=== PATIENT | male | born 1945 | race Caucasian/White ===

== ENCOUNTER 2024-03-22 16:15 | Outpatient (RCR) | payer MEDICARE, OTHER, SELFPAY | END 2024-03-22 23:59 | disposition home or self-care (01) | LOC: PURB 16:15 | PROVIDERS: ATTENDING PHYSICIAN Internal Medicine Pulmonary Disease; FAMILY PHYSICIAN Family Medicine | DX: I27.20 Pulmonary hypertension, unspecified (principal) | CPT/HCPCS: G0237 ==

== ENCOUNTER 2024-05-15 12:14 | Emergency (ER) | payer MEDICARE, OTHER, SELFPAY ==
[2024-05-15 12:19] VITALS: BP 115/77
--- NOTE | 2024-05-15 15:21 | ED.GENMED ---
History of Present Illness
<Julianna Franks COMMERCIAL RELATIONSHIP MANAGER - Last Filed: 05/15/24 17:59>
General
Chief Complaint: Male Genito-Urinary Symptoms
Source: patient and spouse
Exam Limitations: none
Time Seen by Provider: 05/15/24 14:11
Nursing documentation reviewed up to this point in time: agreed with
History of Present Illness
History of Present Illness:
79 yo male w h/o Lupus, pulmonary fibrosis w CPAP, HTN, presents with left groin pain. States he developed shingles in the groin, buttock thigh areas 10 weeks ago and has had pain and numbness in these areas since. states groin pain seems a
little worse past 2 weeks and they note swelling of the left leg. Denies any new SOB, denies CP.
Past History
<Julianna Franks, COMMERCIAL RELATIONSHIP MANAGER - Last Filed: 05/15/24 17:59>
Past History
ED Past Medical History: Other (Pulmonary fibrosis anemia, Lupus, Home O2, )
ED Past Surgical History: Orthopedic and Urological (Prostatectomy)
Social History
Tobacco: Non-smoker
Alcohol: None
Drug: None
Personal:
Living: with family
Employment: Retired
Family History
Family History: Other (Noncontributory)
Phy Exam
<Julianna Franks, COMMERCIAL RELATIONSHIP MANAGER - Last Filed: 05/15/24 17:59>
Physical Exam
Physical Exam:
GENERAL: No acute distress. A&Ox3.
CONSTITUTIONAL: Afebrile.
EYES: clear, conjunctivae normal
ENMT: moist mucus membranes, Pharynx nl
RESPIRATORY: Regular respirations, nonlabored, lungs clear.
CARDIOVASCULAR: Regular rate and rhythm, no murmurs, no rubs.
GI: Soft, nontender, normal BS
: condom catheter with clear yellow urine in bag
MUSCULOSKELETAL: No palpable masses, no tenderness to palpation entire groin area, hip, pelvis. Full ROM of LLE without pain. Left leg appears a bit more swollen in thigh and knee areas than right leg. Pedal pulses 2/4. Feet warm. Well perfused.
SKIN: Warm, dry, pink
PSYCH: Normal mood and affect. Well kept, interactive and appropriate
NEUROLOGIC: Awake, alert and oriented. No focal neurological deficits
Course
<Julianna Franks COMMERCIAL RELATIONSHIP MANAGER - Last Filed: 05/15/24 17:59>
Orders/Labs/Results
Orders:
Orders
05/15/24 15:25
US Periph Venous LOWER Ext LT Urgent
Comment:
Reason For Exam: swelling leg, groin pain
05/15/24 16:11
Acetaminophen [Tylenol] 1,000 mg PO NOW STA
Vital Signs
Initial and Last Documented VS:
Initial Vital Signs
Temp Pulse Resp BP Pulse Ox
98.3 F 88 20 115/77 97
05/15/24 12:19 05/15/24 12:19 05/15/24 12:19 05/15/24 12:19 05/15/24 12:19
Last Documented Vital Signs
Temp Pulse Resp BP Pulse Ox
98.3 F 88 20 115/77 97
05/15/24 12:19 05/15/24 12:19 05/15/24 12:19 05/15/24 12:19 05/15/24 12:19
<Paul Ruiz DO - Last Filed: 05/15/24 15:39>
Orders/Labs/Results
Orders:
Orders
05/15/24 15:25
US Periph Venous LOWER Ext LT Urgent
Comment:
Reason For Exam: swelling leg, groin pain
05/15/24 16:11
Acetaminophen [Tylenol] 1,000 mg PO NOW STA
Vital Signs
Initial and Last Documented VS:
Initial Vital Signs
Temp Pulse Resp BP Pulse Ox
98.3 F 88 20 115/77 97
05/15/24 12:19 05/15/24 12:19 05/15/24 12:19 05/15/24 12:19 05/15/24 12:19
Last Documented Vital Signs
Temp Pulse Resp BP Pulse Ox
98.3 F 88 20 115/77 97
05/15/24 12:19 05/15/24 12:19 05/15/24 12:19 05/15/24 12:19 05/15/24 12:19
<Julianna Franks COMMERCIAL RELATIONSHIP MANAGER - Last Filed: 05/15/24 17:59>
MDM/Problems Addressed
Differential Diagnosis Includes:
post herpetic neuralgia, inguinal hernia, DVT
MDM/Problems Addressed:
79 yo male w h/o Lupus, pulmonary fibrosis w CPAP, HTN, presents with left groin pain. States he developed shingles in the groin, buttock thigh areas 10 weeks ago and has had pain and numbness in these areas since. states groin pain seems a
little worse past 2 weeks and they note swelling of the left leg. Denies any new SOB, denies CP.
Case discussed with Dr. Ruiz who examined patient and agrees with ultrasound
5:40 p.m.
US neg for DVT
May be post herpetic neuralgia as I cannot elicit pain with ROM or palpitation, musculoskeletal exam is normal.
Pt OOB and dressed, ambulates as usual.
Chronic conditions affecting care: Other (Lupus, chronic pain, recent shingles)
<Julianna Franks COMMERCIAL RELATIONSHIP MANAGER - Last Filed: 05/15/24 17:59>
*Critical Care Note
Total Time (30-74mins, 75-104mins- exclusive of procedures): Not Applicable
ED Attending Note
<Julianna Franks COMMERCIAL RELATIONSHIP MANAGER - Last Filed: 05/15/24 17:59>
-
Portions of this chart may have been created with voice recognition software.� Occasional wrong word or��sound alike� substitutions may have occurred due to the inherent limitations of voice recognition software.
<Paul Beaver Sara, DO - Last Filed: 05/15/24 15:39>
ED Attending Note
Patient seen and examined by attending physician: Yes
I performed the substantive portion of visit, reviewed & personally made and approve the management plan that is documented in note by myself or SYLWIA.: Yes
I performed a history and physical exam of patient and discussed management with resident, I reviewed resident's note and agree with documented findings and plan of care.: Yes
ED Attending Note:
I evaluated the patient at bedside. The patient is chronically ill in appearance. The patient reports decree sensation however he clearly can feel pain on my examination to pinching the lateral aspect of the left thigh. He has no motor
dysfunction. Given the reported left lower extremity swelling will obtain ultrasound imaging.
Discharge Plan
Departure
Patient Disposition: Home (Routine Discharge)
Date of Disposition: 05/15/24
Time of Disposition: 17:45
Patient with high blood pressure during this ER visit?: No
Condition: Good
Discharge Problem:
Left inguinal pain
Prescriptions:
No Action
allopurinol 300 MG tablet
300 mg PO DAILY
doxazosin 2 MG tablet
2 mg PO DAILY
calcium citrate-vitamin D3 [Citracal + D Maximum] 1 EACH tablet
1 tab PO BID
levothyroxine 125 MCG tablet
125 mcg PO DAILY
hydroxychloroquine 200 MG tablet
200 mg PO BID
alendronate 70 MG tablet
70 mg PO GONZALES
amlodipine 10 MG tablet
10 mg PO DAILY
multivitamin with folic acid [Tab-A-Attila] 1 TABLET tablet
1 tab PO DAILY
Benlysta:
1 dose IV MONTHLY
prednisone 10 mg Tablet
10 mg PO Q48H
Rx Instructions:
alternated with 5 mg
bumetanide [Bumex] 2 mg Tablet
2 mg PO Q48H
Rx Instructions:
alternates with 1 mg
Vitamin C 1,000 mg Tablet Extended Release
1,000 mg PO Q12H
prednisone 5 mg Tablet
5 mg PO Q48H
Rx Instructions:
alternates with 10mg
mycophenolate mofetil 500 mg Tablet
1,000 mg PO Q12H
losartan 25 mg Tablet
25 mg PO DAILY
bumetanide [Bumex] 1 mg Tablet
1 mg PO Q48H
Rx Instructions:
alternateds with 2 mg
magnesium 200 mg Tablet
400 mg PO DAILY
cholecalciferol (vitamin D3) [Vitamin D3] 50 mcg (2,000 unit) Tablet
50 mcg PO DAILY
fluticasone furoate-vilanterol [Breo Ellipta] 100-25 mcg/dose Blister With Device
1 inh INHALATION NOON
Ofev 150 mg Capsule
150 mg PO Q12H
Xhance 93 mcg/actuation Aerosol Breath Activated
2 spray INTRANASAL DAILY
Dupixent Pen
1 sc IM Q2W
Referrals:
Rosalba Alcantara MD [Family Provider] - Call in 1-3 days for appt
Activity Restrictions/Additional Instructions:
As we discussed, your Ultrasound shows no clot.
The pain you are having may be due to 'post herpetic neuralgia,' please discuss with your doctor.
Your musculo-skeletal exam is normal and I see no indication of inguinal hernia, groin strain or broken bone.
Interventions
Interventions:
*Risk Screen - Suicide Last Done: 05/15/24 12:19
*General Assessment Last Done: 05/15/24 12:19
*Neglect/Abuse Screening Last Done: 05/15/24 12:19
ED- Fall Risk Assessment Last Done: 05/15/24 14:32
*ED COVID-19 Vaccine History Last Done: 05/15/24 14:32
ED-Male Genitourinary Assessment Last Done: 05/15/24 14:34
Discharge Date and Time
Print Language: MOROCCAN
[2024-05-15] MEDS: TYLENOL 1000 MG PO (16:14)
== END 2024-05-15 18:14 | disposition home or self-care (01) ==
LOC: EMR 12:14
PROVIDERS: EMERGENCY PHYSICIAN Emergency Medicine; FAMILY PHYSICIAN Family Medicine
DX: R10.32 Left lower quadrant pain (principal); M79.652 Pain in left thigh; R20.0 Anesthesia of skin; M79.89 Other specified soft tissue disorders; M32.9 Systemic lupus erythematosus, unspecified; J84.10 Pulmonary fibrosis, unspecified; I10 Essential (primary) hypertension; B02.9 Zoster without complications; D64.9 Anemia, unspecified; G47.30 Sleep apnea, unspecified; M06.9 Rheumatoid arthritis, unspecified; E03.9 Hypothyroidism, unspecified; G89.29 Other chronic pain; Z85.46 Personal history of malignant neoplasm of prostate; Z99.81 Dependence on supplemental oxygen; Z90.79 Acquired absence of other genital organ(s); Z88.1 Allergy status to other antibiotic agents; Z91.018 Allergy to other foods; Z91.048 Other nonmedicinal substance allergy status
CPT/HCPCS: 99284; 93971

== ENCOUNTER 2024-06-23 16:15 | Outpatient (RCR) | payer MEDICARE, OTHER, SELFPAY | END 2024-06-27 10:07 | disposition home or self-care (01) | LOC: PURB 16:15 | PROVIDERS: ATTENDING PHYSICIAN Internal Medicine Pulmonary Disease; FAMILY PHYSICIAN Family Medicine | DX: J84.9 Interstitial pulmonary disease, unspecified (principal); I27.20 Pulmonary hypertension, unspecified | CPT/HCPCS: G0239 ==

== ENCOUNTER 2024-07-28 16:15 | Outpatient (RCR) | payer MEDICARE, OTHER, SELFPAY | END 2024-07-28 17:00 | disposition home or self-care (01) | LOC: PURB 16:15 | PROVIDERS: ATTENDING PHYSICIAN Internal Medicine Pulmonary Disease; FAMILY PHYSICIAN Family Medicine | DX: J84.10 Pulmonary fibrosis, unspecified (principal) | CPT/HCPCS: G0239 ==

== ENCOUNTER 2024-08-16 16:15 | Outpatient (RCR) | payer MEDICARE, OTHER, SELFPAY | END 2024-08-16 23:59 | disposition home or self-care (01) | LOC: PURB 16:15 | PROVIDERS: ATTENDING PHYSICIAN Internal Medicine Pulmonary Disease; FAMILY PHYSICIAN Family Medicine | DX: I27.20 Pulmonary hypertension, unspecified (principal) | CPT/HCPCS: G0239 ==

== ENCOUNTER 2024-09-08 16:15 | Outpatient (RCR) | payer MEDICARE, OTHER, SELFPAY | END 2024-09-08 23:59 | disposition home or self-care (01) | LOC: PURB 16:15 | PROVIDERS: ATTENDING PHYSICIAN Internal Medicine Pulmonary Disease; FAMILY PHYSICIAN Family Medicine | DX: J84.10 Pulmonary fibrosis, unspecified (principal) | CPT/HCPCS: G0239 ==

== ENCOUNTER 2024-09-29 16:15 | Outpatient (RCR) | payer MEDICARE, OTHER, SELFPAY | END 2024-10-19 13:51 | disposition home or self-care (01) | LOC: PURB 16:15 | PROVIDERS: ATTENDING PHYSICIAN Internal Medicine Pulmonary Disease; FAMILY PHYSICIAN Family Medicine | DX: J84.10 Pulmonary fibrosis, unspecified (principal); I27.20 Pulmonary hypertension, unspecified | CPT/HCPCS: G0239 ==

== ENCOUNTER 2024-10-04 23:40 | Inpatient (IN) | payer MEDICARE, OTHER, SELFPAY ==
[2024-10-04 17:49] VITALS: BP 90/53
--- NOTE | 2024-10-04 17:56 | ED.GENMED ---
ED Provider Triage
<Pam Regalado PA-C - Last Filed: 10/04/24 17:58>
-
Patient seen by provider in Triage?: Seen in Triage
Attestation: A medical screening examination has been initiated by a qualified medical provider. Based on the assessment performed at this time, it has been determined that an emergent medical condition may exist and the patient has been informed
that further medical evaluation and possible additional diagnostic testing may be needed.
HPI: 79yoM here with decreased urination. Only urinated once today. Also c/o abd distention x several weeks and a weight gain of 15 pounds. C/o SOB. Typically on 3L NC at home which he increased to 5L NC. Follows with nephrology at [facility].
GENERAL: Alert , in no apparent distress
EYE: No visual abnormalities.
NECK: Trachea midline
ENT: No visible abnormalities.
LUNGS: No acute respiratory distress
NEUROLOGICAL: Alert and oriented
SKIN: Skin intact. No visible changes.
MUSCULOSKELETAL: Moving extremities normally
PSYCH: Normal and appropriate interaction.
This is a medical evaluation conducted in person to initiate diagnostic evaluation and provide initial therapeutics. Please see further documentation by the treating clinician.
Cardiac labs, bladder scan, EKG, UA, and CXR ordered.
History of Present Illness
<Pam Regalado PA-C - Last Filed: 10/04/24 17:58>
General
Chief Complaint: Male Genito-Urinary Symptoms
Time Seen by Provider: 10/04/24 18:55
<Raul Caal MD - Last Filed: 10/04/24 22:47>
General
Source: patient and spouse
Exam Limitations: none
History of Present Illness
History of Present Illness:
Patient with 2 weeks of weight gain, 15 pounds, abdominal distention which is causing secondary increase shortness of breath especially when lying flat. Decreased urination. Has not had hardly any urine output in the last 48 hours. No true
abdominal pain no fever. Symptoms are moderate in nature
Past History
<Pam Regalado PA-C - Last Filed: 10/04/24 17:58>
Past History
ED Past Medical History: Other (Pulmonary fibrosis anemia, Lupus, Home O2, )
ED Past Surgical History: Orthopedic and Urological (Prostatectomy)
Social History
Tobacco: Non-smoker
Alcohol: None
Drug: None
Personal:
Living: with family
Employment: Retired
Family History
Family History: Other (Noncontributory)
Review of Systems
<Raul Caal MD - Last Filed: 10/04/24 22:47>
Review of Systems
All Other Systems: Not applicable
Constitutional: Denies fever
Respiratory: Reports trouble breathing
Cardiac: Denies chest pain or syncope
ABD/GI: Reports other (Distention)
Phy Exam
<Raul Caal MD - Last Filed: 10/04/24 22:47>
Physical Exam
Physical Exam:
GENERAL: Alert and oriented. Chronically ill-appearing. Chronic oxygen therapy. However no severe respiratory distress at rest. Able to speak well
EYE: Orbits normal.
NECK: Supple, no significant adenopathy.
ENT: Pharynx without erythema
CARDIAC: Regular rate and rhythm without any obvious murmurs.
LUNGS: No distress. Crackles and rales both bases. Slightly distant breath sounds.
ABDOMEN: Soft, without focal tenderness or distention. Mildly distended but nonlocalizing. No rebound or guarding no mass or hernia
NEUROLOGICAL: Alert and oriented , grossly non-focal
SKIN: Warm and dry, no rash or lesion, no discoloration, skin intact.
MUSCULOSKELETAL: Moderate bilateral lower extremity pitting edema
PSYCH: Normal and appropriate interaction.
Course
<Pam Regalado PA-C - Last Filed: 10/04/24 17:58>
Orders/Labs/Results
Orders:
Orders
10/04/24 17:54
Electrocardiogram (*1) Urgent
Reason for Study: Shortness of Breath
EKG- Treatment ONCE
10/04/24 17:55
Urinalysis Reflex To Culture Urgent
CR Chest - 2 Views Urgent
Comment:
Reason For Exam: SOB
10/04/24 17:56
Bladder Scan- Treatment ONCE
10/04/24 18:11
Complete Blood Count/With Diff Urgent
Comprehensive Metabolic Panel Urgent
NT-proBNP Urgent
Troponin I Urgent
10/04/24 19:11
IV Insert/Care/Rem.- Treatment PRN
10/04/24 19:23
US Renal With Bladder Urgent
Reason For Exam: Eval forurinary retention/distended bladder/ascitES
10/04/24 20:40
Bumetanide [Bumex] 2 mg IV NOW STA
10/04/24 20:44
Bumetanide [Bumex] 1 mg IV NOW STA
10/04/24 22:00
Flush (0.9% Sodium Chloride) [Flush (Nss)] See Dose Instructions IV PER PROTOCOL
10/04/24 22:38
Hydrocortisone Sod Succinate [Solu-Cortef] 200 mg IV NOW STA
10/04/24 22:45
Bumetanide [Bumex] 1 mg IV NOW STA
Abnormal Lab Results
10/04/24
18:11
RBC 3.11 L 10^6/uL
(4.70-6.10)
Hgb 8.7 L g/dL
(13.0-18.0)
Hct 29.6 L %
(39.0-52.0)
MCV 95.2 H fL
(80.0-94.0)
MCHC 29.4 L g/dL
(33.0-37.0)
RDW 18.5 H %
(11.5-14.5)
Plt Count 123 L 10^3/uL
(130-400)
MPV 11.6 H fL
(7.4-10.4)
Abs Immat Gran (auto) 0.1 H 10^3/uL
(0-0.05)
Absolute Lymphs (auto) 0.3 L 10^3/uL
(1.2-3.4)
Immature Gran % 0.8 H %
(0-0.5)
Neutrophils % 87.2 H %
(42.2-75.2)
Lymphocytes % 4.8 L %
(20.5-51.1)
Sodium 132 L mmol/L
(135-145)
Potassium 5.5 H mmol/L
(3.5-5.1)
Carbon Dioxide 20 L mmol/L
(22-30)
BUN 96 H mg/dl
(9-20)
Creatinine 4.7 H* mg/dL
(0.7-1.3)
Glucose 181 H mg/dl
(70-99)
Calcium 7.9 L mg/dl
(8.4-10.2)
AST 16 L U/L
(17-59)
Troponin I 0.070 H* ng/ml
Total Protein 5.0 L g/dl
(6.3-8.2)
Albumin 3.2 L g/dl
(3.5-5.0)
10/04/24 18:11
10/04/24 18:11
Vital Signs
Initial and Last Documented VS:
Initial Vital Signs
Temp Pulse Resp BP Pulse Ox
98.2 F 126 18 90/53 97
10/04/24 17:49 10/04/24 17:49 10/04/24 17:49 10/04/24 17:49 10/04/24 17:49
Last Documented Vital Signs
Temp Pulse Resp BP Pulse Ox
98.4 F 128 21 97/74 94
10/04/24 22:25 10/04/24 22:15 10/04/24 22:15 10/04/24 22:00 10/04/24 22:15
<Raul Caal MD - Last Filed: 10/04/24 22:47>
Orders/Labs/Results
Orders:
Orders
10/04/24 17:54
Electrocardiogram (*1) Urgent
Reason for Study: Shortness of Breath
EKG- Treatment ONCE
10/04/24 17:55
Urinalysis Reflex To Culture Urgent
CR Chest - 2 Views Urgent
Comment:
Reason For Exam: SOB
10/04/24 17:56
Bladder Scan- Treatment ONCE
10/04/24 18:11
Complete Blood Count/With Diff Urgent
Comprehensive Metabolic Panel Urgent
NT-proBNP Urgent
Troponin I Urgent
10/04/24 19:11
IV Insert/Care/Rem.- Treatment PRN
10/04/24 19:23
US Renal With Bladder Urgent
Reason For Exam: Eval forurinary retention/distended bladder/ascitES
10/04/24 20:40
Bumetanide [Bumex] 2 mg IV NOW STA
10/04/24 20:44
Bumetanide [Bumex] 1 mg IV NOW STA
10/04/24 22:00
Flush (0.9% Sodium Chloride) [Flush (Nss)] See Dose Instructions IV PER PROTOCOL
10/04/24 22:38
Hydrocortisone Sod Succinate [Solu-Cortef] 200 mg IV NOW STA
10/04/24 22:45
Bumetanide [Bumex] 1 mg IV NOW STA
Abnormal Lab Results
10/04/24
18:11
RBC 3.11 L 10^6/uL
(4.70-6.10)
Hgb 8.7 L g/dL
(13.0-18.0)
Hct 29.6 L %
(39.0-52.0)
MCV 95.2 H fL
(80.0-94.0)
MCHC 29.4 L g/dL
(33.0-37.0)
RDW 18.5 H %
(11.5-14.5)
Plt Count 123 L 10^3/uL
(130-400)
MPV 11.6 H fL
(7.4-10.4)
Abs Immat Gran (auto) 0.1 H 10^3/uL
(0-0.05)
Absolute Lymphs (auto) 0.3 L 10^3/uL
(1.2-3.4)
Immature Gran % 0.8 H %
(0-0.5)
Neutrophils % 87.2 H %
(42.2-75.2)
Lymphocytes % 4.8 L %
(20.5-51.1)
Sodium 132 L mmol/L
(135-145)
Potassium 5.5 H mmol/L
(3.5-5.1)
Carbon Dioxide 20 L mmol/L
(22-30)
BUN 96 H mg/dl
(9-20)
Creatinine 4.7 H* mg/dL
(0.7-1.3)
Glucose 181 H mg/dl
(70-99)
Calcium 7.9 L mg/dl
(8.4-10.2)
AST 16 L U/L
(17-59)
Troponin I 0.070 H* ng/ml
Total Protein 5.0 L g/dl
(6.3-8.2)
Albumin 3.2 L g/dl
(3.5-5.0)
10/04/24 18:11
10/04/24 18:11
Vital Signs
Initial and Last Documented VS:
Initial Vital Signs
Temp Pulse Resp BP Pulse Ox
98.2 F 126 18 90/53 97
10/04/24 17:49 10/04/24 17:49 10/04/24 17:49 10/04/24 17:49 10/04/24 17:49
Last Documented Vital Signs
Temp Pulse Resp BP Pulse Ox
98.4 F 128 21 97/74 94
10/04/24 22:25 10/04/24 22:15 10/04/24 22:15 10/04/24 22:00 10/04/24 22:15
<Raul Caal MD - Last Filed: 10/04/24 22:47>
MDM/Problems Addressed
Differential Diagnosis Includes:
Progressive renal failure. Will check bladder scan. If postrenal will need a Martinez. Likely also in a component of heart failure. Chest x-ray pending. Will need medical admission. Anemia is likely dilutional
<Raul Caal MD - Last Filed: 10/04/24 22:47>
*Radiology
Radiology exam reviewed: radiology read reviewed (Pulmonary edema. Small volume ascites. No urinary retention. Mass in the right kidneys medical renal disease.)
*Pulse Oximetry
Patient hypoxic: yes
*EKG
Interpreted by ED Provider?: Yes
Interpretation: abnormal
Comparison EKG: changes noted
Heart Rate: 128
Rate: tachycardiac
Rhythm: sinus
Mcgrath: left axis deviation
QRS Pattern: right bundle branch block
Ischemia: non-specific ST changes
*Critical Care Note
Total Time (30-74mins, 75-104mins- exclusive of procedures): 45
Data Reviewed
Review of Other/Old Records Reveals: Labs, Records, Radiology Studies and Testing
<Raul Caal MD - Last Filed: 10/04/24 22:47>
Update Note
Update Note:
2039... Patient with very little urine output today. His Bumex had gone to 2 mg and 1 last week. Contacted nephrology awaiting callback. Will give him 2 mg of Bumex now. It makes more sense to have this patient at [facility] where all his physicians
are. Patient and are comfortable with this approach.
[facility] did not accept the patient. They have no beds felt he could be medically managed here. Lengthy discussion with nephrology and with cardiology and hospitalist. I do suspect he is in atrial flutter. However we cannot rate control him now.
Because of blood pressure. No pressors at this time. Push Bumex further.
ED Attending Note
<Pam Regalado PA-C - Last Filed: 10/04/24 17:58>
-
Portions of this chart may have been created with voice recognition software.� Occasional wrong word or��sound alike� substitutions may have occurred due to the inherent limitations of voice recognition software.
Discharge Plan
Departure
Patient Disposition: Admit
Date of Disposition: 10/04/24
Time of Disposition: 20:33
Presentation/result/management discussed w/ accepting MD/DO: Hospitalist
Discharge Problem:
Acute renal failure, CHF, Chronic lung disease, Chronic renal insufficiency
Prescriptions:
No Action
allopurinol 300 MG tablet
300 mg PO DAILY
doxazosin 2 MG tablet
2 mg PO DAILY
calcium citrate-vitamin D3 [Citracal + D Maximum] 1 EACH tablet
2 tab PO BID
levothyroxine 125 MCG tablet
125 mcg PO DAILY
hydroxychloroquine 200 MG tablet
200 mg PO BID
Benlysta:
1 dose IV MONTHLY
prednisone 10 mg Tablet
5 mg PO DAILY
Vitamin C 1,000 mg Tablet Extended Release
1,000 mg PO DAILY
bumetanide [Bumex] 1 mg Tablet
1 mg PO DAILY
cholecalciferol (vitamin D3) [Vitamin D3] 50 mcg (2,000 unit) Tablet
50 mcg PO DAILY
fluticasone furoate-vilanterol [Breo Ellipta] 100-25 mcg/dose Blister With Device
1 inh INHALATION R DAILY@1200
Ofev 150 mg Capsule
150 mg PO DAILY
Dupixent Pen
1 sc IM QMONTH
Aranesp
1 dose Q2W
losartan 50 mg Tablet
50 mg PO BID
amlodipine 5 mg Tablet
5 mg PO DAILY
omeprazole 40 mg Capsule,Delayed Release(Dr/Ec)
40 mg PO DAILY
aspirin 81 mg Tablet,Chewable
81 mg PO HS
azelastine 137 mcg (0.1 %) [place],Non-Aerosol
1 spray INTRANASAL BID
calcitriol 0.25 mcg Capsule
0.25 mcg PO MOWEFR
PreserVision AREDS 4,296 mcg-226 mg-90 mg Capsule
1 cap PO DAILY
Tyvaso 1.74 mg/2.9 mL (0.6 mg/mL) Solution For Nebulization
20 inh INHALATION R QID
Prolia 60 mg/mL Syringe
60 mg SC [id number]
Referrals:
Rosalba Alcantara MD [Family Provider] -
Interventions
Interventions:
*Risk Screen - Suicide Last Done: 10/04/24 17:49
*General Assessment Last Done: 10/04/24 17:49
*Neglect/Abuse Screening Last Done: 10/04/24 17:49
*ED COVID-19 Vaccine History Last Done: 10/04/24 17:49
ED-Male Genitourinary Assessment Last Done: 10/04/24 19:54
Discharge Date and Time
Print Language: TURKISH
[2024-10-04 18:22] LABS: % Basophils 0.2 % (0-2); % Eosinophils 0.5 % (0-6); % Immature Granulocytes 0.8 % (0-0.5); % Lymphocytes 4.8 % (20.5-51.1); % Monocytes 6.5 % (1.7-9.3); % Neutrophils 87.2 % (42.2-75.2); Absolute Immature Granulocytes 0.1 10^3/uL (0-0.05); Absolute Lymphocytes 0.3 10^3/uL (1.2-3.4); Absolute Monocytes 0.4 10^3/uL (0.1-0.6); Absolute Neutrophils 5.5 10^3/uL (1.4-6.5); Hematocrit 29.6 % (39.0-52.0); Hemoglobin 8.7 g/dL (13.0-18.0); Mean Corp Hgb Conc. 29.4 g/dL (33.0-37.0); Mean Corpuscular Volume 95.2 fL (80.0-94.0); Mean Platelet Volume 11.6 fL (7.4-10.4); Nucleated Red Blood Cells % 0 % (-); Platelet Count 123 10^3/uL (130-400); Red Blood Cell Count 3.11 10^6/uL (4.70-6.10); Red Cell Dist. Width 18.5 % (11.5-14.5); White Blood Cell Count 6.3 10^3/uL (4.8-10.8)
[2024-10-04 18:37] LABS: ALT (SGPT) 19 U/L (0-50); AST (SGOT) 16 U/L (17-59); Albumin 3.2 g/dl (3.5-5.0); Alkaline Phosphatase 51 U/L (38-126); Blood Urea Nitrogen 96 mg/dl (9-20); Calcium 7.9 mg/dl (8.4-10.2); Carbon Dioxide 20 mmol/L (22-30); Chloride 101 mmol/L (98-107); Glucose 181 mg/dl (70-99); Potassium 5.5 mmol/L (3.5-5.1); Sodium 132 mmol/L (135-145); Total Bilirubin 0.4 mg/dl (0.2-1.3); eGFR 12.03
[2024-10-04 18:45] LABS: NT-proBNP 15600 pg/ml
[2024-10-04 19:20] VITALS: BMI 31.7
[2024-10-04 20:22] VITALS: BP 103/76
[2024-10-04 20:42] VITALS: BP 106/79
[2024-10-04] MEDS: BUMEX 1 MG IV ×2 (20:54→23:21)
[2024-10-04 21:00] VITALS: BP 106/80
[2024-10-04 22:00] VITALS: BP 97/74
--- NOTE | 2024-10-04 22:19 | HPS.HSE ---
Family Physician
-
Family Physician: Rosalba Alcantara
Chief Complaint
-
no urine output and abdominal distension
History of Present Illness
Patient is a 79-year-old male with past medical history significant for hypertension, CKD III, pulmonary fibrosis, lupus, rheumatoid arthritis, prostate cancer and gout who presented to [facility] ED for evaluation of abdominal distension and no
urine production. Patient states that in past 3 weeks he has gain approximately 30 pounds. He has noted increased SOB with increased abdominal distension. Patient denies any fever, chills, cough, chest pain, nausea, vomiting, constipation, diarrhea
or urinary symptoms.
Medical History
Past Medical History
Past Medical History: Reports Other
Additional Past Medical History:
hypertension
CKD III
pulmonary fibrosis
lupus
rheumatoid arthritis
prostate cancer
gout
Past Surgical History: Reports Other
Additional Past Surgical History:
prostatectomy (2005)
umbilical hernia repair (2019)
left inguinal hernia repair (2021)
Social History
Tobacco: Non-smoker
Alcohol: None
Drug: None
Personal:
Living: With Family
Employment: Retired
Family History
Family History: Other (Mother: at 51 cerebral hemorrhage; Father: at 68 colon cancer; Brother: at 54 from HF)
Allergies / Home Medications
Allergies reflects when Allergies were last updated in [facility].
Home Medications with original date entered in [facility]
Allergy/Medication List:
Allergies
Allergy/AdvReac Type Severity Reaction Status Date / Time
amoxicillin Allergy upset Verified 10/04/24 17:55
stomach
house dust Allergy Sneezing, Verified 10/04/24 17:55
Nasal
Congestion
pollen extracts Allergy Sneezing, Verified 10/04/24 17:55
Runny Nose
Food Allergy Allergy GI Distress Uncoded 10/04/24 17:55
Home Medications
allopurinol 300 mg tablet 300 mg PO DAILY Gout 05/17/19
calcium 315 mg (as citrate)-vitamin D3 6.25 mcg (250 unit) tablet (Citracal + Vitamin D Maximum) 2 tab PO BID Supplement 05/17/19
doxazosin 2 mg tablet 2 mg PO DAILY Blood pressure 05/17/19
levothyroxine 125 mcg tablet 125 mcg PO DAILY Thyroid 05/17/19
hydroxychloroquine 200 mg tablet 200 mg PO BID Antirheumatic, Disease Modifying 08/15/20
Benlysta: 1 dose IV MONTHLY LUPUS 06/19/21
Dupixent Pen 1 sc IM QMONTH 06/17/22
ascorbic acid (vitamin C) 1,000 mg tablet,extended release (Vitamin C ER) 1,000 mg PO DAILY 06/17/22
bumetanide 1 mg tablet 1 mg PO DAILY 06/17/22
cholecalciferol (vitamin D3) 50 mcg (2,000 unit) tablet (Vitamin D3) 50 mcg PO DAILY 06/17/22
fluticasone furoate 100 mcg-vilanterol 25 mcg/dose inhalation powder (Breo Ellipta) 1 inh inhalation R DAILY@1200 06/17/22
nintedanib 150 mg capsule (Ofev) 150 mg PO DAILY 06/17/22
prednisone 10 mg tablet 5 mg PO DAILY 06/17/22
Aranesp 1 dose Q2W 10/04/24
amlodipine 5 mg tablet 5 mg PO DAILY 10/04/24
aspirin 81 mg chewable tablet 81 mg PO HS 10/04/24
azelastine 137 mcg (0.1 %) nasal spray 1 spray intranasal BID 10/04/24
calcitriol 0.25 mcg capsule 0.25 mcg PO MOWEFR 10/04/24
denosumab 60 mg/mL subcutaneous syringe (Prolia) 60 mg SC [id number] 10/04/24
losartan 50 mg tablet 50 mg PO BID 10/04/24
omeprazole 40 mg capsule,delayed release 40 mg PO DAILY 10/04/24
treprostinil 1.74 mg/2.9 mL (0.6 mg/mL) solution for nebulization (Tyvaso) 20 inh inhalation R QID 10/04/24
vitamins A,C,T-jkzl-yxyndd 4,296 mcg-226 mg-90 mg capsule (PreserVision AREDS) 1 cap PO DAILY 10/04/24
Review of Systems
-
History Source: Patient
Constitutional: Reports Weight Gain (30 pounds in 3 weeks)
EENT: Reports No Symptoms
Respiratory: Reports Other (shortness of breath)
Cardiac: Reports No Symptoms
Abdomen/GI: Reports Other (abdominal distension)
: Reports Other (anuria )
Musculoskeletal: Reports Edema (bilateral lower extremities )
Skin: Reports No Symptoms
Neurological: Reports No Symptoms
Endocrine: Reports No Symptoms
Hematologic/Lymphatic: Reports No Symptoms
Psych: Reports No Symptoms
Physical Exam
Vital Signs
Vital Signs
Temp Pulse Resp BP Pulse Ox
98.3 F 128 20 106/80 96
10/04/24 19:29 10/04/24 21:45 10/04/24 21:45 10/04/24 21:00 10/04/24 21:45
Physical Exam
General: Well Developed, Well Nourished, No Apparent Distress, Comfortable and Conversant
HEENT: NormoCephalic, Moist mucous membranes, Atraumatic, Cornlea Conjunctivae, Nose Appears Normal and Ears Appear Normal
Respiratory: Clear
Cardiac: S1/S2 and Regular Rhythm; No Murmur, Rub or Gallop
Breast: Deferred by me
GI: Soft, Non Tender, Non Distended and Normal Bowel Sounds; No Organomegaly
Rectal: Deferred by Provider
Genito-urinary: Deferred by me
Musculoskeletal: No Clubbing, No Cyanosis and No Edema
Skin: Warm and IV/Catheter Site; No Rash
Neuro: Awake, Alert, AO x 3 and Nonfocal/grossly intact
Psych: Calm and Intact Judgment/Insight
Laboratory Results
-
10/04/24 18:11
10/04/24 18:11
Laboratory Results
Total Bilirubin 0.4 mg/dl (0.2-1.3) 10/04/24 18:11
AST 16 U/L (17-59) L 10/04/24 18:11
ALT 19 U/L (0-50) 10/04/24 18:11
Alkaline Phosphatase 51 U/L (38-126) 10/04/24 18:11
Troponin I 0.070 ng/ml H* 10/04/24 18:11
Data Reviewed
-
Diagnostic Radiology: Report Reviewed by me (CXR: Mild pulmonary edema with small bilateral pleural effusions)
Ultrasound: Report Reviewed by me (Renal US)
Medical Tests (Nuc Med, Echo, EKG etc): Report Reviewed by me (EKG: SINUS TACHYCARDIA RIGHT BUNDLE BRANCH BLOCK LEFT ANTERIOR FASCICULAR BLOCK BIFASCICULAR BLOCK )
Lab Data: Labs Reviewed by me
Impression/Plan
-
IMPRESSION/PLAN:
#Cardiorenal syndrome
anuric, no urinary retention
hyperkalemia
suspect new onset rigth HF vs diastolic vs. BIV CHF
volume overloaded
- admit to ICU
- Consult Pulmonary
- Consult cardiology
- Consult nephrology
- daily weights
- daily BMP
- IV hydrocortisone 100mg q8
#CKD III
BUN 96, Creat 4.7
- continue aranesp
#hypertension
- hold amlodipine, doxazosin, and losartan
#pulmonary fibrosis
- continue treprostinil
#lupus
#rheumatoid arthritis
- hold benlysta
- hold prednisone
#hypothyroidism
- continue levothyroxine
#GERD
- continue omeprazole
#prostate cancer
prostatectomy 2005
#gout
- hold allopurinol
Code Status: DNR
DVT Prophylaxis: Heparin Sq
[2024-10-04 23:00] VITALS: BP 102/76
--- NOTE | 2024-10-04 23:06 | W.PN.UPDATE ---
Update Note
Progress Note Update
This note serves as an addendum to the H&P by wire cutter SYLWIA Netta Leiva
HPI
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
- Progresive SoB with minimal cough for last 2 weeks
- Orthopnea
- mild chest pressure with exertion
- decreased urination; hardly had any urine output in the last 48 hours.
- 2 weeks of weight gain, 15 pounds, abdominal distention
- No true abdominal pain no fever.
ROS: He denies any fevers or chills.
PHX: as above
Vital Signs
Temp Pulse Resp BP Pulse Ox
98.4 F 128 21 97/74 94
10/04/24 22:25 10/04/24 22:15 10/04/24 22:15 10/04/24 22:00 10/04/24 22:15
PE
Gen: Not toxic loking
HEENT: anicteric
Neck: supple
Lungs: symmetric AE
Cor: RRR S1 s2
Abdomen: distended abdomen
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
MS: b/l Hyun 3 plus pitting edema
Psych: normal mood and affect
Laboratory Tests
06/09/22 10/04/24
09:00 18:11
WBC 7.7 6.3
Hgb 10.5 L 8.7 L
Sodium 140
Potassium 3.8 5.5 H
Chloride 105 101
BUN 40 H 96 H
Creatinine 2.2 H 4.7 H*
eGFR 12.03
Troponin I 0.070 H*
ProBNP 48572
US Renal with Bladder
1). There is no urinary retention
2). There is small volume ascites
3).There is a subcentimeter rim calcified hypoechoic mass in the upper pole the right kidney. This mass is probably benign and most likely is a complex cyst as there are multiple additional cysts throughout both kidneys measuring up to 4.4 cm. If
clinically indicated, this rim calcified mass could be further evaluated with MRI
4).The kidneys are normal in size but diffusely coarse in echotexture consistent with medical renal disease
5). There is cholelithiasis with thickening of the gallbladder wall suggesting possible cholecystitis
EKG
SINUS TACHYCARDIA
RIGHT BUNDLE BRANCH BLOCK
LEFT ANTERIOR FASCICULAR BLOCK
BIFASCICULAR BLOCK
T WAVE ABNORMALITY, CONSIDER LATERAL ISCHEMIA
ABNORMAL ECG
WHEN COMPARED WITH ECG OF 19-JUN-2021 12:00,
QRS DURATION HAS INCREASED
T WAVE INVERSION NO LONGER EVIDENT IN INFERIOR LEADS
T WAVE INVERSION LESS EVIDENT IN ANTERIOR LEADS
T WAVE INVERSION NOW EVIDENT IN LATERAL LEADS
06/20/21 TTE
LVEF 60-65
Nl diastolic function
Mild TR
Last hospitalist admission: DATE OF ADMISSION: 06/21/2021 - DATE OF DISCHARGE: 06/21/2021
PRIMARY DIAGNOSIS: Shortness of breath due to progression of pulmonary fibrosis
SECONDARY DIAGNOSES:
1. Sleep apnea.
2. Hypothyroidism. Continue Synthroid.
3. History of rheumatoid arthritis. Continue leflunomide.
4. SLE, continue Plaquenil and Neulasta monthly.
5. History of prostate cancer. Continue doxazosin.
6. Essential hypertension. Continue with Norvasc.
7. History of gout. Continue allopurinol.
8. Chronic kidney disease stage 3. Creatinine stable at 1.6.
ASSESSMENT & PLAN
Progressive Garcia and orthopnea
Anuric ROBIN due to Cardiorenal syndrome, Rt HF , new onset atrial arrhythmias : No urinary retention; Not obstructed, Unli
Hyperkalemia due to to ROBIN , HX CKD3b/4 HX
suspect RHF due to advance or end stage severe PHT ( PASP 60 in 2020)
Suspect new onset acute HF likely Rt Hear failure vs Diastolic vs BiV CHF in setting of new atrial arrthmias
Elevated TPNI : NSTEMI vs NIMI
Clinically volume overload ( Wt gain and Leg edenma)
Acute on chr hypotension
Rim calcified hypoechoic mass in the upper pole the right kidney suspect complex cyst
- Hold Losartan
- ECHO in AM
- Renal consulted and suggest s/p Bumex 1 mg plus 1 mg
- CBC Cardiology consult - ER d/w Card - avoid Pressor due to PHT and risk of tachycardia and drop in firther cardiac outout
- daily Wt, daily BMP
Hypotension concern with adrenal insufficiency due to stress
HX steroid dependent rheumatoid arthritis
- IV Hydrocortisone 200 mg now then 100mg q8h then wean off to base lien PO prednisone dose
Sleep Apnea
-continue home CPAP HS
Hypothyroidism
-Continue levothyroxine
Rheumatoid arthritis
Lupus
- hold Plaquenil
HX prostate cancer
Gout
- hold allopurinol
Anemia
-Stable
Poor prognosis
DVT Px: SQH
DNR per patient in th presence of
ICU
Total Critical Care Time___75 __ minutes.
I was immediately available to the patient and staff. I personally examined, reviewed labs, diagnostic images/reports, interpretations, treatment plans, discussed patient care with other providers and family or caregivers (if patient is unable to
make decisions), entered orders as appropriate and documented the medical record.
[2024-10-04] MEDS: SOLU-CORTEF 200 MG IV (23:21)
[2024-10-04] MEDS: FLUSH (NSS) 1 FLUSH IV (23:22)
[2024-10-05] VITALS (41 sets, daily range): BP systolic 87–134; BP diastolic 66–90; BMI 30.2
[2024-10-05] MEDS: HEPARIN 5000 UNITS SC ×2 (02:10→08:49)
--- NOTE | 2024-10-05 02:15 | PTCARENOTE ---
Pt arrived from ED via stretcher. aaox3, cooperative, at the bedside. ST on monitor, HR:120s. pox 95% on 5L NC. Pt denies cp or dizziness. Denies urge to urinate at this time, Bladder scanned for 300ml. Pt repositioned in bed and wiped with CHG
wipes. oriented to room. Pt's own cpap applied. call hayes within reach.
[2024-10-05] MEDS: SYNTHROID 125 MCG PO (05:06)
[2024-10-05 05:18] LABS: % Basophils 0.2 % (0-2); % Lymphocytes 3.9 % (20.5-51.1); % Monocytes 1.4 % (1.7-9.3); % Neutrophils 93.5 % (42.2-75.2); Absolute Immature Granulocytes 0.1 10^3/uL (0-0.05); Absolute Lymphocytes 0.2 10^3/uL (1.2-3.4); Absolute Monocytes 0.1 10^3/uL (0.1-0.6); Absolute Neutrophils 4.8 10^3/uL (1.4-6.5); Hematocrit 29.1 % (39.0-52.0); Hemoglobin 8.6 g/dL (13.0-18.0); Mean Corp Hgb Conc. 29.6 g/dL (33.0-37.0); Mean Corpuscular Hgb 27.7 pg (27.0-31.0); Mean Corpuscular Volume 93.9 fL (80.0-94.0); Mean Platelet Volume 11.1 fL (7.4-10.4); Nucleated Red Blood Cells % 0.4 % (-); Platelet Count 115 10^3/uL (130-400); Red Cell Dist. Width 18.5 % (11.5-14.5); White Blood Cell Count 5.1 10^3/uL (4.8-10.8)
[2024-10-05 05:32] LABS: INR 1.33; PT 16.8 Sec (11.4-14.6)
[2024-10-05 05:58] LABS: Blood Urea Nitrogen 101 mg/dl (9-20); Calcium 7.7 mg/dl (8.4-10.2); Carbon Dioxide 21 mmol/L (22-30); Chloride 102 mmol/L (98-107); Estimated Creatinine Clearance 14 ml/min; Glucose 144 mg/dl (70-99); Potassium 6.2 mmol/L (3.5-5.1); Sodium 134 mmol/L (135-145); eGFR 11.17
[2024-10-05] MEDS: NOVOLIN R 9 UNITS IV (06:22)
[2024-10-05] MEDS: DEXTROSE 50% SYRINGE 25 GRAMS IV (06:26)
[2024-10-05] MEDS: CALCIUM GLUCONATE 130 MG IV (06:26)
--- NOTE | 2024-10-05 07:16 | CON.INTV ---
Consultation
Consultation Request
Date/Time Consultation Requested: 10/05/24
Date/Time Consultation Performed: 10/05/24
Performing Provider: Shoaib
Reason for Consultation: ICU
Medical History
-
History of Present Illness:
Patient is a 79-year-old male with previous history of hypertension, chronic kidney disease, pulmonary fibrosis, lupus/rheumatoid arthritis, prostate cancer presenting to ER for abdominal distention, oliguria, weight gain for the past 3 weeks.
There is also development of increased shortness of breath. Initial chest imaging demonstrating pulmonary edema with small bilateral pleural effusions, was admitted for potential cardiorenal syndrome related to heart failure. He was noted to be
hypotensive as well with systolic in the 90s (lowest 87/74), admitted to ICU for potential pressor use.
Past Medical History
Past Medical History: Other (see list below)
Social History
Tobacco: Non-smoker
Alcohol: None
Drug: None
Family History
Family History: Reviewed & Not Pertinent
Allergies / Home Medications
Allergies
Allergy/AdvReac Type Severity Reaction Status Date / Time
amoxicillin Allergy upset Verified 10/04/24 17:55
stomach
house dust Allergy Sneezing, Verified 10/04/24 17:55
Nasal
Congestion
pollen extracts Allergy Sneezing, Verified 10/04/24 17:55
Runny Nose
Food Allergy Allergy GI Distress Uncoded 10/04/24 17:55
Home Medications
�Medication �Instructions �Recorded �Confirmed �Last Taken �Type
allopurinol 300 mg tablet 300 mg PO DAILY Gout 05/17/19 10/04/24 06/19/22 04:15 History
calcium 315 mg (as 2 tab PO BID Supplement 05/17/19 10/04/24 06/18/22 09:00 History
citrate)-vitamin D3 6.25 mcg (250
unit) tablet (Citracal + Vitamin D
Maximum)
doxazosin 2 mg tablet 2 mg PO DAILY Blood pressure 0810/04/24 06/19/22 04:15 History
levothyroxine 125 mcg tablet 125 mcg PO DAILY Thyroid 05/17/19 10/04/24 06/19/22 04:15 History
hydroxychloroquine 200 mg tablet 200 mg PO BID Antirheumatic, 08/15/20 10/04/24 06/19/22 04:15 History
Disease Modifying
Benlysta: 1 dose IV MONTHLY LUPUS 06/19/21 10/04/24 05/22/22 History
Dupixent Pen 1 sc IM QMONTH 06/17/22 10/04/24 06/11/22 History
ascorbic acid (vitamin C) 1,000 mg 1,000 mg PO DAILY 06/17/22 10/04/24 06/18/22 09:00 History
tablet,extended release (Vitamin C
ER)
bumetanide 1 mg tablet 1 mg PO DAILY 06/17/22 10/04/24 06/18/22 09:00 History
cholecalciferol (vitamin D3) 50 50 mcg PO DAILY 06/17/22 10/04/24 06/18/22 09:00 History
mcg (2,000 unit) tablet (Vitamin
D3)
fluticasone furoate 100 1 inh inhalation R DAILY@1200 06/17/22 10/04/24 06/18/22 09:00 History
mcg-vilanterol 25 mcg/dose
inhalation powder (Breo Ellipta)
nintedanib 150 mg capsule (Ofev) 150 mg PO DAILY 06/17/22 10/04/24 06/19/22 04:15 History
prednisone 10 mg tablet 5 mg PO DAILY 06/17/22 10/04/24 06/19/22 04:15 History
Aranesp 1 dose Q2W 10/04/24 10/04/24 Unknown History
amlodipine 5 mg tablet 5 mg PO DAILY 10/04/24 10/04/24 Unknown History
aspirin 81 mg chewable tablet 81 mg PO HS 10/04/24 10/04/24 Unknown History
azelastine 137 mcg (0.1 %) nasal 1 spray intranasal BID 10/04/24 10/04/24 Unknown History
spray
calcitriol 0.25 mcg capsule 0.25 mcg PO MOWEFR 10/04/24 10/04/24 Unknown History
denosumab 60 mg/mL subcutaneous 60 mg SC [id number] 10/04/24 10/04/24 Unknown History
syringe (Prolia)
losartan 50 mg tablet 50 mg PO BID 10/04/24 10/04/24 Unknown History
omeprazole 40 mg capsule,delayed 40 mg PO DAILY 10/04/24 10/04/24 Unknown History
release
treprostinil 1.74 mg/2.9 mL (0.6 20 inh inhalation R QID 10/04/24 10/04/24 Unknown History
mg/mL) solution for nebulization
(Tyvaso)
vitamins A,C,V-wfqd-fqfbsw 4,296 1 cap PO DAILY 10/04/24 10/04/24 Unknown History
mcg-226 mg-90 mg capsule
(PreserVision AREDS)
Review of Systems
-
History Source: Patient
All other systems: Negative unless noted
Vitals / Labs / Diagnostic Testing
Vital Signs
Temp Pulse Resp BP Pulse Ox
98.5 F 122 20 106/84 97
10/05/24 02:40 10/05/24 03:00 10/05/24 03:00 10/05/24 03:00 10/05/24 03:00
Lab Data
10/05/24 04:59
10/05/24 04:59
Laboratory Results
10/05/24
04:59
PT 16.8 H
INR 1.33
Diagnostic Testing:
Physical Exam
-
HEENT: Normocephalic, Anicteric and Moist Mucous Membranes
Cardiovascular: S1/S2 and Regular Rhythm
Respiratory: Rales and Non-Labored Respirations
GI: Soft, Non Distended and Non Tender
Neurology: Awake, Alert, Oriented and No Motor Deficits
Skin: Warm, Dry and Good Color
General: Comfortable and Other (NAD)
Assessment
-
Patient is a 79-year-old male with previous history of hypertension, chronic kidney disease, pulmonary fibrosis, lupus/rheumatoid arthritis, prostate cancer presenting to ER for abdominal distention, oliguria, weight gain for the past 3 weeks.
There is also development of increased shortness of breath. Initial chest imaging demonstrating pulmonary edema with small bilateral pleural effusions, was admitted for potential cardiorenal syndrome related to heart failure. He was noted to be
hypotensive as well with systolic in the 90s (lowest 87/74), admitted to ICU for potential pressor use.
Acute decompensated heart failure exacerbation with pulmonary edema; proBNP 15,600
Hypotension, not on pressors
ROBIN on CKD
Hyperkalemia
Hyponatremia
Metabolic acidosis
Hyperglycemia
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
KAI on CPAP
HTN
CKD stage 3
Hypothyroidism
Gout
Prostate ca, s/p prostatectomy 2005
R inguinal and umbilical hernia repair Jul 2020, no pulmonary complications
Bilateral knee endoscopic surgery
Lifelong nonsmoker
lupus
rheumatoid arthritis
PLAN:
No current signs of metabolic encephalopathy or MS changes/following commands
Denies pain at this time.
Pain/sedation: PRN
RASS goals: 0
Hemodynamically stable, not requiring pressors.
Did not require pressors since admission, stable BP currently
Cardiac history reviewed--HTN
Currently appears in HF, cards eval obtained
Prior ECHO reviewed indicating preserved EF
Diuresis per team
Resume home meds when BP stable, tolerates
Monitor on telemetry
Oxygen needs: currently on low supplemental O2 needs
Prior history of lung disease: PF related to RA/SLE, follows at [facility]
Resume PF meds, transition to home prednisone dose
I do not think this is the driving issue for symptoms
Feels at baseline SOB
Supplemental O2 as indicated to maintain sats > 89%
CXR/CT reviewed indicating edema, volume overload
Diet advancement per team
Aspiration precautions, HOB > 30 degrees
Speech therapy eval can be considered if at elevated risk
GI prophylaxis if indicated for mechanical ventilation >48 hours, prior history of GERD, stress ulcer formation in the critically ill
ROBIN present--renal eval noted
+history of renal disease likely stage 3-4, lupus nephritis
May require HD on this admission
Void trials
Follow urine output, critical I/Os
Replete electrolytes as needed
No signs/symptoms suspicious for infectious etiology at this time
Observe off antibiotics for now
Follow fever trend, WBC count
CBC stable, no signs of bleeding or coagulopathy.
DVT prophylaxis as assessed based on risk, including mechanical SCDs
Can transfuse if indicated for Hb <7, plt < 10
No prior h/o diabetes or thyroid disease
Monitor accuchecks PRN/SS coverage if needed
Can transfer to floors today, reviewed with care team. We will sign off upon transfer.
Diagnostic Data
CXR 10/04/24- Mild pulmonary edema with small bilateral pleural effusions
Chest X-Ray: 05-18-19: increased interstitial markings at bases
CTA chest 06-19-21, c/w CT s/c 11-29-20 and 06-01-19. No PE. pulmonary fibrotic changes bilaterally including basilar honeycombing which remained unchanged. No mediastinal LAD. New onset small bilateral dependent pleural effusion.
Echo: 06/20/21- Left ventricle is mildly dilated. Normal left ventricular systolic function. Left ventricular ejection fraction is 60-65% by Singh's method. Mild concentric left ventricular hypertrophy. Diastolic function normal. Trileaflet aortic
valve. Aortic valve opens normally. Moderate aortic regurgitation. Structurally normal tricuspid valve. Tricuspid valve opens normally. Mild tricuspid regurgitation. Estimated pulmonary artery pressure of 60 mmHg, assuming a right atrial pressure of
8 mmHg. Mild ascending aorta dilatation (3.9cm). The aortic arch is normal in caliber. Since echocardiogram February 2020, there is no significant change.
03-06-20. normal biventricular size/fx, stage I DD, mild to mod eccentric MR, mod AR, estimated PAP 45, mild TR
PFT's: 11-27-20, mild restriction on spirometry, no significant FV1 response with BD, moderate restriction on LVS, severely reduced diffusing capacity
Reports and relevant images were personally reviewed.
-----
Critical Care time 61 mins -- The patient is admitted for acute critical illness for the treatment of vital organ failure and/or prevention of further life-threatening conditions. Total care includes time spent in review of history, physical exam,
medications, hemodynamic/ventilator parameters, laboratory data, imaging and discussion with house staff, pharmacy, respiratory therapy, information and data architect analyst, and nursing.
--- NOTE | 2024-10-05 07:45 | PTCARENOTE ---
Assumed care of patient. Pt rec'd sleeping...easily arousable. A&Ox3. BURR's. Able to take po meds whole and feed self. Ordered for cholesterol lowering diet. S1 S2 reg and distant...ST/1st degree AVB/BBC on monitor. Weak PP. +2 pitting LLE.
Rec'd on 5L N/C...sats 96%. Lungs diminished w/ coarse rhonchi bibasilarly. Harsh moist NPC. Abdomen obese...+BS. No void this am...will monitor. Skin pale w/ bilateral forearm brown colored skin. 20P RAC capped. VSS. Call hayes within reach.
Will continue to monitor.
[2024-10-05] MEDS: VITAMIN C 1000 MG PO (08:41)
[2024-10-05] MEDS: PROTONIX 40 MG PO (08:41)
[2024-10-05] MEDS: OCUVITE SOFTGEL 1 CAP PO (08:41)
[2024-10-05] MEDS: OSCAL 500 + D 500 MG PO ×2 (08:42→20:17)
[2024-10-05] MEDS: PLAQUENIL 200 MG PO ×2 (08:42→20:17)
[2024-10-05] MEDS: VITAMIN D3 (cholecalciferol) 50 MCG PO (08:42)
[2024-10-05] MEDS: ROCALTROL 0.25 MCG PO (08:44)
[2024-10-05] MEDS: BUMEX 2 MG IV ×2 (08:44→14:07)
[2024-10-05] MEDS: SOLU-CORTEF 100 MG IV (08:44)
--- NOTE | 2024-10-05 09:11 | CHAP ---
Msgr. Daniel Garcia of [facility] in [place] gave the Sacrament of the Sick, Holy Communion, and an Apostolic Pardon to Mason. Time uncertain.
[2024-10-05] MEDS: NON-FORMULARY ITEM 1 PUFF INH (10:39)
--- NOTE | 2024-10-05 10:50 | PTCARENOTE ---
Echo done at bedside.
--- NOTE | 2024-10-05 10:52 | W.CON.NEPH ---
Consultation
-
Date/Time Consultation Requested: 10/05/24 0143
Date/Time Consultation Performed: 10/05/24 1045
Requesting Provider: Dr Fredis Meneses
Performing Provider: Kaylie Segovia
Reason for Consultation: ROBIN with CKD
Medical History
-
Chief Complaint: no UOP and abd distension
History of Present Illness:
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
pulmonary fibrosis chronic prednisone therapy, Ofev and inhalers, lupus, rheumatoid arthritis, prostate cancer status post prostatectomy on doxazosin mainly for the blood pressure, osteoporosis on Priolia and gout who presented to [place] ED for
evaluation of abdominal distension and no urine production on 10/04. Patient states that in past 3 weeks he has gain approximately 30 pounds despite on Bumex. He has noted increased SOB with increased abdominal distension. For last 2 days he hasn't
had urine output. Only urinated 200 cc early this morning. Creatinine Noted at 4.7, this morning at 5, BUN of 101, potassium 6.2, bicarbonate of 21, sodium 134. His last creatinine was 2.2 in 2021, no other labs are available to review. Patient
denies any fever, chills, cough, chest pain, nausea, vomiting, constipation, diarrhea. chest x-ray noted with a mild pulmonary edema, noted tachycardic sinus in 120Soft systolic blood pressures.
Past Medical History
hypertension
CKD III or 4, lupus nephritis with a prior biopsy
pulmonary fibrosis chronic respiratory failure on home oxygen
lupus
rheumatoid arthritis
prostate cancer status post prostate surgery
gout
GERD
Secondary hyperparathyroidism
Hypothyroidism
Past Surgical History: Other (prostatectomy (2005) umbilical hernia repair (2019) left inguinal hernia repair (2021))
Social History
Tobacco: Non-Smoker
Alcohol: None
Drug: None
Personal:
Employment: Retired
Family History
Mother: at 51 cerebral hemorrhage; Father: at 68 colon cancer; Brother: at 54 from HF
Family History: Not Pertinent
Allergies / Home Medications
Allergy/AdvReac Type Severity Reaction Status Date / Time
amoxicillin Allergy upset Verified 10/04/24 17:55
stomach
house dust Allergy Sneezing, Verified 10/04/24 17:55
Nasal
Congestion
pollen extracts Allergy Sneezing, Verified 10/04/24 17:55
Runny Nose
Food Allergy Allergy GI Distress Uncoded 10/04/24 17:55
�Medication �Instructions �Recorded �Confirmed �Type
allopurinol 300 mg tablet 300 mg PO DAILY Gout 05/17/19 10/04/24 History
calcium 315 mg (as 2 tab PO BID Supplement 05/17/19 10/04/24 History
citrate)-vitamin D3 6.25 mcg (250
unit) tablet (Citracal + Vitamin D
Maximum)
doxazosin 2 mg tablet 2 mg PO DAILY Blood pressure 05/17/19 10/04/24 History
levothyroxine 125 mcg tablet 125 mcg PO DAILY Thyroid 05/17/19 10/04/24 History
hydroxychloroquine 200 mg tablet 200 mg PO BID Antirheumatic, 08/15/20 10/04/24 History
Disease Modifying
Benlysta: 1 dose IV MONTHLY LUPUS 06/19/21 10/04/24 History
Dupixent Pen 1 sc IM QMONTH 06/17/22 10/04/24 History
ascorbic acid (vitamin C) 1,000 mg 1,000 mg PO DAILY 06/17/22 10/04/24 History
tablet,extended release (Vitamin C
ER)
bumetanide 1 mg tablet 1 mg PO DAILY 06/17/22 10/04/24 History
cholecalciferol (vitamin D3) 50 50 mcg PO DAILY 06/17/22 10/04/24 History
mcg (2,000 unit) tablet (Vitamin
D3)
fluticasone furoate 100 1 inh inhalation R DAILY@1200 06/17/22 10/04/24 History
mcg-vilanterol 25 mcg/dose
inhalation powder (Breo Ellipta)
nintedanib 150 mg capsule (Ofev) 150 mg PO DAILY 06/17/22 10/04/24 History
prednisone 10 mg tablet 5 mg PO DAILY 06/17/22 10/04/24 History
Aranesp 1 dose Q2W 10/04/24 10/04/24 History
amlodipine 5 mg tablet 5 mg PO DAILY 10/04/24 10/04/24 History
aspirin 81 mg chewable tablet 81 mg PO HS 10/04/24 10/04/24 History
azelastine 137 mcg (0.1 %) nasal 1 spray intranasal BID 10/04/24 10/04/24 History
spray
calcitriol 0.25 mcg capsule 0.25 mcg PO MOWEFR 10/04/24 10/04/24 History
denosumab 60 mg/mL subcutaneous 60 mg SC [id number] 10/04/24 10/04/24 History
syringe (Prolia)
losartan 50 mg tablet 50 mg PO BID 10/04/24 10/04/24 History
omeprazole 40 mg capsule,delayed 40 mg PO DAILY 10/04/24 10/04/24 History
release
treprostinil 1.74 mg/2.9 mL (0.6 20 inh inhalation R QID 10/04/24 10/04/24 History
mg/mL) solution for nebulization
(Tyvaso)
vitamins A,C,X-hvpg-ygcyeo 4,296 1 cap PO DAILY 10/04/24 10/04/24 History
mcg-226 mg-90 mg capsule
(PreserVision AREDS)
Review of Systems
-
All complete 12 point review of system have been inquired and found negative other than stated in HPI
Physical Exam
Vital Signs
Vital Signs
Temp Pulse Resp BP Pulse Ox
97.6 F 122 16 107/80 97
10/05/24 07:53 10/05/24 10:39 10/05/24 10:39 10/05/24 09:00 10/05/24 10:39
Lab Results
WBC 5.1 10^3/uL (4.8-10.8) 10/05/24 04:59
RBC 3.10 10^6/uL (4.70-6.10) L 10/05/24 04:59
Hgb 8.6 g/dL (13.0-18.0) L 10/05/24 04:59
Hct 29.1 % (39.0-52.0) L 10/05/24 04:59
Plt Count 115 10^3/uL (130-400) L 10/05/24 04:59
eGFR 11.17 10/05/24 04:59
Njf-L-Lantoxzbquv Pept 09810 pg/ml 10/04/24 18:11
Albumin 3.2 g/dl (3.5-5.0) L 10/04/24 18:11
Laboratory Results - last 24 hr
10/04/24 10/05/24 10/05/24
18:11 04:59 11:38
WBC 6.3 5.1
RBC 3.11 L 3.10 L
Hgb 8.7 L 8.6 L
Hct 29.6 L 29.1 L
MCV 95.2 H 93.9
MCH 28.0 27.7
MCHC 29.4 L 29.6 L
RDW 18.5 H 18.5 H
Plt Count 123 L 115 L
MPV 11.6 H 11.1 H
Abs Immat Gran (auto) 0.1 H 0.1 H
Absolute Neuts (auto) 5.5 4.8
Absolute Lymphs (auto) 0.3 L 0.2 L
Absolute Monos (auto) 0.4 0.1
Absolute Eos (auto) 0.0 0.0
Absolute Basos (auto) 0.0 0.0
Immature Gran % 0.8 H 1.0 H
Neutrophils % 87.2 H 93.5 H
Lymphocytes % 4.8 L 3.9 L
Monocytes % 6.5 1.4 L
Eosinophils % 0.5 0.0
Basophils % 0.2 0.2
Nucleated RBC % 0 0.4
PT 16.8 H
INR 1.33
Sodium 132 L 134 L 133 L
Potassium 5.5 H 6.2 H* 5.8 H
Chloride 101 102 100
Carbon Dioxide 20 L 21 L 20 L
BUN 96 H 101 H* 96 H
Creatinine 4.7 H* 5.0 H* 4.9 H*
Estimated Creat Clear 14 14
eGFR 12.03 11.17 11.44
Glucose 181 H 144 H 213 H
Calcium 7.9 L 7.7 L 8.5
Phosphorus 5.1 H
Magnesium 2.0
Total Bilirubin 0.4
AST 16 L
ALT 19
Alkaline Phosphatase 51
Troponin I 0.070 H*
Wsu-A-Ghrmixjnbfy Pept [id number]
Total Protein 5.0 L
Albumin 3.2 L
Urine Color
Urine Clarity
Urine pH
Ur Specific Annabella
Urine Ketones
Ur Occult Blood Reflex
Urine Nitrite (Reflex)
Urine Bilirubin
Urine Urobilinogen
Leukocyte Esterase Rfl
Urine Glucose
Urine Albumin (Reflex)
10/05/24
12:10
WBC
RBC
Hgb
Hct
MCV
MCH
MCHC
RDW
Plt Count
MPV
Abs Immat Gran (auto)
Absolute Neuts (auto)
Absolute Lymphs (auto)
Absolute Monos (auto)
Absolute Eos (auto)
Absolute Basos (auto)
Immature Gran %
Neutrophils %
Lymphocytes %
Monocytes %
Eosinophils %
Basophils %
Nucleated RBC %
PT
INR
Sodium
Potassium
Chloride
Carbon Dioxide
BUN
Creatinine
Estimated Creat Clear
eGFR
Glucose
Calcium
Phosphorus
Magnesium
Total Bilirubin
AST
ALT
Alkaline Phosphatase
Troponin I
Hlc-M-Auiqvapbtug Pept
Total Protein
Albumin
Urine Color Yellow
Urine Clarity Clear
Urine pH 5.0
Ur Specific Annabella 1.015
Urine Ketones Negative
Ur Occult Blood Reflex Trace A
Urine Nitrite (Reflex) Negative
Urine Bilirubin Negative
Urine Urobilinogen Negative
Leukocyte Esterase Rfl 2+ A
Urine Glucose Negative
Urine Albumin (Reflex) 1+ A
CXR;
IMPRESSION:
Mild pulmonary edema with small bilateral pleural effusions
renal GONZALES:
IMPRESSION:
1). There is no urinary retention
2). There is small volume ascites
3).There is a subcentimeter rim calcified hypoechoic mass in the upper pole the right kidney. This mass is probably benign and most likely is a complex cyst as there are multiple additional cysts throughout both kidneys measuring up to 4.4 cm. If
clinically indicated, this rim calcified mass could be further evaluated with MRI
4).The kidneys are normal in size but diffusely coarse in echotexture consistent with medical renal disease
5). There is cholelithiasis with thickening of the gallbladder wall suggesting possible cholecystitis
Physical Exam
General: Awake, Alert, Oriented, AOx3 and No Distress
HEENT: EOMI, Anicteric, Facial Symmetry and Neck Supple
Respiratory: Crackels, Normal Excursion and Nonlabored Respirations
Cardiac: S1/S2 and Other (Tachycardic in 120)
Breast: Deferred by me
Abdomen: Nontender and Other ( distended)
Musculoskeletal: No Cyanosis and Edema (2+)
Neuro: Nonfocal/Grossly Intact
Psych: Mood/afflect pleasant, Insight/judgement good and Appropriate
Data Reviewed
-
Radiology: Report Reviewed by me and Discussed with Patient
Labs: Labs Reviewed by me, Discussed with Nurse and Discussed with Patient
Assessment/Plan
-
IMP;
Acute on chronic respiratory failure
decompensated heart failure exacerbation with pulmonary edema
ROBIN on CKD 3 vs 4?- lupus nephritis cr 2.2 in 2021-nephrology at [facility]
Hyperkalemia
Hyponatremia
Metabolic acidosis
Hyperphosphatemia
SHPTH
Anemia
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
KAI on CPAP
HTN
Hypothyroidism
Gout
Prostate ca, s/p prostatectomy 2005
lupus
rheumatoid arthritis
Plan:
A/w Anuria with severe AK I with known lupus nephritis
With the decompensated CHF
Urine analysis. Report is pending, check Fena and urine PCR
follow bladder scan, Renal ultrasound no hydronephrosis however has subcentimeter calcified hypoechoic mass in the right kidney probably felt to be benign
Request sent to get records from his sanitation director
Given his severe ROBIN and oliguria may need dialysis 24-48 hours
Continue supportive care including the diuretics
Hyperkalemia continue Lokelma
Metabolic acidosis stable
his blood pressures are soft with the tachycardia-check echo, TSH
Follow hemoglobin, check fe panel
Discussed with the patient in detail
Discussed with the nursing in ICU
--- NOTE | 2024-10-05 11:42 | CM ---
CM following re: discharge planning.
Discussed in Rounds, reviewed pt's chart, met with pt.
Pt is a 79 year old male, admitted with primary dx of Cardiorenal syndrome.
Pt reports he lives with spouse 2SH, 2 steps to enter, stair glide to the second floor. Pt reports he has 4 supportive children. Pt reports he ambulates with a walker, has home O2 - 3-5 L NC at baseline, has nebulizer machine. No VN or SNF history.
PCP: Rosalba Alcantara
Pharmacy: [facility].
D/C plan: uncertain at this time and will depend on pt's progress.
CM will follow with discharge plan updates as hospitalization progresses
[2024-10-05] MEDS: NON-FORMULARY ITEM 1 INH INH ×2 (12:04→15:45)
--- NOTE | 2024-10-05 12:19 | CON.CAR ---
Addendum entered and electronically signed by Alonzo Ramirez MD 10/05/24 14:56:
I saw and examined the patient.
The Club Lounge Attendant's note was reviewed and I agree with the note.
Comment: GEN: No distress, awake, Ox3
HEENT: supple, anicteric, mmm
LUNGS: bilat rhonchi
CV: Reg, tachy, S1/S2, 1/6 syst LSB, S4+
ABD: soft, BS+, NT/ND
EXT: No edema
NEURO: Gross non-focal
SKIN: No rash
Plan:
79-year-old male with past medical history of chronic kidney disease stage III-IV, pulmonary hypertension, interstitial lung disease with pulmonary fibrosis on home oxygen, moderate aortic regurgitation who presents to [facility] with acute
on chronic renal failure and acute congestive heart failure with preserved ejection fraction. He is followed at [facility] by nephrology and cardiology and pulmonary. He takes Ofev and Tyvaso as an outpatient. He has noticed for
the past 10 days or so and elevation his heart rate in the 120s. He felt no palpitations or chest pains but then started noticing fatigue, shortness of breath and an inability to urinate. He was found to be in acute renal failure with a creatinine
of 5. His baseline creatinine is in the 2-2.5 range.
EKG reveals tachycardia, likely atrial tachycardia versus atrial flutter at 128 bpm.
I do lengthy discussion with the patient and his family. We will check a repeat echocardiogram. He likely will need dialysis with hyperkalemia and acute heart failure.
I wonder whether his atrial tachycardia is contributing to his congestive heart failure or whether this is compensatory with his acute renal failure.
Unfortunately with his advanced lung disease on home oxygen he is not an ideal candidate for MANUEL cardioversion.
Will start with a rate control strategy and initiate Lopressor 5 mg IV every 6hrs. we will also initiate IV heparin.
With his pulmonary fibrosis is not an ideal candidate for amiodarone therapy. Another option would be to add oral diltiazem.
Hold losartan. Continue IV Bumex and follow potassium. His creatinine is slightly improved and down to 4.7.
We will follow him closely on telemetry. We will review all of his records from [facility].
Original Note:
Consultation
Consultation Request
Date/Time Consultation Performed: 10/05/24
Requesting Provider: Dr. Orellana
Performing Provider: Sheridan Almanza PA-C for Dr. Ramirez
Reason for Consultation: cardiorenal syndrome
Medical History
-
Chief Complaint: decreased urination, weight gain
History of Present Illness:
Patient is a 79 yo M with PMH of CKD, bifascicular block, pulm HTN, ILD/pulm fibrosis on chronic home O2 and prednisone, mod aortic regurgitation by echo 2020 who presented to with weight gain and poor urinary output. He is followed by
nephrology, pulmonary, and cardiology at [place] (Dr. Dedra Crandall). He reports he was seen by his physician assistant psychiatry on September 26 and was ordered a 14-day monitor for 'maintenance'. He is presently wearing it. Reports essentially since it has been
on his HR has been elevated in 120s. He is not chronically on diuretic therapy as an outpatient, however is listed as being on losartan 50 mg twice daily. Baseline creatinine unclear, however on presentation was elevated at 4.7. proBNP elevated at
15,600 and chest x-ray with mild pulmonary edema and small bilateral pleural effusions. Blood pressures overall are marginal.
PMH:
Chronic HF, unknown type
CKD
bifascicular block
pulm HTN
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
RA
mod AR by echo 2020
HTN
Hypothyroidism
GERD
Gout
History of prostate cancer s/p prostatectomy 2005
Past Medical History
Past Medical History: Other (in HPI)
Social History
Tobacco: Non-Smoker
Alcohol: None
Personal:
Living: With Family
Employment: Retired
Allergies / Home Medications
Allergy/AdvReac Type Severity Reaction Status Date / Time
amoxicillin Allergy upset Verified 10/04/24 17:55
stomach
house dust Allergy Sneezing, Verified 10/04/24 17:55
Nasal
Congestion
pollen extracts Allergy Sneezing, Verified 10/04/24 17:55
Runny Nose
Food Allergy Allergy GI Distress Uncoded 10/04/24 17:55
�Medication �Instructions �Recorded �Confirmed �Type
allopurinol 300 mg tablet 300 mg PO DAILY Gout 05/17/19 10/04/24 History
calcium 315 mg (as 2 tab PO BID Supplement 05/17/19 10/04/24 History
citrate)-vitamin D3 6.25 mcg (250
unit) tablet (Citracal + Vitamin D
Maximum)
doxazosin 2 mg tablet 2 mg PO DAILY Blood pressure 05/17/19 10/04/24 History
levothyroxine 125 mcg tablet 125 mcg PO DAILY Thyroid 05/17/19 10/04/24 History
hydroxychloroquine 200 mg tablet 200 mg PO BID Antirheumatic, 08/15/20 10/04/24 History
Disease Modifying
Benlysta: 1 dose IV MONTHLY LUPUS 06/19/21 10/04/24 History
Dupixent Pen 1 sc IM QMONTH 06/17/22 10/04/24 History
ascorbic acid (vitamin C) 1,000 mg 1,000 mg PO DAILY 06/17/22 10/04/24 History
tablet,extended release (Vitamin C
ER)
bumetanide 1 mg tablet 1 mg PO DAILY 06/17/22 10/04/24 History
cholecalciferol (vitamin D3) 50 50 mcg PO DAILY 06/17/22 10/04/24 History
mcg (2,000 unit) tablet (Vitamin
D3)
fluticasone furoate 100 1 inh inhalation R DAILY@1200 06/17/22 10/04/24 History
mcg-vilanterol 25 mcg/dose
inhalation powder (Breo Ellipta)
nintedanib 150 mg capsule (Ofev) 150 mg PO DAILY 06/17/22 10/04/24 History
prednisone 10 mg tablet 5 mg PO DAILY 06/17/22 10/04/24 History
Aranesp 1 dose Q2W 10/04/24 10/04/24 History
amlodipine 5 mg tablet 5 mg PO DAILY 10/04/24 10/04/24 History
aspirin 81 mg chewable tablet 81 mg PO HS 10/04/24 10/04/24 History
azelastine 137 mcg (0.1 %) nasal 1 spray intranasal BID 10/04/24 10/04/24 History
spray
calcitriol 0.25 mcg capsule 0.25 mcg PO MOWEFR 10/04/24 10/04/24 History
denosumab 60 mg/mL subcutaneous 60 mg SC [id number] 10/04/24 10/04/24 History
syringe (Prolia)
losartan 50 mg tablet 50 mg PO BID 10/04/24 10/04/24 History
omeprazole 40 mg capsule,delayed 40 mg PO DAILY 10/04/24 10/04/24 History
release
treprostinil 1.74 mg/2.9 mL (0.6 20 inh inhalation R QID 10/04/24 10/04/24 History
mg/mL) solution for nebulization
(Tyvaso)
vitamins A,C,Q-wgjc-hrrteb 4,296 1 cap PO DAILY 10/04/24 10/04/24 History
mcg-226 mg-90 mg capsule
(PreserVision AREDS)
Review of Systems
-
History Source: Patient and Family
All other systems: Negative unless noted
Physical Exam
Vital Signs
Temp Pulse Resp BP Pulse Ox
97.4 F 124 17 107/80 96
10/05/24 11:30 10/05/24 12:07 10/05/24 12:07 10/05/24 09:00 10/05/24 12:07
Lab Results
10/05/24 04:59
Troponin I 0.070 ng/ml H* 10/04/24 18:11
Wob-T-Xlwmovtngts Pept 13761 pg/ml 10/04/24 18:11
Physical Exam
General: No Apparent Distress, Comfortable and Other (on supp O2)
HEENT: Normocephalic, Anicteric and Moist Mucous Membranes
Respiratory: Crackles and Rhonchi
Cardiac: S1/S2 and Regular Rhythm (and tachy)
GI: Soft, Non Tender, Non Distended and Normal Bowel Sounds
Musculoskeletal: No Clubbing, No Cyanosis and Edema (2+ of B/L LE)
Skin: Warm, Dry and Other (chronic discoloration of B/L hands from chronic steroids)
Neuro: AO x 3
Impression / Plan
-
Primary Financial Recruiter: Dr. Dedra Crandall of [place]
Assessment:
Presentation with weight gain, decreased urine output
ROBIN on CKD, lupus nephritis
Hyperkalemia
Hyponatremia
Acute HF, type unknown
Tachycardia - ST vs atypical flutter/tach
Anemia
bifascicular block
pulm HTN
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
RA
mod AR by echo 2020
HTN
Hypothyroidism
GERD
Gout
History of prostate cancer s/p prostatectomy 2005
DNR code status
ECHO 2020: EF 60 to 65%, mild concentric LVH, moderate AR, mild TR, PAP 60 mmHg, mild ascending aorta dilation
Plan:
-Patient presented with weight gain and decreased urine output. He has known CKD and creatinine on arrival was 4.7 with proBNP 22644, concern for cardiorenal syndrome
-high risk situation
-continue diuresis per nephrology, on IV bumex 2mg daily. Cr 4.9 on 10/05. may require initiation of HD. did have urine output today with diuretics per nursing
-HRs consistently 120s and BPs marginal at times. will review EKG with EP - ST vs atypical aflutter/atach. will give IV lopressor 2.5mg now and repeat EKG. follow on tele. he is not on OAC as OP, denies history of known arrhythmia
-check echo, last from 2020 as above
-check TSH
-correction of hyperkalemia ongoing
-requested records from primary physician assistant psychiatry at [place] for review
-follow hgb. check iron studies with CHF/CKD
-d/w nursing. d/w patient and family at bedside
Data Reviewed
-
EKG: Tracing Personally Visualized and interpreted
Radiology: Report Reviewed by me
Medical Tests (Nuc Med, Echo etc): Report Reviewed by me
Labs: Labs Reviewed by me
Old Records: Reviewed
[2024-10-05 12:31] LABS: Urine Albumin 1+ (Neg - Trace); Urine Bilirubin Negative (Negative); Urine Character Clear (Clear); Urine Color Yellow; Urine Glucose Negative (Negative); Urine Ketone Negative (Negative); Urine Leukocyte 2+ (Negative); Urine Nitrite Negative (Negative); Urine Occult Blood Trace (Negative); Urine Specific Gravity 1.015 (<1.030); Urine Urobilinogen Negative (Neg - 1+)
[2024-10-05 12:52] LABS: Blood Urea Nitrogen 96 mg/dl (9-20); Calcium 8.5 mg/dl (8.4-10.2); Carbon Dioxide 20 mmol/L (22-30); Chloride 100 mmol/L (98-107); Estimated Creatinine Clearance 14 ml/min; Glucose 213 mg/dl (70-99); Phosphorus 5.1 mg/dl (2.5-4.5); Potassium 5.8 mmol/L (3.5-5.1); Sodium 133 mmol/L (135-145); eGFR 11.44
[2024-10-05 13:40] LABS: Urine Bacteria Many (Negative); Urine White Cell 80-90 /HPF (0-5)
[2024-10-05 13:41] LABS: Urine Hyaline Cast 0-2 /LPF (0-2); Urine Red Blood Cell 0-2 /HPF (0-2); Urine Squamous Cell 0-2 /LPF (Few)
[2024-10-05] MEDS: LOKELMA 10 GRAM PO ×2 (14:05→17:53)
--- NOTE | 2024-10-05 14:32 | W.PN.HOSP.TC ---
Today's Communication/Plan
-
see note
Assessment / Plan
Assessment / Plan
1. Acute on chronic systolic congestive heart failure
Acute hypoxic respiratory insufficiency
-Chest x-ray showing signs of cardiogenic pulmonary edema
-Echocardiogram in 21 showing EF 60 to 65%, normal diastolic function. Pulmonary artery pressure of 60 mmHg
-Patient has been started on IV Bumex, follow weight and creatinine
-Repeat echocardiogram report is pending
2. ROBIN on CKDIIIB/IV
-Last known creatinine of 2.2 with GFR 29
-Patient came in with creatinine ~ 5
-Relatively bland urine, no significant proteinuria
-Renal and bladder ultrasound showing a likely benign right renal mass with some calcification. No hydronephrosis
-Concern of potential cardiorenal syndrome, nephrology evaluating and help appreciated
3. Hyperkalemia
Metabolic acidosis
Euvolemic hyponatremia
-Patient K 5.8, low K diet.
-On Bumex and should drift down with diuresis. Lokelma dosing if not improved
-Acidosis/hyperkalemia driven by ROBIN
4. Essential hypertension
- hold amlodipine, doxazosin, and losartan
5. pulmonary fibrosis
- continue ofev if patient able to bring in supply
5. History of lupus nephritis
Rheumatoid arthritis
-maintain on oral prednisone, dose increased to 10mg/d. got solucortef injection
-continue plaquenil
hypothyroidism
GERD
prostate cancer
prostatectomy 2005
gout
Code Status: DNR
DVT Prophylaxis: Heparin Sq
Total critical care time 39 mins . Total critical care time documented does not include time spent on separately billed procedures or the services of residents, students, nurses or physician assistants. I personally saw and examined the patient. I
have reviewed all diagnostic interpretations and treatment plans as written. I was present for the stubbs portions of any procedures performed and the inclusive time noted in any critical care statement. Critical care time includes patient management
by me, time spent at the patients bedside, time to review lab and imaging results, discussing patient care, documentation in the medical record, and time spent with the family or caregiver.
Anticipated Discharge: > 48 hours
Subjective/Interval History
-
Date of Service: October 05, 2024
Resting comfortably in bed
Reporting abdominal distention, some discomfort no nausea vomiting
Afebrile
Patient in sinus tachycardia
Objective Data
-
Labs:
Laboratory Results
10/05/24 10/05/24 10/05/24
04:59 11:38 18:00
WBC 5.1
Hgb 8.6 L
Hct 29.1 L
Plt Count 115 L
PT 16.8 H
INR 1.33
Sodium 134 L 133 L Pending
Potassium 6.2 H* 5.8 H Pending
Chloride 102 100 Pending
Carbon Dioxide 21 L 20 L Pending
BUN 101 H* 96 H Pending
Creatinine 5.0 H* 4.9 H* Pending
Glucose 144 H 213 H Pending
Calcium 7.7 L 8.5 Pending
Vital Signs:
Vital Signs
Temp Pulse Resp BP Pulse Ox
97.4 F 126 17 133/81 96
10/05/24 11:30 10/05/24 14:07 10/05/24 12:07 10/05/24 14:07 10/05/24 12:07
I&O
10/04/24 10/05/24 10/06/24
06:59 06:59 06:59
Output Total 200 / 200
Balance -200 / -200
Review of Systems
-
Respiratory: Reports No Symptoms
Cardiac: Reports No Symptoms
Abdomen/GI: Reports Abdominal Pain; Denies Nausea or Vomiting
Physical Exam
-
General: No Apparent Distress and Comfortable
HEENT: Negative Oxygen
Respiratory: Clear to Auscultation
Cardiac: Regular Rhythm and S1/S2; Negative Murmur or Rub
GI: Soft, Nontender, Nondistended and Normal Bowel Sounds
Musculoskeletal: No Edema
Neuro: Awake, Alert, Oriented, No Motor Deficits and Nonfocal/Grossly Intact
Psych: Calm
[2024-10-05] MEDS: LOPRESSOR 2.5 MG IV (14:39)
[2024-10-05] MEDS: ROBITUSSIN DM 10 ML PO ×2 (14:45→20:17)
[2024-10-05 15:26] LABS: Urine Protein 44 mg/dl (0-12); Urine Sodium 37 mmol/L (30-90)
[2024-10-05 15:39] LABS: Free T4 1.12 ng/dl (0.78-2.19)
[2024-10-05 15:53] LABS: TSH 1.16 uIU/ml (0.47-4.68)
[2024-10-05] MEDS: HEPARIN 25000 UNITS/250 ML IV (16:04)
[2024-10-05 16:31] LABS: APTT 38.3 Sec (23.4-35.0)
[2024-10-05] MEDS: LOPRESSOR 5 MG IV ×2 (17:54→23:15)
--- NOTE | 2024-10-05 18:21 | W.PN.UPDATE ---
Update Note
Progress Note Update
spoke to pt Bed Setter at [place] on phone in detail
has advanced CKD and now oliguric with no sig response to diuretics
will start HD tomorrow, IR consulted to place HD catheter
PD not option now
--- NOTE | 2024-10-05 19:00 | PTCARENOTE ---
prev shift vitals captured- can verify accuracy of vital signs starting at 1900 for shift.
[2024-10-05] MEDS: NON-FORMULARY ITEM 12 INH INH (20:06)
--- NOTE | 2024-10-05 20:15 | PTCARENOTE ---
director of community services, pt aaox3, denies pain, OOB sitting in chair. ST HR 120s. RA IV WNL- heparin gtt infusing per work list. POC discussed. call hayes with pt. family at bedside.
[2024-10-05] MEDS: LOW STRENGTH ASPIRIN 81 MG PO (20:17)
[2024-10-05 23:00] LABS: APTT 41.5 Sec (23.4-35.0)
[2024-10-05 23:26] LABS: Blood Urea Nitrogen 103 mg/dl (9-20); Calcium 8.3 mg/dl (8.4-10.2); Carbon Dioxide 21 mmol/L (22-30); Chloride 98 mmol/L (98-107); Estimated Creatinine Clearance 15 ml/min; Glucose 149 mg/dl (70-99); Potassium 5.6 mmol/L (3.5-5.1); Sodium 131 mmol/L (135-145); eGFR 12.03
[2024-10-06] VITALS (39 sets, daily range): BP systolic 88–127; BP diastolic 68–88; BMI 29.8
[2024-10-06] MEDS: LOKELMA 10 GRAM PO (05:25)
[2024-10-06] MEDS: SYNTHROID 125 MCG PO (05:26)
[2024-10-06] MEDS: LOPRESSOR 5 MG IV ×3 (05:27→23:28)
[2024-10-06 06:00] LABS: % Basophils 0.2 % (0-2); % Eosinophils 0.6 % (0-6); % Immature Granulocytes 0.8 % (0-0.5); % Lymphocytes 9.2 % (20.5-51.1); % Monocytes 9.7 % (1.7-9.3); % Neutrophils 79.5 % (42.2-75.2); Absolute Immature Granulocytes 0.1 10^3/uL (0-0.05); Absolute Lymphocytes 0.6 10^3/uL (1.2-3.4); Absolute Monocytes 0.6 10^3/uL (0.1-0.6); Hematocrit 30.4 % (39.0-52.0); Mean Corp Hgb Conc. 29.6 g/dL (33.0-37.0); Mean Corpuscular Hgb 27.9 pg (27.0-31.0); Mean Corpuscular Volume 94.1 fL (80.0-94.0); Mean Platelet Volume 11.2 fL (7.4-10.4); Nucleated Red Blood Cells % 0.5 % (-); Platelet Count 134 10^3/uL (130-400); Red Blood Cell Count 3.23 10^6/uL (4.70-6.10); Red Cell Dist. Width 18.4 % (11.5-14.5); White Blood Cell Count 6.3 10^3/uL (4.8-10.8)
[2024-10-06 06:11] LABS: APTT 71.5 Sec (23.4-35.0)
[2024-10-06 06:12] LABS: Blood Urea Nitrogen 106 mg/dl (9-20); Calcium 8.5 mg/dl (8.4-10.2); Carbon Dioxide 22 mmol/L (22-30); Chloride 99 mmol/L (98-107); Estimated Creatinine Clearance 13 ml/min; Glucose 118 mg/dl (70-99); Iron < 20 ug/dl (49-181); Potassium 5.3 mmol/L (3.5-5.1); Sodium 132 mmol/L (135-145); eGFR 12.03
[2024-10-06 06:25] LABS: Percent Saturation 7.22021 % (20-50); Total Iron Binding Capacity 277 ug/dl (261-462)
[2024-10-06 06:46] LABS: Ferritin 16.1 ng/ml (17.9-464.0)
[2024-10-06] MEDS: NON-FORMULARY ITEM 1 PUFF INH (07:52)
[2024-10-06] MEDS: NON-FORMULARY ITEM 12 INH INH ×3 (07:53→20:01)
--- NOTE | 2024-10-06 08:29 | W.PN.CARDCBS ---
Today's Communication / Plan
-
Continue IV heparin
Amiodarone if okay with pulmonary at [facility], await their call back, at least for short-term
Volume status/hemodialysis etc. per nephrology
If clinically stable ultimately would be best served with transesophageal echo and cardioversion
Total time 55 minutes
Impression / Plan
-
Primary Procurement Forester: Dr. Dedra Crandall of [facility]
Assessment:
79-year-old complex man with ROBIN on CKD and history of lupus nephritis, now admitted with
Presentation with weight gain, decreased urine output
ROBIN on CKD, lupus nephritis
Hyperkalemia
Hyponatremia
Acute HF, type unknown
Tachycardia - ST vs atypical flutter/tach
Anemia
bifascicular block
pulm HTN
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
RA
mod AR by echo 2020
HTN
Hypothyroidism
GERD
Gout
History of prostate cancer s/p prostatectomy 2005
DNR code status
ECHO 2020: EF 60 to 65%, mild concentric LVH, moderate AR, mild TR, PAP 60 mmHg, mild ascending aorta dilation
Plan:
From cardiac standpoint he remains in what is probably atrial flutter with 2 1 AV conduction.
An echo from 2023 showed an EF of 50 to 55%. Echo at present is pending.
Patient to receive hemodialysis catheter and start hemodialysis today. This will likely improve his hemodynamics significantly. Blood pressure remains marginal.
Best option would probably be to start amiodarone short term if okay with pulmonary at [facility]. I have left a message with Dr. Baca [phone] and await his return call. Thereafter, would favor transesophageal echo and cardioversion if
hemodialysis improves respiratory status and anesthesia feels that risk is acceptable. Given blood pressure, further increases in beta-crisatl, addition of diltiazem likely contraindicated.
Continue heparin for now. He will need a DOAC, likely Eliquis which technically would still be 5 mg twice daily, though he is only about a year away from being 81.
Hyperkalemia is improved and will improve further with hemodialysis.
Progress Note - Procurement Forester
Subjective
Date of Service: October 06, 2024:
Complex 79-year-old man with ROBIN on CKD in setting of lupus nephritis, with acute heart failure, type unknown, presumed atrial flutter, pulmonary hypertension and interstitial lung disease with pulmonary fibrosis on 3 L nasal cannula. Also with
rheumatoid arthritis, history of aortic regurgitation. Followed at [facility]. Creatinine 5.0 on presentation, was 2.2 in 2021, proBNP 15,600
PMH: Largely as above, see assessments
Allergies: Penicillin
Outpatient meds: Allopurinol, amlodipine, Aranesp, aspirin, biologic for lupus, Bumex 1 mg daily, Prolia, doxazosin, Dupixent, Breo, hydroxychloroquine, thyroid, losartan 50 twice daily, Ofev, prednisone 5 mg a day, Tyvaso
Current meds: Aspirin 81 mg a day, hydroxychloroquine 200 twice daily, Synthroid, Ofev, pantoprazole, Tyvaso, Bumex 2 mg IV daily, Breo, prednisone 10 mg a day, metoprolol 5 IV every 6, IV heparin
All else per note below
91/73, pulse 124, resp rate 18, afebrile, sats 99%, intake and output -0.6 L, weight is 91.6 kg, down 1.1 kg,, some tachypnea but not in extreme distress, sats 84% with oxygen, head neck exam unremarkable, some crackles in lungs, tachycardic no
obvious murmurs abdomen distended, extremities with 2+ edema neck veins difficult to assess
Hemoglobin 9, BUN and creatinine 106 and 4.7, potassium 5.3, sodium 132, proBNP 15,600, troponin 0.07 echo still pending
EKG: Probable atrial flutter, heart rate 122
Objective
Labs:
10/06/24 05:28
10/06/24 05:28
Labs
Hgb 9.0 g/dL (13.0-18.0) L 10/06/24 05:28
Hct 30.4 % (39.0-52.0) L 10/06/24 05:28
Plt Count 134 10^3/uL (130-400) 10/06/24 05:28
PT 16.8 Sec (11.4-14.6) H 10/05/24 04:59
INR 1.33 10/05/24 04:59
APTT 71.5 Sec (23.4-35.0) H 10/06/24 05:28
Sodium 132 mmol/L (135-145) L 10/06/24 05:28
Potassium 5.3 mmol/L (3.5-5.1) H 10/06/24 05:28
BUN 106 mg/dl (9-20) H* 10/06/24 05:28
Creatinine 4.7 mg/dL (0.7-1.3) H* 10/06/24 05:28
Glucose 118 mg/dl (70-99) H 10/06/24 05:28
Troponins
10/04/24
18:11
Troponin I 0.070 H*
Vital Signs and I&O:
Vital Signs
Temp Pulse Resp BP Pulse Ox
36.4 C 124 18 91/73 99
10/06/24 07:46 10/06/24 07:59 10/06/24 07:59 10/06/24 04:00 10/06/24 07:59
Vital Signs
Temp Pulse Resp BP Pulse Ox
36.4 C 124 18 91/73 99
10/06/24 07:46 10/06/24 07:59 10/06/24 07:59 10/06/24 04:00 10/06/24 07:59
Intake & Output
10/04/24 10/05/24 10/06/24 10/07/24
07:59 07:59 07:59 07:59
Intake Total 147 / 147
Output Total 200 / 200 775 / 775
Balance -200 / -200 -628 / -628
Physical Exam
Physical Exam
See above
--- NOTE | 2024-10-06 08:29 | W.PN.UPDATE ---
Update Note
Progress Note Update
records obtained and reviewed from patient's primary casting sorter, Dr. Crandall at [facility] including last office visit and EKG 08/23/24, last echo 01/13/24, milking worker 02/2023.
Echo with EF 50 to 55%, grade 1 diastolic dysfunction, RVSP 41 mmHg, mild AR, mild , mild MR, mild TR
ZIO monitor 02/2023: 12 episodes of SVT with longest lasting 8.6 seconds and max heart rate of 176 bpm
Lab work from 08/16/2024 with creatinine of 2.08
[2024-10-06] MEDS: ROBITUSSIN DM 10 ML PO ×3 (08:51→22:22)
[2024-10-06] MEDS: BUMEX 2 MG IV (08:52)
[2024-10-06] MEDS: DELTASONE 10 MG PO (08:53)
[2024-10-06] MEDS: OSCAL 500 + D 500 MG PO ×2 (08:53→20:17)
[2024-10-06] MEDS: OCUVITE SOFTGEL 1 CAP PO (08:53)
[2024-10-06] MEDS: VITAMIN C 1000 MG PO (08:53)
[2024-10-06] MEDS: PROTONIX 40 MG PO (08:53)
[2024-10-06] MEDS: VITAMIN D3 (cholecalciferol) 50 MCG PO (08:53)
[2024-10-06] MEDS: PLAQUENIL 200 MG PO ×2 (08:53→20:17)
--- NOTE | 2024-10-06 09:15 | PTCARENOTE ---
recd pt handoff bedside, heparin gtt infusing. bedside, updated. awaiting call to IR, eating breakfast then requested to take meds after as is his routine at home, accommodated. seen by Dr. Hoff and Leandro. no distress.
--- NOTE | 2024-10-06 09:52 | W.PN.HOSP.TC ---
Today's Communication/Plan
-
see note
Assessment / Plan
Assessment / Plan
1. Acute on chronic systolic congestive heart failure
Acute hypoxic respiratory insufficiency
-Chest x-ray showing signs of cardiogenic pulmonary edema
-Echocardiogram in 21 showing EF 60 to 65%, normal diastolic function. Pulmonary artery pressure of 60 mmHg
-suboptimal response to IV Bumex, urine output of 700 mL over last 24 hours only.
-Repeat echocardiogram report is pending
2. ROBIN on CKDIIIB/IV
-Last known creatinine of 2.2 with GFR 29
-Patient came in with creatinine ~ 5
-Relatively bland urine, no significant proteinuria
-Renal and bladder ultrasound showing a likely benign right renal mass with some calcification. No hydronephrosis
-Concern of potential cardiorenal syndrome, on top of underlying lupus nephritis
-Due to suboptimal response to IV diuretics patient is planned to be initiated on hemodialysis, patient to get dialysis catheter today.
3. Hyperkalemia
Metabolic acidosis
Euvolemic hyponatremia
-Potassium improved and remains at upper normal.
-On Bumex although not having significant urine output. Got few doses of Lokelma
-Acidosis/hyperkalemia driven by ROBIN, patient being put on dialysis likely today will help with metabolic derangements
4. Essential hypertension
- hold amlodipine, doxazosin, and losartan
5. pulmonary fibrosis
- continue ofev if patient able to bring in supply
5. History of lupus nephritis
Rheumatoid arthritis
-maintain on oral prednisone, dose increased to 10mg/d. got solucortef injection
-continue plaquenil
6. Iron def anemia
-Ferritin of 16, saturation 7%
-IV ferlicit ordered
7. Atrial flutter with 2-1 conduction
-Cardiology following and patient currently on heparin drip
-Cardiology considering patient to be started on amiodarone if cleared by patient [place] back end developer due to history of pulmonary fibrosis
-Patient will be considered to undergo cardioversion as well
-Eventually patient will require to be on DOAC.
-Repeat echocardiogram from yesterday is pending
hypothyroidism
GERD
prostate cancer
prostatectomy 2005
gout
Code Status: DNR
DVT Prophylaxis: Heparin drip
Total time spent : 53 mins
Anticipated Discharge: > 48 hours
Subjective/Interval History
-
Date of Service: October 06, 2024
Patient remains in A-fib/flutter with 2-1 block
Denies of any palpitation/dizziness
Feels abdominal distention although no nausea or vomiting
No other reported problems
Objective Data
-
Labs:
Laboratory Results
10/05/24 10/06/24 10/06/24
22:36 05:28 12:45
WBC 6.3
Hgb 9.0 L
Hct 30.4 L
Plt Count 134
APTT 41.5 H 71.5 H Pending
Sodium 131 L 132 L
Potassium 5.6 H 5.3 H
Chloride 98 99
Carbon Dioxide 21 L 22
BUN 103 H* 106 H*
Creatinine 4.7 H* 4.7 H*
Glucose 149 H 118 H
Calcium 8.3 L 8.5
Vital Signs:
Vital Signs
Temp Pulse Resp BP Pulse Ox
97.6 F 124 18 98/78 99
10/06/24 07:46 10/06/24 07:59 10/06/24 07:59 10/06/24 08:52 10/06/24 07:59
I&O
10/05/24 10/06/24 10/07/24
06:59 06:59 06:59
Intake Total 134 / 147
Output Total 200 / 200 775 / 775
Balance -200 / -200 -641 / -628
Review of Systems
-
Respiratory: Reports No Symptoms
Cardiac: Reports No Symptoms
Abdomen/GI: Reports No Symptoms
Physical Exam
-
General: No Apparent Distress and Comfortable
HEENT: Negative Oxygen
Respiratory: Clear to Auscultation
Cardiac: S1/S2, Irregular Rhythm and Tachycardic; Negative Murmur or Rub
GI: Soft, Normal Bowel Sounds and Distended
Musculoskeletal: No Edema
Neuro: Awake, Alert, Oriented, No Motor Deficits and Nonfocal/Grossly Intact
Psych: Calm
--- NOTE | 2024-10-06 10:56 | W.PN.UPDATE ---
Update Note
Progress Note Update
Spoke with Dr. Akhtar who would prefer to avoid the use of amiodarone -could be used as a measure of last resort. He felt patient would be a suitable candidate for MANUEL cardioversion. If patient seems relatively stable after hemodialysis this may be
the best strategy. Will reassess later today.
--- NOTE | 2024-10-06 11:31 | W.PN.NEPH.PH ---
Addendum entered and electronically signed by Kaylie Hoff MD 10/06/24 11:46:
d/w cards ok for midodrine if needed during HD
Original Note:
Today's Communication / Plan
-
HD today after line placed
Assessment/Plan
-
IMP;
Acute on chronic respiratory failure
decompensated heart failure exacerbation with pulmonary edema
ROBIN on CKD 3 vs 4?- lupus nephritis cr 2.2 in 2021-nephrology at [facility] Dr Davis
Hyperkalemia
Hyponatremia
Metabolic acidosis
Hyperphosphatemia
SHPTH
Anemia
ILD/PF in setting of RA/SLE--follows at [facility]
KAI on CPAP
HTN
Hypothyroidism
Gout
Prostate ca, s/p prostatectomy 2005
lupus
rheumatoid arthritis
Plan:
A/w Anuria with severe AK I with known lupus nephritis and decompensated CHF
UTI sample, . Report is pending,Fena high and urine PCR 1.1gm/gm of cr -chronic
UOP improved slightly but only 775cc, Renal ultrasound no hydronephrosis however has subcentimeter calcified hypoechoic mass in the right kidney probably felt to be benign
spoke with Npe[facility]rology at [facility]-states he has advanced CKD, already plans were making for PD in out pt
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
Given his severe ROBIN and oliguria will start dialysis today, no PD in urgent setting-can be reviewed in out pt
Continue supportive care including the diuretics
Hyperkalemia -low k diet
Metabolic acidosis stable
his blood pressures are soft with the tachycardia-echo noted EF 30-35%, stage 2DD, severe LVH, IVC dilated, mod pulm HTN
monitor hemoglobin, fe def noted, will give iV fe with HD
Discussed with the patient and in detail
Discussed with nursing
-
-
Date of Service: October 06, 2024
CC / HPI / ROS
-
Chief Complaint:
ROBIN, CKD
History of Present Illness:
cr up at 4.7, UOP <1lit with diuretics
tachycardic still, SBP in 90s
no fever, wt down
Review of Systems:
no cp
sob no chjange
no n/v
Labs
-
Labs:
WBC 6.3 10^3/uL (4.8-10.8) 10/06/24 05:28
RBC 3.23 10^6/uL (4.70-6.10) L 10/06/24 05:28
Hgb 9.0 g/dL (13.0-18.0) L 10/06/24 05:28
Hct 30.4 % (39.0-52.0) L 10/06/24 05:28
Plt Count 134 10^3/uL (130-400) 10/06/24 05:28
Sodium 132 mmol/L (135-145) L 10/06/24 05:28
Potassium 5.3 mmol/L (3.5-5.1) H 10/06/24 05:28
Chloride 99 mmol/L (98-107) 10/06/24 05:28
Carbon Dioxide 22 mmol/L (22-30) 10/06/24 05:28
BUN 106 mg/dl (9-20) H* 10/06/24 05:28
Creatinine 4.7 mg/dL (0.7-1.3) H* 10/06/24 05:28
eGFR 12.03 10/06/24 05:28
Glucose 118 mg/dl (70-99) H 10/06/24 05:28
Calcium 8.5 mg/dl (8.4-10.2) 10/06/24 05:28
Phosphorus 5.1 mg/dl (2.5-4.5) H 10/05/24 11:38
Szz-Z-Crxauoxbuxr Pept 22254 pg/ml 10/04/24 18:11
Albumin 3.2 g/dl (3.5-5.0) L 10/04/24 18:11
Physical Exam
-
Vital Signs:
Vital Signs
Temp Pulse Resp BP Pulse Ox
97.6 F 124 18 98/78 95
10/06/24 11:31 10/06/24 07:59 10/06/24 07:59 10/06/24 08:52 10/06/24 08:00
Cardiovascular:: Regular rate and rhythm (tachy)
Respiratory:: Bilateral: Coarse
Lung Excursion:: Normal
Abdomen:: Distended, Nontender and Soft
Extremity Edema:: +2: Bilateral:
Martinez Catheter: No
--- NOTE | 2024-10-06 12:36 | PN.CDI ---
CDI
- -
CDI:
Physician Documentation Request
Admit Date: 10/04/24 23:40
Dear Doctor,
Please review the following and provide your response in the progress notes.
Clinical Indicators:
Pt admitted with CHF. Patient has hx pulmonary fibrosis on home o2.
RR in 20's
Pox in 90's
+orthopnea and progressive SOB
+Crackles and Rales, No respiratory distress
Patient requiring 5l O2 NC, at home requires 3lO2
Progress Notes indicate Acute hypoxic Respiratory Insufficiency
Nephrology notes state Acute on chronic respiratory failure
Clarify which of the following accurately represents the patient's respiratory status:
Acute on chronic respiratory failure (specify if hypoxic, hypercapnic)
Chronic respiratory failure only
Other
Unable to determine
Additional information for Respiratory Failure:
Recognized criteria for Respiratory Failure (Source: [facility] Hospitalist Jul 2013)
ABGs: (1 or more) Symptoms Please indicate type if known
1. p)2 <60 or RA SPO2 <91% on RA 1. Tachypnea, SOB, dyspnea Hypoxic
2. pCO2 50 and pH <7.35 2. Use of accessory muscles Hypercapnic
3. pO2 decrease of pCO2 increase by 3. Pallor or cyanosis Hypoxic and Hypercapnic
10 mmHg from baseline if known 4. Anxiety or restlessness Unable to determine
5. Unable to speak in full sentences
Supplemental O2 of > 40% (5LPM) Intubation is not required
Use of terms such as suspected, likely, concern for, or probable (associated with a specific diagnosis that is being evaluated, monitored, or treated as if it exists) are acceptable and can be coded in the inpatient setting, when documented at the
time of discharge.
Thank you,
Irish CASTANO, RN, CCDS
CDI Specialist
[phone]
Please use your independent medical judgment in providing your response.
--- NOTE | 2024-10-06 13:00 | PTCARENOTE ---
ambulated in hallway then to chair. awaiting IR procedure. heparin continues, PTT pending. clear liquid diet
[2024-10-06 13:31] LABS: APTT 89.9 Sec (23.4-35.0)
[2024-10-06] MEDS: NON-FORMULARY ITEM 150 MG PO (13:48)
[2024-10-06] MEDS: HEPARIN 25000 UNITS/250 ML IV (13:53)
[2024-10-06] MEDS: NON-FORMULARY ITEM 1 INH INH (15:34)
[2024-10-06] MEDS: LOKELMA PO ×2 (16:31→17:50)
--- NOTE | 2024-10-06 16:31 | PTCARENOTE ---
1545 transport here, taken to IR via bed on oxygen and tele monitor. Heparin paused per IR pre-procedure. in good spirits.
[2024-10-06] MEDS: VANCOCIN 530 MG IV (16:32)
[2024-10-06] MEDS: ProAmatine 5 MG PO (17:36)
[2024-10-06] MEDS: FLEXBUMIN 25% FOR HEMODIALYSIS 12.5 GRAMS IV ×2 (17:43→18:53)
[2024-10-06] MEDS: MANNITOL 25% 12.5 GRAMS IV ×2 (17:44→18:53)
[2024-10-06] MEDS: LOPRESSOR IV (17:50)
--- NOTE | 2024-10-06 17:59 | W.PN.NEPH.HD ---
Assessment
-
pt seen during HD
SBP in 90s, HR still 120s
s/p midodrine
limited UF
HD again tomorrow
tunneled catheter functions fine
Progress Note - Hemodialysis
-
Date of Service: October 06, 2024
Duration: 2 hours
Potassium Bath: 2
Calcium Bath: 2.5
Opti-Dialyzer: 160
Ultrafiltration: Other (.5-1kg)
Blood Flow: 200
Dialysate Flow: Other (500)
Heparin: no
EPO: 4000
[2024-10-06] MEDS: RETACRIT 4000 UNITS IV (18:16)
[2024-10-06] MEDS: FERRLECIT 110 MG IV (18:26)
--- NOTE | 2024-10-06 18:32 | PTCARENOTE ---
Back from IR approx 1735 settled in bed. HD orders in record. groggy. vanco infusion continuing. Heparin gtt restarted per order and clarification wtih Dr. Santos. Family bedside initially. Pt without c/o. Dr. Hoff visited. Aware and
approving to hold Lokelma and 1800 metoprolol.
--- NOTE | 2024-10-06 19:06 | W.PN.UPDATE ---
Update Note
Progress Note Update
I spoke with patient's [place] web graphic designer Dr. Akhtar. For now we will try to hold off on amiodarone. He is on hydroxychloroquine so QT effects might come into play. Currently he is on hemodialysis with a heart rate that is still greater than 120.
Underlying rhythm is most likely flutter. After discussion with Dr. Baca, I think the best strategy would be religious of sinus rhythm, so we we will reassess in the a.m. and if hemodynamically relatively stable and if pulmonary status also
acceptable, would recommend transesophageal echo and cardioversion with subsequent anticoagulation. is in agreement. Patient currently sedated.
[2024-10-06 19:56] LABS: Hepatitis B Surface Antigen Negative (Negative)
[2024-10-06 20:13] LABS: Hepatitis B Surface Antibody Negative
--- NOTE | 2024-10-06 20:15 | PTCARENOTE ---
agriculture research director, aaox3, 1st HD tx complete. RIJ HD cath WNL. ST HR 120-130s. RA IV x 2 WNL- heparin gtt infusing per work list. Sat 94% on 4LNC. pt set up to eat dinner. POC discussed, call hayes with pt.
[2024-10-06] MEDS: LOW STRENGTH ASPIRIN 81 MG PO (20:17)
[2024-10-06] MEDS: TYLENOL 650 MG PO (22:22)
[2024-10-07] VITALS (47 sets, daily range): BP systolic 80–118; BP diastolic 65–81; BMI 30.5
[2024-10-07 00:03] LABS: APTT > 200 Sec (23.4-35.0)
[2024-10-07] MEDS: LOKELMA PO (05:24)
[2024-10-07] MEDS: LOPRESSOR 5 MG IV (05:24)
[2024-10-07] MEDS: SYNTHROID 125 MCG PO (05:24)
[2024-10-07] MEDS: TYLENOL 650 MG PO ×2 (05:29→17:43)
[2024-10-07 06:23] LABS: Hematocrit 30.8 % (39.0-52.0); Hemoglobin 9.2 g/dL (13.0-18.0); Mean Corp Hgb Conc. 29.9 g/dL (33.0-37.0); Mean Corpuscular Hgb 27.8 pg (27.0-31.0); Mean Corpuscular Volume 93.1 fL (80.0-94.0); Mean Platelet Volume 11.7 fL (7.4-10.4); Platelet Count 142 10^3/uL (130-400); Red Blood Cell Count 3.31 10^6/uL (4.70-6.10); Red Cell Dist. Width 18.6 % (11.5-14.5); White Blood Cell Count 6.6 10^3/uL (4.8-10.8)
--- NOTE | 2024-10-07 06:30 | PTCARENOTE ---
pt c/o nausea and chest tightness, PWoodNP aware, EKG obtained, BEHAVIORAL HEALTH ASSOCIATE to order zofran.
[2024-10-07] MEDS: ZOFRAN 4 MG IV (06:37)
[2024-10-07 06:46] LABS: Blood Urea Nitrogen 87 mg/dl (9-20); Calcium 8.2 mg/dl (8.4-10.2); Carbon Dioxide 21 mmol/L (22-30); Chloride 98 mmol/L (98-107); Estimated Creatinine Clearance 17 ml/min; Glucose 99 mg/dl (70-99); Potassium 5.6 mmol/L (3.5-5.1); Sodium 131 mmol/L (135-145); eGFR 14.17
[2024-10-07] MEDS: ROCALTROL PO (07:17)
[2024-10-07] MEDS: NON-FORMULARY ITEM 12 INH INH ×3 (07:47→15:14)
[2024-10-07] MEDS: NON-FORMULARY ITEM 1 PUFF INH (07:47)
[2024-10-07] MEDS: ROBITUSSIN DM 10 ML PO ×2 (08:15→18:47)
[2024-10-07] MEDS: NON-FORMULARY ITEM 150 MG PO (08:16)
[2024-10-07] MEDS: PLAQUENIL 200 MG PO ×2 (08:16→20:05)
[2024-10-07] MEDS: PROTONIX 40 MG PO (08:16)
[2024-10-07] MEDS: DELTASONE 10 MG PO (08:16)
[2024-10-07] MEDS: BUMEX 2 MG IV (08:16)
[2024-10-07] MEDS: OSCAL 500 + D PO (08:17)
[2024-10-07] MEDS: VITAMIN D3 (cholecalciferol) PO (08:18)
--- NOTE | 2024-10-07 08:40 | PTCARENOTE ---
recd 0715 earlier c/o chest pressure, still mildly present, repositioned, pads changed, mattress made firmer, some relief. otherwise 'just don't feel good'. rest of assessment as noted. holding vitamins per patient for now, NPO pending plan for
today. heparin infuses, PTT drawn and sent. eyes closed. earlier less oxygen, presently 5l nc. see rest of documentation. bedside, updated. expecting HD later today.
[2024-10-07 09:21] LABS: APTT > 200 Sec (23.4-35.0)
--- NOTE | 2024-10-07 09:35 | PTCARENOTE ---
PTT >200, heparin on hold. anesthesia and cardiology in room to speak with pt and re: plan.
--- NOTE | 2024-10-07 10:59 | ITS.CL.CARDI ---
Medical Clerical Assistant - Cardioversion
Cardioversion
Procedure Report:
Procedure: MANUEL-guided electrical cardioversion
Pre-operative diagnosis: Persistent atrial flutter
Post-operative diagnosis: Persistent atrial flutter status post DC cardioversion to sinus rhythm
Anesthesia: MAC
Attending Physician: Kaushik Day MD
Procedure Description: The patient was brought to the electrophysiology laboratory in the fasting state. Informed consent was obtained from the patient prior to the start of the procedure. Adherence to anticoagulation was confirmed. Electrodes were
placed on the patient and connected to an external defibrillator. Monitoring of blood pressure, ECG tracings, and pulse oximetry was initiated. The pads were applied to the patient in the anterior and posterior positions. The patient was sedated by
the anesthesiologist. A MANUEL (reported separately) was performed prior to the cardioversion. No left atrial or left atrial appendage thrombus was seen. After the MANUEL probe was removed, a 200 joule biphasic synchronized shock was delivered to the
patient under MAC anesthesia. Sinus rhythm was successfully restored. The patient recovered uneventfully from MAC anesthesia. There were no immediate post-procedure complications. The patient left the lab in good condition. The attending physician
was present throughout the entire procedure.
Impression: Successful MANUEL-guided direct current cardioversion with jew of sinus rhythm after one 200 joule biphasic synchronized shock.
--- NOTE | 2024-10-07 11:00 | PTCARENOTE ---
Performed bedside MANUEL/CV-Pt ID, name & birthday confirmed. Consent obtained by Dr Toro at bedside, pt's present. Pt seen by anesthesia, Dr Garcia. AGGIE Moe at bedside, Metal Forger'S Assistant Dang Wong at bedside, Time out preformed with
all team members @ 1040, MANUEL probe advanced @ 1046- probe removed @ 1049, Time out preformed prior to CV with all team members, 1050 Sync CV preformed 200 J x 1, pt sinus rhythm. VSS stable as documented. Pt sedate at this time, VS q 5 mins.
--- NOTE | 2024-10-07 11:07 | PTCARENOTE ---
Pt tolerating ice chips, following simple commands and answers questions approp.
--- NOTE | 2024-10-07 11:19 | PTCARENOTE ---
Pt's VSS, pt tolerating ice chips, post MANUEL/CV recovery phase completed. Report handed off to FREDY Riley.
[2024-10-07] MEDS: VITAMIN C PO (11:30)
[2024-10-07] MEDS: OCUVITE SOFTGEL PO (11:30)
--- NOTE | 2024-10-07 11:35 | PTCARENOTE ---
recd from MANUEL/CV procedure NSR mid 80s, IVCD. no distress. resting. oxygen 5l nc. comfortable.
--- NOTE | 2024-10-07 12:30 | W.PN.CARDCBS ---
Today's Communication / Plan
-
MANEUL/DCCV earlier today to restore sinus rhythm
Transition from heparin to Eliquis tonight
Transition IV metoprolol to PO, would continue due to cardiomyopathy
Impression / Plan
-
Primary Ethylene Compressor Operator: Dr. Dedra Crandall of [place]
Assessment:
79-year-old complex man with ROBIN on CKD and history of lupus nephritis, now admitted with
Presentation with weight gain, decreased urine output
ROBIN on CKD, lupus nephritis
Hyperkalemia
Hyponatremia
Acute HF, type unknown
Tachycardia - ST vs atypical flutter/tach
Anemia
bifascicular block
pulm HTN
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
RA
mod AR by echo 2020
HTN
Hypothyroidism
GERD
Gout
History of prostate cancer s/p prostatectomy 2005
DNR code status
ECHO 2020: EF 60 to 65%, mild concentric LVH, moderate AR, mild TR, PAP 60 mmHg, mild ascending aorta dilation
Plan:
Remained in rapid atrial flutter with 2 1 AV conduction with HR ~125 bpm overnight
MANUEL/DCCV was performed in ICU this AM 10/07/24
Currently maintaining NSR
Ok to stop IV metoprolol given marginal BP
Will transition to PO metoprolol given cardiomyopathy
Transition from IV heparin to Eliquis tonight
Volume removal via HD per nephrology
Discussed with anesthesia, nephrology, nursing, at bedside
CC time: 47 minutes
Progress Note - Ethylene Compressor Operator
Subjective
Date of Service: October 07, 2024
Remained in rapid AFlutter overnight. No cardiac complaints. Reporting back discomfort today.
Objective
Labs:
10/07/24 05:32
10/07/24 05:32
Labs
Hgb 9.2 g/dL (13.0-18.0) L 01/10/25 05:32
Hct 30.8 % (39.0-52.0) L 10/07/24 05:32
Plt Count 142 10^3/uL (130-400) 10/07/24 05:32
PT 16.8 Sec (11.4-14.6) H 10/05/24 04:59
INR 1.33 10/05/24 04:59
APTT > 200 Sec (23.4-35.0) H* 10/07/24 08:34
Sodium 131 mmol/L (135-145) L 10/07/24 05:32
Potassium 5.6 mmol/L (3.5-5.1) H 10/07/24 05:32
BUN 87 mg/dl (9-20) H 10/07/24 05:32
Creatinine 4.1 mg/dL (0.7-1.3) H* 10/07/24 05:32
Glucose 99 mg/dl (70-99) 10/07/24 05:32
Troponins
10/04/24
18:11
Troponin I 0.070 H*
Vital Signs and I&O:
Vital Signs
Temp Pulse Resp BP Pulse Ox
97.5 F 87 19 102/71 94
10/07/24 11:47 10/07/24 11:35 10/07/24 11:35 10/07/24 11:35 10/07/24 11:30
Vital Signs
Temp Pulse Resp BP Pulse Ox
97.5 F 87 19 102/71 94
10/07/24 11:47 10/07/24 11:35 10/07/24 11:35 10/07/24 11:35 10/07/24 11:30
Intake & Output
10/05/24 10/06/24 10/07/24 10/08/24
06:59 06:59 06:59 06:59
Intake Total 134 / 147 1051 / 1062 192 / 192
Output Total 200 / 200 775 / 775 475 / 475
Balance -200 / -200 -641 / -628 576 / 587 / 192
Physical Exam
Physical Exam
Gen: NAD, AA
HEENT: NC/AT, sclera anicteric
Neck: No JVD
CV: tachy, regular
Lungs: No increased WOB on 4L NC
Abd: S/ND
Ext: Trace LE edema
Skin: Warm, dry, R chest HD catheter CDI
Neuro: Non-focal
[2024-10-07] MEDS: ProAmatine 5 MG PO (12:41)
[2024-10-07] MEDS: LOPRESSOR IV (12:49)
[2024-10-07] MEDS: MANNITOL 25% 12.5 GRAMS IV ×2 (13:30→14:37)
--- NOTE | 2024-10-07 13:31 | W.PN.NEPH.HD ---
Assessment
-
Status post cardioversion earlier this morning
Remains tachycardic, sbp currently stable
HD again tomorrow
Progress Note - Hemodialysis
-
Date of Service: October 07, 2024
Duration: 30 minutes and 2 hours
Potassium Bath: 2
Calcium Bath: 2.5
Opti-Dialyzer: 160
Ultrafiltration: Other (2 kg as tolerated hemodynamic)
Blood Flow: 300
Dialysate Flow: 600
Heparin: None
EPO: 4000
[2024-10-07] MEDS: FERRLECIT 110 MG IV (13:50)
[2024-10-07] MEDS: RETACRIT 4000 UNITS IV (13:51)
--- NOTE | 2024-10-07 14:57 | CM ---
CM following re: discharge planning.
Reviewed pt;s chart, met with pt. Pt's spouse and daughter at bedside.
Per field service manager pt will need outpatient HD treatment set up.
CM discussed it with the pt and his family, pt's spouse stated they live 5 minutes away from [facility] on [address] and they requested [facility]. Preferred days: MWF, chair time morning.
CM faxed a referral to [facility] corporate with a request for outpatient HD treatment at [facility] on [address].
PT and OT did not evaluate the pt yet. Pt's spouse stated if pt needs SNF level of care she requested [facility] with HD treatment onsite.
CM will fax a referral to [facility] after PT/OT evaluations and recommendations.
D/C plan: [facility] with HD treatment onsite if recommended by PT/OT with further outpatient HD treatment [facility].
CM will follow with discharge plan updates as hospitalization progresses
--- NOTE | 2024-10-07 15:04 | W.PN.HOSP.TC ---
Addendum entered and electronically signed by Fredis Meneses MD 10/07/24 15:51:
add on to diagnosis list
Acute on chronic hypoxic respiratory failure
Original Note:
Today's Communication/Plan
-
for cardioversion today
HD per nephro
Assessment / Plan
Assessment / Plan
1. Acute on chronic systolic congestive heart failure
Acute hypoxic respiratory insufficiency
-Chest x-ray showing signs of cardiogenic pulmonary edema
-Echocardiogram in 21 showing EF 60 to 65%, normal diastolic function. Pulmonary artery pressure of 60 mmHg
-Repeat echocardiogram showing EF of 30 to 35%, stage II diastolic dysfunction. Moderate MRSylvia Amaro puldaisha HTN.
2. 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
-Last known creatinine of 2.2 with GFR 29
-Patient came in with creatinine ~ 5
-Relatively bland urine, no significant proteinuria
-Renal and bladder ultrasound showing a likely benign right renal mass with some calcification. No hydronephrosis
-Concern of potential cardiorenal syndrome, on top of underlying lupus nephritis
-Patient has been started on hemodialysis due to suboptimal response to diuretic therapy
3. Hyperkalemia
Metabolic acidosis
Euvolemic hyponatremia
-Potassium improved and remains at upper normal.
-On Bumex although not having significant urine output. Got few doses of Lokelma
-Acidosis/hyperkalemia driven by ROBIN, patient being put on dialysis likely today will help with metabolic derangements
4. Essential hypertension
- hold amlodipine, doxazosin, and losartan
5. pulmonary fibrosis
- continue ofev if patient able to bring in supply
5. History of lupus nephritis
Rheumatoid arthritis
-maintain on oral prednisone, dose increased to 10mg/d. got solucortef injection
-continue plaquenil
6. Iron def anemia
-Ferritin of 16, saturation 7%
-IV ferlicit ordered
7. Atrial flutter with 2-1 conduction
-Cardiology following and patient currently on heparin drip
-Cardiology discussed with primary house cleaner and not an appropriate candidate for amiodarone initiation. Patient is getting MANUEL and cardioversion today.
-Eventually patient will require to be on DOAC.
hypothyroidism
GERD
prostate cancer
prostatectomy 2005
gout
Code Status: DNR
DVT Prophylaxis: Heparin drip
Total time spent : 54 mins
Patient remains critically ill and have risk of further deterioration this admission. Medically complex care.
Anticipated Discharge: > 48 hours
Subjective/Interval History
-
Date of Service: October 07, 2024
Resting comfortably in bed
remains in afib
Blood pressure is soft
Complaining of some back pain
Objective Data
-
Labs:
Laboratory Results
10/07/24 10/07/24 10/07/24
05:32 08:34 17:30
WBC 6.6
Hgb 9.2 L
Hct 30.8 L
Plt Count 142
APTT > 200 H* Pending
Sodium 131 L
Potassium 5.6 H
Chloride 98
Carbon Dioxide 21 L
BUN 87 H
Creatinine 4.1 H*
Glucose 99
Calcium 8.2 L
Vital Signs:
Vital Signs
Temp Pulse Resp BP Pulse Ox
97.5 F 88 19 97/66 94
10/07/24 11:47 10/07/24 12:41 10/07/24 11:35 10/07/24 12:41 10/07/24 11:30
I&O
10/06/24 10/07/24 10/08/24
06:59 06:59 06:59
Intake Total 134 / 147 1051 / 1062 260 / 260
Output Total 775 / 775 475 / 475
Balance -641 / -628 576 / 587 260 / 260
Review of Systems
-
Respiratory: Reports No Symptoms
Cardiac: Denies Chest Pain
Abdomen/GI: Reports No Symptoms
Physical Exam
-
General: No Apparent Distress and Comfortable
HEENT: Negative Oxygen
Respiratory: Clear to Auscultation
Cardiac: S1/S2, Irregular Rhythm and Tachycardic; Negative Murmur or Rub
GI: Soft, Normal Bowel Sounds and Distended
Musculoskeletal: No Edema
Neuro: Awake, Alert, Oriented, No Motor Deficits and Nonfocal/Grossly Intact
Psych: Calm
[2024-10-07] MEDS: HEPARIN INTRACATH (15:30)
--- NOTE | 2024-10-07 16:14 | PTCARENOTE ---
finished HD, rests unless disturbed. doesn't want anything to eat, took small amount water, turned, skin care. back pain continues, pt is able to sleep, K pad in place, repositioned.
[2024-10-07] MEDS: DILAUDID 0.25 MG IV (17:43)
--- NOTE | 2024-10-07 18:06 | PTCARENOTE ---
not interested in dinner, notes ongoing back pain, k pad repositioned, med as noted in MAR. Family present, updated. positioned for comfort. Remains in NSR with stable VS.
--- NOTE | 2024-10-07 19:18 | PTCARENOTE ---
On assessment opt AAOx3, denies pain and SOB at this time, pt repositioned in bed, at bedside, starting Eliquis HS, 5L NC, R chest HD line oozing, reinforced, call hayes in reach.
[2024-10-07] MEDS: ELIQUIS 5 MG PO (20:05)
[2024-10-07] MEDS: OSCAL 500 + D 500 MG PO (20:05)
[2024-10-07] MEDS: TOPROL XL 12.5 MG PO (20:05)
[2024-10-07] MEDS: NON-FORMULARY ITEM INH (21:26)
[2024-10-07] MEDS: LOW STRENGTH ASPIRIN 81 MG PO (21:33)
[2024-10-08] VITALS (36 sets, daily range): BP systolic 86–139; BP diastolic 59–111; BMI 29.6
[2024-10-08] MEDS: SYNTHROID 125 MCG PO (05:13)
[2024-10-08 05:56] LABS: % Basophils 0.1 % (0-2); % Eosinophils 0.1 % (0-6); % Immature Granulocytes 0.5 % (0-0.5); % Lymphocytes 3.8 % (20.5-51.1); % Neutrophils 83.5 % (42.2-75.2); Absolute Immature Granulocytes 0.1 10^3/uL (0-0.05); Absolute Lymphocytes 0.4 10^3/uL (1.2-3.4); Absolute Monocytes 1.2 10^3/uL (0.1-0.6); Absolute Neutrophils 8.2 10^3/uL (1.4-6.5); Hematocrit 30.9 % (39.0-52.0); Hemoglobin 9.1 g/dL (13.0-18.0); Mean Corp Hgb Conc. 29.4 g/dL (33.0-37.0); Mean Corpuscular Hgb 27.7 pg (27.0-31.0); Mean Corpuscular Volume 93.9 fL (80.0-94.0); Nucleated Red Blood Cells % 0.7 % (-); Red Blood Cell Count 3.29 10^6/uL (4.70-6.10); White Blood Cell Count 9.8 10^3/uL (4.8-10.8)
[2024-10-08 06:10] LABS: Blood Urea Nitrogen 72 mg/dl (9-20); Calcium 7.5 mg/dl (8.4-10.2); Carbon Dioxide 22 mmol/L (22-30); Chloride 99 mmol/L (98-107); Estimated Creatinine Clearance 17 ml/min; Glucose 89 mg/dl (70-99); Potassium 5.2 mmol/L (3.5-5.1); Sodium 133 mmol/L (135-145)
--- NOTE | 2024-10-08 06:51 | PTCARENOTE ---
Calcium 7.5 with morning labs, IMU AND [employer] paged and made aware, no new orders at this time.
[2024-10-08 07:35] LABS: Mean Platelet Volume 12.2 fL (7.4-10.4); Platelet Count 76 10^3/uL (130-400)
--- NOTE | 2024-10-08 08:14 | W.PN.CARDCBS ---
Today's Communication / Plan
-
Stop aspirin
Continue Eliquis/metoprolol
Impression / Plan
-
Primary Water Resources Technical Officer: Dr. Dedra Crandall of [place]
Assessment:
79-year-old complex man with ROBIN on CKD and history of lupus nephritis, now admitted with
Presentation with weight gain, decreased urine output
ROBIN on CKD, lupus nephritis
Hyperkalemia
Hyponatremia
Acute HF, type unknown
Tachycardia - ST vs atypical flutter/tach
Anemia
bifascicular block
pulm HTN
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
RA
mod AR by echo 2020
HTN
Hypothyroidism
GERD
Gout
History of prostate cancer s/p prostatectomy 2005
DNR code status
ECHO 2020: EF 60 to 65%, mild concentric LVH, moderate AR, mild TR, PAP 60 mmHg, mild ascending aorta dilation
Echo 10/05/2024: EF 30-35%, stage II diastolic dysfunction, dilated atria, normal RV, mild to moderate MR, mild AI, pulmonary artery pressure 51 mmHg
Plan:
He is still volume overloaded but looks much improved. Scheduled for dialysis later today. Still on Bumex 2 mg IV daily, defer to nephrology
He remains in sinus rhythm following transesophageal echo and cardioversion yesterday. Continue metoprolol ER 12.5 twice daily and apixaban
He is thrombocytopenic, with an abrupt change. He had been on heparin. Heparin has been discontinued. Defer to primary service as to HIT panel etc. Given that he is on apixaban, stop aspirin.
At present, continue to hold amiodarone. May need to reconsider if atrial flutter recurs.
Hopefully EF will improve now that sinus rhythm has been reestablished
79-year-old male with past medical history of chronic kidney disease stage III-IV, pulmonary hypertension, interstitial lung disease with pulmonary fibrosis on home oxygen, moderate aortic regurgitation who presents to [facility] with acute
on chronic renal failure and acute congestive heart failure with preserved ejection fraction. He is followed at [facility] by nephrology and cardiology and pulmonary. He takes Ofev and Tyvaso as an outpatient. He has noticed for
the past 10 days or so and elevation his heart rate in the 120s. He felt no palpitations or chest pains but then started noticing fatigue, shortness of breath and an inability to urinate. He was found to be in acute renal failure with a creatinine
of 5. His baseline creatinine is in the 2-2.5 range. On presentation found to have atrial flutter with 2-1 conduction
CC time: 47 minutes
Progress Note - Water Resources Technical Officer
Subjective
Date of Service: October 08, 2024:
PMH: CKD, lupus nephritis, acute HFpEF, pulmonary fibrosis/interstitial lung disease, pulmonary hypertension, rheumatoid arthritis, moderate aortic regurgitation, hypertension, gout, GERD, prostatectomy 2005
Current medications: Aspirin 81 mg a day, calcitriol, hydroxychloroquine 200 twice daily, levothyroxine 125 mcg daily, Ofev, pantoprazole, Tyvaso, Bumex 2 mg IV daily, prednisone 10 mg a day, Breo elliptica, apixaban 5 twice daily, metoprolol ER
12.5 mg daily
94/61, pulse 81, respirate 17, afebrile, sats 98%, weight is 90.8 kg, down 2.9 kg, head neck exam unremarkable, diminished breath sounds in bases, regular rate and rhythm, abdomen benign, 2+ to 3+ edema, neck veins still elevated, hemodialysis
catheter in place
Hemoglobin 9.1, platelets are 76, had been 142, potassium 5.2, sodium 133, BUN and creatinine are 72 and 4.0
ECG on October 07 sinus rhythm, right bundle branch block, left anterior fascicular block
Transesophageal echo EF 35%, normal RV, dilated left atrium, no thrombus seen,
Objective
Labs:
10/08/24 05:15
10/08/24 05:15
Labs
Hgb 9.1 g/dL (13.0-18.0) L 10/08/24 05:15
Hct 30.9 % (39.0-52.0) L 10/08/24 05:15
Plt Count 76 10^3/uL (130-400) L D 10/08/24 05:15
PT 16.8 Sec (11.4-14.6) H 10/05/24 04:59
INR 1.33 10/05/24 04:59
APTT Cancelled 10/07/24 17:30
Sodium 133 mmol/L (135-145) L 10/08/24 05:15
Potassium 5.2 mmol/L (3.5-5.1) H 10/08/24 05:15
BUN 72 mg/dl (9-20) H 10/08/24 05:15
Creatinine 4.0 mg/dL (0.7-1.3) H 10/08/24 05:15
Glucose 89 mg/dl (70-99) 10/08/24 05:15
Vital Signs and I&O:
Vital Signs
Temp Pulse Resp BP Pulse Ox
36.4 C 81 17 94/61 98
10/08/24 07:00 10/08/24 06:00 10/08/24 06:00 10/08/24 06:00 10/08/24 06:00
Vital Signs
Temp Pulse Resp BP Pulse Ox
36.4 C 81 17 94/61 98
10/08/24 07:00 10/08/24 06:00 10/08/24 06:00 10/08/24 06:00 10/08/24 06:00
Intake & Output
10/06/24 10/07/24 10/08/24 10/09/24
07:59 07:59 07:59 07:59
Intake Total 147 / 520 1049 / 1060 403 / 403
Output Total 775 / 975 475 / 475
Balance -628 / -455 574 / 585 403 / 403
Physical Exam
Physical Exam
See above
[2024-10-08] MEDS: NON-FORMULARY ITEM 1 PUFF INH (08:54)
[2024-10-08] MEDS: NON-FORMULARY ITEM 1 INH INH ×2 (08:55→12:11)
[2024-10-08] MEDS: BUMEX 2 MG IV (08:56)
[2024-10-08] MEDS: DELTASONE 10 MG PO (08:58)
[2024-10-08] MEDS: ELIQUIS 5 MG PO ×2 (08:58→20:04)
[2024-10-08] MEDS: VITAMIN D3 (cholecalciferol) 50 MCG PO (08:58)
[2024-10-08] MEDS: PROTONIX 40 MG PO (08:58)
[2024-10-08] MEDS: PLAQUENIL 200 MG PO ×2 (08:58→20:04)
[2024-10-08] MEDS: OSCAL 500 + D 500 MG PO ×2 (08:58→20:04)
[2024-10-08] MEDS: VITAMIN C 1000 MG PO (08:58)
[2024-10-08] MEDS: NON-FORMULARY ITEM 150 MG PO (08:59)
[2024-10-08] MEDS: OCUVITE SOFTGEL 1 CAP PO (08:59)
[2024-10-08] MEDS: TOPROL XL PO (08:59)
[2024-10-08] MEDS: ROBITUSSIN DM 10 ML PO ×2 (10:46→21:54)
[2024-10-08] MEDS: ProAmatine 10 MG PO (12:15)
--- NOTE | 2024-10-08 12:48 | W.PN.NEPH.HD ---
Assessment
-
Patient seen on HD
sbp 104 at current u/f
Attempting to push UF while inpatient to assess hemodynamic response from cardiomyopathy
Was given 10 mg of midodrine pre-HD
Next dialysis will be on Thursday
Progress Note - Hemodialysis
-
Date of Service: October 08, 2024
Duration: 45 minutes and 2 hours
Potassium Bath: 2
Calcium Bath: 2.5
Opti-Dialyzer: 160
Ultrafiltration: Other (2kg)
Blood Flow: 350
Dialysate Flow: 600
Heparin: no
EPO: none
[2024-10-08] MEDS: FERRLECIT 110 MG IV (14:26)
--- NOTE | 2024-10-08 14:46 | W.PN.HOSP.TC ---
Today's Communication/Plan
-
Hemodialysis per nephrology
Monitor platelet count
On heparin drip, continue
Monitor for bleeding diathesis
Assessment / Plan
Assessment / Plan
1. Acute on chronic systolic congestive heart failure
Acute hypoxic respiratory insufficiency
-Chest x-ray showing signs of cardiogenic pulmonary edema
-Echocardiogram in 21 showing EF 60 to 65%, normal diastolic function. Pulmonary artery pressure of 60 mmHg
-Repeat echocardiogram showing EF of 30 to 35%, stage II diastolic dysfunction. Moderate MR. Prem pulm HTN.
-Continue wean off oxygen as possible
2. 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
-Last known creatinine of 2.2 with GFR 29
-Patient came in with creatinine ~ 5
-Relatively bland urine, no significant proteinuria
-Renal and bladder ultrasound showing a likely benign right renal mass with some calcification. No hydronephrosis
-Concern of potential cardiorenal syndrome, on top of underlying lupus nephritis
-Patient has been started on hemodialysis due to suboptimal response to diuretic therapy
3. Hyperkalemia
Metabolic acidosis
Euvolemic hyponatremia
-Acidosis/hyperkalemia driven by ROBIN, patient being put on dialysis likely today will help with metabolic derangements
-Diuretic therapy fail to improve metabolic derangements, on HD at this point.
4. Essential hypertension
- hold amlodipine, doxazosin, and losartan
5. pulmonary fibrosis
- continue ofev if patient able to bring in supply
6. History of lupus nephritis
Rheumatoid arthritis
-maintain on oral prednisone, dose increased to 10mg/d. got solucortef injection
-continue plaquenil
7. Iron def anemia
-Ferritin of 16, saturation 7%
-IV ferlicit ordered
8. Atrial flutter with 2-1 conduction
-Cardiology following and patient currently on heparin drip
-Cardiology discussed with primary specimen preparation assistant and not an appropriate candidate for amiodarone initiation. Patient is getting MANUEL and cardioversion today.
-Eventually patient will require to be on DOAC.
9. Thrombocytopenia
-Patient thrombocytopenic, monitor trend
-If further decline may require check for HIT
hypothyroidism
GERD
prostate cancer
prostatectomy 2005
gout
Code Status: DNR
DVT Prophylaxis: Heparin drip
Total time spent : 52 mins
Anticipated Discharge: > 48 hours
Subjective/Interval History
-
Date of Service: October 08, 2024
no issues overnight
HR remains in sinus
remains on o2 through NC
Objective Data
-
Labs:
Laboratory Results
10/08/24
05:15
WBC 9.8
Hgb 9.1 L
Hct 30.9 L
Plt Count 76 L D
Sodium 133 L
Potassium 5.2 H
Chloride 99
Carbon Dioxide 22
BUN 72 H
Creatinine 4.0 H
Glucose 89
Calcium 7.5 L
Vital Signs:
Vital Signs
Temp Pulse Resp BP Pulse Ox
98.4 F 100 17 125/84 97
10/08/24 11:18 10/08/24 14:15 10/08/24 14:15 10/08/24 14:15 10/08/24 13:15
I&O
10/07/24 10/08/24 10/09/24
06:59 06:59 06:59
Intake Total 1051 / 1062 414 / 414 240 / 240
Output Total 475 / 475
Balance 576 / 587 414 / 414 240 / 240
Review of Systems
-
Respiratory: Reports No Symptoms
Cardiac: Reports No Symptoms
Abdomen/GI: Reports No Symptoms
Physical Exam
-
General: No Apparent Distress and Comfortable
HEENT: Oxygen
Respiratory: Clear to Auscultation
Cardiac: Regular Rhythm and S1/S2; Negative Murmur or Rub
GI: Soft, Nontender and Nondistended
Musculoskeletal: No Edema
Neuro: Awake, Alert, Oriented, No Motor Deficits and Nonfocal/Grossly Intact
Psych: Calm
[2024-10-08] MEDS: HEPARIN 4300 UNITS INTRACATH (15:12)
[2024-10-08] MEDS: CORDARONE 103 MG IV (15:21)
--- NOTE | 2024-10-08 15:32 | PTCARENOTE ---
Approx 1445 pt went into MAULIK 150-170's. SBP dropped from 120's to 100's, pox dropping into 80's. Dr. Moore on floor and aware. EKG performed and Dr. Reeves notified. Orders rec'd for Amio gtts, bolus infusing at this time. Pt placed on 10L midflow,
pox up to 97% at this time. HD being completed at bedside. remains at bedside.
[2024-10-08] MEDS: CORDARONE 518 MG IV (15:37)
[2024-10-08] MEDS: NON-FORMULARY ITEM INH (16:12)
[2024-10-08] MEDS: TOPROL XL 12.5 MG PO (20:04)
[2024-10-08] MEDS: NON-FORMULARY ITEM 1.74 INH INH (20:04)
--- NOTE | 2024-10-08 20:15 | PTCARENOTE ---
On assessment pt AAOx3, denies pain and SOB at this time, pt repositioned in bed, at bedside, started Amiodarone gtt today due to AFIB, 10L midflow, R chest HD C/D/I, call hayes in reach.
[2024-10-09] VITALS (27 sets, daily range): BP systolic 77–127; BP diastolic 55–102; BMI 29.5
[2024-10-09] MEDS: STERILE WATER FOR INJECTION 10 ML IV (02:22)
[2024-10-09] MEDS: ROCEPHIN 1000 MG IV (02:23)
[2024-10-09] MEDS: LOPRESSOR 2.5 MG IV (04:29)
[2024-10-09] MEDS: SYNTHROID 125 MCG PO (05:05)
[2024-10-09] MEDS: MAALOX 30 ML PO (05:05)
[2024-10-09 05:09] LABS: % Basophils 0.2 % (0-2); % Eosinophils 0.2 % (0-6); % Immature Granulocytes 0.7 % (0-0.5); % Lymphocytes 5.7 % (20.5-51.1); % Monocytes 11.3 % (1.7-9.3); % Neutrophils 81.9 % (42.2-75.2); Absolute Immature Granulocytes 0.1 10^3/uL (0-0.05); Absolute Lymphocytes 0.7 10^3/uL (1.2-3.4); Absolute Monocytes 1.4 10^3/uL (0.1-0.6); Absolute Neutrophils 10.2 10^3/uL (1.4-6.5); Blood Urea Nitrogen 52 mg/dl (9-20); Calcium 7.6 mg/dl (8.4-10.2); Carbon Dioxide 24 mmol/L (22-30); Chloride 96 mmol/L (98-107); Estimated Creatinine Clearance 18 ml/min; Glucose 180 mg/dl (70-99); Hematocrit 32.6 % (39.0-52.0); Hemoglobin 9.8 g/dL (13.0-18.0); Mean Corp Hgb Conc. 30.1 g/dL (33.0-37.0); Mean Corpuscular Hgb 27.8 pg (27.0-31.0); Mean Corpuscular Volume 92.4 fL (80.0-94.0); Mean Platelet Volume 11.8 fL (7.4-10.4); Nucleated Red Blood Cells % 0.6 % (-); Platelet Count 97 10^3/uL (130-400); Red Blood Cell Count 3.53 10^6/uL (4.70-6.10); Red Cell Dist. Width 19.2 % (11.5-14.5); Sodium 132 mmol/L (135-145); White Blood Cell Count 12.4 10^3/uL (4.8-10.8); eGFR 17.74
--- NOTE | 2024-10-09 05:41 | PTCARENOTE ---
Last night around 2300 pt converted to NSR, pt was on BIPAP and resting comfortably. Around 0400 pt went back into AFIB and c/o heartburn, Saturation was 88% on 5L NC, Midflow reapplied at 10L, ARGON TESTER paged and made aware, ARGON TESTER at bedside, Lopressor was
ordered and given, pt continues to c/o upset stomach, Maalox ordered and given, pt states feeling better at this time, at bedside and call hayes in reach.
--- NOTE | 2024-10-09 06:14 | W.PN.UPDATE ---
Update Note
Progress Note Update
Urine cx positive for Klebsiella pneumoniae, ordered Rocephin 1 g x 1.
--- NOTE | 2024-10-09 08:17 | W.PN.CARDCBS ---
Today's Communication / Plan
-
Continue IV amiodarone
Keep n.p.o. in the event that we decide to repeat cardioversion in a.m., though would like to avoid
Impression / Plan
-
Primary Systems Operator: Dr. Dedra Crandall of [place]
Assessment:
79-year-old complex man with ROBIN on CKD and history of lupus nephritis, now admitted with
Presentation with weight gain, decreased urine output
ROBIN on CKD, lupus nephritis
Hyperkalemia
Hyponatremia
Acute HF, type unknown
Tachycardia - ST vs atypical flutter/tach
Anemia
bifascicular block
pulm HTN
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
RA
mod AR by echo 2020
HTN
Hypothyroidism
GERD
Gout
History of prostate cancer s/p prostatectomy 2005
DNR code status
ECHO 2020: EF 60 to 65%, mild concentric LVH, moderate AR, mild TR, PAP 60 mmHg, mild ascending aorta dilation
Echo 10/05/2024: EF 30-35%, stage II diastolic dysfunction, dilated atria, normal RV, mild to moderate MR, mild AI, pulmonary artery pressure 51 mmHg
Plan:
Unfortunately A-fib recurred yesterday necessitating initiation of amiodarone therapy. He was in sinus rhythm for hours but unfortunately A-fib recurred early this morning.
Despite recurrence of A-fib, he seems relatively comfortable at present, and is not in overt heart failure despite tachycardia and the fact that his ejection fraction has dropped presumably related to tachycardia mediated cardiomyopathy.
Continue IV amiodarone at this time. He reverted to sinus rhythm once and hopefully will do so again.
Will make him n.p.o. in the event that we decide to repeat cardioversion tomorrow. However, would like to avoid cardioversion since A-fib may be paroxysmal and improve over time on amiodarone.
His thrombocytopenia is improved. He is on apixaban.
We will reassess in a.m., hopefully convert to oral amiodarone. Given his lung disease, once he is stabilized we will need to decide whether he is a candidate for long-term amnio.
79-year-old male with past medical history of chronic kidney disease stage III-IV, pulmonary hypertension, interstitial lung disease with pulmonary fibrosis on home oxygen, moderate aortic regurgitation who presents to [facility] with acute
on chronic renal failure and acute congestive heart failure with preserved ejection fraction. He is followed at [facility] by nephrology and cardiology and pulmonary. He takes Ofev and Tyvaso as an outpatient. He has noticed for
the past 10 days or so and elevation his heart rate in the 120s. He felt no palpitations or chest pains but then started noticing fatigue, shortness of breath and an inability to urinate. He was found to be in acute renal failure with a creatinine
of 5. His baseline creatinine is in the 2-2.5 range. On presentation found to have atrial flutter with 2-1 conduction
CC time: 45
Progress Note - Systems Operator
Subjective
Date of Service: October 09, 2024:
Yesterday, patient went into atrial fibrillation with rapid ventricular response at the conclusion of hemodialysis. He was started on IV amiodarone, converted to sinus rhythm, but as of 4 AM is back in A-fib now with rapid rates. Not in acute
distress at the present time. at bedside
Current medications: IV amiodarone, hydroxychloroquine, levothyroxine, Ofev, pantoprazole, Tyvaso, Bumex 2 mg IV daily, Breo elliptica, prednisone 10 mg a day, iron, apixaban 5 mg twice daily, metoprolol ER 12.5 twice daily, ceftriaxone
127/102, pulse 133, respiratory 20, afebrile, sats 94%, weight is 90.7 kg, similar to yesterday, weight at admission was 97.2 kg, no acute distress, head neck exam is unremarkable, lungs are relatively clear, JVD okay, irregular rate and rhythm,
tachycardic, soft systolic murmur
White count 12.4, hemoglobin 9.8, platelets 97, had been in the 70s, BUN and creatinine 52 and 3.4, sodium 132, potassium 5.0
Objective
Labs:
10/09/24 04:26
10/09/24 04:26
Labs
Hgb 9.8 g/dL (13.0-18.0) L 10/09/24 04:26
Hct 32.6 % (39.0-52.0) L 10/09/24 04:26
Plt Count 97 10^3/uL (130-400) L D 10/09/24 04:26
PT 16.8 Sec (11.4-14.6) H 10/05/24 04:59
INR 1.33 10/05/24 04:59
APTT Cancelled 10/07/24 17:30
Sodium 132 mmol/L (135-145) L 10/09/24 04:26
Potassium 5.0 mmol/L (3.5-5.1) 10/09/24 04:26
BUN 52 mg/dl (9-20) H 10/09/24 04:26
Creatinine 3.4 mg/dL (0.7-1.3) H 10/09/24 04:26
Glucose 180 mg/dl (70-99) H 10/09/24 04:26
Vital Signs and I&O:
Vital Signs
Temp Pulse Resp BP Pulse Ox
36.3 C 133 20 127/102 94
10/09/24 07:35 10/09/24 05:30 10/09/24 05:30 10/09/24 05:00 10/09/24 05:30
Vital Signs
Temp Pulse Resp BP Pulse Ox
36.3 C 133 20 127/102 94
10/09/24 07:35 10/09/24 05:30 10/09/24 05:30 10/09/24 05:00 10/09/24 05:30
Intake & Output
01/1010/08/24 10/09/24 10/10/24
07:59 07:59 07:59 07:59
Intake Total 1049 / 1060 403 / 643 270 / 270
Output Total 475 / 475 275 / 275
Balance 574 / 585 403 / 643 -5 / -5
Physical Exam
Physical Exam
See above
--- NOTE | 2024-10-09 08:38 | W.PN.NEPH.PH ---
Today's Communication / Plan
-
Dialysis tomorrow
Metoprolol to be given pre-HD
Recheck chest x-ray in a.m. to assess for volume status
Now on Rocephin for Klebsiella pneumonia UTI
Assessment/Plan
-
IMP;
Acute on chronic respiratory failure
decompensated heart failure exacerbation with pulmonary edema
ROBIN on CKD 3 vs 4?- lupus nephritis cr 2.2 in 2021-nephrology at [facility] Dr Davis
Hyperkalemia
Hyponatremia
Metabolic acidosis
Hyperphosphatemia
SHPTH
Anemia
ILD/PF in setting of RA/SLE--follows at [place]
KAI on CPAP
HTN
Hypothyroidism
Gout
Prostate ca, s/p prostatectomy 2005
lupus
rheumatoid arthritis
Klebsiella UTI 10/09/24
Plan:
A/w Anuria with severe ROBIN with known lupus nephritis and decompensated CHF
Patient now dialysis dependent
Repeat dialysis will be done tomorrow, midodrine provided pretreatment to support blood pressure on HD
Make sure to give a.m. metoprolol before dialysis as treatment yesterday was complicated by atrial fibrillation
Patient now on amiodarone IV
Previously spoke with Nephrology at [place]-stated he has advanced CKD, already plans were making for PD in out pt
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
his blood pressures have been intermittently soft with the tachycardia-echo noted EF 30-35%, stage 2DD, severe LVH, IVC dilated, mod pulm HTN
Discussed with the patient and in detail
Discussed with nursing
-
-
Date of Service: October 09, 2024
CC / HPI / ROS
-
Chief Complaint:
ROBIN, CKD
History of Present Illness:
Patient now on dialysis Thursday schedule
tachycardic still, SBP in 90s with
Review of Systems:
no cp
sob no change
no n/v
Weights down
Labs
-
Labs:
WBC 12.4 10^3/uL (4.8-10.8) H 10/09/24 04:26
RBC 3.53 10^6/uL (4.70-6.10) L 10/09/24 04:26
Hgb 9.8 g/dL (13.0-18.0) L 10/09/24 04:26
Hct 32.6 % (39.0-52.0) L 10/09/24 04:26
Plt Count 97 10^3/uL (130-400) L D 10/09/24 04:26
Sodium 132 mmol/L (135-145) L 10/09/24 04:26
Potassium 5.0 mmol/L (3.5-5.1) 10/09/24 04:26
Chloride 96 mmol/L (98-107) L 10/09/24 04:26
Carbon Dioxide 24 mmol/L (22-30) 10/09/24 04:26
BUN 52 mg/dl (9-20) H 10/09/24 04:26
Creatinine 3.4 mg/dL (0.7-1.3) H 10/09/24 04:26
eGFR 17.74 10/09/24 04:26
Glucose 180 mg/dl (70-99) H 10/09/24 04:26
Calcium 7.6 mg/dl (8.4-10.2) L 10/09/24 04:26
Phosphorus 5.1 mg/dl (2.5-4.5) H 10/05/24 11:38
[id number] Pept [id number] pg/ml 10/04/24 18:11
Albumin 3.2 g/dl (3.5-5.0) L 10/04/24 18:11
Physical Exam
-
Vital Signs:
Vital Signs
Temp Pulse Resp BP Pulse Ox
97.4 F 133 20 127/102 94
10/09/24 07:35 10/09/24 05:30 10/09/24 05:30 10/09/24 05:00 10/09/24 05:30
Cardiovascular:: Irregular rate and rhythm (tachy)
Respiratory:: Bilateral: Coarse
Lung Excursion:: Normal
Abdomen:: Nontender and Soft
Bowel Sounds:: Normal
Extremity Edema:: None: Bilateral:
Martinez Catheter: No
[2024-10-09] MEDS: NON-FORMULARY ITEM 1 PUFF INH (08:42)
[2024-10-09] MEDS: NON-FORMULARY ITEM 1 INH INH ×4 (08:43→20:28)
[2024-10-09] MEDS: OSCAL 500 + D 500 MG PO ×2 (08:58→10:50)
[2024-10-09] MEDS: BUMEX 2 MG IV (09:05)
[2024-10-09] MEDS: ZOFRAN 4 MG IV (09:05)
--- NOTE | 2024-10-09 09:14 | PTCARENOTE ---
Rec'd pt at 0700. Pt AAOx3, at bedside. Monitor Afib 120-130's on Amio gtts. Lungs dim, sct coarse/rales on left. Pox 97% on 10L Midflow. Pt c/o nausea, PRN Zofran given, holding off on taking am meds until stomach is settled. Pt repositioned,
linens changed.
[2024-10-09] MEDS: VITAMIN C 1000 MG PO (10:50)
[2024-10-09] MEDS: TOPROL XL 12.5 MG PO ×2 (10:51→21:01)
[2024-10-09] MEDS: ELIQUIS 5 MG PO ×2 (10:51→21:01)
[2024-10-09] MEDS: PLAQUENIL 200 MG PO ×2 (10:51→21:01)
[2024-10-09] MEDS: PROTONIX 40 MG PO (10:51)
[2024-10-09] MEDS: VITAMIN D3 (cholecalciferol) 50 MCG PO (10:51)
[2024-10-09] MEDS: OCUVITE SOFTGEL 1 CAP PO (10:51)
[2024-10-09] MEDS: NON-FORMULARY ITEM 150 MG PO (10:51)
[2024-10-09] MEDS: DELTASONE 10 MG PO (10:51)
--- NOTE | 2024-10-09 13:26 | W.PN.HOSP.TC ---
Today's Communication/Plan
-
Maintained on hemodialysis per nephrology
maintain on rocephin
f/u plt count
Assessment / Plan
Assessment / Plan
1. Acute on chronic systolic congestive heart failure
Acute hypoxic respiratory insufficiency
-Chest x-ray showing signs of cardiogenic pulmonary edema
-Echocardiogram in 21 showing EF 60 to 65%, normal diastolic function. Pulmonary artery pressure of 60 mmHg
-Repeat echocardiogram showing EF of 30 to 35%, stage II diastolic dysfunction. Moderate MRSylvia Amaro puldaisha HTN.
-Continue wean off oxygen as possible
2. 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
-Last known creatinine of 2.2 with GFR 29
-Patient came in with creatinine ~ 5
-Relatively bland urine, no significant proteinuria
-Renal and bladder ultrasound showing a likely benign right renal mass with some calcification. No hydronephrosis
-Concern of potential cardiorenal syndrome, on top of underlying lupus nephritis
-Patient has been started on hemodialysis due to suboptimal response to diuretic therapy
3. Hyperkalemia
Metabolic acidosis
Euvolemic hyponatremia
-Acidosis/hyperkalemia driven by RBOIN, patient being put on dialysis likely today will help with metabolic derangements
-Diuretic therapy fail to improve metabolic derangements, on HD at this point.
4. Essential hypertension
- hold amlodipine, doxazosin, and losartan
5. pulmonary fibrosis
- continue ofev if patient able to bring in supply
6. History of lupus nephritis
Rheumatoid arthritis
-maintain on oral prednisone, dose increased to 10mg/d. got solucortef injection
-continue plaquenil
7. Iron def anemia
-Ferritin of 16, saturation 7%
-IV ferlicit ordered
8. Atrial flutter with 2-1 conduction
-Cardiology following and patient currently on heparin drip
-Cardiology discussed with primary green ware caster and not an appropriate candidate for amiodarone initiation. Patient is getting MANUEL and cardioversion today.
-Eventually patient will require to be on DOAC.
9. Thrombocytopenia
-Patient thrombocytopenic, monitor trend
-If further decline may require check for HIT
10. Klebsiella UTI
-Maintain on Rocephin day 2 today
hypothyroidism
GERD
prostate cancer
prostatectomy 2005
gout
Code Status: DNR
DVT Prophylaxis: Heparin drip
Care plan discussed with nephrology
Remains sick and potentially can deteriorate clinically
Total time spent 54-minute
Anticipated Discharge: > 48 hours
Subjective/Interval History
-
Date of Service: October 09, 2024
Patient oxygen requirement increased to 10 L through mid flow
Remains tachycardic with heart rate in 120s
Denies any significant dyspnea
no other acute issues reported
Objective Data
-
Labs:
Laboratory Results
10/09/24
04:26
WBC 12.4 H
Hgb 9.8 L
Hct 32.6 L
Plt Count 97 L D
Sodium 132 L
Potassium 5.0
Chloride 96 L
Carbon Dioxide 24
BUN 52 H
Creatinine 3.4 H
Glucose 180 H
Calcium 7.6 L
Vital Signs:
Vital Signs
Temp Pulse Resp BP Pulse Ox
97.8 F 119 22 127/102 94
10/09/24 11:12 10/09/24 12:07 10/09/24 12:07 10/09/24 05:00 10/09/24 08:45
I&O
10/08/24 10/09/24 10/10/24
06:59 06:59 06:59
Intake Total 414 / 414 270 / 270
Output Total 275 / 275
Balance 414 / 414 -5 / -5
Review of Systems
-
Respiratory: Reports No Symptoms
Cardiac: Reports No Symptoms
Abdomen/GI: Reports No Symptoms
Physical Exam
-
General: No Apparent Distress and Comfortable
HEENT: Negative Oxygen
Respiratory: Clear to Auscultation
Cardiac: S1/S2, Irregular Rhythm and Tachycardic; Negative Murmur or Rub
GI: Soft, Nontender and Nondistended
Musculoskeletal: No Edema
Neuro: Awake, Alert, Oriented, No Motor Deficits and Nonfocal/Grossly Intact
Psych: Calm
[2024-10-09] MEDS: FERRLECIT 110 MG IV (13:56)
[2024-10-09] MEDS: CORDARONE 518 MG IV (14:17)
--- NOTE | 2024-10-09 16:33 | PTCARENOTE ---
PICC placed at bedside by IV team, PCXR done with +placement. Tubing changed with new Amio gtts bag, now infusing via TOM PICC. Pt coughing up thick mucous, having difficulty bringing up and gagging. Fidel given to pt for ease of expectorating,
demonstrated use to pt and .
[2024-10-09] MEDS: NEO-SYNEPHRINE 250 IV (17:21)
--- NOTE | 2024-10-09 17:34 | PTCARENOTE ---
SBP 70-80's, Dr. Moore and Dr. Reeves aware. 1721- Chao gtts ordered and started at 20mcg/min. 1725-pt converted into NSR 70's, SBP 90's.
--- NOTE | 2024-10-09 20:00 | PTCARENOTE ---
rec`d pt at 1900, pt AAOx3, at bedside. upon walking in the room, the pt asked to go on bedpan. Pt was on 10L midflow...with exertion POX in the low 80s, needed to be bumped to 15L midflow. POX now mid 90s and pt comfortable. SR on monitor. damian
and amio gtt continued through left upper arm PICC. diminished lung sounds. sheets changed and barrier cream applied to pts sacrum. air pillow also placed under left side for comfort. call hayes in reach, safe environment maintained. still at
bedside.
[2024-10-10] VITALS (58 sets, daily range): BP systolic 83–124; BP diastolic 59–82; BMI 29.3
--- NOTE | 2024-10-10 00:42 | PTCARENOTE ---
pt reassessed. no changed in pt assessment, call hayes in reach.
[2024-10-10] MEDS: STERILE WATER FOR INJECTION 10 ML IV (03:20)
[2024-10-10] MEDS: ROCEPHIN 1000 MG IV (03:20)
[2024-10-10 03:40] LABS: Hematocrit 31.1 % (39.0-52.0); Hemoglobin 9.3 g/dL (13.0-18.0)
[2024-10-10 03:59] LABS: Blood Urea Nitrogen 68 mg/dl (9-20); Calcium 7.2 mg/dl (8.4-10.2); Carbon Dioxide 23 mmol/L (22-30); Chloride 95 mmol/L (98-107); Glucose 98 mg/dl (70-99); Potassium 5.5 mmol/L (3.5-5.1); Sodium 131 mmol/L (135-145)
[2024-10-10 04:48] LABS: Estimated Creatinine Clearance 15 ml/min; eGFR 14.17
[2024-10-10] MEDS: NON-FORMULARY ITEM 1 PUFF INH (07:48)
[2024-10-10] MEDS: NON-FORMULARY ITEM 1 INH INH ×3 (07:49→15:17)
[2024-10-10] MEDS: SYNTHROID 125 MCG PO (08:23)
[2024-10-10] MEDS: BUMEX 2 MG IV (08:25)
--- NOTE | 2024-10-10 08:37 | W.PN.INTV ---
Today's Communication / Plan
Recommendations
Wean oxygen
Wean phenylephrine
Monitor for recurrent rapid atrial flutter
Amiodarone load
Hemodialysis
If able to be weaned off phenylephrine and could be transferred out of ICU-call pulmonary if respiratory issues arise
Assessment
-
79-year-old male with previous history of hypertension, chronic kidney disease, pulmonary fibrosis, lupus/rheumatoid arthritis, prostate cancer presenting to ER for abdominal distention, oliguria, weight gain for the past 3 weeks. There is also
development of increased shortness of breath. Initial chest imaging demonstrating pulmonary edema with small bilateral pleural effusions, was admitted for potential cardiorenal syndrome related to heart failure. He was noted to be hypotensive as
well with systolic in the 90s (lowest 87/74), admitted to ICU for potential pressor use 10/04/2024-stabilized and then readmitted to ICU after rapid atrial flutter requiring amiodarone, cardioversion and pressors-warehouse attendant reconsulted for
shock/pressor management/critical care management 10/10/2024.
Hypotension requiring pressors
Rapid supraventricular tachycardia-now on amiodarone and phenylephrine
Status post decompensated heart failure exacerbation with pulmonary edema; proBNP 15,600
Hypotension-requiring pressors
Status post ROBIN on CKD-now requiring hemodialysis
Hyperkalemia
Hyponatremia
Metabolic acidosis
Hyperglycemia
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 Akhtar-on Ofev and Tyvaso-chronically on 2 to 5 L oxygen
KAI on CPAP
HTN
CKD stage 3
Hypothyroidism
Gout
Prostate ca, s/p prostatectomy 2005
R inguinal and umbilical hernia repair Jul 2020, no pulmonary complications
Bilateral knee endoscopic surgery
Lifelong nonsmoker
lupus
rheumatoid arthritis
PLAN:
Critically ill on pressors
Supplemental oxygen as needed-chronically on 2 to 5 L of oxygen for his pulmonary fibrosis
Nebulizers if needed-currently not bronchospastic
Prednisone 10 mg daily
Aspiration precautions
Chronically on Ofev and Tyvaso
Follow radiographically
Wean phenylephrine
Cardiology following
Intravenous amiodarone will be converted to amiodarone 400 mg 3 times daily for overload and eventually amiodarone 200 mg daily
Cardiology-Dr. Reeves reviewed with pulmonary at [place]-okay to start-I am in agreement
Dr. Mg reviewed potential for amiodarone pulmonary toxicity with and patient at length-low risk with amiodarone 200 mg daily-will need to be monitored closely in the outpatient setting
Diuresis as tolerated
Monitor renal function, electrolytes, intake/output, lower extremity edema and weight
Replace electrolytes as needed
Hemodialysis per nephrology
Nephrology following-correspondence reviewed
Aricept or equivalent per nephrology
Phenylephrine-attempt to wean off
Check cultures
Empiric antibiotics-ceftriaxone initiated
Monitor blood sugar
Insulin supplementation as needed
Monitor hemoglobin and platelet count
Transfuse if needed
DVT prophylaxis-on Eliquis
GI prophylaxis-on pantoprazole
If able to be weaned off pressors after hemodialysis then could be transferred out of ICU-call pulmonary if respiratory issues arise
Outpatient pulmonary follow-up with Dr. Akhtar at [place]
Outpatient rheumatologic [id number] started back on Benlysta
Outpatient cardiology follow-up
Critical care statement: A total of 50 minutes of critical care time was provided for this patient today. This includes management of unstable vital signs, evaluation of the patient at bedside, reviewing the patient's pertinent medical records
including radiographs, pressor management, microbiology, laboratory evaluations, and discussion with primary team, consultants, pharmacy, nutrition, physical therapy, case management, charge nurse, critical care nursing, and respiratory therapy.
Diagnostic Data
CXR 10/04/24- Mild pulmonary edema with small bilateral pleural effusions
Chest X-Ray: 05-18-19: increased interstitial markings at bases
CTA chest 06-19-21, c/w CT s/c 11-29-20 and 06-01-19. No PE. pulmonary fibrotic changes bilaterally including basilar honeycombing which remained unchanged. No mediastinal LAD. New onset small bilateral dependent pleural effusion.
Echo: 06/20/21- Left ventricle is mildly dilated. Normal left ventricular systolic function. Left ventricular ejection fraction is 60-65% by Singh's method. Mild concentric left ventricular hypertrophy. Diastolic function normal. Trileaflet aortic
valve. Aortic valve opens normally. Moderate aortic regurgitation. Structurally normal tricuspid valve. Tricuspid valve opens normally. Mild tricuspid regurgitation. Estimated pulmonary artery pressure of 60 mmHg, assuming a right atrial pressure of
8 mmHg. Mild ascending aorta dilatation (3.9cm). The aortic arch is normal in caliber. Since echocardiogram February 2020, there is no significant change.
03-06-20. normal biventricular size/fx, stage I DD, mild to mod eccentric MR, mod AR, estimated PAP 45, mild TR
PFT's: 11-27-20, mild restriction on spirometry, no significant FV1 response with BD, moderate restriction on LVS, severely reduced diffusing capacity
Reports and relevant images were personally reviewed.
Subjective Dataa
Subjective Data
Date of Service:
Date of Service: October 10, 2024
Chief Complaint: Pop Singer Follow Up and Pulmonary Follow Up
Subjective:
Events noted, hypotension requiring pressors, cardioversion required, transfer back to ICU, currently out of bed, on pressors, awaiting hemodialysis, no complaints of shortness of breath at rest and offers no complaints of chest pain, pleurisy has
mild chest congestion, nonproductive cough, no abdominal pain or increased leg swelling.
Review of Systems
General: Other (Per HPI)
Objective Data
Data Reviewed
Vital Signs / I&O / Oxygen:
Vital Signs
Temp Pulse Resp BP Pulse Ox
98.0 F 65 19 95/66 9
10/10/24 07:40 10/10/24 08:25 10/10/24 07:52 10/10/24 08:25 10/10/24 07:52
Intake and Output
10/09/24 10/10/24 10/11/24
06:59 06:59 06:59
Intake Total 369.9 / 369.9 462.1 / 484.8 22.7 / 22.7
Output Total 275 / 275
Balance 94.9 / 94.9 462.1 / 484.8 22.7 / 22.7
SaO2 9
Nasal Cannula flow liters per 15
minute
Physical Exam
General: Respiratory Distress (n) and Comfortable
HEENT: Normocephalic, Anicteric and Moist Mucous Membranes
Cardiovascular: Regular Rhythm and Murmur
Respiratory: Wheeze (n), Crackles (Basilar bilateral longterm up), Rhonchi (n), Non-Labored Respirations, Accessory Resp Muscle Use (n) and Stridor (n)
GI: Soft, Non Distended and Non Tender
Neurology: Awake, Alert and No Motor Deficits
Skin: Warm, Good Color, Cyanosis (n), Jaundice (n) and Rash (n)
Labs/Micro/Reports
Lab Data
10/10/24 03:19
10/10/24 03:19
Microbiology
10/05/24 12:10 Urine Urine Culture - Final
Klebsiella pneumoniae
--- NOTE | 2024-10-10 09:00 | W.PN.CARDCBS ---
Today's Communication / Plan
-
Stop IV amiodarone, start amiodarone 400 mg 3 times daily
Wean phenylephrine
Continue Eliquis
Volume management per hemodialysis
Impression / Plan
-
Primary Product Development Engineer: Dr. Dedra Crandall of [place]
Assessment:
79-year-old complex man with ROBIN on CKD and history of lupus nephritis, now admitted with
Presentation with weight gain, decreased urine output
ROBIN on CKD, lupus nephritis
Hyperkalemia
Hyponatremia
Acute HF, type unknown
Tachycardia - ST vs atypical flutter/tach
Anemia
bifascicular block
pulm HTN
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
RA
mod AR by echo 2020
HTN
Hypothyroidism
GERD
Gout
History of prostate cancer s/p prostatectomy 2005
DNR code status
ECHO 2020: EF 60 to 65%, mild concentric LVH, moderate AR, mild TR, PAP 60 mmHg, mild ascending aorta dilation
Echo 10/05/2024: EF 30-35%, stage II diastolic dysfunction, dilated atria, normal RV, mild to moderate MR, mild AI, pulmonary artery pressure 51 mmHg
Plan:
Fortunately, he has again converted to sinus rhythm, and hemodynamically looks much improved. Not with overt evidence of heart failure at present. Still somewhat volume overloaded, to be addressed by nephrology at hemodialysis.
Cardioversion has been canceled and diet has been resumed.
Continue anticoagulation with apixaban.
Will transition amiodarone to 400 mg by mouth 3 times daily. Stop IV amiodarone.
Wean phenylephrine.
Will have to determine if amiodarone is appropriate long-term or if alternative strategies are warranted given his lung disease.
79-year-old male with past medical history of chronic kidney disease stage III-IV, pulmonary hypertension, interstitial lung disease with pulmonary fibrosis on home oxygen, moderate aortic regurgitation who presents to [facility] with acute
on chronic renal failure and acute congestive heart failure with preserved ejection fraction. He is followed at [facility] by nephrology and cardiology and pulmonary. He takes Ofev and Tyvaso as an outpatient. He has noticed for
the past 10 days or so and elevation his heart rate in the 120s. He felt no palpitations or chest pains but then started noticing fatigue, shortness of breath and an inability to urinate. He was found to be in acute renal failure with a creatinine
of 5. His baseline creatinine is in the 2-2.5 range. On presentation found to have atrial flutter with 2-1 conduction
CC time: 45
Progress Note - Product Development Engineer
Subjective
Date of Service: October 10, 2024:
Medications: Plaquenil, Synthroid, Ofev, pantoprazole, Tyvaso, Bumex 2 mg IV daily, Breo elliptica, prednisone 10 mg a day, iron, apixaban 5 twice daily, metoprolol ER 12.5, IV amiodarone, IV phenylephrine, ceftriaxone
Patient went back into sinus rhythm about 6 PM. 95/66, pulse 65, some diminished breath sounds in bases, regular rate and rhythm, no obvious murmurs, abdomen benign extremities with some edema
Potassium 5.5, hemoglobin 9.3, creatinine 4.1, respiratory 19, weight is 90 kg,
Objective
Labs:
10/10/24 03:19
10/10/24 03:19
Labs
Hgb 9.3 g/dL (13.0-18.0) L 10/10/24 03:19
Hct 31.1 % (39.0-52.0) L 10/10/24 03:19
Plt Count 97 10^3/uL (130-400) L D 10/09/24 04:26
PT 16.8 Sec (11.4-14.6) H 10/05/24 04:59
INR 1.33 10/05/24 04:59
APTT Cancelled 10/07/24 17:30
Sodium 131 mmol/L (135-145) L 10/10/24 03:19
Potassium 5.5 mmol/L (3.5-5.1) H 10/10/24 03:19
BUN 68 mg/dl (9-20) H 10/10/24 03:19
Creatinine 4.1 mg/dL (0.7-1.3) H* 10/10/24 03:19
Glucose 98 mg/dl (70-99) 10/10/24 03:19
Vital Signs and I&O:
Vital Signs
Temp Pulse Resp BP Pulse Ox
36.7 C 65 19 95/66 9
10/10/24 07:40 10/10/24 08:25 10/10/24 07:52 10/10/24 08:25 10/10/24 07:52
Vital Signs
Temp Pulse Resp BP Pulse Ox
36.7 C 65 19 95/66 9
10/10/24 07:40 10/10/24 08:25 10/10/24 07:52 10/10/24 08:25 10/10/24 07:52
Intake & Output
10/08/24 10/09/24 10/10/24 10/11/24
07:59 07:59 07:59 07:59
Intake Total 403 / 643 369.9 / 386.6 484.8 / 484.8
Output Total 275 / 275
Balance 403 / 643 94.9 / 111.6 484.8 / 484.8
Physical Exam
Physical Exam
See above
[2024-10-10] MEDS: VITAMIN D3 (cholecalciferol) 50 MCG PO (09:03)
[2024-10-10] MEDS: VITAMIN C 1000 MG PO (09:03)
[2024-10-10] MEDS: ELIQUIS 5 MG PO ×2 (09:03→20:42)
[2024-10-10] MEDS: PROTONIX 40 MG PO (09:03)
[2024-10-10] MEDS: OCUVITE SOFTGEL 1 CAP PO (09:03)
[2024-10-10] MEDS: PLAQUENIL 200 MG PO ×2 (09:03→20:41)
[2024-10-10] MEDS: OSCAL 500 + D 500 MG PO ×2 (09:03→20:41)
[2024-10-10] MEDS: TOPROL XL 12.5 MG PO ×2 (09:03→20:41)
[2024-10-10] MEDS: NON-FORMULARY ITEM 150 MG PO (09:04)
[2024-10-10] MEDS: DELTASONE 10 MG PO (09:04)
[2024-10-10] MEDS: ROCALTROL 0.25 MCG PO (09:09)
--- NOTE | 2024-10-10 09:29 | W.PN.HOSP.TC ---
Today's Communication/Plan
-
Amiodarone. Hemodialysis today.
Assessment / Plan
Assessment / Plan
Physical exam:
General: Well Developed, Well Nourished and No Apparent Distress
HEENT: Normocephalic, Atraumatic and Moist Mucous Membranes
Respiratory: Clear to Auscultation; Negative Wheezes, Rales or Rhonchi
Cardiac: Regular Rhythm and S1/S2
GI: Soft, Nontender and Nondistended
Musculoskeletal: No Clubbing, No Cyanosis and No Edema
Neuro: Awake, Alert and Oriented
Psych: Calm
A/P:
1. Acute on chronic systolic congestive heart failure
Acute hypoxic respiratory insufficiency
-Chest x-ray showing signs of cardiogenic pulmonary edema
-Echocardiogram in 21 showing EF 60 to 65%, normal diastolic function. Pulmonary artery pressure of 60 mmHg
-Repeat echocardiogram showing EF of 30 to 35%, stage II diastolic dysfunction. Moderate MR. Mod pulm HTN.
-Continue wean off oxygen as possible
-On IV Bumex 2 mg daily
2. 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
-Last known creatinine of 2.2 with GFR 29
-Patient came in with creatinine ~ 5
-Relatively bland urine, no significant proteinuria
-Renal and bladder ultrasound showing a likely benign right renal mass with some calcification. No hydronephrosis
-Concern of potential cardiorenal syndrome, on top of underlying lupus nephritis
-Patient has been started on hemodialysis due to suboptimal response to diuretic therapy
3. Hyperkalemia
Metabolic acidosis
Euvolemic hyponatremia
-Acidosis/hyperkalemia driven by ROBIN, patient being put on dialysis likely today will help with metabolic derangements
-Diuretic therapy fail to improve metabolic derangements, on HD at this point.
4. Essential hypertension/ Hypotension
- hold amlodipine, doxazosin, and losartan
-Currently on Chao-Synephrine drip
5. pulmonary fibrosis
- continue ofev if patient able to bring in supply
-Continue oral prednisone 10 mg p.o. daily
6. History of lupus nephritis
Rheumatoid arthritis
-maintain on oral prednisone, dose increased to 10mg/d. got solucortef injection
-continue plaquenil
7. Iron def anemia
-Ferritin of 16, saturation 7%
-IV ferlicit ordered
8. Atrial flutter with 2-1 conduction
-Cardiology following and patient currently on Eliquis 5 mg p.o. twice a day
-Patient is s/p MANUEL and cardioversion. He is in normal sinus rhythm after amiodarone initiation. On metoprolol succinate 12.5 mg p.o. twice a day. Changing amiodarone to 400 mg p.o. 3 times daily today
9. Thrombocytopenia
-Patient thrombocytopenic, monitor trend
-Checked with and last platelet count back in early August as outpatient was previous to same as now in the 90,000 range
10. Klebsiella UTI
-Maintain on Rocephin
hypothyroidism
GERD
prostate cancer
prostatectomy 2005
gout
Code Status: DNR
DVT Prophylaxis: Eliquis
Remains sick and potentially can deteriorate clinically
Total time spent 54-minute
Anticipated Discharge: > 48 hours
Subjective/Interval History
-
Date of Service: October 10, 2024
Patient feels better overall. Less shortness of breath. No chest pain. Converted to normal sinus rhythm today.
Objective Data
-
Labs:
Laboratory Results
10/10/24
03:19
Hgb 9.3 L
Hct 31.1 L
Sodium 131 L
Potassium 5.5 H
Chloride 95 L
Carbon Dioxide 23
BUN 68 H
Creatinine 4.1 H*
Glucose 98
Calcium 7.2 L
Vital Signs:
Vital Signs
Temp Pulse Resp BP Pulse Ox
98.0 F 65 19 110/71 9
10/10/24 07:40 10/10/24 09:03 10/10/24 07:52 10/10/24 09:03 10/10/24 07:52
I&O
10/09/24 10/10/24 10/11/24
06:59 06:59 06:59
Intake Total 369.9 / 369.9 462.1 / 484.8 22.7 / 22.7
Output Total 275 / 275
Balance 94.9 / 94.9 462.1 / 484.8 22.7 / 22.7
[2024-10-10] MEDS: PACERONE 400 MG PO ×3 (11:08→20:41)
--- NOTE | 2024-10-10 11:13 | W.PN.NEPH.PH ---
Today's Communication / Plan
-
Dialysis today
Assessment/Plan
-
IMP;
Acute on chronic respiratory failure
decompensated heart failure exacerbation with pulmonary edema
ROBIN on CKD 3 vs 4?- lupus nephritis cr 2.2 in 2021-nephrology at [facility] Dr [facility]
Hyperkalemia
Hyponatremia
Metabolic acidosis
Hyperphosphatemia
SHPTH
Anemia
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
KAI on CPAP
HTN
Hypothyroidism
Gout
Prostate ca, s/p prostatectomy 2005
lupus
rheumatoid arthritis
Klebsiella UTI 10/09/24
Plan:
A/w Anuria with severe ROBIN with known lupus nephritis and decompensated CHF
Patient now dialysis dependent
Previously spoke with Nephrology at [place]-stated he has advanced CKD, already plans were making for PD in out pt
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
his blood pressures have been intermittently soft with the tachycardia-echo noted EF 30-35%, stage 2DD, severe LVH, IVC dilated, mod pulm HTN
Discussed with the patient and in detail
Pending dialysis today
A-fib while on HD previously to give beta-cristal prior to dialysis and is now on p.o. amiodarone
Total Time Spent with Patient (in minutes): 32
-
-
Date of Service: October 10, 2024
CC / HPI / ROS
-
Chief Complaint:
ROBIN, CKD
History of Present Illness:
Patient now on dialysis Thursday schedule
Review of Systems:
no cp
sob no change
no n/v
Weights down
Labs
-
Labs:
WBC 12.4 10^3/uL (4.8-10.8) H 10/09/24 04:26
RBC 3.53 10^6/uL (4.70-6.10) L 10/09/24 04:26
Hgb 9.3 g/dL (13.0-18.0) L 10/10/24 03:19
Hct 31.1 % (39.0-52.0) L 10/10/24 03:19
Plt Count 97 10^3/uL (130-400) L D 10/09/24 04:26
Sodium 131 mmol/L (135-145) L 10/10/24 03:19
Potassium 5.5 mmol/L (3.5-5.1) H 10/10/24 03:19
Chloride 95 mmol/L (98-107) L 10/10/24 03:19
Carbon Dioxide 23 mmol/L (22-30) 10/10/24 03:19
BUN 68 mg/dl (9-20) H 10/10/24 03:19
Creatinine 4.1 mg/dL (0.7-1.3) H* 10/10/24 03:19
eGFR 14.17 10/10/24 03:19
Glucose 98 mg/dl (70-99) 10/10/24 03:19
Calcium 7.2 mg/dl (8.4-10.2) L 10/10/24 03:19
Phosphorus 5.1 mg/dl (2.5-4.5) H 10/05/24 11:38
Spy-W-[id number] Pept 90032 pg/ml 10/04/24 18:11
Albumin 3.2 g/dl (3.5-5.0) L 10/04/24 18:11
Physical Exam
-
Vital Signs:
Vital Signs
Temp Pulse Resp BP Pulse Ox
98.0 F 68 19 113/78 9
10/10/24 07:40 10/10/24 11:08 10/10/24 07:52 10/10/24 11:08 10/10/24 07:52
Cardiovascular:: Irregular rate and rhythm (tachy)
Respiratory:: Bilateral: Coarse
Lung Excursion:: Normal
Abdomen:: Nontender and Soft
Bowel Sounds:: Normal
Extremity Edema:: None: Bilateral:
Martinez Catheter: No
--- NOTE | 2024-10-10 11:41 | PTCARENOTE ---
back to bed, tolerated. family bedside. eating breakfast. amio infusion off per order, took PO dose.
[2024-10-10] MEDS: MANNITOL 25% 12.5 GRAMS IV (12:50)
[2024-10-10] MEDS: RETACRIT 6000 UNITS IV (12:53)
[2024-10-10] MEDS: FERRLECIT 110 MG IV (12:54)
--- NOTE | 2024-10-10 15:08 | CM ---
CM following re: discharge planning.
Discussed in rounds, reviewed pt's chart, met with pt. Pt's spouse and daughter at bedside.
CM spoke to [facility] liaison Ori and he confirmed that pt will be accepted for outpatient HD treatment at [facility].
Both pt and his spouse continue expressing their desire to go to [facility] for a short term rehab. PT and OT evaluations pending.
A referral to [facility] made.
D/C plan: [facility] SNF if recommended by PT/OT. [facility] SNF liaison following for SNF and HD onsite treatment.
CM will follow with discharge plan updates as hospitalization progresses
[2024-10-10] MEDS: HEPARIN 4300 UNITS INTRACATH (16:03)
[2024-10-10] MEDS: ANESTHETIC LOZENGE 1 LOZENGE PO (17:16)
--- NOTE | 2024-10-10 18:04 | PTCARENOTE ---
damian off, ambulated to bathroom for BM.
[2024-10-10] MEDS: NON-FORMULARY ITEM 1.74 INH INH (19:49)
[2024-10-10] MEDS: ROBITUSSIN DM 10 ML PO (21:39)
[2024-10-10] MEDS: MELATONIN 10 MG PO (22:49)
[2024-10-11] VITALS (27 sets, daily range): BP systolic 90–115; BP diastolic 60–81; PULSE 70–74; O2SAT 97; BMI 29.7
--- NOTE | 2024-10-11 00:30 | PTCARENOTE ---
assessment unchanged. melatonin given to aid sleep, see NOV. damian gtt currently off. at bedside overnight. call hayes within reach.
[2024-10-11] MEDS: ROCEPHIN 1000 MG IV (03:03)
[2024-10-11] MEDS: STERILE WATER FOR INJECTION 10 ML IV (03:03)
--- NOTE | 2024-10-11 03:21 | PTCARENOTE ---
AM labs sent. assessment unchanged. pt repositioned to provide comfort, lotion applied to back. call hayes within reach.
[2024-10-11 03:48] LABS: % Basophils 0.1 % (0-2); % Eosinophils 0.1 % (0-6); % Immature Granulocytes 0.9 % (0-0.5); % Lymphocytes 2.6 % (20.5-51.1); % Monocytes 8.6 % (1.7-9.3); % Neutrophils 87.7 % (42.2-75.2); Absolute Immature Granulocytes 0.1 10^3/uL (0-0.05); Absolute Lymphocytes 0.3 10^3/uL (1.2-3.4); Absolute Neutrophils 10.4 10^3/uL (1.4-6.5); Hematocrit 30.7 % (39.0-52.0); Hemoglobin 9.4 g/dL (13.0-18.0); Mean Corp Hgb Conc. 30.6 g/dL (33.0-37.0); Mean Corpuscular Hgb 28.3 pg (27.0-31.0); Mean Corpuscular Volume 92.5 fL (80.0-94.0); Nucleated Red Blood Cells % 1.1 % (-); Platelet Count 56 10^3/uL (130-400); Red Blood Cell Count 3.32 10^6/uL (4.70-6.10); Red Cell Dist. Width 19.5 % (11.5-14.5); White Blood Cell Count 11.8 10^3/uL (4.8-10.8)
[2024-10-11 03:52] LABS: Blood Urea Nitrogen 60 mg/dl (9-20); Calcium 7.3 mg/dl (8.4-10.2); Carbon Dioxide 24 mmol/L (22-30); Chloride 96 mmol/L (98-107); Glucose 103 mg/dl (70-99); Magnesium 2.2 mg/dl (1.6-2.3); Potassium 4.7 mmol/L (3.5-5.1); Sodium 132 mmol/L (135-145)
[2024-10-11 04:10] LABS: Estimated Creatinine Clearance 14 ml/min; eGFR 13.77
[2024-10-11] MEDS: SYNTHROID 125 MCG PO (05:05)
[2024-10-11] MEDS: CALCIUM GLUCONATE 100 IV (05:05)
[2024-10-11] MEDS: ROBITUSSIN DM 10 ML PO ×2 (05:14→15:34)
[2024-10-11] MEDS: NON-FORMULARY ITEM 1 INH INH ×4 (07:21→19:18)
[2024-10-11] MEDS: NON-FORMULARY ITEM 1 PUFF INH (07:22)
[2024-10-11] MEDS: BUMEX 2 MG IV (07:36)
[2024-10-11] MEDS: DELTASONE 10 MG PO (07:37)
[2024-10-11] MEDS: ELIQUIS 5 MG PO ×2 (07:37→20:31)
[2024-10-11] MEDS: PACERONE 400 MG PO ×3 (07:38→20:32)
[2024-10-11] MEDS: OCUVITE SOFTGEL 1 CAP PO (07:38)
[2024-10-11] MEDS: OSCAL 500 + D 500 MG PO ×2 (07:38→20:31)
[2024-10-11] MEDS: NON-FORMULARY ITEM 150 MG PO (07:38)
[2024-10-11] MEDS: VITAMIN C 1000 MG PO (07:39)
[2024-10-11] MEDS: PLAQUENIL 200 MG PO ×2 (07:39→20:30)
[2024-10-11] MEDS: VITAMIN D3 (cholecalciferol) 50 MCG PO (07:39)
[2024-10-11] MEDS: PROTONIX 40 MG PO (07:39)
[2024-10-11] MEDS: FLUSH (NSS) 3 FLUSH IV (07:40)
--- NOTE | 2024-10-11 07:43 | W.PN.INTV ---
Today's Communication / Plan
Recommendations
Wean pressors
Diuresis
Supplemental oxygen
Antibiotics
Monitor for atrial fibrillation recurrence
If weaned off pressors then transfer to telemetry-pulmonary will sign off-please call with questions
Assessment
-
79-year-old male with previous history of hypertension, chronic kidney disease, pulmonary fibrosis, lupus/rheumatoid arthritis, prostate cancer presenting to ER for abdominal distention, oliguria, weight gain for the past 3 weeks. There is also
development of increased shortness of breath. Initial chest imaging demonstrating pulmonary edema with small bilateral pleural effusions, was admitted for potential cardiorenal syndrome related to heart failure. He was noted to be hypotensive as
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
shock/pressor management/critical care management 10/10/2024.
Hypotension requiring pressors
Rapid supraventricular tachycardia-now on amiodarone and phenylephrine
Status post decompensated heart failure exacerbation with pulmonary edema; proBNP 15,600
Hypotension-requiring pressors
Status post ROBIN on CKD-now requiring hemodialysis
Hyperkalemia
Hyponatremia
Metabolic acidosis
Hyperglycemia
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 Akhtar-on Ofev and Tyvaso-chronically on 2 to 5 L oxygen
KAI on CPAP
HTN
CKD stage 3
Hypothyroidism
Gout
Prostate ca, s/p prostatectomy 2005
R inguinal and umbilical hernia repair Jul 2020, no pulmonary complications
Bilateral knee endoscopic surgery
Lifelong nonsmoker
lupus
rheumatoid arthritis
PLAN:
Hemodynamics have improved
Supplemental oxygen as needed-chronically on 2 to 5 L of oxygen for his pulmonary fibrosis
Nebulizers if needed-currently not bronchospastic
Prednisone 10 mg daily-chronic
Aspiration precautions
Chronically on Ofev and Tyvaso
Follow radiographically
Wean phenylephrine to off if possible
Midodrine added
Cardiology following-correspondence reviewed
Intravenous amiodarone will be converted to amiodarone 400 mg 3 times daily for overload and eventually amiodarone 200 mg daily
Cardiology-Dr. Reeves reviewed with pulmonary at [facility]-okay to start-I am in agreement
Dr. Mg reviewed potential for amiodarone pulmonary toxicity with and patient at length-low risk with amiodarone 200 mg daily-will need to be monitored closely in the outpatient setting
Diuresis continues as tolerated
Monitor renal function, electrolytes, intake/output, lower extremity edema and weight
Replace electrolytes as needed
Hemodialysis per nephrology
Nephrology following-correspondence reviewed
Aricept or equivalent per nephrology
Phenylephrine-attempt to wean off
Cultures reviewed
Urine culture with Klebsiella
Unable to produce sputum
Empiric antibiotics-ceftriaxone
Monitor blood sugar
Insulin supplementation as needed
Monitor hemoglobin and platelet count
Transfuse if needed
DVT prophylaxis-on Eliquis
GI prophylaxis-on pantoprazole
Reviewed with during multidisciplinary rounds 10/10/2024 and 10/11/2024
If able to be weaned off pressors after hemodialysis then could be transferred out of ICU-call pulmonary if respiratory issues arise
Outpatient pulmonary follow-up with Dr. Akhtar at [facility]
Outpatient rheumatologic [id number] started back on Benlysta
Outpatient cardiology follow-up
Critical care statement: A total of 40 minutes of critical care time was provided for this patient today. This includes management of unstable vital signs, evaluation of the patient at bedside, reviewing the patient's pertinent medical records
including radiographs, pressor management, microbiology, laboratory evaluations, and discussion with primary team, consultants, pharmacy, nutrition, physical therapy, case management, charge nurse, critical care nursing, and respiratory therapy.
Diagnostic Data
CXR 10/04/24- Mild pulmonary edema with small bilateral pleural effusions
Chest X-Ray: 05-18-19: increased interstitial markings at bases
CTA chest 06-19-21, c/w CT s/c 11-29-20 and 06-01-19. No PE. pulmonary fibrotic changes bilaterally including basilar honeycombing which remained unchanged. No mediastinal LAD. New onset small bilateral dependent pleural effusion.
Echo: 06/20/21- Left ventricle is mildly dilated. Normal left ventricular systolic function. Left ventricular ejection fraction is 60-65% by Singh's method. Mild concentric left ventricular hypertrophy. Diastolic function normal. Trileaflet aortic
valve. Aortic valve opens normally. Moderate aortic regurgitation. Structurally normal tricuspid valve. Tricuspid valve opens normally. Mild tricuspid regurgitation. Estimated pulmonary artery pressure of 60 mmHg, assuming a right atrial pressure of
8 mmHg. Mild ascending aorta dilatation (3.9cm). The aortic arch is normal in caliber. Since echocardiogram February 2020, there is no significant change.
03-06-20. normal biventricular size/fx, stage I DD, mild to mod eccentric MR, mod AR, estimated PAP 45, mild TR
PFT's: 11-27-20, mild restriction on spirometry, no significant FV1 response with BD, moderate restriction on LVS, severely reduced diffusing capacity
Reports and relevant images were personally reviewed.
Subjective Dataa
Subjective Data
Date of Service:
Date of Service: October 11, 2024
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
Subjective:
Denies any shortness of breath at rest, no chest pain, productive cough, chest congestion or abdominal pain
Review of Systems
General: Other (Per HPI)
Objective Data
Data Reviewed
Vital Signs / I&O / Oxygen:
Vital Signs
Temp Pulse Resp BP Pulse Ox
98.8 F 70 25 92/69 94
10/11/24 05:26 10/11/24 07:23 10/11/24 07:23 10/11/24 07:00 10/11/24 07:23
Intake and Output
10/10/24 10/11/2425
06:59 06:59 06:59
Intake Total 462.1 / 484.8 1426.8 / 1426.8
Balance 462.1 / 484.8 1426.8 / 1426.8
SaO2 94
Nasal Cannula flow liters per 5
minute
Physical Exam
General: Respiratory Distress (n) and Comfortable
HEENT: Normocephalic, Anicteric and Moist Mucous Membranes
Cardiovascular: Regular Rhythm and Murmur
Respiratory: Wheeze (n), Crackles (Basilar bilateral mcfp up), Rhonchi (n), Non-Labored Respirations, Accessory Resp Muscle Use (n) and Stridor (n)
GI: Soft, Non Distended and Non Tender
Neurology: Awake, Alert and No Motor Deficits
Skin: Warm, Good Color, Cyanosis (n), Jaundice (n) and Rash (n)
Labs/Micro/Reports
Lab Data
10/11/24 03:04
10/11/24 03:04
--- NOTE | 2024-10-11 08:28 | W.PN.HOSP.TC ---
Today's Communication/Plan
-
Hemodialysis per renal. Beta-blockers, amiodarone, Eliquis.
Assessment / Plan
Assessment / Plan
Physical exam:
General: Well Developed, Well Nourished and No Apparent Distress
HEENT: Normocephalic, Atraumatic and Moist Mucous Membranes
Respiratory: Clear to Auscultation; Negative Wheezes, Rales or Rhonchi
Cardiac: Regular Rhythm and S1/S2
GI: Soft, Nontender and Nondistended
Musculoskeletal: No Clubbing, No Cyanosis and No Edema
Neuro: Awake, Alert and Oriented
Psych: Calm
A/P:
1. Acute on chronic systolic congestive heart failure
Acute hypoxic respiratory insufficiency
-Chest x-ray showing signs of cardiogenic pulmonary edema
-Echocardiogram in 21 showing EF 60 to 65%, normal diastolic function. Pulmonary artery pressure of 60 mmHg
-Repeat echocardiogram showing EF of 30 to 35%, stage II diastolic dysfunction. Moderate MR. Prem pulm HTN.
-Continue wean off oxygen as possible
-On IV Bumex 2 mg daily-Still on diuretics but not sure if benefiting from it.
-Off pressors today
2. 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
-Last known creatinine of 2.2 with GFR 29
-Patient came in with creatinine ~ 5
-Relatively bland urine, no significant proteinuria
-Renal and bladder ultrasound showing a likely benign right renal mass with some calcification. No hydronephrosis
-Concern of potential cardiorenal syndrome, on top of underlying lupus nephritis
-Patient has been started on hemodialysis due to suboptimal response to diuretic therapy. Still on diuretics but not sure if benefiting from it.
-Off pressors today
-Patient has some questions about restarting Lyrica but not ideal with end-stage renal disease
3. Hyperkalemia
Metabolic acidosis
Euvolemic hyponatremia
-Acidosis/hyperkalemia driven by ROBIN, patient being put on dialysis likely today will help with metabolic derangements
-Diuretic therapy fail to improve metabolic derangements, on HD at this point.
4. Essential hypertension/ Hypotension
- hold amlodipine, doxazosin, and losartan
-He was on on Chao-Synephrine drip-Off pressors today
5. pulmonary fibrosis
- continue ofev if patient able to bring in supply
-Continue oral prednisone 10 mg p.o. daily
6. History of lupus nephritis
Rheumatoid arthritis
-maintain on oral prednisone, dose increased to 10mg/d. got solucortef injection
-continue plaquenil
7. Iron def anemia
-Ferritin of 16, saturation 7%
-IV ferlicit ordered
8. Atrial flutter with 2-1 conduction
-Cardiology following and patient currently on Eliquis 5 mg p.o. twice a day
-Patient is s/p MANUEL and cardioversion. He is in normal sinus rhythm after amiodarone initiation. On metoprolol succinate 12.5 mg p.o. twice a day. Changing amiodarone to 400 mg p.o. 3 times daily today
9. Thrombocytopenia
-Patient thrombocytopenic, monitor trend
-Checked with and last platelet count back in early August as outpatient was previous to same as now in the 90,000 range
10. Klebsiella UTI
-Maintain on Rocephin
hypothyroidism
GERD
prostate cancer
prostatectomy 2005
gout
Code Status: DNR
DVT Prophylaxis: Eliquis
Total time spent 54-minute
Anticipated Discharge: > 48 hours
Subjective/Interval History
-
Date of Service: October 11, 2024
Patient is feeling well. A-fib on and off.
Objective Data
-
Labs:
Laboratory Results
10/11/24
03:04
WBC 11.8 H
Hgb 9.4 L
Hct 30.7 L
Plt Count 56 L D
Sodium 132 L
Potassium 4.7
Chloride 96 L
Carbon Dioxide 24
BUN 60 H
Creatinine 4.2 H*
Glucose 103 H
Calcium 7.3 L
Vital Signs:
Vital Signs
Temp Pulse Resp BP Pulse Ox
97.9 F 70 25 92/69 94
10/11/24 07:59 10/11/24 07:23 10/11/24 07:23 10/11/24 07:00 10/11/24 07:23
I&O
10/10/24 10/11/24 10/12/24
06:59 06:59 06:59
Intake Total 462.1 / 484.8 1426.8 / 1426.8
Balance 462.1 / 484.8 1426.8 / 1426.8
[2024-10-11] MEDS: TOPROL XL PO ×2 (09:08→20:31)
--- NOTE | 2024-10-11 09:10 | W.PN.CARDCBS ---
Today's Communication / Plan
-
Continue oral amiodarone 400 mg p.o. 3 times daily.
Watch platelet count on Eliquis. Current platelets 56,000. Hemoglobin stable at 9.4.
Add midodrine low-dose for blood pressure support
Continue dialysis.
Cont Abx
Impression / Plan
-
Primary Ice Skater: Dr. Dedra Crandall of [facility]
Assessment:
79-year-old complex man with ROBIN on CKD and history of lupus nephritis, now admitted with
Presentation with weight gain, decreased urine output
ROBIN on CKD, lupus nephritis
Hyperkalemia
Hyponatremia
Acute HF, type unknown
Tachycardia - ST vs atypical flutter/tach
Anemia
bifascicular block
pulm HTN
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
RA
mod AR by echo 2020
HTN
Hypothyroidism
GERD
Gout
History of prostate cancer s/p prostatectomy 2005
DNR code status
ECHO 2020: EF 60 to 65%, mild concentric LVH, moderate AR, mild TR, PAP 60 mmHg, mild ascending aorta dilation
Echo 10/05/2024: EF 30-35%, stage II diastolic dysfunction, dilated atria, normal RV, mild to moderate MR, mild AI, pulmonary artery pressure 51 mmHg
Plan:
He continues to go in and out of A-fib. He currently is in sinus rhythm on oral amiodarone. Will continue for 100 mg p.o. 3 times daily for now. I suspect he will continue to have paroxysms of atrial arrhythmias.
His platelet count is down to 56,000. Will continue Eliquis for now but may need to hold if platelet count falls further. Repeat platelet count today. Hemoglobin stable at 9.4
He is now off phenylephrine. Okay to add midodrine to support blood pressure.
Will have to determine if amiodarone is appropriate long-term or if alternative strategies are warranted given his lung disease.
He is making minimal urine and likely will be on long-term dialysis.
Cont Tyvaso/Ofev
79-year-old male with past medical history of chronic kidney disease stage III-IV, pulmonary hypertension, interstitial lung disease with pulmonary fibrosis on home oxygen, moderate aortic regurgitation who presents to [facility] with acute
on chronic renal failure and acute congestive heart failure with preserved ejection fraction. He is followed at [facility] by nephrology and cardiology and pulmonary. He takes Ofev and Tyvaso as an outpatient. He has noticed for
the past 10 days or so and elevation his heart rate in the 120s. He felt no palpitations or chest pains but then started noticing fatigue, shortness of breath and an inability to urinate. He was found to be in acute renal failure with a creatinine
of 5. His baseline creatinine is in the 2-2.5 range. On presentation found to have atrial flutter with 2-1 conduction
CC time: 33min
Progress Note - Ice Skater
Subjective
Date of Service: October 11, 2024
Back in sinus rhythm. making minimal urine. Breathing stable
Objective
Labs:
10/11/24 03:04
10/11/24 03:04
Labs
Hgb 9.4 g/dL (13.0-18.0) L 10/11/24 03:04
Hct 30.7 % (39.0-52.0) L 10/11/24 03:04
Plt Count 56 10^3/uL (130-400) L D 10/11/24 03:04
PT 16.8 Sec (11.4-14.6) H 10/05/24 04:59
INR 1.33 10/05/24 04:59
APTT Cancelled 10/07/24 17:30
Sodium 132 mmol/L (135-145) L 10/11/24 03:04
Potassium 4.7 mmol/L (3.5-5.1) 10/11/24 03:04
BUN 60 mg/dl (9-20) H 10/11/24 03:04
Creatinine 4.2 mg/dL (0.7-1.3) H* 10/11/24 03:04
Glucose 103 mg/dl (70-99) H 10/11/24 03:04
Vital Signs and I&O:
Vital Signs
Temp Pulse Resp BP Pulse Ox
97.9 F 70 25 100/63 94
10/11/24 07:59 10/11/24 07:23 10/11/24 07:23 10/11/24 09:08 10/11/24 07:23
Vital Signs
Temp Pulse Resp BP Pulse Ox
97.9 F 70 25 100/63 94
10/11/24 07:59 10/11/24 07:23 10/11/24 07:23 10/11/24 09:08 10/11/24 07:23
Intake & Output
10/09/24 10/10/24 10/11/24 10/12/24
06:59 06:59 06:59 06:59
Intake Total 369.9 / 369.9 462.1 / 484.8 1426.8 / 1426.8
Output Total 275 / 275
Balance 94.9 / 94.9 462.1 / 484.8 1426.8 / 1426.8
Physical Exam
Physical Exam
GEN: No distress, awake, Ox3
HEENT: supple, anicteric, mmm
LUNGS: scatt rhonchi
CV: Reg, S1/S2, 1/6 syst LSB, no gallop
ABD: soft, BS+, NT/mild distended
EXT: No edema
NEURO: Gross non-focal
SKIN: No rash
[2024-10-11] MEDS: LYRICA 75 MG PO (10:42)
--- NOTE | 2024-10-11 10:54 | W.PN.NEPH.PH ---
Today's Communication / Plan
-
Dialysis tomorrow
Assessment/Plan
-
IMP;
Acute on chronic respiratory failure
decompensated heart failure exacerbation with pulmonary edema
ROBIN on CKD 3 vs 4?- lupus nephritis cr 2.2 in 2021-nephrology at [facility] Dr Davis
Hyperkalemia
Hyponatremia
Metabolic acidosis
Hyperphosphatemia
SHPTH
Anemia
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
KAI on CPAP
HTN
Hypothyroidism
Gout
Prostate ca, s/p prostatectomy 2005
lupus
rheumatoid arthritis
Klebsiella UTI 10/09/24
Plan:
A/w Anuria with severe ROBIN with known lupus nephritis and decompensated CHF
Patient now dialysis dependent
Previously spoke with Nephrology at [place]-stated he has advanced CKD, already plans were making for PD in out pt
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
his blood pressures have been intermittently soft with the tachycardia-echo noted EF 30-35%, stage 2DD, severe LVH, IVC dilated, mod pulm HTN
Discussed with the patient and in detail
A-fib while on HD previously to give beta-cristal prior to dialysis and is now on p.o. amiodarone
No acute dialysis today from a volume or electrolyte standpoint.
Dialysis ordered for tomorrow
Total Time Spent with Patient (in minutes): 31
-
-
Date of Service: October 11, 2024
CC / HPI / ROS
-
Chief Complaint:
ROBIN, CKD
History of Present Illness:
Patient now on dialysis Thursday schedule
Review of Systems:
no cp
sob no change
no n/v
Weights down
Labs
-
Labs:
WBC 11.8 10^3/uL (4.8-10.8) H 10/11/24 03:04
RBC 3.32 10^6/uL (4.70-6.10) L 10/11/24 03:04
Hgb 9.4 g/dL (13.0-18.0) L 10/11/24 03:04
Hct 30.7 % (39.0-52.0) L 10/11/24 03:04
Plt Count 56 10^3/uL (130-400) L D 10/11/24 03:04
Sodium 132 mmol/L (135-145) L 10/11/24 03:04
Potassium 4.7 mmol/L (3.5-5.1) 10/11/24 03:04
Chloride 96 mmol/L (98-107) L 10/11/24 03:04
Carbon Dioxide 24 mmol/L (22-30) 10/11/24 03:04
BUN 60 mg/dl (9-20) H 10/11/24 03:04
Creatinine 4.2 mg/dL (0.7-1.3) H* 10/11/24 03:04
eGFR 13.77 10/11/24 03:04
Glucose 103 mg/dl (70-99) H 10/11/24 03:04
Calcium 7.3 mg/dl (8.4-10.2) L 10/11/24 03:04
Phosphorus 5.1 mg/dl (2.5-4.5) H 10/05/24 11:38
Iod-X-Pdpdcbdnaot Pept 74135 pg/ml 10/04/24 18:11
Albumin 3.2 g/dl (3.5-5.0) L 10/04/24 18:11
Physical Exam
-
Vital Signs:
Vital Signs
Temp Pulse Resp BP Pulse Ox
97.9 F 70 25 100/63 94
10/11/24 07:59 10/11/24 07:23 10/11/24 07:23 10/11/24 09:08 10/11/24 07:23
Cardiovascular:: Irregular rate and rhythm (tachy)
Respiratory:: Bilateral: Coarse
Lung Excursion:: Normal
Abdomen:: Nontender and Soft
Bowel Sounds:: Normal
Extremity Edema:: None: Bilateral:
Martinez Catheter: No
[2024-10-11] MEDS: ProAmatine 2.5 MG PO ×2 (12:25→17:08)
[2024-10-11] MEDS: TYLENOL 650 MG PO (13:35)
--- NOTE | 2024-10-11 14:08 | PTCARENOTE ---
pt increased to 6lmidflow and repositioned for pulse ox 89-91% on 5l
--- NOTE | 2024-10-11 17:20 | PTCARENOTE ---
Report called to Michael who will assume care of pt upon transfer. is at bedside and aware of transfer.
--- NOTE | 2024-10-11 18:14 | TRANSFER ---
Received report from ICU and pt transferred about 1730 hours. Oriented to unit and placed on 5L O2. Pt, alert, oriented, conversant, denies pain, SOB, or other distress. VS obtained. BP 90/60's in range noted by ICU staff. Sat mid 90's 5L and RR
within limits. Placed on telemetry SR 70's
[2024-10-12] VITALS (8 sets, daily range): BP systolic 95–113; BP diastolic 51–69; BMI 29.7
[2024-10-12] MEDS: STERILE WATER FOR INJECTION 10 ML IV (01:53)
[2024-10-12] MEDS: ROCEPHIN 1000 MG IV (01:53)
[2024-10-12] MEDS: SYNTHROID 125 MCG PO (05:16)
[2024-10-12] MEDS: TYLENOL 650 MG PO (05:18)
[2024-10-12 06:54] LABS: Blood Urea Nitrogen 73 mg/dl (9-20); Calcium 7.3 mg/dl (8.4-10.2); Carbon Dioxide 22 mmol/L (22-30); Chloride 95 mmol/L (98-107); Glucose 110 mg/dl (70-99); Potassium 4.8 mmol/L (3.5-5.1); Sodium 131 mmol/L (135-145)
[2024-10-12 07:19] LABS: % Basophils 0.1 % (0-2); % Eosinophils 0.3 % (0-6); % Monocytes 9.9 % (1.7-9.3); % Neutrophils 85.7 % (42.2-75.2); Absolute Immature Granulocytes 0.1 10^3/uL (0-0.05); Absolute Lymphocytes 0.4 10^3/uL (1.2-3.4); Absolute Monocytes 1.2 10^3/uL (0.1-0.6); Hematocrit 30.8 % (39.0-52.0); Hemoglobin 9.1 g/dL (13.0-18.0); Mean Corp Hgb Conc. 29.5 g/dL (33.0-37.0); Mean Corpuscular Hgb 27.8 pg (27.0-31.0); Mean Corpuscular Volume 94.2 fL (80.0-94.0); Nucleated Red Blood Cells % 0.8 % (-); Platelet Count 43 10^3/uL (130-400); Red Blood Cell Count 3.27 10^6/uL (4.70-6.10); Red Cell Dist. Width 19.9 % (11.5-14.5); White Blood Cell Count 11.6 10^3/uL (4.8-10.8)
[2024-10-12 07:20] LABS: Estimated Creatinine Clearance 12 ml/min; eGFR 10.65
[2024-10-12] MEDS: DELTASONE 10 MG PO (08:14)
[2024-10-12] MEDS: ProAmatine 2.5 MG PO ×2 (08:14→12:57)
[2024-10-12] MEDS: PROTONIX 40 MG PO (08:14)
[2024-10-12] MEDS: ELIQUIS 5 MG PO ×2 (08:15→20:09)
[2024-10-12] MEDS: VITAMIN D3 (cholecalciferol) 50 MCG PO (08:15)
[2024-10-12] MEDS: VITAMIN C 1000 MG PO (08:15)
[2024-10-12] MEDS: PLAQUENIL 200 MG PO ×2 (08:15→20:10)
[2024-10-12] MEDS: PACERONE 400 MG PO ×3 (08:15→23:24)
[2024-10-12] MEDS: OSCAL 500 + D 500 MG PO ×2 (08:15→20:11)
[2024-10-12] MEDS: LYRICA 75 MG PO (08:15)
[2024-10-12] MEDS: OCUVITE SOFTGEL 1 CAP PO (08:16)
[2024-10-12] MEDS: TOPROL XL PO (08:16)
[2024-10-12] MEDS: NON-FORMULARY ITEM 1 MG PO (08:27)
[2024-10-12] MEDS: NON-FORMULARY ITEM 1 INH INH ×4 (08:27→19:42)
[2024-10-12] MEDS: NON-FORMULARY ITEM 1 PUFF INH (08:28)
[2024-10-12] MEDS: ROCALTROL 0.25 MCG PO (08:33)
[2024-10-12] MEDS: BUMEX IV (08:43)
--- NOTE | 2024-10-12 09:44 | W.PN.HOSP.TC ---
Addendum entered and electronically signed by Kirk Mcadams MD 10/12/24 16:06:
Cardiogenic shock
Original Note:
Today's Communication/Plan
-
Hemodialysis.
Assessment / Plan
Assessment / Plan
Physical exam:
General: Acutely ill
HEENT: Normocephalic, Atraumatic and Moist Mucous Membranes
Respiratory: Bilateral coarse crackles in the base; Negative Wheezes, or Rhonchi
Cardiac: Regular Rhythm and S1/S2
GI: Soft, Nontender and Nondistended
Musculoskeletal: No Clubbing, No Cyanosis. Bilateral lower extremity edema
Neuro: Awake, Alert and Oriented. No gross neurological deficits but generalized weakness present.
Psych: Calm
A/P:
1. Acute on chronic systolic congestive heart failure
Acute hypoxic respiratory insufficiency
-Chest x-ray showing signs of cardiogenic pulmonary edema
-Echocardiogram in 21 showing EF 60 to 65%, normal diastolic function. Pulmonary artery pressure of 60 mmHg
-Repeat echocardiogram showing EF of 30 to 35%, stage II diastolic dysfunction. Moderate MR. Mod pulm HTN.
-Continue wean off oxygen as possible
-On IV Bumex 2 mg daily-Still on diuretics but not sure if benefiting from it so will stop
-Off pressors today but nephrology will initiate midodrine for blood pressure support
2. 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
-Last known creatinine of 2.2 with GFR 29
-Patient came in with creatinine ~ 5
-Relatively bland urine, no significant proteinuria
-Renal and bladder ultrasound showing a likely benign right renal mass with some calcification. No hydronephrosis
-Concern of potential cardiorenal syndrome, on top of underlying lupus nephritis
-Patient has been started on hemodialysis due to suboptimal response to diuretic therapy. Still on diuretics but not sure if benefiting from it.
-Off pressors today
-Patient had some questions about restarting Lyrica on 10/11 but not ideal with end-stage renal disease
-Hemodialysis/ultrafiltration per nephrology as blood pressure permits
3. Hyperkalemia
Metabolic acidosis
Euvolemic hyponatremia
-Acidosis/hyperkalemia driven by ROBIN, patient being put on dialysis likely today will help with metabolic derangements
-Diuretic therapy fail to improve metabolic derangements, on HD at this point.
4. Essential hypertension/ Hypotension
- hold amlodipine, doxazosin, and losartan
-He was on on Chao-Synephrine drip-Off pressors today
5. pulmonary fibrosis
- continue ofev if patient able to bring in supply
-Continue oral prednisone 10 mg p.o. daily
6. History of lupus nephritis
Rheumatoid arthritis
-maintain on oral prednisone, dose increased to 10mg/d. got solucortef injection
-continue plaquenil
7. Iron def anemia
-Ferritin of 16, saturation 7%
-IV ferlicit ordered
8. Atrial flutter with 2-1 conduction
-Cardiology following and patient currently on Eliquis 5 mg p.o. twice a day
-Patient is s/p MANUEL and cardioversion. He is in normal sinus rhythm after amiodarone initiation. On metoprolol succinate 12.5 mg p.o. twice a day. Changing amiodarone to 400 mg p.o. 3 times daily today
9. Thrombocytopenia
-Patient thrombocytopenic, monitor trend
-Checked with and last platelet count back in early August were low as well as outpatient and now in the 40,000 range
10. Klebsiella UTI
-Maintain on Rocephin
hypothyroidism
GERD
prostate cancer
prostatectomy 2005
gout
Code Status: DNR
DVT Prophylaxis: Eliquis
Total time spent 54-minute
Anticipated Discharge: > 48 hours
Subjective/Interval History
-
Date of Service: October 12, 2024
Patient feels. Blood pressure on the low side, asymptomatic. Looks frail overall. Afebrile
Objective Data
-
Labs:
Laboratory Results
10/12/24
05:57
WBC 11.6 H
Hgb 9.1 L
Hct 30.8 L
Plt Count 43 L D
Sodium 131 L
Potassium 4.8
Chloride 95 L
Carbon Dioxide 22
BUN 73 H
Creatinine 5.2 H*
Glucose 110 H
Calcium 7.3 L
Vital Signs:
Vital Signs
Temp Pulse Resp BP Pulse Ox
97.1 F 63 16 106/63 93
10/12/24 03:29 10/12/24 08:16 10/12/24 08:00 10/12/24 08:16 10/12/24 08:00
I&O
10/11/24 10/12/24 10/13/24
06:59 06:59 06:59
Intake Total 1426.8 / 1426.8 300 / 300
Balance 1426.8 / 1426.8 300 / 300
--- NOTE | 2024-10-12 10:39 | W.PN.CARDCBS ---
Addendum entered and electronically signed by Alonzo Ramirez MD 10/12/24 14:29:
I saw and examined the patient.
The Post Secondary Professional's note was reviewed and I agree with the note.
Comment: GEN: No distress, awake, Ox3
HEENT: supple, anicteric, mmm
LUNGS: CTA, no wheezes/rales
CV: Reg, S1/S2, 1/6 syst LSB, no gallop
ABD: soft, BS+, NT/ND
EXT: No edema
NEURO: Gross non-focal
SKIN: No rash
Plan:
Remains in sinus rhythm. Overall doing well. Continue amiodarone. Will decrease dose in a.m.
Platelet count down to 43,000. Hemoglobin overall stable. Okay to continue Eliquis for now but if this drops further below 30,000 will need to hold Eliquis.
Consider Heme eval.
Cont HD
Original Note:
Today's Communication / Plan
-
follow platelets, consider heme evaluation. continue eliquis for now
in SR. continue amio, consider decreasing dose. follow QTc
HD today
Impression / Plan
-
Primary Manager Cancer: Dr. Dedra Crandall of [place]
Assessment:
79-year-old complex man with ROBIN on CKD and history of lupus nephritis, now admitted with
Presentation with weight gain, decreased urine output
ROBIN on CKD, lupus nephritis
Hyperkalemia
Hyponatremia
Acute HF, type unknown
Tachycardia - ST vs atypical flutter/tach
Anemia
bifascicular block
pulm HTN
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
RA
mod AR by echo 2020
HTN
Hypothyroidism
GERD
Gout
History of prostate cancer s/p prostatectomy 2005
DNR code status
ECHO 2020: EF 60 to 65%, mild concentric LVH, moderate AR, mild TR, PAP 60 mmHg, mild ascending aorta dilation
Echo 10/05/2024: EF 30-35%, stage II diastolic dysfunction, dilated atria, normal RV, mild to moderate MR, mild AI, pulmonary artery pressure 51 mmHg
Plan:
-He reports breathing is improving
-For dialysis today
-Remains in sinus rhythm on review of telemetry overnight with chronic bifascicular block. QTc measured at 536ms on amio 400mg TID. currently has gotten 2400mg load of po amio. consider decreasing dose to 400mg BID. not ideal prison amio
candidate given known lung disease
-platelets continue to trend down, 43K on 10/12. work up per primary service. will continue eliquis today however if drops further tomorrow, may need to hold. consider hematologic evaluation (sees Dr. Kym Meneses of [place] as OP). of note he is at
elevated CVA risk off OAC given recent cardioversion this admission
-Cont Tyvaso/Ofev
-d/w patient and at bedside
PREADMIT DATA:
79-year-old male with past medical history of chronic kidney disease stage III-IV, pulmonary hypertension, interstitial lung disease with pulmonary fibrosis on home oxygen, moderate aortic regurgitation who presents to [facility] with acute
on chronic renal failure and acute congestive heart failure with preserved ejection fraction. He is followed at [facility] by nephrology and cardiology and pulmonary. He takes Ofev and Tyvaso as an outpatient. He has noticed for
the past 10 days or so and elevation his heart rate in the 120s. He felt no palpitations or chest pains but then started noticing fatigue, shortness of breath and an inability to urinate. He was found to be in acute renal failure with a creatinine
of 5. His baseline creatinine is in the 2-2.5 range. On presentation found to have atrial flutter with 2-1 conduction
Progress Note - Manager Cancer
Subjective
Date of Service: October 12, 2024
reports breathing is ok. no bleeding
Objective
Labs:
10/12/24 05:57
10/12/24 05:57
Labs
Hgb 9.1 g/dL (13.0-18.0) L 10/12/24 05:57
Hct 30.8 % (39.0-52.0) L 10/12/24 05:57
Plt Count 43 10^3/uL (130-400) L D 10/12/24 05:57
PT 16.8 Sec (11.4-14.6) H 10/05/24 04:59
INR 1.33 10/05/24 04:59
APTT Cancelled 10/07/24 17:30
Sodium 131 mmol/L (135-145) L 10/12/24 05:57
Potassium 4.8 mmol/L (3.5-5.1) 10/12/24 05:57
BUN 73 mg/dl (9-20) H 10/12/24 05:57
Creatinine 5.2 mg/dL (0.7-1.3) H* 10/12/24 05:57
Glucose 110 mg/dl (70-99) H 10/12/24 05:57
Vital Signs and I&O:
Vital Signs
Temp Pulse Resp BP Pulse Ox
97.1 F 63 16 106/63 93
10/12/24 03:29 10/12/24 08:16 10/12/24 08:00 10/12/24 08:16 10/12/24 08:00
Vital Signs
Temp Pulse Resp BP Pulse Ox
97.1 F 63 16 106/63 93
10/12/24 03:29 10/12/24 08:16 10/12/24 08:00 10/12/24 08:16 10/12/24 08:00
Intake & Output
10/10/24 10/11/24 10/12/24 10/13/24
07:59 07:59 07:59 07:59
Intake Total 484.8 / 624.5 1404.1 / 1524.1 300 / 300
Balance 484.8 / 624.5 1404.1 / 1524.1 300 / 300
Physical Exam
Physical Exam
GEN: No distress, awake, alert, oriented x3. on supp O2
HEENT: supple, anicteric, mmm, eomi
LUNGS: CTA anterolaterally, no wheezes
CV: Reg, S1/S2, 1/6 murmur
ABD: soft, BS+, NT/ND
EXT: No cyanosis, clubbing. 1+ edema of B/L LE
NEURO: Gross non-focal
SKIN: Warm, pink, dry. No rash. Ecchymoses of chest. B/L hand discoloration from chronic prednisone therapy
[2024-10-12] MEDS: MANNITOL 25% 12.5 GRAMS IV ×2 (13:25→15:06)
--- NOTE | 2024-10-12 13:51 | W.PN.NEPH.HD ---
Assessment
-
Patient seen on dialysis
Systolic blood pressure 81
Mannitol to be given x 2 orders provided
Ultrafiltration set back to even as he cannot tolerate any UF despite volume overload
I had a discussion with both the patient and that I am not sure he will be a viable outpatient dialysis candidate as he is too hemodynamically unstable in the setting of his cardiomyopathy to effectively control his volume status.
In the interim titrate up midodrine to 5 mg 3 times daily
Check cortisol level in a.m. to rule out any underlying component of adrenal insufficiency
Progress Note - Hemodialysis
-
Date of Service: October 12, 2024
Duration: 30 minutes and 3 hours
Calcium Bath: 2.5
Opti-Dialyzer: 160
Ultrafiltration: Other (Even UF)
Blood Flow: 400
Dialysate Flow: 600
Heparin: None
EPO: None
--- NOTE | 2024-10-12 14:55 | PN.CDI ---
CDI
- -
CDI:
Physician Documentation Request
Admit Date: 10/04/24 23:40
Dear Doctor,
Please review the following and provide your response in the progress notes.
Current documentation includes a diagnosis of hypotension.
Clinical Indicators:
Pt admitted with acute systolic chf. Patient with atrial flutter
on 10/09 systolic bp's in 70-80's and continued through 10/10
Started on phenylephrine gtt on 10/09
Midodrine added 10/11 and increased on 10/12
Please clarify which of the following is the most likely etiology of the above symptoms and treatment rendered:
Cardiogenic shock
Shock, unknown type
Hypotension - indicate type/etiology, such as idiopathic, neurogenic or orthostatic, post-procedural, postoperative, due to hemodialysis, chronic, drug induced (indicate drug), etc.
Hypotension - unknown type/etiology
Other
Use of terms such as suspected, likely, concern for, or probable (associated with a specific diagnosis that is being evaluated, monitored, or treated as if it exists) are acceptable and can be coded in the inpatient setting, when documented at the
time of discharge.
Thank you,
Irish CASTANO, RN, CCDS
CDI Specialist
[phone]
Please use your independent medical judgment in providing your response.
[2024-10-12] MEDS: ProAmatine 5 MG PO (16:36)
[2024-10-12] MEDS: ROBITUSSIN DM 10 ML PO (18:02)
[2024-10-12] MEDS: TOPROL XL 12.5 MG PO (21:18)
[2024-10-13] VITALS (7 sets, daily range): BP systolic 100–127; BP diastolic 51–73; PULSE 60; O2SAT 96; BMI 29.3
[2024-10-13] MEDS: MELATONIN 5 MG PO (01:14)
[2024-10-13] MEDS: STERILE WATER FOR INJECTION 10 ML IV (01:14)
[2024-10-13] MEDS: ROCEPHIN 1000 MG IV (01:14)
[2024-10-13] MEDS: SYNTHROID 125 MCG PO (05:35)
[2024-10-13 06:37] LABS: Hematocrit 32.1 % (39.0-52.0); Hemoglobin 9.4 g/dL (13.0-18.0); Mean Corp Hgb Conc. 29.3 g/dL (33.0-37.0); Mean Corpuscular Hgb 28.1 pg (27.0-31.0); Mean Corpuscular Volume 95.8 fL (80.0-94.0); Platelet Count 40 10^3/uL (130-400); Red Blood Cell Count 3.35 10^6/uL (4.70-6.10); Red Cell Dist. Width 20.6 % (11.5-14.5)
[2024-10-13 06:59] LABS: Blood Urea Nitrogen 61 mg/dl (9-20); Calcium 7.6 mg/dl (8.4-10.2); Carbon Dioxide 23 mmol/L (22-30); Chloride 97 mmol/L (98-107); Glucose 92 mg/dl (70-99); Potassium 4.3 mmol/L (3.5-5.1); Sodium 132 mmol/L (135-145)
[2024-10-13 07:19] LABS: Estimated Creatinine Clearance 13 ml/min; eGFR 12.34
[2024-10-13 07:24] LABS: Cortisol, Random 15.7 ug/dl
[2024-10-13] MEDS: DELTASONE 10 MG PO (07:34)
[2024-10-13] MEDS: ProAmatine 5 MG PO ×3 (07:34→16:06)
[2024-10-13] MEDS: PLAQUENIL 200 MG PO ×2 (07:34→20:01)
[2024-10-13] MEDS: VITAMIN D3 (cholecalciferol) 50 MCG PO (07:34)
[2024-10-13] MEDS: LYRICA 75 MG PO (07:34)
[2024-10-13] MEDS: OCUVITE SOFTGEL 1 CAP PO (07:34)
[2024-10-13] MEDS: ELIQUIS 5 MG PO ×2 (07:34→20:02)
[2024-10-13] MEDS: OSCAL 500 + D 500 MG PO ×2 (07:34→20:01)
[2024-10-13] MEDS: TOPROL XL 12.5 MG PO ×2 (07:35→20:02)
[2024-10-13] MEDS: VITAMIN C 1000 MG PO (07:35)
[2024-10-13] MEDS: PACERONE 400 MG PO (07:36)
[2024-10-13] MEDS: PROTONIX 40 MG PO (07:36)
[2024-10-13] MEDS: NON-FORMULARY ITEM 150 MG PO (07:37)
[2024-10-13] MEDS: NON-FORMULARY ITEM 1 INH INH ×4 (07:37→19:39)
[2024-10-13] MEDS: NON-FORMULARY ITEM 1 PUFF INH (07:38)
--- NOTE | 2024-10-13 08:47 | W.PN.HOSP.TC ---
Today's Communication/Plan
-
Palliative care consult
Assessment / Plan
Assessment / Plan
Physical exam:
General: Acutely ill
HEENT: Normocephalic, Atraumatic and Moist Mucous Membranes
Respiratory: Bilateral coarse crackles in the base; Negative Wheezes, or Rhonchi
Cardiac: Regular Rhythm and S1/S2
GI: Soft, Nontender and Nondistended
Musculoskeletal: No Clubbing, No Cyanosis. Bilateral lower extremity edema
Neuro: Awake, Alert and Oriented. No gross neurological deficits but generalized weakness present.
Psych: Calm
A/P:
1. Acute on chronic systolic congestive heart failure
Acute hypoxic respiratory insufficiency
-Chest x-ray showing signs of cardiogenic pulmonary edema
-Echocardiogram in 21 showing EF 60 to 65%, normal diastolic function. Pulmonary artery pressure of 60 mmHg
-Repeat echocardiogram showing EF of 30 to 35%, stage II diastolic dysfunction. Moderate MR. Mod pulm HTN.
-Continue wean off oxygen as possible
-On IV Bumex 2 mg daily-Still on diuretics but not sure if benefiting from it so it was completely stopped
-Off pressors
-Nephrology initiated midodrine for blood pressure support
-Discussed with at bedside today on 10/13
-Patient and family would like to discuss further with palliative care. Palliative care consulted-discussed with palliative care via [facility] text today.
2. 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
-Last known creatinine of 2.2 with GFR 29
-Patient came in with creatinine ~ 5
-Relatively bland urine, no significant proteinuria
-Renal and bladder ultrasound showing a likely benign right renal mass with some calcification. No hydronephrosis
-Concern of potential cardiorenal syndrome, on top of underlying lupus nephritis
-Patient has been started on hemodialysis due to suboptimal response to diuretic therapy. Still on diuretics but not sure if benefiting from it.
-Off pressors today
-Patient had some questions about restarting Lyrica on 10/11 but not ideal with end-stage renal disease
-Hemodialysis/ultrafiltration per nephrology as blood pressure permits
-There is a PICC line that we might be able to remove if it is not going to be used over the next 24 hours
3. Hyperkalemia
Metabolic acidosis
Euvolemic hyponatremia
-Acidosis/hyperkalemia driven by ROBIN, patient being put on dialysis likely today will help with metabolic derangements
-Diuretic therapy fail to improve metabolic derangements, on HD at this point.
4. Essential hypertension/ Hypotension
- hold amlodipine, doxazosin, and losartan
-He was on on Chao-Synephrine drip-Off pressors for last several days
5. pulmonary fibrosis
- continue ofev if patient able to bring in supply
-Continue oral prednisone 10 mg p.o. daily
6. History of lupus nephritis
Rheumatoid arthritis
-maintain on oral prednisone, dose increased to 10mg/d. got solucortef injection
-continue plaquenil
7. Iron def anemia
-Ferritin of 16, saturation 7%
-IV ferlicit given
8. Atrial flutter with 2-1 conduction
-Cardiology following and patient currently on Eliquis 5 mg p.o. twice a day
-Patient is s/p MANUEL and cardioversion. He is in normal sinus rhythm after amiodarone initiation. On metoprolol succinate 12.5 mg p.o. twice a day. On amiodarone to 400 mg p.o. 3 times daily today
9. Thrombocytopenia
-Patient thrombocytopenic, monitor trend
-Checked with and last platelet count back in early August were low as well as outpatient and now in the 40,000 range
- I put a call to his outpatient telesales agent, Dr Meneses ([phone])
10. Klebsiella UTI
-Finished course of Rocephin
hypothyroidism
GERD
prostate cancer
prostatectomy 2005
gout
Code Status: DNR
DVT Prophylaxis: Eliquis
Total time spent 54-minute
Anticipated Discharge: > 48 hours
Subjective/Interval History
-
Date of Service: October 13, 2024
Patient feels better today. No active bleeding. Frail overall. Afebrile
Objective Data
-
Labs:
Laboratory Results
10/13/24
05:38
WBC 12.0 H
Hgb 9.4 L
Hct 32.1 L
Plt Count 40 L
Sodium 132 L
Potassium 4.3
Chloride 97 L
Carbon Dioxide 23
BUN 61 H
Creatinine 4.6 H*
Glucose 92
Calcium 7.6 L
Vital Signs:
Vital Signs
Temp Pulse Resp BP Pulse Ox
97.8 F 69 17 115/67 96
10/13/24 07:05 10/13/24 07:36 10/13/24 07:05 10/13/24 07:36 10/13/24 07:05
I&O
10/12/24 10/13/24 10/14/24
06:59 06:59 06:59
Intake Total 300 / 300 1560 / 1560
Balance 300 / 300 1560 / 1560
--- NOTE | 2024-10-13 12:09 | HOSPNOTE ---
Informed by CM to speak to the family regarding hospice services. Called spouse Italia and left a voicemail. Awaiting her return call. More information to follow.
--- NOTE | 2024-10-13 12:14 | W.PN.NEPH.PH ---
Today's Communication / Plan
-
Attempt dialysis tomorrow
Assessment/Plan
-
IMP;
Acute on chronic respiratory failure
decompensated heart failure exacerbation with pulmonary edema
ROBIN on CKD 3 vs 4?- lupus nephritis cr 2.2 in 2021-nephrology at [facility] Dr Davis
Hyperkalemia
Hyponatremia
Metabolic acidosis
Hyperphosphatemia
SHPTH
Anemia
ILD/PF in setting of RA/SLE--follows at [facility]
KAI on CPAP
HTN
Hypothyroidism
Gout
Prostate ca, s/p prostatectomy 2005
lupus
rheumatoid arthritis
Klebsiella UTI 10/09/24
Plan:
A/w Anuria with severe ROBIN with known lupus nephritis and decompensated CHF
Patient now dialysis dependent
Unfortunately systolic blood pressure was 81 prior to initiation of HD yesterday with minimal UF
Patient remains grossly volume overloaded
I am not confident that he will be viable outside of the hospital for dialysis
Patient wishes to be aggressive he will need rehab with dialysis on site
Midodrine was escalated by myself yesterday 5 mg 3 times daily
Previously spoke with Nephrology at [facility]-stated he has advanced CKD, already plans were making for PD in out pt
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
his blood pressures have been intermittently soft with the tachycardia-echo noted EF 30-35%, stage 2DD, severe LVH, IVC dilated, mod pulm HTN
Discussed with the patient and in detail
Dialysis ordered for tomorrow
-
-
Date of Service: October 13, 2024
CC / HPI / ROS
-
Chief Complaint:
ROBIN, CKD
History of Present Illness:
Patient now on dialysis Thursday schedule
On 5 mg every 8 hours midodrine remains hemodynamically labile
Review of Systems:
no cp
sob no change
no n/v
Weights unchanged
Labs
-
Labs:
WBC 12.0 10^3/uL (4.8-10.8) H 10/13/24 05:38
RBC 3.35 10^6/uL (4.70-6.10) L 10/13/24 05:38
Hgb 9.4 g/dL (13.0-18.0) L 10/13/24 05:38
Hct 32.1 % (39.0-52.0) L 10/13/24 05:38
Plt Count 40 10^3/uL (130-400) L 10/13/24 05:38
Sodium 132 mmol/L (135-145) L 10/13/24 05:38
Potassium 4.3 mmol/L (3.5-5.1) 10/13/24 05:38
Chloride 97 mmol/L (98-107) L 10/13/24 05:38
Carbon Dioxide 23 mmol/L (22-30) 10/13/24 05:38
BUN 61 mg/dl (9-20) H 10/13/24 05:38
Creatinine 4.6 mg/dL (0.7-1.3) H* 10/13/24 05:38
eGFR 12.34 10/13/24 05:38
Glucose 92 mg/dl (70-99) 10/13/24 05:38
Calcium 7.6 mg/dl (8.4-10.2) L 10/13/24 05:38
Phosphorus 5.1 mg/dl (2.5-4.5) H 10/05/24 11:38
Pfk-T-Thdeffytxxh Pept 55205 pg/ml 10/04/24 18:11
Albumin 3.2 g/dl (3.5-5.0) L 10/04/24 18:11
Physical Exam
-
Vital Signs:
Vital Signs
Temp Pulse Resp BP Pulse Ox
97.9 F 66 19 117/68 97
10/13/24 11:05 10/13/24 11:05 10/13/24 11:05 10/13/24 11:05 10/13/24 11:05
Cardiovascular:: Irregular rate and rhythm (tachy)
Respiratory:: Bilateral: Coarse
Lung Excursion:: Normal
Abdomen:: Nontender and Soft
Bowel Sounds:: Normal
Extremity Edema:: +1: Bilateral:
Martinez Catheter: No
Other Findings::
Significant scrotal edema
--- NOTE | 2024-10-13 12:19 | W.CON.PAL ---
Consultation
-
Date/Time Consultation Requested: 10/13/24
Date/Time Consultation Performed: 10/13/24
Requesting Provider: Dr. Mcadams
Performing Provider: Dr. Leahy
Reason for Consult: Goals of Care Discussion
Primary Diagnosis: ESRD
Consult Requested By: Patient's Family
Reason for Admission
Illness Course/HPI
Mason is a 79 y/o male with SLE, CKD, HTn, pulmonary fibrosis, RA, who awas admitted to hospital with anuria and Cr of 4.7. Family had been preparing for eventual initiation of peritoneal dialysis for the past year, patient had to initiate HD this
hospitalization. Hospital course complicated by aflutter requiring cardioversion, UTI on rocephin, and hypotension limiting fluid removal during dialysis. Patient is feeling comfortable at present time.
Functional Status
prior to a few months ago was fully independent, attending outpatient rehab services at the hospital
Supported by and 4 children (15 grandkids)
Goals of Care Discussion
-
Individuals Present for Discussion & Relationship to Patient:
patient, , daughter
Patient able to participate in discussion at time of visit: Yes
Patient Goals
Reviewed notes and recent hospital issues. Discussed concern that patient may not tolerate dialysis well as an outpatient due to cardiac/blood pressure issues. At this time family's goals are treatment oriented, would like to to transition to
peritoneal dialysis in the future as they had originally planned ( had completed training for [facility]) They are aware of the risks of dialysis, and the prognosis after discontinuation. They understand that dialysis might not be tolerated however,
and are agreeable to meet with hospice care for informational purposes at this time, but their goals are fully treatment oriented at this time. Confirmed that he would not want intubation or cpr - DNR code status maintained.
Discussed palliative care outpatient program, family in agreement with palliative care follow up when patient eventually returns home.
Pain & Symptom Assessment
-
comfortable at this time
Objective Data
-
Objective Data:
Vital Signs
Temp Pulse Resp BP Pulse Ox
97.9 F 66 19 117/68 97
10/13/24 11:05 10/13/24 11:05 10/13/24 11:05 10/13/24 11:05 10/13/24 11:05
Laboratory Results
10/13/24 05:38
10/13/24 05:38
PT 16.8 Sec (11.4-14.6) H 10/05/24 04:59
INR 1.33 10/05/24 04:59
APTT Cancelled 10/07/24 17:30
Total Protein 5.0 g/dl (6.3-8.2) L 10/04/24 18:11
Albumin 3.2 g/dl (3.5-5.0) L 10/04/24 18:11
TSH 1.16 uIU/ml (0.47-4.68) 10/05/24 11:38
Free T4 1.12 ng/dl (0.78-2.19) 10/05/24 11:38
Urine Color Yellow 10/05/24 12:10
Urine Clarity Clear (Clear) 10/05/24 12:10
Urine pH 5.0 (5.0-9.0) 10/05/24 12:10
Ur Specific [place] 1.015 (<1.030) 10/05/24 12:10
Urine Ketones Negative (Negative) 10/05/24 12:10
Urine Bilirubin Negative (Negative) 10/05/24 12:10
Palliative Performance Scale
Palliative Performance Scale:
PPS Level Ambulation Activity & Evidence of Disease Self Care Intake Conscious Level
100% Full Normal Activity & Work; Full Intake Full
No Evidence of Disease
90% Full Normal Activity & Work; Full Normal Full
Some Evidence of Disease
80% Full Normal Activity with Effort Full Normal or Full
Some Evidence of Disease Reduced
70% Reduced Unable Normal Job/Work Full Normal or Full
Significant Disease Reduced
60% Reduced Unable Hobby/Housework Occasional Normal or Full or Confusion
Significant Disease Assistance Reduced
50% Mainly Sit/Lie Unable to do Any Work Considerable Normal or Full or Confusion
Extensive Disease Assistance Req'd Reduced
40% Mainly in Bed Unable to do Most Activity Mainly Assistance Normal or Full or Drowsy;
Extensive Disease Reduced +/- Confusion
30% Totally Bed Unable to do Any Activity Total Care Normal or Full or Drowsy;
Bound Extensive Disease Reduced +/- Confusion
20% Totally Bed Bound Unable to do Any Activity Total Care Minimal to Full or Drowsy;
Extensive Disease Sips +/- Confusion
10% Totally Bed Bound Unable to do Any Activity Total Care Mouth Care Drowsy or Coma;
Extensive Disease Only +/- Confusion
0%
PPS Score Level:
Palliative Performance Score Response
Palliative Performance Score Response: 50%
Physical Exam
-
General: Well Developed, Well Nourished and No Apparent Distress
Neuro: Awake, Alert and Oriented
Psych: Calm and Intact Judgement/Insight
Assessment / Plan
-
Assessment/Plan:
Patient's goals are to continue dialysis and hope to be able to eventually transition to peritoneal dialysisis as they had received training for this as an outpatient.
They are aware that his heart/lung conditions are limiting able to do full dialysis currently
Agreeable to meet with hospice for preparatory/informational purposes only.
Agreeable to outpatient palliative care (home) on discharge
Code status DNR
Total floor time 60 mins
Care Reviewed
Data Reviewed
Reviewed with: Family
--- NOTE | 2024-10-13 12:21 | CON.ONC ---
Impression
Impression
ROBIN on CKD on HD
acute HF
chronic anemia multifactorial including MARQUES, CKD, chronic disease -Hgb >9gd/L
acute thrombocytopenia, platelet count 123,000 on admission with significant decrease to 76,000 on 10/08 and has trended down to 40,000 today. HD start and amiodarone start could be contributing to thrombocytopenia, however, I cannot exclude other
etiologies.
Plan
Plan
Check b12, folate, and DIC panel
monitor for bleeding
monitor for infection
consider ab US to evaluate liver and spleen as potential contributor to thrombocytopenia
Cardiology plans to hold DOAC if platelets trend <30,000
OP follow up with Dr. Kym Meneses [facility] for continued management MARQUES, AOCKD, and prostate cancer
Patient History
History of Present Illness
79yo M known to Dr. Kym Meneses for management of prostate cancer who presented to ER 10/04/2024 for evaluation of abdominal distension and no urine output. He had gained 30lbs over 3 weeks, developed SOB and SANCHEZ, and stopped urinating which
prompted further ER evaluation. He has been admitted, treated for acute HF, completed a course of ceftriaxone for UTI, and started on HD for ROBIN on CKD 10/06/2024. He is on DOAC for atrial flutter, s/p MANUEL cardioversion 10/07/2024, and started on
amiodarone 10/10/2024. He is receiving EPO with HD and s/p a course if parenteral Ferrlecit which completed 10/10/2024.
Clinically, he denies overt bleeding. He tells me that he has chronic prednisone purpura on his bilateral arms and hands. He sees [facility] every 2 weeks for EPO to treat AOCKD and prn parentaral iron for MARQUES sees Dr. Meneses every 6 week.
Past-Medical/Surgical History
PMH hypertension, HF, CKD III, pulmonary fibrosis, lupus, rheumatoid arthritis, prostate cancer and gout
PSH prostatectomy (2005), umbilical hernia repair (2019), left inguinal hernia repair (2021)
Social never smoker, denies ETOH or recreational drugs. Lives with , retired
Family Mother cerebral hemorrhage; Father colon cancer; Brother HF
Patient Medication
�Medication �Instructions �Recorded �Confirmed �Last Taken �Type
allopurinol 300 mg tablet 300 mg PO DAILY Gout 05/17/19 10/04/24 06/19/22 04:15 History
calcium 315 mg (as 2 tab PO BID Supplement 05/17/19 10/04/24 06/18/22 09:00 History
citrate)-vitamin D3 6.25 mcg (250
unit) tablet (Citracal + Vitamin D
Maximum)
doxazosin 2 mg tablet 2 mg PO DAILY Blood pressure 05/17/19 10/04/24 06/19/22 04:15 History
levothyroxine 125 mcg tablet 125 mcg PO DAILY Thyroid 05/17/19 10/04/24 06/19/22 04:15 History
hydroxychloroquine 200 mg tablet 200 mg PO BID Antirheumatic, 08/15/20 10/04/24 06/19/22 04:15 History
Disease Modifying
Benlysta: 1 dose IV MONTHLY LUPUS 06/19/21 10/04/24 05/22/22 History
Dupixent Pen 1 sc IM QMONTH Lung/Breathing 06/17/22 10/11/24 05/09/24 History
Issues
ascorbic acid (vitamin C) 1,000 mg 1,000 mg PO DAILY Supplement 06/17/22 10/04/24 06/18/22 09:00 History
tablet,extended release (Vitamin C
ER)
bumetanide 1 mg tablet 1 mg PO DAILY Fluid 06/17/22 10/04/24 06/18/22 09:00 History
Retention/Swelling
cholecalciferol (vitamin D3) 50 50 mcg PO DAILY Supplement 06/17/22 10/04/24 06/18/22 09:00 History
mcg (2,000 unit) tablet (Vitamin
D3)
fluticasone furoate 100 1 inh inhalation R DAILY@1200 06/17/22 10/04/24 06/18/22 09:00 History
mcg-vilanterol 25 mcg/dose Lung/Breathing Issues
inhalation powder (Breo Ellipta)
nintedanib 150 mg capsule (Ofev) 150 mg PO DAILY Lung/Breathing 06/17/22 10/04/24 06/19/22 04:15 History
Issues
prednisone 10 mg tablet 5 mg PO DAILY INFLAMMATION 06/17/22 10/04/24 06/19/22 04:15 History
Aranesp 300 mcg SC Q2W Kidney Disease 10/04/24 10/11/24 09/26/24 History
amlodipine 5 mg tablet 5 mg PO DAILY Blood Pressure 10/04/24 10/04/24 Unknown History
aspirin 81 mg chewable tablet 81 mg PO HS Blood Clot 10/04/24 10/04/24 Unknown History
Prevention/Tx
azelastine 137 mcg (0.1 %) nasal 1 spray intranasal BID Allergies 10/04/24 10/04/24 Unknown History
spray
calcitriol 0.25 mcg capsule 0.25 mcg PO MOWEFR Supplement 10/04/24 10/04/24 Unknown History
denosumab 60 mg/mL subcutaneous 60 mg SC [id number] OSTEOPOROSIS 10/04/24 10/04/24 Unknown History
syringe (Prolia)
losartan 50 mg tablet 50 mg PO BID Blood Pressure 10/04/24 10/04/24 Unknown History
omeprazole 40 mg capsule,delayed 40 mg PO DAILY Gastrointestinal 10/04/24 10/04/24 Unknown History
release Issue
treprostinil 1.74 mg/2.9 mL (0.6 20 inh inhalation R QID 10/04/24 10/04/24 Unknown History
mg/mL) solution for nebulization Lung/Breathing Issues
(Tyvaso)
vitamins A,C,G-uscn-vybrxs 4,296 1 cap PO DAILY Supplement 10/04/24 10/04/24 Unknown History
mcg-226 mg-90 mg capsule
(PreserVision AREDS)
denosumab 60 mg/mL subcutaneous 60 mg SC [id number] OSTEOPOROSIS 10/11/24 10/11/24 08/10/24 History
syringe (Prolia)
pregabalin 75 mg capsule (Lyrica) 75 mg PO DAILY Pain 10/11/24 10/11/24 09/26/24 History
Active Medications
Generic Name Dose Route Start Last Admin
Trade Name Freq PRN Reason Stop Dose Admin
Acetaminophen 650 mg 10/06/24 22:02 10/12/24 05:18
Acetaminophen 325 Mg Tablet PO 11/03/24 22:01 650 mg
Q4HPRN PRN Administration
mild pain/ fever>100.5F
Amiodarone HCl 200 mg 10/13/24 20:00
Amiodarone 200 Mg Tablet PO 11/10/24 19:59
BID JONO
Apixaban 5 mg 10/07/24 20:00 10/13/24 07:34
Apixaban (Eliquis) 5 Mg Tablet PO 11/04/24 19:59 5 mg
BID JONO Administration
Ascorbic Acid 1,000 mg 10/05/24 08:00 10/13/24 07:35
Ascorbic Acid 500 Mg Tablet PO 11/02/24 07:59 1,000 mg
DAILY JONO Administration
Benzocaine/Menthol 1 lozenge 10/10/24 16:55 10/10/24 17:16
Benzocaine/Menthol Lozenge PO 11/07/24 16:54 1 lozenge
Q4HPRN PRN Administration
sore throat
Calcitriol 0.25 mcg 10/05/24 08:00 10/12/24 08:33
Calcitriol 0.25 Microgram Capsule PO 11/02/24 07:59 0.25 mcg
MoWeFr@0800 JONO Administration
Calcium/Vitamin D 500 mg 10/05/24 08:00 10/13/24 07:34
Calcium Carbonate 500 Mg/Vitamin D 5 Mcg (200 Units) Tablet PO 11/02/24 07:59 500 mg
BID JONO Administration
Cholecalciferol 50 mcg 10/05/24 08:00 10/13/24 07:34
Cholecalciferol (Vitamin D3) 50 Mcg Tablet (2,000 Units) PO 11/02/24 07:59 50 mcg
DAILY JONO Administration
Guaifenesin/Dextromethorphan 10 ml 10/05/24 13:32 10/12/24 18:02
Guaifenesin/Dextromethorphan 200 Mg/10 Ml Cup PO 11/02/24 13:31 10 ml
Q4HPRN PRN Administration
Cough
Hydromorphone HCl 0.25 mg 10/07/24 10:01 10/07/24 17:43
Hydromorphone 0.25 Mg/0.5 Ml Syringe IV 10/21/24 10:00 0.25 mg
Q3HPRN PRN Administration
sev pain
Hydroxychloroquine Sulfate 200 mg 10/05/24 08:00 10/13/24 07:34
Hydroxychloroquine 200 Mg Tablet PO 11/02/24 07:59 200 mg
BID JONO Administration
Levothyroxine Sodium 125 mcg 10/05/24 06:00 10/13/24 05:35
Levothyroxine 125 Mcg Tablet PO 11/02/24 05:59 125 mcg
DAILY @ 0600 JONO Administration
Mannitol 12.5 grams 10/12/24 13:32 10/12/24 15:06
Mannitol 25% (12.5 Grams/50 Ml) Vial IV 11/09/24 13:31 12.5 grams
HD-Q1HPRN PRN Administration
sbp less then 100
Metoprolol Succinate 12.5 mg 10/07/24 20:00 10/13/24 07:35
Metoprolol 12.5 Mg Extended Release Dose (1/2 Of 25 Mg Xl Tablet) PO 11/04/24 19:59 12.5 mg
BID JONO Administration
Midodrine 5 mg 10/12/24 18:00 10/13/24 07:34
Midodrine 5 Mg Tablet PO 11/09/24 17:59 5 mg
TID@0800,1300,1800 JONO Administration
Nintedanib [Ofev] 0 mg 10/06/24 13:00 10/13/24 07:37
150 Mg Capsule; 1 PO 11/03/24 12:59 150 mg
Cap Po Daily DAILY JONO Administration
Treprostinil [Tyvaso 0 inh 10/05/24 12:00 10/13/24 07:37
] 1.74 Mg/2.9 Ml (0. INH 11/02/24 11:59 1 inh
6 Mg/Ml) Solution 12 R QID JONO Administration
Inh R Qid
Breo Ellipta( 0 puff 10/05/24 10:15 10/13/24 07:38
Fluticasone Furoate/ INH 11/02/24 10:14 1 puff
Vilanterol)100mcg/ R DAILY JONO Administration
25mcg 1 Inh Daily
Ondansetron HCl 4 mg 10/07/24 06:24 10/09/24 09:05
Ondansetron 4 Mg/2 Ml Vial IV 11/04/24 06:23 4 mg
Q6HPRN PRN Administration
NAUSEA/VOMITING
Pantoprazole Sodium 40 mg 10/05/24 08:00 10/13/24 07:36
Pantoprazole 40 Mg Delayed Release Tablet PO 11/02/24 07:59 40 mg
DAILY JONO Administration
Prednisone 10 mg 10/06/24 08:00 10/13/24 07:34
Prednisone 10 Mg Tablet PO 11/03/24 07:59 10 mg
DAILY JONO Administration
Pregabalin 75 mg 10/11/24 11:00 10/13/24 07:34
Pregabalin 75 Mg Capsule PO 11/08/24 10:59 75 mg
DAILY JONO Administration
Sodium Chloride 0 flush 10/04/24 22:00 10/11/24 07:40
Sodium Chloride 0.9% (Flush) Syringe IV 11/01/24 21:59 3 flush
PER PROTOCOL JONO Administration
Vitamin C/Vitamin E 1 cap 10/05/24 08:00 10/13/24 07:34
Vit C/Vit E/Lutein/Min/Bailey-3 (Ocuvite) Capsule PO 11/02/24 07:59 1 cap
DAILY JONO Administration
Review of Systems
-
ROS notable for HPI, otherwise negative
Physical Exam
-
Comment: GEN: No distress, awake, A&Ox3
HEENT: supple, anicteric, mouth moist
LUNGS: clear, no wheezes/rales
CV: Reg, murmur
ABD: soft, NT/ND
EXT: No edema
NEURO: speech clear
SKIN: b/l forearm/hand purpura. Bruising around HD catheter, however, no overt bleeding at site.
Labs
Lab Results
WBC 12.0 10^3/uL (4.8-10.8) H 10/13/24 05:38
RBC 3.35 10^6/uL (4.70-6.10) L 10/13/24 05:38
Hgb 9.4 g/dL (13.0-18.0) L 10/13/24 05:38
Hct 32.1 % (39.0-52.0) L 10/13/24 05:38
MCV 95.8 fL (80.0-94.0) H 10/13/24 05:38
MCH 28.1 pg (27.0-31.0) 10/13/24 05:38
MCHC 29.3 g/dL (33.0-37.0) L 10/13/24 05:38
RDW 20.6 % (11.5-14.5) H 10/13/24 05:38
Plt Count 40 10^3/uL (130-400) L 10/13/24 05:38
MPV Not Reportable 10/13/24 05:38
Abs Immat Gran (auto) 0.1 10^3/uL (0-0.05) H 10/12/24 05:57
Absolute Neuts (auto) 10.0 10^3/uL (1.4-6.5) H 10/12/24 05:57
Absolute Lymphs (auto) 0.4 10^3/uL (1.2-3.4) L 10/12/24 05:57
Absolute Monos (auto) 1.2 10^3/uL (0.1-0.6) H 10/12/24 05:57
Absolute Eos (auto) 0.0 10^3/uL (0-0.7) 10/12/24 05:57
Absolute Basos (auto) 0.0 10^3/uL (0-0.2) 10/12/24 05:57
Immature Gran % 1.0 % (0-0.5) H 10/12/24 05:57
Neutrophils % 85.7 % (42.2-75.2) H 10/12/24 05:57
Lymphocytes % 3.0 % (20.5-51.1) L 10/12/24 05:57
Monocytes % 9.9 % (1.7-9.3) H 10/12/24 05:57
Eosinophils % 0.3 % (0-6) 10/12/24 05:57
Basophils % 0.1 % (0-2) 10/12/24 05:57
Creatinine 4.6 mg/dL (0.7-1.3) H* 10/13/24 05:38
Vital Signs
Vital Signs
Temp Pulse Resp BP Pulse Ox
97.9 F 66 19 117/68 97
10/13/24 11:05 10/13/24 11:05 10/13/24 11:05 10/13/24 11:05 10/13/24 11:05
--- NOTE | 2024-10-13 13:07 | CM ---
Received consult for hospice. Met with patient and family who were at bedside (patient's and daughter, Meghann). Reviewed chart and spoke with Nephrology. Per Nephrology, patient may not be a candidate for dialysis. Family expressed that they
understand but are still hopeful that patient will be able to tolerate and can go to rehab. Palliative Care was in room talking with patient's , Italia, who stated that she would be agreeable to talk to hospice as well just for information as
she is not yet ready to have him sign on to that level of care.
Spoke with Dayana at [facility] in [facility] who stated that she has everything that she needs for patient to start outpatient HD.
Placed a call to [facility] and spoke with Juli, who stated that [facility] does not have a bed for patient at this time.
Placed a call to [facility] and spoke with Simona in admissions who stated that they can provide a bed for patient and transport to dialysis. Will send referral.
Patient will get dialysis tomorrow in acute care per Nephrology and depending on how he tolerates, may dictate the discharge plan.
Plan: Case management will continue to follow and assist with discharge planning. SNF vrs home with outpatient dialysis and home health.
--- NOTE | 2024-10-13 15:32 | VATNOTE ---
This RN spoke w/ hospitalist regarding need for PICC line. Per hospitalist pt may sign onto comfort, or continue treatment which may involve going back on pressors. requesting we leave the PICC in for another 24 hr and reassess tomorrow AM. Will
continue to monitor.
--- NOTE | 2024-10-13 16:29 | W.PN.CARDCBS ---
Addendum entered and electronically signed by Jannet Bolton DO 10/13/24 17:27:
I saw and examined the patient.
The Music Artist's note was reviewed and I agree with the note.
Comment: Patient seen and examined with daughter at bedside. Offers no new complaints. Currently denies dizziness/lightheadedness. No chest pain or pressure. Shortness of breath at rest unchanged. He makes a small amount of urine. Events this
hospitalization/records, telemetry reviewed.
General: 79-year-old gentleman sitting out of bed to chair
Heart: Regular, positive S1/S2, 2/6 SM
Lungs: Bronchovesicular breath sounds decreased at bases with crackles bilaterally. Positive dialysis cath anterior chest wall
Abd: Positive BS, NT/ND, neg rebound/rigidity/guarding
Ext: +++ edema; extremity ecchymosis
Neuro: nonfocal
Plan:
Atrial flutter status post MANUEL/cardioversion 10/07/2024
-Maintaining sinus rhythm
-Started on amiodarone 10/10/2024
-Will reduce amiodarone to 200 mg twice daily.
-Repeat twelve-lead EKG tomorrow to reassess QT interval
-Continue Eliquis anticoagulation cautiously with worsening thrombocytopenia now 40,000. No overt bleeding reported per patient. 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
Acute on chronic kidney disease secondary to lupus nephritis
-Now dialysis dependent however minimal UF due to hypotension and remains volume overloaded
-Reattempt dialysis tomorrow on higher dose of midodrine
Patient and family had palliative care consultation this morning
Original Note:
Today's Communication / Plan
-
continue attempts at HD
in SR. decrease amiodarone to 200mg BID. follow QTc
hold OAC if platelets drop below 30K
Impression / Plan
-
Primary Nurse Orthopedic: Dr. Dedra Crandall of [facility]
Assessment:
79-year-old complex man with ROBIN on CKD and history of lupus nephritis, now admitted with
Presentation with weight gain, decreased urine output
ROBIN on CKD, lupus nephritis
Hyperkalemia
Hyponatremia
Acute HF, type unknown
Tachycardia - ST vs atypical flutter/tach
Anemia
bifascicular block
pulm HTN
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
RA
mod AR by echo 2020
HTN
Hypothyroidism
GERD
Gout
History of prostate cancer s/p prostatectomy 2005
DNR code status
ECHO 2020: EF 60 to 65%, mild concentric LVH, moderate AR, mild TR, PAP 60 mmHg, mild ascending aorta dilation
Echo 10/05/2024: EF 30-35%, stage II diastolic dysfunction, dilated atria, normal RV, mild to moderate MR, mild AI, pulmonary artery pressure 51 mmHg
Plan:
-follow plts, 40K today. would plan to hold OAC if plts drop below 30K however ideally would not hold as was cardioverted this admission. appreciate hematology input
-in SR with chronic bifascicular block. decrease amiodarone to 200mg BID. follow QTc. not ideal long term care phlebotomist amio candidate given known lung disease
-continue attempts at HD, have been unable to UF, however remains with continued evidence of volume overload. on midodrine
-Cont Tyvaso/Ofev
-DNR code status. met with palliative care today.
PREADMIT DATA:
79-year-old male with past medical history of chronic kidney disease stage III-IV, pulmonary hypertension, interstitial lung disease with pulmonary fibrosis on home oxygen, moderate aortic regurgitation who presents to [facility] with acute
on chronic renal failure and acute congestive heart failure with preserved ejection fraction. He is followed at [facility] by nephrology and cardiology and pulmonary. He takes Ofev and Tyvaso as an outpatient. He has noticed for
the past 10 days or so and elevation his heart rate in the 120s. He felt no palpitations or chest pains but then started noticing fatigue, shortness of breath and an inability to urinate. He was found to be in acute renal failure with a creatinine
of 5. His baseline creatinine is in the 2-2.5 range. On presentation found to have atrial flutter with 2-1 conduction
Progress Note - Nurse Orthopedic
Subjective
Date of Service: October 13, 2024
remains with SOB
Objective
Labs:
10/13/24 05:38
10/13/24 05:38
Labs
Hgb 9.4 g/dL (13.0-18.0) L 10/13/24 05:38
Hct 32.1 % (39.0-52.0) L 10/13/24 05:38
Plt Count 40 10^3/uL (130-400) L 10/13/24 05:38
PT 16.8 Sec (11.4-14.6) H 10/05/24 04:59
INR 1.33 10/05/24 04:59
APTT Cancelled 10/07/24 17:30
Sodium 132 mmol/L (135-145) L 10/13/24 05:38
Potassium 4.3 mmol/L (3.5-5.1) 10/13/24 05:38
BUN 61 mg/dl (9-20) H 10/13/24 05:38
Creatinine 4.6 mg/dL (0.7-1.3) H* 10/13/24 05:38
Glucose 92 mg/dl (70-99) 10/13/24 05:38
Vital Signs and I&O:
Vital Signs
Temp Pulse Resp BP Pulse Ox
98.0 F 65 17 127/73 99
10/13/24 15:05 10/13/24 16:06 10/13/24 15:05 10/13/24 16:06 10/13/24 15:05
Vital Signs
Temp Pulse Resp BP Pulse Ox
98.0 F 65 17 127/73 99
10/13/24 15:05 10/13/24 16:06 10/13/24 15:05 10/13/24 16:06 10/13/24 15:05
Intake & Output
10/11/24 10/12/24 10/13/24 10/14/24
07:59 07:59 07:59 07:59
Intake Total 1404.1 / 1524.1 300 / 300 1560 / 1560
Balance 1404.1 / 1524.1 300 / 300 1560 / 1560
[2024-10-13] MEDS: PACERONE 200 MG PO (20:02)
[2024-10-13] MEDS: ROBITUSSIN DM 10 ML PO (20:12)
[2024-10-14 03:14] VITALS: BP 120/74
[2024-10-14 04:58] LABS: % Basophils 0.1 % (0-2); % Eosinophils 0.3 % (0-6); % Immature Granulocytes 0.5 % (0-0.5); % Lymphocytes 2.5 % (20.5-51.1); % Monocytes 10.3 % (1.7-9.3); % Neutrophils 86.3 % (42.2-75.2); Absolute Immature Granulocytes 0.1 10^3/uL (0-0.05); Absolute Lymphocytes 0.3 10^3/uL (1.2-3.4); Absolute Monocytes 1.1 10^3/uL (0.1-0.6); Absolute Neutrophils 9.3 10^3/uL (1.4-6.5); Hematocrit 29.7 % (39.0-52.0); Hemoglobin 8.9 g/dL (13.0-18.0); Mean Corpuscular Hgb 28.1 pg (27.0-31.0); Mean Corpuscular Volume 93.7 fL (80.0-94.0); Nucleated Red Blood Cells % 0.3 % (-); Platelet Count 41 10^3/uL (130-400); Red Blood Cell Count 3.17 10^6/uL (4.70-6.10); White Blood Cell Count 10.8 10^3/uL (4.8-10.8)
[2024-10-14 05:02] LABS: Blood Urea Nitrogen 76 mg/dl (9-20); Calcium 7.6 mg/dl (8.4-10.2); Carbon Dioxide 21 mmol/L (22-30); Chloride 96 mmol/L (98-107); Glucose 122 mg/dl (70-99); Potassium 4.7 mmol/L (3.5-5.1); Sodium 131 mmol/L (135-145)
[2024-10-14 05:03] LABS: Fibrinogen 336 MG/DL (199-459); PT 36.9 Sec (11.4-14.6)
[2024-10-14 05:04] LABS: APTT 58.4 Sec (23.4-35.0)
[2024-10-14 05:06] LABS: D-Dimer 3.88 ug/mlFEU (0.00-0.50)
[2024-10-14 05:14] LABS: Estimated Creatinine Clearance 12 ml/min; eGFR 10.65
[2024-10-14 06:07] LABS: Folate > 20.0 ng/ml (2.76-20); Vitamin B12 > 1000 pg/ml (239-931)
[2024-10-14 06:17] VITALS: BMI 29.3
[2024-10-14] MEDS: SYNTHROID 125 MCG PO (06:19)
--- NOTE | 2024-10-14 08:09 | W.PN.ONC2 ---
Today's Communication / Plan
-
Daily CBC, monitor for bleeding
Impression
Impression
ROBIN on CKD on HD
acute HF
chronic anemia multifactorial including MARQUES, CKD, chronic disease -Hgb >9gd/L
acute thrombocytopenia, platelet count 123,000 on admission with significant decrease to 76,000 on 10/08 and has trended down to 40,000. No evidence of DIC. No B12 or folate deficiency. HD start and amiodarone start could be contributing to
thrombocytopenia. Amiodarone decreased from TID to BID.
Plan
Plan
f/u HIT, however, unlikely
monitor for bleeding
monitor for infection
consider ab US to evaluate liver and spleen as potential contributor to thrombocytopenia
Cardiology plans to hold DOAC if platelets trend <30,000
OP follow up with Dr. Kym Aguayo for continued management MARQUES, AOCKD, and prostate cancer
Subjective/Objective
Subjective
denies overt bleeding or new bruising
no new complaints
Vital Signs:
Vital Signs
Temp Pulse Resp BP Pulse Ox
98.0 F 70 17 120/74 94
10/14/24 03:14 10/14/24 03:14 10/14/24 03:14 10/14/24 03:14 10/14/24 03:14
Lab Results:
Laboratory Data
WBC 10.8 10^3/uL (4.8-10.8) 10/14/24 04:18
Hgb 8.9 g/dL (13.0-18.0) L 10/14/24 04:18
Plt Count 41 10^3/uL (130-400) L 10/14/24 04:18
PT 36.9 Sec (11.4-14.6) H 10/14/24 04:18
INR 3.70 D 10/14/24 04:18
APTT 58.4 Sec (23.4-35.0) H 10/14/24 04:18
eGFR 10.65 10/14/24 04:18
Physical Exam
GEN: No distress, awake, A&Ox3
HEENT: supple, anicteric, mouth moist
LUNGS: clear, no wheezes/rales
CV: Reg, murmur
ABD: soft, NT/ND
EXT: No edema
NEURO: speech clear
SKIN: b/l forearm/hand purpura. Bruising around HD catheter, however, no overt bleeding at site.
Orders
Orders
Orders From Last 24 Hours
10/14/24 04:18
B12 [Vitamin B12] IN AM
D-Dimer IN AM
Fibrinogen IN AM
Folate IN AM
Heparin Associated Platelet Ab [S] IN AM
PT/INR [Prothrombin Time] IN AM
PTT IN AM
[2024-10-14] MEDS: DELTASONE 10 MG PO (09:24)
[2024-10-14] MEDS: VITAMIN D3 (cholecalciferol) 50 MCG PO (09:24)
[2024-10-14] MEDS: OCUVITE SOFTGEL 1 CAP PO (09:25)
[2024-10-14] MEDS: VITAMIN C 1000 MG PO (09:25)
[2024-10-14] MEDS: PROTONIX 40 MG PO (09:25)
[2024-10-14] MEDS: ELIQUIS 5 MG PO ×2 (09:25→21:20)
[2024-10-14] MEDS: PLAQUENIL 200 MG PO ×2 (09:25→21:20)
[2024-10-14] MEDS: LYRICA 75 MG PO (09:25)
[2024-10-14] MEDS: OSCAL 500 + D 500 MG PO ×2 (09:25→21:25)
--- NOTE | 2024-10-14 09:25 | W.PN.CARDCBS ---
Addendum entered and electronically signed by Jannet Bolotn DO 10/14/24 09:44:
[facility]io monitor placed by [facility].
Original Note:
Today's Communication / Plan
-
HD today
Impression / Plan
-
Primary Shipwright Supervisor: Dr. Dedra Crandall of [facility]
Assessment:
79-year-old complex man with ROBIN on CKD and history of lupus nephritis, now admitted with
Presentation with weight gain, decreased urine output
ROBIN on CKD, lupus nephritis
Hyperkalemia
Hyponatremia
Acute HF, type unknown
Tachycardia - ST vs atypical flutter/tach
Anemia
bifascicular block
pulm HTN
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
RA
mod AR by echo 2020
HTN
Hypothyroidism
GERD
Gout
History of prostate cancer s/p prostatectomy 2005
DNR code status
ECHO 2020: EF 60 to 65%, mild concentric LVH, moderate AR, mild TR, PAP 60 mmHg, mild ascending aorta dilation
Echo 10/05/2024: EF 30-35%, stage II diastolic dysfunction, dilated atria, normal RV, mild to moderate MR, mild AI, pulmonary artery pressure 51 mmHg
Plan:
Atrial flutter status post MANUEL/cardioversion 10/07/2024
-Maintaining sinus rhythm on tele
-Started on amiodarone 10/10/2024
-Repeat twelve-lead EKG NSR, RBBB/LAHB. QTc 529ms
-Reduced amiodarone to 200mg daily today
-Continue Eliquis anticoagulation cautiously with worsening thrombocytopenia now 41,000. No overt bleeding reported per patient.
-Appreciate hematology consult: Hold DOAC if platelets trend <30,000; labs pending including DIC/HIT panel
HFrEF with volume overload and ESRD on new HD
-Medical therapy limited
-Called [facility], Dr. Crandall and awaiting call back
-HD trial today
Acute on chronic kidney disease secondary to lupus nephritis
-Now dialysis dependent however minimal UF due to hypotension and remains volume overloaded
-Reattempt dialysis today on higher dose of midodrine
ILD/PF/pulmonary HTN in setting of RA/SLE--follows at [facility]
DNR
Patient and family had palliative care consult; plan pending HD tolerance
PREADMIT DATA:
79-year-old male with past medical history of chronic kidney disease stage III-IV, pulmonary hypertension, interstitial lung disease with pulmonary fibrosis on home oxygen, moderate aortic regurgitation who presents to [facility] with acute
on chronic renal failure and acute congestive heart failure with preserved ejection fraction. He is followed at [facility] by nephrology and cardiology and pulmonary. He takes Ofev and Tyvaso as an outpatient. He has noticed for
the past 10 days or so and elevation his heart rate in the 120s. He felt no palpitations or chest pains but then started noticing fatigue, shortness of breath and an inability to urinate. He was found to be in acute renal failure with a creatinine
of 5. His baseline creatinine is in the 2-2.5 range. On presentation found to have atrial flutter with 2-1 conduction
Progress Note - Shipwright Supervisor
Subjective
Date of Service: October 14, 2024
Seen and examined with at bedside. Offers no new complaints. HD trial today at noon
Objective
Labs:
10/14/24 04:18
10/14/24 04:18
Labs
Hgb 8.9 g/dL (13.0-18.0) L 10/14/24 04:18
Hct 29.7 % (39.0-52.0) L 10/14/24 04:18
Plt Count 41 10^3/uL (130-400) L 10/14/24 04:18
PT 36.9 Sec (11.4-14.6) H 10/14/24 04:18
INR 3.70 D 10/14/24 04:18
APTT 58.4 Sec (23.4-35.0) H 10/14/24 04:18
Sodium 131 mmol/L (135-145) L 10/14/24 04:18
Potassium 4.7 mmol/L (3.5-5.1) 10/14/24 04:18
BUN 76 mg/dl (9-20) H 10/14/24 04:18
Creatinine 5.2 mg/dL (0.7-1.3) H* 10/14/24 04:18
Glucose 122 mg/dl (70-99) H 10/14/24 04:18
Vital Signs and I&O:
Vital Signs
Temp Pulse Resp BP Pulse Ox
98.0 F 70 17 120/74 94
10/14/24 03:14 10/14/24 03:14 10/14/24 03:14 10/14/24 03:14 10/14/24 03:14
Vital Signs
Temp Pulse Resp BP Pulse Ox
98.0 F 70 17 120/74 94
10/14/24 03:14 10/14/24 03:14 10/14/24 03:14 10/14/24 03:14 10/14/24 03:14
Intake & Output
10/12/24 10/13/24 10/14/24 10/15/24
06:59 06:59 06:59 06:59
Intake Total 300 / 300 1560 / 1560 1320 / 1320
Balance 300 / 300 1560 / 1560 1320 / 1320
Physical Exam
Physical Exam
General: 79-year-old gentleman sitting out of bed to chair
Heart: Regular, positive S1/S2, 2/6 SM
Lungs: Bronchovesicular breath sounds decreased at bases with crackles bilaterally. Positive dialysis cath anterior chest wall
Abd: Positive BS, NT/ND, neg rebound/rigidity/guarding
Ext: +++ edema; extremity ecchymosis. + LUE PICC
Neuro: nonfocal
[2024-10-14] MEDS: ROCALTROL 0.25 MCG PO (09:27)
[2024-10-14] MEDS: ROBITUSSIN DM 10 ML PO (09:32)
[2024-10-14] MEDS: ProAmatine 5 MG PO ×3 (09:35→16:50)
[2024-10-14] MEDS: NON-FORMULARY ITEM 1 INH INH ×2 (09:36→12:30)
[2024-10-14] MEDS: NON-FORMULARY ITEM 150 MG PO (09:36)
[2024-10-14] MEDS: NON-FORMULARY ITEM 1 PUFF INH (09:37)
[2024-10-14 09:57] VITALS: BP 96/50
--- NOTE | 2024-10-14 10:01 | W.PN.HOSP.TC ---
Today's Communication/Plan
-
Hemodialysis
Assessment / Plan
Assessment / Plan
Physical exam:
General: Acutely ill
HEENT: Normocephalic, Atraumatic and Moist Mucous Membranes
Respiratory: Bilateral coarse crackles in the base; Negative Wheezes, or Rhonchi
Cardiac: Regular Rhythm and S1/S2
GI: Soft, Nontender and Nondistended
Musculoskeletal: No Clubbing, No Cyanosis. Bilateral lower extremity edema
Neuro: Awake, Alert and Oriented. No gross neurological deficits but generalized weakness present.
Psych: Calm
A/P:
1. Acute on chronic systolic congestive heart failure
Acute hypoxic respiratory insufficiency
-Chest x-ray showing signs of cardiogenic pulmonary edema
-Echocardiogram in 21 showing EF 60 to 65%, normal diastolic function. Pulmonary artery pressure of 60 mmHg
-Repeat echocardiogram showing EF of 30 to 35%, stage II diastolic dysfunction. Moderate MR. Mod pulm HTN.
-Continue wean off oxygen as possible
-On IV Bumex 2 mg daily-Still on diuretics but not sure if benefiting from it so it was completely stopped
-Off pressors
-Nephrology initiated midodrine for blood pressure support
-Discussed with at bedside today on 10/13
-Patient and family would like to discuss further with palliative care. Palliative care consulted-discussed with palliative care via [place] text yesterday.
2. 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
-Last known creatinine of 2.2 with GFR 29
-Patient came in with creatinine ~ 5
-Relatively bland urine, no significant proteinuria
-Renal and bladder ultrasound showing a likely benign right renal mass with some calcification. No hydronephrosis
-Concern of potential cardiorenal syndrome, on top of underlying lupus nephritis
-Patient has been started on hemodialysis due to suboptimal response to diuretic therapy. Still on diuretics but not sure if benefiting from it.
-Off pressors today
-Patient had some questions about restarting Lyrica on 10/11 but not ideal with end-stage renal disease
-Hemodialysis/ultrafiltration per nephrology as blood pressure permits
-There is a PICC line that we might be able to remove today
3. Hyperkalemia
Metabolic acidosis
Euvolemic hyponatremia
-Acidosis/hyperkalemia driven by ROBIN, patient being put on dialysis likely today will help with metabolic derangements
-Diuretic therapy fail to improve metabolic derangements, on HD at this point.
4. Essential hypertension/ Hypotension
- hold amlodipine, doxazosin, and losartan
-He was on on Chao-Synephrine drip-Off pressors for last several days
5. pulmonary fibrosis
- continue ofev if patient able to bring in supply
-Continue oral prednisone 10 mg p.o. daily
6. History of lupus nephritis
Rheumatoid arthritis
-maintain on oral prednisone, dose increased to 10mg/d. got solucortef injection
-continue plaquenil
7. Iron def anemia
-Ferritin of 16, saturation 7%
-IV ferlicit given
8. Atrial flutter with 2-1 conduction
-Cardiology following and patient currently on Eliquis 5 mg p.o. twice a day
-Patient is s/p MANUEL and cardioversion. He is in normal sinus rhythm after amiodarone initiation. On metoprolol succinate 12.5 mg p.o. twice a day. On amiodarone to 400 mg p.o. 3 times daily today
9. Thrombocytopenia
-Patient thrombocytopenic, monitor trend
-Checked with and last platelet count back in early August were low as well as outpatient and now in the 40,000 range
- I discussed with his outpatient avionics repair technician, Dr Meneses ([phone])
-Our own Shellfish Meat Separator Operator consulted yesterday on 10/13. Labs not indicative of DIC or B12 or folate deficiency as expected. HIT testing pending but less likely as well. Most likely etiology HD or Amio or Rocephin related. In any event for now
platelet count although low they have remained relatively stable and no signs of bleeding. Continue to monitor closely.
10. Klebsiella UTI
-Finished course of Rocephin
hypothyroidism
GERD
prostate cancer
prostatectomy 2005
gout
Code Status: DNR
DVT Prophylaxis: Eliquis
Total time spent 54-minute
Anticipated Discharge: > 48 hours
Subjective/Interval History
-
Date of Service: October 14, 2024
Patient feels well with no new complaints today. Seen while getting hemodialysis. Blood pressure on the low side.
Objective Data
-
Labs:
Laboratory Results
10/14/24
04:18
WBC 10.8
Hgb 8.9 L
Hct 29.7 L
Plt Count 41 L
PT 36.9 H
INR 3.70 D
APTT 58.4 H
Sodium 131 L
Potassium 4.7
Chloride 96 L
Carbon Dioxide 21 L
BUN 76 H
Creatinine 5.2 H*
Glucose 122 H
Calcium 7.6 L
Vital Signs:
Vital Signs
Temp Pulse Resp BP Pulse Ox
98.6 F 87 16 96/50 95
10/14/24 09:57 10/14/24 09:57 10/14/24 09:57 10/14/24 09:57 10/14/24 09:57
I&O
10/13/24 10/14/24 10/15/24
06:59 06:59 06:59
Intake Total 1560 / 1560 1320 / 1320
Balance 1560 / 1560 1320 / 1320
--- NOTE | 2024-10-14 10:20 | HOSPNOTE ---
Addendum entered by Yu Cassidy RN 10/14/24 16:26:
Spouse did call this RN back. Arranged for Hospice to meet her and her at 930 am on Thursday to provide information on hospice services. They are still hopeful and treatment oriented but would like the information so they are prepared if they
have to opt to use hospice services. More information to follow after meeting on Thursday.
Original Note:
Asked by CAREY yesterday to provide information to the family regarding hospice services. I tried to call the spouse yesterday and left a message with my return phone number. Attempted to call again today and left another message. CM updated on this
information. Will await to see if spouse returns call for information. CAREY is still planning to work with [facility] for patient to go.
[2024-10-14] MEDS: PACERONE 200 MG PO ×2 (10:39→16:49)
[2024-10-14] MEDS: TOPROL XL PO ×2 (10:40→21:21)
[2024-10-14 11:10] VITALS: BP 108/63
[2024-10-14] MEDS: PACERONE PO (13:10)
--- NOTE | 2024-10-14 13:18 | W.PN.NEPH.HD ---
Progress Note - Hemodialysis
-
Date of Service: October 14, 2024
Duration: 30 minutes and 3 hours
Calcium Bath: 2.5
Opti-Dialyzer: 160
Ultrafiltration: Other (Even UF)
Blood Flow: 400
Dialysate Flow: 600
Heparin: None
EPO: None
[2024-10-14] MEDS: RETACRIT 8000 UNITS IV (14:03)
--- NOTE | 2024-10-14 14:35 | CM ---
Chart reviewed and patient is for possible sjkkilled placement at [facility] when stable, kirby is on HD, family also set up a meeting with [facility] for Thursday at 9:30am.
Plan; Skilled placement at [facility] with HD.
--- NOTE | 2024-10-14 14:39 | CM ---
Chart reviewed and plan is for possible skilled placement, at [facility], patient will need HD however physicians are not sure patient will be able to tolerate HD. Meeting with [facility] has been set up for 9:30am, on
Thursday.
Plan; To follow with patient progress with HD and await outcome of meeting with [facility] at 9;30am, Thursday.
[2024-10-14] MEDS: MANNITOL 25% 12.5 GRAMS IV (14:59)
[2024-10-14 15:16] VITALS: BP 106/63
--- NOTE | 2024-10-14 15:57 | W.PN.PAL2 ---
Today's Communication
-
Palliative care follow up. total floor time 30 mins.
met with and patient in room during dialsyis. patient overall feels stable, was sitting up earlier in the day. they report brief episode of afib during dialysis, but now recovered, seemed to be able to get a little bit more fluid off today
slowly. blood pressures on the lower side. Their goals are unchanged. they are meeting with hospice on thursday for informational purposes only.
Objective Data
-
Objective Data:
Vital Signs
Temp Pulse Resp BP Pulse Ox
97.5 F 117 18 106/63 95
10/14/24 15:16 10/14/24 15:16 10/14/24 15:16 10/14/24 15:16 10/14/24 15:16
Laboratory Results
10/14/24 04:18
10/14/24 04:18
PT 36.9 Sec (11.4-14.6) H 10/14/24 04:18
INR 3.70 D 10/14/24 04:18
APTT 58.4 Sec (23.4-35.0) H 10/14/24 04:18
Total Protein 5.0 g/dl (6.3-8.2) L 10/04/24 18:11
Albumin 3.2 g/dl (3.5-5.0) L 10/04/24 18:11
TSH 1.16 uIU/ml (0.47-4.68) 10/05/24 11:38
Free T4 1.12 ng/dl (0.78-2.19) 10/05/24 11:38
Urine Color Yellow 10/05/24 12:10
Urine Clarity Clear (Clear) 10/05/24 12:10
Urine pH 5.0 (5.0-9.0) 10/05/24 12:10
Ur Specific [place] 1.015 (<1.030) 10/05/24 12:10
Urine Ketones Negative (Negative) 10/05/24 12:10
Urine Bilirubin Negative (Negative) 10/05/24 12:10
Palliative Performance Scale
Palliative Performance Scale:
PPS Level Ambulation Activity & Evidence of Disease Self Care Intake Conscious Level
100% Full Normal Activity & Work; Full Intake Full
No Evidence of Disease
90% Full Normal Activity & Work; Full Normal Full
Some Evidence of Disease
80% Full Normal Activity with Effort Full Normal or Full
Some Evidence of Disease Reduced
70% Reduced Unable Normal Job/Work Full Normal or Full
Significant Disease Reduced
60% Reduced Unable Hobby/Housework Occasional Normal or Full or Confusion
Significant Disease Assistance Reduced
50% Mainly Sit/Lie Unable to do Any Work Considerable Normal or Full or Confusion
Extensive Disease Assistance Req'd Reduced
40% Mainly in Bed Unable to do Most Activity Mainly Assistance Normal or Full or Drowsy;
Extensive Disease Reduced +/- Confusion
30% Totally Bed Unable to do Any Activity Total Care Normal or Full or Drowsy;
Bound Extensive Disease Reduced +/- Confusion
20% Totally Bed Bound Unable to do Any Activity Total Care Minimal to Full or Drowsy;
Extensive Disease Sips +/- Confusion
10% Totally Bed Bound Unable to do Any Activity Total Care Mouth Care Drowsy or Coma;
Extensive Disease Only +/- Confusion
0%
PPS Score Level:
[2024-10-14] MEDS: HEPARIN 4000 UNITS INTRACATH (16:26)
--- NOTE | 2024-10-14 16:37 | W.PN.UPDATE ---
Update Note
Progress Note Update
MD notified by nursing that patient's HRs elevated on tele. appears to be back in aflutter vs atach. amiodarone increased back to 200mg BID. repeat EKG in AM to reassess QTc.
[2024-10-14] MEDS: NON-FORMULARY ITEM 2.9 INH INH (16:47)
--- NOTE | 2024-10-14 18:10 | PTCARENOTE ---
During HD, pt flipped into sinus tach/afib rhythm @14:09. HR 120s, previously in 70s. BP 116/60. Asymptomatic. Cardiology and Hospitalist notified. Advised to continue to monitor. At 16:31, this RN tigertexted cardiology and hospitalist again,
informing them that HR was still sustained in 120s, asked for cardiology recommendations. Amiodarone 200mg PO given per express clerk order @16:49. Pt still in afib rhythm, HR 110-120 @18:15.
[2024-10-14 19:35] VITALS: BP 94/66
[2024-10-14] MEDS: NON-FORMULARY ITEM 7.74 INH INH (19:36)
[2024-10-14 23:39] VITALS: BP 106/71
[2024-10-15 03:16] VITALS: BP 100/72
[2024-10-15] MEDS: SYNTHROID 125 MCG PO (06:42)
[2024-10-15 07:00] VITALS: BP 96/66
[2024-10-15 07:21] LABS: Hematocrit 32.9 % (39.0-52.0); Hemoglobin 9.5 g/dL (13.0-18.0); Mean Corp Hgb Conc. 28.9 g/dL (33.0-37.0); Mean Corpuscular Volume 97.1 fL (80.0-94.0); Platelet Count 55 10^3/uL (130-400); Red Blood Cell Count 3.39 10^6/uL (4.70-6.10); Red Cell Dist. Width 20.9 % (11.5-14.5); White Blood Cell Count 11.9 10^3/uL (4.8-10.8)
[2024-10-15 07:42] LABS: Blood Urea Nitrogen 61 mg/dl (9-20); Calcium 7.7 mg/dl (8.4-10.2); Carbon Dioxide 24 mmol/L (22-30); Chloride 97 mmol/L (98-107); Estimated Creatinine Clearance 14 ml/min; Glucose 104 mg/dl (70-99); Potassium 4.7 mmol/L (3.5-5.1); Sodium 133 mmol/L (135-145); eGFR 12.67
[2024-10-15] MEDS: NON-FORMULARY ITEM 1 INH INH ×3 (08:32→15:58)
[2024-10-15] MEDS: NON-FORMULARY ITEM 1 PUFF INH (08:33)
[2024-10-15] MEDS: VITAMIN C 1000 MG PO (08:45)
[2024-10-15] MEDS: PROTONIX 40 MG PO (08:45)
[2024-10-15] MEDS: OCUVITE SOFTGEL 1 CAP PO (08:46)
[2024-10-15] MEDS: ProAmatine 5 MG PO ×3 (08:46→17:42)
[2024-10-15] MEDS: PACERONE 200 MG PO ×2 (08:46→19:45)
[2024-10-15] MEDS: DELTASONE 10 MG PO (08:46)
[2024-10-15] MEDS: TOPROL XL PO (08:46)
[2024-10-15] MEDS: LYRICA 75 MG PO (08:47)
[2024-10-15] MEDS: OSCAL 500 + D 500 MG PO ×2 (08:47→19:45)
[2024-10-15] MEDS: VITAMIN D3 (cholecalciferol) 50 MCG PO (08:47)
[2024-10-15] MEDS: ELIQUIS 5 MG PO ×2 (08:47→19:45)
[2024-10-15] MEDS: PLAQUENIL 200 MG PO ×2 (08:47→19:45)
[2024-10-15] MEDS: NON-FORMULARY ITEM 150 MG PO (08:49)
[2024-10-15] MEDS: ROBITUSSIN DM 10 ML PO ×2 (08:54→19:52)
--- NOTE | 2024-10-15 09:07 | W.PN.HOSP.TC ---
Today's Communication/Plan
-
Amiodarone. Beta-blockers. Cardiac monitoring.
Assessment / Plan
Assessment / Plan
Physical exam:
General: Acutely ill
HEENT: Normocephalic, Atraumatic and Moist Mucous Membranes
Respiratory: Bilateral coarse crackles in the base; Negative Wheezes, or Rhonchi
Cardiac: Irregular rate and rhythm and tachycardic and S1/S2
GI: Soft, Nontender and Nondistended
Musculoskeletal: No Clubbing, No Cyanosis. Bilateral lower extremity edema
Neuro: Awake, Alert and Oriented. No gross neurological deficits but generalized weakness present.
Psych: Calm
A/P:
1. Acute on chronic systolic congestive heart failure
Acute hypoxic respiratory insufficiency
-Chest x-ray showing signs of cardiogenic pulmonary edema
-Echocardiogram in 21 showing EF 60 to 65%, normal diastolic function. Pulmonary artery pressure of 60 mmHg
-Repeat echocardiogram showing EF of 30 to 35%, stage II diastolic dysfunction. Moderate MR. Mod pulm HTN.
-Continue wean off oxygen as possible
-On IV Bumex 2 mg daily-Still on diuretics but not sure if benefiting from it so it was completely stopped
-Off pressors
-Nephrology initiated midodrine for blood pressure support
-Palliative care consulted and patient and family discussed with palliative. They will also discuss further with hospice on Thursday.
-Discussed with family at bedside today
2. 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
-Last known creatinine of 2.2 with GFR 29
-Patient came in with creatinine ~ 5
-Relatively bland urine, no significant proteinuria
-Renal and bladder ultrasound showing a likely benign right renal mass with some calcification. No hydronephrosis
-Concern of potential cardiorenal syndrome, on top of underlying lupus nephritis
-Patient has been started on hemodialysis due to suboptimal response to diuretic therapy. Still on diuretics but not sure if benefiting from it.
-Off pressors today
-Patient had some questions about restarting Lyrica on 10/11 but not ideal with end-stage renal disease
-Hemodialysis/ultrafiltration per nephrology as blood pressure permits
-Removed PICC line
3. Hyperkalemia
Metabolic acidosis
Euvolemic hyponatremia
-Acidosis/hyperkalemia driven by ROBIN, patient being put on dialysis likely today will help with metabolic derangements
-Diuretic therapy fail to improve metabolic derangements, on HD at this point.
4. Essential hypertension/ Hypotension
- hold amlodipine, doxazosin, and losartan
-He was on on Chao-Synephrine drip-Off pressors for last several days
5. pulmonary fibrosis
- continue ofev if patient able to bring in supply
-Continue oral prednisone 10 mg p.o. daily
6. History of lupus nephritis
Rheumatoid arthritis
-maintain on oral prednisone, dose increased to 10mg/d. got solucortef injection
-continue plaquenil
7. Iron def anemia
-Ferritin of 16, saturation 7%
-IV ferlicit given
8. Atrial flutter with 2-1 conduction
-Cardiology following and patient currently on Eliquis 5 mg p.o. twice a day
-Patient is s/p MANUEL and cardioversion. He was in normal sinus rhythm after amiodarone initiation and then went back into A-fib RVR intermittently. On metoprolol succinate 12.5 mg p.o. twice a day. On amiodarone to 200 mg p.o. twice a day
-Cardiology following
9. Thrombocytopenia
-Patient thrombocytopenic, monitor trend
-Checked with and last platelet count back in early August were low as well as outpatient and now in the 50,000 range
- I discussed with his outpatient quality assurance lead, Dr Meneses ([phone])
-Our own Sustainable Communities Designer consulted yesterday on 10/13. Labs not indicative of DIC or B12 or folate deficiency as expected. HIT testing pending but less likely as well. Most likely etiology HD or Amio or Rocephin related. In any event for now
platelet count although low they have remained relatively stable and no signs of bleeding. Continue to monitor closely.
10. Klebsiella UTI
-Finished course of Rocephin
hypothyroidism
GERD
prostate cancer
prostatectomy 2005
gout
Code Status: DNR
DVT Prophylaxis: Eliquis
Total time spent 54-minute
Anticipated Discharge: > 48 hours
Subjective/Interval History
-
Date of Service: October 15, 2024
Patient has chest pain shortness of breath or palpitations. He does remain with issues with A-fib RVR even on nondialysis days like today. Afebrile
Objective Data
-
Labs:
Laboratory Results
10/15/24
06:47
WBC 11.9 H
Hgb 9.5 L
Hct 32.9 L
Plt Count 55 L D
Sodium 133 L
Potassium 4.7
Chloride 97 L
Carbon Dioxide 24
BUN 61 H
Creatinine 4.5 H*
Glucose 104 H
Calcium 7.7 L
Vital Signs:
Vital Signs
Temp Pulse Resp BP Pulse Ox
97.3 F 123 16 96/66 93
10/15/24 07:00 10/15/24 07:00 10/15/24 07:00 10/15/24 07:00 10/15/24 07:00
I&O
10/14/24 10/15/24 10/16/24
06:59 06:59 06:59
Intake Total 1320 / 1320 440 / 440
Output Total 0 / 0
Balance 1320 / 1320 440 / 440
[2024-10-15 11:00] VITALS: BP 104/76
--- NOTE | 2024-10-15 12:13 | W.PN.CARDCBS ---
Today's Communication / Plan
-
Continue amiodarone 200 mg daily.
-Continue Eliquis anticoagulation cautiously with thrombocytopenia, platelet count is now up to 55,000. No overt bleeding reported per patient.
-HD as tolerated for volume removal
Impression / Plan
-
Primary Public Health Program Manager: Dr. Dedra Crandall of [place]
Assessment:
79-year-old complex man with ROBIN on CKD and history of lupus nephritis, now admitted with
Presentation with weight gain, decreased urine output
ROBIN on CKD, lupus nephritis
Hyperkalemia
Hyponatremia
Acute HF, type unknown
Tachycardia - ST vs atypical flutter/tach
Anemia
bifascicular block
pulm HTN
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
RA
mod AR by echo 2020
HTN
Hypothyroidism
GERD
Gout
History of prostate cancer s/p prostatectomy 2005
DNR code status
ECHO 2020: EF 60 to 65%, mild concentric LVH, moderate AR, mild TR, PAP 60 mmHg, mild ascending aorta dilation
Echo 10/05/2024: EF 30-35%, stage II diastolic dysfunction, dilated atria, normal RV, mild to moderate MR, mild AI, pulmonary artery pressure 51 mmHg
Plan:
Atrial flutter status post MANUEL/cardioversion 10/07/2024
-Maintaining mostly sinus rhythm/Sinus tachycardia, some self terminating runs of PAT/Flutter, also with frequent PACs
-Started on amiodarone 10/10/2024,
Repeat twelve-lead EKG NSR, RBBB/LAHB. QTc 529ms
Reduced amiodarone to 200mg daily on 10/14/24,Heart: Regular, positive S1/S2, 2/6 SM
10/14/24 twelve-lead EKG NSR, RBBB/LAHB. QTc 529ms.
Reduced amiodarone to 200mg daily on 10/14/24, Continue amiodarone 200 mg daily.
-Continue Eliquis anticoagulation cautiously with thrombocytopenia, platelet count is now up to 55,000. No overt bleeding reported per patient.
-Appreciate hematology consult: Hold DOAC if platelets trend <30,000; labs pending including DIC/HIT panel
HFrEF with volume overload and ESRD new to HD
-Medical therapy limited by symptomatic hypotension
-Called OP [place] continuous improvement black belt, Dr. Crandall and we have been awaiting call back
-HD as tolerated for volume removal
Acute on chronic kidney disease secondary to lupus nephritis
-Now dialysis dependent however minimal UF due to hypotension and remains volume overloaded
-Reattempt dialysis as BP allows on higher dose of midodrine
ILD/PF/pulmonary HTN in setting of RA/SLE--follows at [facility]
DNR
Patient and family had palliative care consult; plan pending HD tolerance
PREADMIT DATA:
79-year-old male with past medical history of chronic kidney disease stage III-IV, pulmonary hypertension, interstitial lung disease with pulmonary fibrosis on home oxygen, moderate aortic regurgitation who presents to [facility] with acute
on chronic renal failure and acute congestive heart failure with preserved ejection fraction. He is followed at [facility] by nephrology and cardiology and pulmonary. He takes Ofev and Tyvaso as an outpatient. He has noticed for
the past 10 days or so and elevation his heart rate in the 120s. He felt no palpitations or chest pains but then started noticing fatigue, shortness of breath and an inability to urinate. He was found to be in acute renal failure with a creatinine
of 5. His baseline creatinine is in the 2-2.5 range. On presentation found to have atrial flutter with 2-1 conduction
Total time today 54 minutes
Progress Note - Public Health Program Manager
Subjective
Date of Service: October 15, 2024
Sitting in chair and tells me he feels ' okay', he denies chest pain. He denies shortness of breath at rest. No dizziness.
Objective
Labs:
10/15/24 06:47
10/15/24 06:47
Labs
Hgb 9.5 g/dL (13.0-18.0) L 10/15/24 06:47
Hct 32.9 % (39.0-52.0) L 10/15/24 06:47
Plt Count 55 10^3/uL (130-400) L D 10/15/24 06:47
PT 36.9 Sec (11.4-14.6) H 10/14/24 04:18
INR 3.70 D 10/14/24 04:18
APTT 58.4 Sec (23.4-35.0) H 10/14/24 04:18
Sodium 133 mmol/L (135-145) L 10/15/24 06:47
Potassium 4.7 mmol/L (3.5-5.1) 10/15/24 06:47
BUN 61 mg/dl (9-20) H 10/15/24 06:47
Creatinine 4.5 mg/dL (0.7-1.3) H* 10/15/24 06:47
Glucose 104 mg/dl (70-99) H 10/15/24 06:47
Vital Signs and I&O:
Vital Signs
Temp Pulse Resp BP Pulse Ox
97.8 F 105 16 104/76 93
10/15/24 11:00 10/15/24 11:00 10/15/24 11:00 10/15/24 11:00 10/15/24 11:00
Vital Signs
Temp Pulse Resp BP Pulse Ox
97.8 F 105 16 104/76 93
10/15/24 11:00 10/15/24 11:00 10/15/24 11:00 10/15/24 11:00 10/15/24 11:00
Intake & Output
10/13/24 10/14/24 10/15/24 10/16/24
06:59 06:59 06:59 06:59
Intake Total 1560 / 1560 1320 / 1320 440 / 440
Output Total 0 / 0
Balance 1560 / 1560 1320 / 1320 440 / 440
Physical Exam
Physical Exam
Heart: Regular with ectopy , Nl S1/S2, 2/6 AHSM, no rubs
Lungs: Bronchovesicular breath sounds decreased at bases with crackles bilaterally. Positive dialysis cath anterior chest wall
Abd: Positive BS, NT/ND, neg rebound/rigidity/guarding
Ext: + 2-3 LE edema; extremity ecchymosis. + LUE PICC
Neuro: nonfocal
[2024-10-15] MEDS: ZOFRAN 4 MG IV ×2 (13:22→19:51)
--- NOTE | 2024-10-15 13:28 | W.PN.NEPH.PH ---
Today's Communication / Plan
-
dialysis Thursday
Assessment/Plan
-
IMP;
Acute on chronic respiratory failure
decompensated heart failure exacerbation with pulmonary edema
ROBIN on CKD 3 vs 4?- lupus nephritis cr 2.2 in 2021-nephrology at [facility]
Hyperkalemia
Hyponatremia
Metabolic acidosis
Hyperphosphatemia
SHPTH
Anemia
ILD/PF in setting of RA/SLE--follows at [facility]
KAI on CPAP
HTN
Hypothyroidism
Gout
Prostate ca, s/p prostatectomy 2005
lupus
rheumatoid arthritis
Klebsiella UTI 10/09/24
Plan:
A/w Anuria with severe ROBIN with known lupus nephritis and decompensated CHF
Patient now dialysis dependent
Previously spoke with Nephrology at [facility]-stated he has advanced CKD, already plans were making for PD in out pt
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
his blood pressures have been intermittently soft with the tachycardia-echo noted EF 30-35%, stage 2DD, severe LVH, IVC dilated, mod pulm HTN
heart rate relatively stable while on dialysis with periods of tachycardia
no acute need for dialysis today next treatment will be Thursday and will maintain Thursday schedule
-
-
Date of Service: October 15, 2024
CC / HPI / ROS
-
Chief Complaint:
ROBIN, CKD
History of Present Illness:
Patient now on dialysis Thursday schedule
On 5 mg every 8 hours midodrine remains hemodynamically labile
Review of Systems:
no cp
breathing has improved
no n/v
Labs
-
Labs:
WBC 11.9 10^3/uL (4.8-10.8) H 01/18/25 06:47
RBC 3.39 10^6/uL (4.70-6.10) L 10/15/24 06:47
Hgb 9.5 g/dL (13.0-18.0) L 10/15/24 06:47
Hct 32.9 % (39.0-52.0) L 10/15/24 06:47
Plt Count 55 10^3/uL (130-400) L D 10/15/24 06:47
Sodium 133 mmol/L (135-145) L 10/15/24 06:47
Potassium 4.7 mmol/L (3.5-5.1) 10/15/24 06:47
Chloride 97 mmol/L (98-107) L 10/15/24 06:47
Carbon Dioxide 24 mmol/L (22-30) 10/15/24 06:47
BUN 61 mg/dl (9-20) H 10/15/24 06:47
Creatinine 4.5 mg/dL (0.7-1.3) H* 10/15/24 06:47
eGFR 12.67 10/15/24 06:47
Glucose 104 mg/dl (70-99) H 10/15/24 06:47
Calcium 7.7 mg/dl (8.4-10.2) L 10/15/24 06:47
Phosphorus 5.1 mg/dl (2.5-4.5) H 10/05/24 11:38
Cht-W-Umxcfgydpin Pept 03810 pg/ml 10/04/24 18:11
Albumin 3.2 g/dl (3.5-5.0) L 10/04/24 18:11
Physical Exam
-
Vital Signs:
Vital Signs
Temp Pulse Resp BP Pulse Ox
97.8 F 105 16 104/76 93
10/15/24 11:00 10/15/24 11:00 10/15/24 11:00 10/15/24 11:00 10/15/24 11:00
Cardiovascular:: Irregular rate and rhythm (tachy)
Respiratory:: Bilateral: Coarse
Lung Excursion:: Normal
Abdomen:: Nontender and Soft
Bowel Sounds:: Normal
Extremity Edema:: +1: Bilateral:
Martinez Catheter: No
Other Findings::
Significant scrotal edema
[2024-10-15 15:00] VITALS: BP 121/83
[2024-10-15] MEDS: NON-FORMULARY ITEM 1.74 INH INH (19:32)
[2024-10-15 19:36] VITALS: BP 115/82
[2024-10-15] MEDS: TOPROL XL 12.5 MG PO (19:44)
[2024-10-15 23:13] VITALS: BP 108/75
[2024-10-16] MEDS: ROBITUSSIN DM 10 ML PO (01:05)
[2024-10-16] MEDS: ZOFRAN 4 MG IV ×2 (01:55→08:54)
[2024-10-16 03:28] VITALS: BP 108/78
[2024-10-16 06:00] VITALS: BMI 29.1
[2024-10-16] MEDS: PROTONIX 40 MG PO (06:26)
[2024-10-16] MEDS: SYNTHROID 125 MCG PO (06:26)
[2024-10-16 07:12] LABS: % Basophils 0.1 % (0-2); % Eosinophils 0.1 % (0-6); % Lymphocytes 3.5 % (20.5-51.1); % Monocytes 11.1 % (1.7-9.3); % Neutrophils 84.2 % (42.2-75.2); Absolute Immature Granulocytes 0.1 10^3/uL (0-0.05); Absolute Lymphocytes 0.4 10^3/uL (1.2-3.4); Absolute Monocytes 1.4 10^3/uL (0.1-0.6); Absolute Neutrophils 10.6 10^3/uL (1.4-6.5); Hematocrit 32.7 % (39.0-52.0); Hemoglobin 9.8 g/dL (13.0-18.0); Mean Corpuscular Hgb 28.7 pg (27.0-31.0); Mean Corpuscular Volume 95.9 fL (80.0-94.0); Nucleated Red Blood Cells % 0.3 % (-); Platelet Count 80 10^3/uL (130-400); Red Blood Cell Count 3.41 10^6/uL (4.70-6.10); Red Cell Dist. Width 20.7 % (11.5-14.5); White Blood Cell Count 12.6 10^3/uL (4.8-10.8)
[2024-10-16 07:22] LABS: Blood Urea Nitrogen 73 mg/dl (9-20); Calcium 7.8 mg/dl (8.4-10.2); Carbon Dioxide 24 mmol/L (22-30); Chloride 94 mmol/L (98-107); Glucose 105 mg/dl (70-99); Magnesium 2.2 mg/dl (1.6-2.3); Sodium 132 mmol/L (135-145)
[2024-10-16 07:33] LABS: Estimated Creatinine Clearance 11 ml/min; eGFR 9.96
[2024-10-16 07:35] VITALS: BP 110/80
--- NOTE | 2024-10-16 08:33 | W.PN.HOSP.TC ---
Today's Communication/Plan
-
Antiemetics. Chest x-ray and sputum culture. Beta-blockers and amiodarone. Hemodialysis in a.m.
Assessment / Plan
Assessment / Plan
Physical exam:
General: Acutely ill
HEENT: Normocephalic, Atraumatic and Moist Mucous Membranes
Respiratory: Bilateral coarse crackles in the base; Negative Wheezes, or Rhonchi
Cardiac: Irregular rate and rhythm and tachycardic and S1/S2
GI: Soft, Nontender and Nondistended
Musculoskeletal: No Clubbing, No Cyanosis. Bilateral lower extremity edema
Neuro: Awake, Alert and Oriented. No gross neurological deficits but generalized weakness present.
Psych: Calm
A/P:
1. Acute on chronic systolic congestive heart failure
Acute hypoxic respiratory insufficiency
-Chest x-ray showing signs of cardiogenic pulmonary edema
-Echocardiogram in 21 showing EF 60 to 65%, normal diastolic function. Pulmonary artery pressure of 60 mmHg
-Repeat echocardiogram showing EF of 30 to 35%, stage II diastolic dysfunction. Moderate MR. Mod pulm HTN.
-Continue wean off oxygen as possible
-On IV Bumex 2 mg daily-Still on diuretics but not sure if benefiting from it so it was completely stopped
-Off pressors
-Nephrology initiated midodrine for blood pressure support, currently on midodrine 5 mg p.o. 3 times daily
-Palliative care consulted and patient and family discussed with palliative. They will also discuss further with hospice on Thursday.
-Discussed with family at bedside prior
-Plan to go to skilled facility this coming week ideally with HD on-site
2. 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
-Last known creatinine of 2.2 with GFR 29
-Patient came in with creatinine ~ 5
-Creatinine 5.5 today
-Relatively bland urine, no significant proteinuria
-Renal and bladder ultrasound showing a likely benign right renal mass with some calcification. No hydronephrosis
-Concern of potential cardiorenal syndrome, on top of underlying lupus nephritis
-Patient has been started on hemodialysis due to suboptimal response to diuretic therapy. Still on diuretics but not sure if benefiting from it.
-Off pressors today
-Patient had some questions about restarting Lyrica on 10/11 but not ideal with end-stage renal disease so did not restart.
-Hemodialysis/ultrafiltration per nephrology as blood pressure permits
-Removed PICC line
-Plan for hemodialysis in a.m.
3. Hyperkalemia
Metabolic acidosis
Euvolemic hyponatremia
-Acidosis/hyperkalemia driven by ROBIN, patient being put on dialysis likely today will help with metabolic derangements
-Diuretic therapy fail to improve metabolic derangements, on HD at this point.
-Potassium 5 today and bicarb 24
4. Essential hypertension/ Hypotension
- hold amlodipine, doxazosin, and losartan
-He was on on Chao-Synephrine drip-Off pressors for last several days
5. pulmonary fibrosis
- continue ofev if patient able to bring in supply
-Continue oral prednisone 10 mg p.o. daily
6. History of lupus nephritis
Rheumatoid arthritis
-maintain on oral prednisone, dose increased to 10mg/d. got solucortef injection
-continue plaquenil
7. Iron def anemia
-Ferritin of 16, saturation 7%
-IV ferlicit given
-Hemoglobin 9.8 today
8. Atrial flutter with 2-1 conduction
-Cardiology following and patient currently on Eliquis 5 mg p.o. twice a day
-Patient is s/p MANUEL and cardioversion. He was in normal sinus rhythm after amiodarone initiation and then went back into A-fib RVR intermittently.
-On metoprolol succinate 12.5 mg p.o. twice a day.
-On amiodarone to 200 mg p.o. twice a day.
9. Thrombocytopenia
-Patient thrombocytopenic, monitor trend
-Checked with and last platelet count back in early August were low as well as outpatient and now in the 50,000 range
- I discussed with his outpatient beam sealer, Dr Meneses ([phone])
-Our own Ultra Sound Technician consulted on 10/13 per cardio request. Labs not indicative of DIC or B12 or folate deficiency as expected. HIT testing pending but less likely as well. Most likely etiology HD or Amio or Rocephin related. In any event for
now platelet count although low they have remained relatively stable and no signs of bleeding. Continue to monitor closely. Platelets up to 80,000 today which is closer to his baseline.
10. Klebsiella UTI
-Finished course of Rocephin
11. Leukocytosis
Suspect reactive but if worsens will do further workup
Will repeat a chest x-ray and obtain sputum culture in the meantime
hypothyroidism
GERD
prostate cancer
prostatectomy 2005
gout
Code Status: DNR
DVT Prophylaxis: Eliquis
Total time spent 54-minute
Anticipated Discharge: 24 - 48 hours
Subjective/Interval History
-
Date of Service: October 16, 2024
Patient denies chest pain or worsening shortness of breath or palpitations. Denies syncope or near syncope or diaphoresis. Does have some cough with some sputum production. Also he does have some nausea on and off.
Objective Data
-
Labs:
Laboratory Results
10/16/24
06:12
WBC 12.6 H
Hgb 9.8 L
Hct 32.7 L
Plt Count 80 L D
Sodium 132 L
Potassium 5.0
Chloride 94 L
Carbon Dioxide 24
BUN 73 H
Creatinine 5.5 H*
Glucose 105 H
Calcium 7.8 L
Vital Signs:
Vital Signs
Temp Pulse Resp BP Pulse Ox
97.5 F 119 20 108/78 99
10/16/24 03:28 10/16/24 03:28 10/16/24 03:28 10/16/24 03:28 10/16/24 03:28
I&O
10/15/24 10/16/24 10/17/24
06:59 06:59 06:59
Intake Total 440 / 440 720 / 720
Output Total 0 / 0
Balance 440 / 440 720 / 720
[2024-10-16] MEDS: NON-FORMULARY ITEM 1 PUFF INH (08:55)
[2024-10-16] MEDS: NON-FORMULARY ITEM 1 INH INH ×3 (08:55→15:36)
[2024-10-16] MEDS: TOPROL XL 12.5 MG PO ×2 (08:59→21:28)
[2024-10-16] MEDS: PACERONE 200 MG PO ×2 (08:59→21:28)
[2024-10-16] MEDS: DELTASONE 10 MG PO (09:00)
[2024-10-16] MEDS: VITAMIN D3 (cholecalciferol) PO (09:03)
[2024-10-16] MEDS: VITAMIN C PO (09:03)
[2024-10-16] MEDS: LYRICA 75 MG PO (09:52)
[2024-10-16] MEDS: ELIQUIS 5 MG PO ×2 (09:52→21:28)
[2024-10-16] MEDS: ProAmatine 5 MG PO ×3 (09:52→18:19)
[2024-10-16] MEDS: OCUVITE SOFTGEL PO (09:53)
[2024-10-16] MEDS: PLAQUENIL 200 MG PO ×2 (09:53→21:29)
[2024-10-16] MEDS: OSCAL 500 + D PO (09:56)
[2024-10-16] MEDS: NON-FORMULARY ITEM 150 MG PO (10:48)
[2024-10-16] MEDS: COMPAZINE 5 MG IV (11:20)
[2024-10-16 11:23] VITALS: BP 98/68
[2024-10-16 12:04] LABS: Glucose - Point of Care 170 mg/dl (70-99)
--- NOTE | 2024-10-16 14:17 | W.PN.NEPH.PH ---
Today's Communication / Plan
-
dialysis Thursday
Assessment/Plan
-
IMP;
Acute on chronic respiratory failure
decompensated heart failure exacerbation with pulmonary edema
ROBIN on CKD 3 vs 4?- lupus nephritis cr 2.2 in 2021-nephrology at [facility] Dr Davis
Hyperkalemia
Hyponatremia
Metabolic acidosis
Hyperphosphatemia
SHPTH
Anemia
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
KAI on CPAP
HTN
Hypothyroidism
Gout
Prostate ca, s/p prostatectomy 2005
lupus
rheumatoid arthritis
Klebsiella UTI 10/09/24
Plan:
A/w Anuria with severe ROBIN with known lupus nephritis and decompensated CHF
Patient now dialysis dependent
Previously spoke with Nephrology at [facility]-stated he has advanced CKD, already plans were making for PD in out pt
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
his blood pressures have been intermittently soft with the tachycardia-echo noted EF 30-35%, stage 2DD, severe LVH, IVC dilated, mod pulm HTN
heart rate relatively stable while on dialysis with periods of tachycardia
no acute need for dialysis today next treatment will be Thursday and will maintain Thursday schedule
-
-
Date of Service: October 16, 2024
CC / HPI / ROS
-
Chief Complaint:
ROBIN, CKD
History of Present Illness:
Patient now on dialysis Thursday schedule
having nausea for last 24 hours
Review of Systems:
no cp
breathing has improved and stable
positive nausea
Labs
-
Labs:
WBC 12.6 10^3/uL (4.8-10.8) H 10/16/24 06:12
RBC 3.41 10^6/uL (4.70-6.10) L 10/16/24 06:12
Hgb 9.8 g/dL (13.0-18.0) L 10/16/24 06:12
Hct 32.7 % (39.0-52.0) L 10/16/24 06:12
Plt Count 80 10^3/uL (130-400) L D 10/16/24 06:12
Sodium 132 mmol/L (135-145) L 10/16/24 06:12
Potassium 5.0 mmol/L (3.5-5.1) 10/16/24 06:12
Chloride 94 mmol/L (98-107) L 10/16/24 06:12
Carbon Dioxide 24 mmol/L (22-30) 10/16/24 06:12
BUN 73 mg/dl (9-20) H 10/16/24 06:12
Creatinine 5.5 mg/dL (0.7-1.3) H* 10/16/24 06:12
eGFR 9.96 10/16/24 06:12
Glucose 105 mg/dl (70-99) H 10/16/24 06:12
Calcium 7.8 mg/dl (8.4-10.2) L 10/16/24 06:12
Phosphorus 5.1 mg/dl (2.5-4.5) H 10/05/24 11:38
Xid-W-Jjqfwntsypg Pept 71414 pg/ml 10/04/24 18:11
Albumin 3.2 g/dl (3.5-5.0) L 10/04/24 18:11
Physical Exam
-
Vital Signs:
Vital Signs
Temp Pulse Resp BP Pulse Ox
97.5 F 112 16 104/71 93
10/16/24 11:23 10/16/24 13:17 10/16/24 11:23 10/16/24 13:17 10/16/24 11:23
Cardiovascular:: Irregular rate and rhythm (tachy)
Respiratory:: Bilateral: Coarse
Lung Excursion:: Normal
Abdomen:: Nontender and Soft
Bowel Sounds:: Normal
Extremity Edema:: +1: Bilateral:
Martinez Catheter: No
Other Findings::
Significant scrotal edema
[2024-10-16 15:14] VITALS: BP 96/69
[2024-10-16 19:45] VITALS: BP 112/74
[2024-10-16] MEDS: NON-FORMULARY ITEM 20 INH INH (20:18)
[2024-10-16] MEDS: OSCAL 500 + D 500 MG PO (21:29)
[2024-10-16 23:31] VITALS: BP 101/72
[2024-10-17 03:05] VITALS: BP 108/77
[2024-10-17] MEDS: SYNTHROID 125 MCG PO (05:45)
[2024-10-17 06:00] VITALS: BMI 29.9
[2024-10-17 07:47] LABS: Hematocrit 34.8 % (39.0-52.0); Mean Corp Hgb Conc. 28.7 g/dL (33.0-37.0); Mean Corpuscular Hgb 28.1 pg (27.0-31.0); Mean Corpuscular Volume 97.8 fL (80.0-94.0); Mean Platelet Volume 13.7 fL (7.4-10.4); Platelet Count 109 10^3/uL (130-400); Red Blood Cell Count 3.56 10^6/uL (4.70-6.10); Red Cell Dist. Width 21.2 % (11.5-14.5); White Blood Cell Count 12.3 10^3/uL (4.8-10.8)
[2024-10-17 07:49] VITALS: BP 101/66
[2024-10-17 07:57] LABS: Blood Urea Nitrogen 87 mg/dl (9-20); Calcium 7.8 mg/dl (8.4-10.2); Carbon Dioxide 21 mmol/L (22-30); Chloride 94 mmol/L (98-107); Glucose 104 mg/dl (70-99); Potassium 5.6 mmol/L (3.5-5.1); Sodium 131 mmol/L (135-145)
[2024-10-17 08:17] LABS: Estimated Creatinine Clearance 10 ml/min
[2024-10-17] MEDS: NON-FORMULARY ITEM 12 INH INH (08:17)
[2024-10-17] MEDS: NON-FORMULARY ITEM 1 PUFF INH (08:18)
[2024-10-17] MEDS: PLAQUENIL 200 MG PO ×2 (08:43→20:06)
[2024-10-17] MEDS: OCUVITE SOFTGEL 1 CAP PO (08:43)
[2024-10-17] MEDS: ELIQUIS 5 MG PO ×2 (08:43→20:06)
[2024-10-17] MEDS: ProAmatine 5 MG PO ×3 (08:43→17:55)
[2024-10-17] MEDS: OSCAL 500 + D 500 MG PO ×2 (08:43→20:06)
[2024-10-17] MEDS: PACERONE 200 MG PO ×2 (08:43→20:06)
[2024-10-17] MEDS: VITAMIN D3 (cholecalciferol) 50 MCG PO (08:44)
[2024-10-17] MEDS: PROTONIX 40 MG PO (08:44)
[2024-10-17] MEDS: DELTASONE 10 MG PO (08:44)
[2024-10-17] MEDS: LYRICA 75 MG PO (08:44)
[2024-10-17] MEDS: VITAMIN C 1000 MG PO (08:45)
[2024-10-17] MEDS: TOPROL XL 12.5 MG PO (08:45)
[2024-10-17] MEDS: ROCALTROL 0.25 MCG PO (08:47)
[2024-10-17] MEDS: NON-FORMULARY ITEM 1 MG PO (08:48)
[2024-10-17] MEDS: NON-FORMULARY ITEM 1 INH INH ×3 (11:11→19:06)
[2024-10-17 11:17] VITALS: BP 101/68
--- NOTE | 2024-10-17 11:31 | HOSPNOTE ---
Spoke with patient and spouse about hospice care. At this time the patient would like to go to rehab and then transition to hospice at home at a later date. The patient does not feel ready at this time for hospice. The spouse has my card and will
contact me at a later date. Please reach out if the plan changes but I believe patient will be going to [facility].
--- NOTE | 2024-10-17 11:54 | W.PN.ONC2 ---
Today's Communication / Plan
-
- plts improving up to 109K
- HIT pending however low suspicion.
Impression
Impression
ROBIN on CKD on HD
acute HF
chronic anemia multifactorial including MARQUES, CKD, chronic disease -Hgb >9gd/L
acute thrombocytopenia, platelet count 123,000 on admission with significant decrease to 76,000 on 10/08 and has trended down to 40,000. No evidence of DIC. No B12 or folate deficiency. HD start and amiodarone start could be contributing to
thrombocytopenia. Amiodarone decreased from TID to BID.
Plan
Plan
Suspect transient thrombocytopenia related to starting HD +/- starting amio. Plts continue to slowly improve,up to 109K today.
f/u HIT, however, unlikely
Cardiology plans to hold DOAC if platelets trend <30,000. Ok to continue with rising plt count
OP follow up with Dr. Kym Aguayo for continued management MARQUES, AOCKD, and prostate cancer
Subjective/Objective
Chief Complaint
thrombocytopenia
Subjective
pt without new bleeding or bruising. CBC with slowly improving plts, up to 109K.
Vital Signs:
Vital Signs
Temp Pulse Resp BP Pulse Ox
97.7 F 103 17 101/68 94
10/17/24 11:17 10/17/24 11:17 10/17/24 11:17 10/17/24 11:17 10/17/24 11:17
Lab Results:
Laboratory Data
WBC 12.3 10^3/uL (4.8-10.8) H 10/17/24 06:43
Hgb 10.0 g/dL (13.0-18.0) L 10/17/24 06:43
Plt Count 109 10^3/uL (130-400) L D 10/17/24 06:43
PT 36.9 Sec (11.4-14.6) H 10/14/24 04:18
INR 3.70 D 10/14/24 04:18
APTT 58.4 Sec (23.4-35.0) H 10/14/24 04:18
eGFR 8.80 10/17/24 06:43
Physical Exam
[2024-10-17] MEDS: ROBITUSSIN DM 10 ML PO ×2 (12:38→20:11)
--- NOTE | 2024-10-17 13:20 | W.PN.HOSP.TC ---
Today's Communication/Plan
-
abx course for 5 days
discharge planning
Assessment / Plan
Assessment / Plan
1. Acute on chronic systolic congestive heart failure
Acute hypoxic respiratory insufficiency
-Chest x-ray showing signs of cardiogenic pulmonary edema at admission
-Echocardiogram in 21 showing EF 60 to 65%, normal diastolic function. Pulmonary artery pressure of 60 mmHg
-Repeat echocardiogram showing EF of 30 to 35%, stage II diastolic dysfunction. Moderate MR. Prem puldaisha HTN.
-Suboptimal response with diuretic, patient started on hemodialysis for volume optimization
-Palliative care/hospice discussed and patient family not agreeable at this stage.
2. 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
ESRD on HD - new this admission
-Relatively bland urine, no significant proteinuria
-Renal and bladder ultrasound showing a likely benign right renal mass with some calcification. No hydronephrosis
-Concern of potential cardiorenal syndrome, on top of underlying lupus nephritis
-Currently getting hemodialysis Thursday
-Requiring midodrine support for HD
3. Hyperkalemia
Metabolic acidosis
Euvolemic hyponatremia
-secondary to ESRD
-Potassium restricted diet
-on HD
4. Essential hypertension
Hypotension
-on small dose toprol for simultaneous rate control
5. pulmonary fibrosis
-Continue oral prednisone 10 mg p.o. daily
-on ofev at home
6. History of lupus nephritis
Rheumatoid arthritis
-maintain on oral prednisone, dose increased to 10mg/d. got solucortef injection
-continue plaquenil
7. Iron def anemia
-Ferritin of 16, saturation 7%
-IV ferlicit given
8. Atrial flutter with 2-1 conduction
-Cardiology following and patient currently on Eliquis 5 mg p.o. twice a day
-Patient is s/p MANUEL and cardioversion. He was in normal sinus rhythm after amiodarone initiation and then went back into A-fib RVR intermittently.
-On metoprolol succinate 12.5 mg p.o. twice a day.
-On amiodarone to 200 mg p.o. twice a day.
9. Thrombocytopenia
-Patient thrombocytopenic, monitor trend
Per Dr Mcadams :
- Checked with and last platelet count back in early August were low as well as outpatient and now in the 50,000 range
- I discussed with his outpatient vest presser, Dr Meneses ([phone]) , Our own Boarding House Manager consulted on 10/13 per cardio request. Labs not indicative of DIC or B12 or folate deficiency as expected. HIT testing pending but less likely as well.
Most likely etiology HD or Amio or Rocephin related. In any event for now platelet count although low they have remained relatively stable and no signs of bleeding. Continue to monitor closely. Platelets up to 80,000 today which is closer to his
baseline.
10. Klebsiella UTI
-Finished course of Rocephin
11. Aspiration pneumonia
-Patient right lower lobe on x-ray showing some new infiltrate, possibly component of aspiration versus atelectasis
-Allergic to penicillin, 5-day course of Omnicef/Flagyl ordered
hypothyroidism
GERD
prostate cancer
prostatectomy 2005
gout
Code Status: DNR
DVT Prophylaxis: Eliquis
Anticipated Discharge: Within 24 hours
Subjective/Interval History
-
Date of Service: October 17, 2024
Denies of having any problems overnight
Remains on oxygen through nasal cannula
afebrile in night
Objective Data
-
Labs:
Laboratory Results
10/17/24
06:43
WBC 12.3 H
Hgb 10.0 L
Hct 34.8 L
Plt Count 109 L D
Sodium 131 L
Potassium 5.6 H
Chloride 94 L
Carbon Dioxide 21 L
BUN 87 H
Creatinine 6.1 H*
Glucose 104 H
Calcium 7.8 L
Vital Signs:
Vital Signs
Temp Pulse Resp BP Pulse Ox
97.7 F 103 17 101/68 94
10/17/24 11:17 10/17/24 11:17 10/17/24 11:17 10/17/24 11:17 10/17/24 11:17
I&O
10/16/24 10/17/24 10/18/24
06:59 06:59 06:59
Intake Total 720 / 720
Balance 720 / 720
Review of Systems
-
Respiratory: Reports No Symptoms
Cardiac: Reports No Symptoms
Abdomen/GI: Reports No Symptoms
Physical Exam
-
General: No Apparent Distress and Comfortable
HEENT: Negative Oxygen
Respiratory: Clear to Auscultation
Cardiac: S1/S2, Irregular Rhythm and Tachycardic; Negative Murmur or Rub
GI: Soft, Nontender and Nondistended
Musculoskeletal: No Edema
Neuro: Awake, Alert, Oriented, No Motor Deficits and Nonfocal/Grossly Intact
Psych: Calm
--- NOTE | 2024-10-17 13:33 | W.PN.CARDCBS ---
Today's Communication / Plan
-
Recheck EKG given recurrence of atrial fibrillation
Favor increased intensity hemodialysis, may be 10 to 15 pounds above dry weight
Continue amiodarone
Would not cardiovert at this point, if still in A-fib could consider as outpatient
Impression / Plan
-
Primary Painter [employer]: Dr. Dedra Crandall of [place]
Assessment:
79-year-old complex man with ROBIN on CKD and history of lupus nephritis, now admitted with acute on chronic HFrEF related to tachycardia mediated cardiomyopathy from atrial fibrillation/flutter with rapid ventricular response
Presentation with weight gain, decreased urine output
ROBIN on CKD, progressing to likely ESRD, lupus nephritis
Acute HF, reduced EF
Atrial flutter/atrial fibrillation
Anemia
bifascicular block
pulm HTN
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
RA
mod AR by echo 2020
HTN
Hypothyroidism
GERD
Gout
History of prostate cancer s/p prostatectomy 2005
DNR code status
ECHO 2020: EF 60 to 65%, mild concentric LVH, moderate AR, mild TR, PAP 60 mmHg, mild ascending aorta dilation
Echo 10/05/2024: EF 30-35%, stage II diastolic dysfunction, dilated atria, normal RV, mild to moderate MR, mild AI, pulmonary artery pressure 51 mmHg
Plan:
Unfortunately, he is back in atrial fibrillation or flutter since October 14 in the afternoon. Having been on amiodarone for more than a week, his heart rate is better controlled, now around 100 and he seems to be tolerating this hemodynamically.
Previously when he was hemodynamically stable his heart rate was in the 130s or higher. Will recheck EKG.
He is currently on hemodialysis at the time of my visit.
He is thrombocytopenic but still anticoagulated. HIT panel has been drawn.
From a volume standpoint I still think he could be 10 to 15 pounds above his dry weight. Chest x-ray looks like heart failure. Would be in favor of intensified hemodialysis if tolerated and nephrology agrees.
I am reluctant to cardiovert him again. After his first cardioversion he would spontaneously go back into sinus rhythm and hopefully this will be the case again.
From my standpoint okay to proceed with discharge planning.
Given marginal blood pressure I did not increase metoprolol. We could consider digoxin if needed.
PREADMIT DATA:
79-year-old male with past medical history of chronic kidney disease stage III-IV, pulmonary hypertension, interstitial lung disease with pulmonary fibrosis on home oxygen, moderate aortic regurgitation who presents to [facility] with acute
on chronic renal failure and acute congestive heart failure with preserved ejection fraction. He is followed at [facility] by nephrology and cardiology and pulmonary. He takes Ofev and Tyvaso as an outpatient. He has noticed for
the past 10 days or so and elevation his heart rate in the 120s. He felt no palpitations or chest pains but then started noticing fatigue, shortness of breath and an inability to urinate. He was found to be in acute renal failure with a creatinine
of 5. His baseline creatinine is in the 2-2.5 range. On presentation found to have atrial flutter with 2-1 conduction
Total time today 54 minutes
Progress Note - Painter [employer]
Subjective
Date of Service: October 17, 2024:
PMH/PSH/SH/FH: Reviewed
Hydroxychloroquine, levothyroxine 125 mcg a day, Ofev, pantoprazole, Tyvaso, prednisone 10 mg a day, apixaban 5 mg twice daily, metoprolol ER 12.5 twice daily, Lyrica,, midodrine 5 mg 3 times daily, amiodarone 200 mg twice daily, Omnicef, Flagyl
101/68, pulse 3, resp rate 17, no distress, hemodialysis catheter in right infraclavicular fossa, head neck exam unremarkable, lungs are diminished in bases, irregular relatively tachycardic rate without obvious murmurs, JVD probably okay, 2+ edema,
abdomen benign
Hemoglobin 10, white count 12.3, sodium 131, potassium 5.6, creatinine 6.1
Chest x-ray: Moderate left and small right pleural effusion, some vascular congestion
Objective
Labs:
10/17/24 06:43
10/17/24 06:43
Labs
Hgb 10.0 g/dL (13.0-18.0) L 10/17/24 06:43
Hct 34.8 % (39.0-52.0) L 10/17/24 06:43
Plt Count 109 10^3/uL (130-400) L D 10/17/24 06:43
PT 36.9 Sec (11.4-14.6) H 10/14/24 04:18
INR 3.70 D 10/14/24 04:18
APTT 58.4 Sec (23.4-35.0) H 10/14/24 04:18
Sodium 131 mmol/L (135-145) L 10/17/24 06:43
Potassium 5.6 mmol/L (3.5-5.1) H 10/17/24 06:43
BUN 87 mg/dl (9-20) H 10/17/24 06:43
Creatinine 6.1 mg/dL (0.7-1.3) H* 10/17/24 06:43
Glucose 104 mg/dl (70-99) H 10/17/24 06:43
Vital Signs and I&O:
Vital Signs
Temp Pulse Resp BP Pulse Ox
36.5 C 103 17 101/68 94
10/17/24 11:17 10/17/24 11:17 10/17/24 11:17 10/17/24 11:17 10/17/24 11:17
Vital Signs
Temp Pulse Resp BP Pulse Ox
36.5 C 103 17 101/68 94
10/17/24 11:17 10/17/24 11:17 10/17/24 11:17 10/17/24 11:17 10/17/24 11:17
Intake & Output
10/15/24 10/16/24 10/17/24 10/18/24
07:59 07:59 07:59 07:59
Intake Total 440 / 440 720 / 720
Output Total 0 / 0
Balance 440 / 440 720 / 720
Physical Exam
Physical Exam
See above
[2024-10-17] MEDS: RETACRIT 6000 UNITS IV (13:34)
--- NOTE | 2024-10-17 13:56 | W.PN.PAL2 ---
Today's Communication
-
receiving HD at bedside, no family present. Lethargic
met with hospice, not interested at this time
plan for SNF and eventual peritoneal HD
Pain & Symptom Assessment
[place] Symptom Scale 0=none, 10=worst
Pain: 0
Drowsy: 5
Objective Data
-
Objective Data:
Vital Signs
Temp Pulse Resp BP Pulse Ox
97.7 F 103 17 101/68 94
10/17/24 11:17 10/17/24 11:17 10/17/24 11:17 10/17/24 11:17 10/17/24 11:17
Laboratory Results
10/17/24 06:43
10/17/24 06:43
PT 36.9 Sec (11.4-14.6) H 10/14/24 04:18
INR 3.70 D 10/14/24 04:18
APTT 58.4 Sec (23.4-35.0) H 10/14/24 04:18
Total Protein 5.0 g/dl (6.3-8.2) L 10/04/24 18:11
Albumin 3.2 g/dl (3.5-5.0) L 10/04/24 18:11
TSH 1.16 uIU/ml (0.47-4.68) 10/05/24 11:38
Free T4 1.12 ng/dl (0.78-2.19) 10/05/24 11:38
Urine Color Yellow 10/05/24 12:10
Urine Clarity Clear (Clear) 10/05/24 12:10
Urine pH 5.0 (5.0-9.0) 10/05/24 12:10
Ur Specific [place] 1.015 (<1.030) 10/05/24 12:10
Urine Ketones Negative (Negative) 10/05/24 12:10
Urine Bilirubin Negative (Negative) 10/05/24 12:10
Palliative Performance Scale
Palliative Performance Scale:
PPS Level Ambulation Activity & Evidence of Disease Self Care Intake Conscious Level
100% Full Normal Activity & Work; Full Intake Full
No Evidence of Disease
90% Full Normal Activity & Work; Full Normal Full
Some Evidence of Disease
80% Full Normal Activity with Effort Full Normal or Full
Some Evidence of Disease Reduced
70% Reduced Unable Normal Job/Work Full Normal or Full
Significant Disease Reduced
60% Reduced Unable Hobby/Housework Occasional Normal or Full or Confusion
Significant Disease Assistance Reduced
50% Mainly Sit/Lie Unable to do Any Work Considerable Normal or Full or Confusion
Extensive Disease Assistance Req'd Reduced
40% Mainly in Bed Unable to do Most Activity Mainly Assistance Normal or Full or Drowsy;
Extensive Disease Reduced +/- Confusion
30% Totally Bed Unable to do Any Activity Total Care Normal or Full or Drowsy;
Bound Extensive Disease Reduced +/- Confusion
20% Totally Bed Bound Unable to do Any Activity Total Care Minimal to Full or Drowsy;
Extensive Disease Sips +/- Confusion
10% Totally Bed Bound Unable to do Any Activity Total Care Mouth Care Drowsy or Coma;
Extensive Disease Only +/- Confusion
0%
PPS Score Level:
Physical Exam
-
General: No Apparent Distress and Comfortable
HEENT: Normocephalic
Respiratory: Clear to Auscultation
GI: Soft
Skin: Warm
Psych: Calm
--- NOTE | 2024-10-17 14:35 | W.PN.NEPH.HD ---
Assessment
-
Seen on HD. no complaints. Still on 5L O2 (vs 3L at home) VSS, access ok
Progress Note - Hemodialysis
-
Date of Service: October 17, 2024
Duration: 30 minutes and 3 hours
Potassium Bath: 2
Calcium Bath: 2.5
Opti-Dialyzer: 160
Ultrafiltration: Other (2kg)
Blood Flow: 400
Dialysate Flow: 600
Heparin: no
EPO: 6000 units
[2024-10-17 15:00] VITALS: BP 94/59
[2024-10-17] MEDS: FLAGYL 500 MG PO ×2 (15:51→23:06)
[2024-10-17] MEDS: HEPARIN 4300 UNITS INTRACATH (16:14)
--- NOTE | 2024-10-17 17:16 | CM ---
Spoke with patient's and son who stated that they met with hospice and are not ready/patient is not ready to pursue. Patient's is hoping that patient will continue to tolerate dialysis and that he can go to rehab. They would like for him
to go to [facility]. Referral sent. Awaiting bed availability.
Plan: Case management will continue to follow and assist with discharge planning. SNF with dialysis.
[2024-10-17] MEDS: OMNICEF 300 MG PO (17:55)
[2024-10-17 19:20] VITALS: BP 101/67
[2024-10-17] MEDS: TOPROL XL PO (20:06)
[2024-10-17] MEDS: TYLENOL 650 MG PO (20:11)
[2024-10-17 23:10] VITALS: BP 105/75
[2024-10-18 03:00] VITALS: BP 106/60
[2024-10-18 04:08] VITALS: BMI 29.5
[2024-10-18] MEDS: SYNTHROID 125 MCG PO (05:54)
[2024-10-18] MEDS: PROTONIX 40 MG PO (05:54)
[2024-10-18 06:39] LABS: NT-proBNP > 27000 pg/ml
[2024-10-18 07:38] VITALS: BP 101/71
--- NOTE | 2024-10-18 08:00 | W.PN.UPDATE ---
Update Note
Progress Note Update
HIT negative
platelets are recovering
Hematology will sign off
[2024-10-18] MEDS: NON-FORMULARY ITEM 1 PUFF INH (08:11)
[2024-10-18] MEDS: NON-FORMULARY ITEM 12 INH INH ×2 (08:12→11:52)
[2024-10-18] MEDS: PLAQUENIL 200 MG PO ×2 (08:21→19:54)
[2024-10-18] MEDS: VITAMIN C 1000 MG PO (08:21)
[2024-10-18] MEDS: DELTASONE 10 MG PO (08:21)
[2024-10-18] MEDS: VITAMIN D3 (cholecalciferol) 50 MCG PO (08:21)
[2024-10-18] MEDS: OCUVITE SOFTGEL 1 CAP PO (08:21)
[2024-10-18] MEDS: FLAGYL 500 MG PO ×2 (08:21→15:09)
[2024-10-18] MEDS: ELIQUIS 5 MG PO ×2 (08:22→19:38)
[2024-10-18] MEDS: LYRICA 75 MG PO (08:22)
[2024-10-18] MEDS: OSCAL 500 + D 500 MG PO ×2 (08:22→19:38)
[2024-10-18] MEDS: TOPROL XL 12.5 MG PO ×2 (08:22→19:38)
[2024-10-18] MEDS: PACERONE 200 MG PO ×2 (08:22→19:38)
[2024-10-18] MEDS: ProAmatine 5 MG PO (08:23)
[2024-10-18] MEDS: NON-FORMULARY ITEM 150 MG PO (08:24)
--- NOTE | 2024-10-18 08:54 | W.PN.NEPH.PH ---
Today's Communication / Plan
-
HD tomorrow
Assessment/Plan
-
IMP;
Acute on chronic respiratory failure
decompensated heart failure exacerbation with pulmonary edema
ROBIN on CKD 3 vs 4?- lupus nephritis cr 2.2 in 2021-nephrology at [facility] Dr Davis
Hyperkalemia
Hyponatremia
Metabolic acidosis
Hyperphosphatemia
SHPTH
Anemia
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
KAI on CPAP
HTN
Hypothyroidism
Gout
Prostate ca, s/p prostatectomy 2005
lupus
rheumatoid arthritis
Klebsiella UTI 10/09/24
Plan:
HD tomorrow
continue to challenge weight
increase midodrine to 7.5mg TID
dc planning
-
-
Date of Service: October 18, 2024
CC / HPI / ROS
-
Chief Complaint:
ROBIN, CKD
History of Present Illness:
Patient now on dialysis Thursday schedule
tolerated HD yesterday
BP stable on midodrine support
Review of Systems:
no cp
on 5L NC now. mild SOB
Labs
-
Labs:
WBC 12.3 10^3/uL (4.8-10.8) H 10/17/24 06:43
RBC 3.56 10^6/uL (4.70-6.10) L 10/17/24 06:43
Hgb 10.0 g/dL (13.0-18.0) L 10/17/24 06:43
Hct 34.8 % (39.0-52.0) L 10/17/24 06:43
Plt Count 109 10^3/uL (130-400) L D 10/17/24 06:43
Sodium 131 mmol/L (135-145) L 10/17/24 06:43
Potassium 5.6 mmol/L (3.5-5.1) H 10/17/24 06:43
Chloride 94 mmol/L (98-107) L 10/17/24 06:43
Carbon Dioxide 21 mmol/L (22-30) L 10/17/24 06:43
BUN 87 mg/dl (9-20) H 10/17/24 06:43
Creatinine 6.1 mg/dL (0.7-1.3) H* 10/17/24 06:43
eGFR 8.80 10/17/24 06:43
Glucose 104 mg/dl (70-99) H 10/17/24 06:43
Calcium 7.8 mg/dl (8.4-10.2) L 10/17/24 06:43
Phosphorus 5.1 mg/dl (2.5-4.5) H 10/05/24 11:38
Env-W-Zvmqeiiavsc Pept > 38871 pg/ml 10/18/24 06:11
Albumin 3.2 g/dl (3.5-5.0) L 10/04/24 18:11
Physical Exam
-
Vital Signs:
Vital Signs
Temp Pulse Resp BP Pulse Ox
97.5 F 115 16 101/71 94
10/18/24 07:38 10/18/24 08:23 10/18/24 08:12 10/18/24 08:23 10/18/24 08:12
Cardiovascular:: Regular rate and rhythm
Respiratory:: Bilateral: Coarse
Lung Excursion:: Normal
Abdomen:: Nontender and Soft
Bowel Sounds:: Normal
Extremity Edema:: None: Bilateral:
[2024-10-18 10:49] VITALS: BP 98/69
[2024-10-18 12:30] VITALS: BP 102/69; PULSE 113; O2SAT 94
--- NOTE | 2024-10-18 13:17 | W.PN.HOSP.TC ---
Today's Communication/Plan
-
discharge planning for snf rehab
Assessment / Plan
Assessment / Plan
1. Acute on chronic systolic congestive heart failure
Acute hypoxic respiratory insufficiency
-Chest x-ray showing signs of cardiogenic pulmonary edema at admission
-Echocardiogram in 21 showing EF 60 to 65%, normal diastolic function. Pulmonary artery pressure of 60 mmHg
-Repeat echocardiogram showing EF of 30 to 35%, stage II diastolic dysfunction. Moderate MR. Prem pulm HTN.
-Suboptimal response with diuretic, patient started on hemodialysis for volume optimization
-Palliative care/hospice discussed and patient family not agreeable at this stage.
2. 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
ESRD on HD - new this admission
-Relatively bland urine, no significant proteinuria
-Renal and bladder ultrasound showing a likely benign right renal mass with some calcification. No hydronephrosis
-Concern of potential cardiorenal syndrome, on top of underlying lupus nephritis
-Currently getting hemodialysis Thursday
-Requiring midodrine support for HD
3. Hyperkalemia
Metabolic acidosis
Euvolemic hyponatremia
-secondary to ESRD
-Potassium restricted diet
-on HD
4. Essential hypertension
Hypotension
-on small dose toprol for simultaneous rate control
5. pulmonary fibrosis
-Continue oral prednisone 10 mg p.o. daily
-on ofev at home
6. History of lupus nephritis
Rheumatoid arthritis
-maintain on oral prednisone, dose increased to 10mg/d. got solucortef injection
-continue plaquenil
7. Iron def anemia
-Ferritin of 16, saturation 7%
-IV ferlicit given
8. Atrial flutter with 2-1 conduction
-Cardiology following and patient currently on Eliquis 5 mg p.o. twice a day
-Patient is s/p MANUEL and cardioversion. He was in normal sinus rhythm after amiodarone initiation and then went back into A-fib RVR intermittently.
-On metoprolol succinate 12.5 mg p.o. twice a day.
-On amiodarone to 200 mg p.o. twice a day.
9. Thrombocytopenia
-hematology signed off.
Per Dr Mcadams :
- Checked with and last platelet count back in early August were low as well as outpatient and now in the 50,000 range
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 Labs not indicative of DIC or B12 or folate deficiency as expected. HIT testing pending but less likely as well.
Most likely etiology HD or Amio or Rocephin related. In any event for now platelet count although low they have remained relatively stable and no signs of bleeding. Continue to monitor closely. Platelets up to 80,000 today which is closer to his
baseline.
10. Klebsiella UTI
-Finished course of Rocephin
11. Aspiration pneumonia
-Patient right lower lobe on x-ray showing some new infiltrate, possibly component of aspiration versus atelectasis
-Allergic to penicillin, 5-day course of Omnicef/Flagyl ordered
hypothyroidism
GERD
prostate cancer
prostatectomy 2005
gout
Code Status: DNR
DVT Prophylaxis: Eliquis
Anticipated Discharge: Within 24 hours
Subjective/Interval History
-
Date of Service: October 18, 2024
Resting comfortably in bed
Remains on oxygen through nasal cannula
No acute issues reported
Objective Data
-
Vital Signs:
Vital Signs
Temp Pulse Resp BP Pulse Ox
97.7 F 100 16 98/69 92
10/18/24 10:49 10/18/24 11:54 10/18/24 11:54 10/18/24 10:49 10/18/24 10:49
I&O
10/17/24 10/18/24 10/19/24
06:59 06:59 06:59
Intake Total 120 / 120
Balance 120 / 120
Review of Systems
-
Respiratory: Reports No Symptoms
Cardiac: Reports No Symptoms
Abdomen/GI: Reports No Symptoms
Physical Exam
-
General: Comfortable
HEENT: Negative Oxygen
Respiratory: Clear to Auscultation
Cardiac: Regular Rhythm and S1/S2; Negative Murmur or Rub
GI: Soft, Nontender and Nondistended
Musculoskeletal: No Edema
Neuro: Awake, Alert, Oriented, No Motor Deficits and Nonfocal/Grossly Intact
Psych: Calm
[2024-10-18] MEDS: ProAmatine 7.5 MG PO ×2 (13:48→17:19)
[2024-10-18] MEDS: ZOFRAN 4 MG IV ×2 (14:08→19:56)
[2024-10-18] MEDS: ROBITUSSIN DM 10 ML PO (14:08)
--- NOTE | 2024-10-18 15:09 | CM ---
Addendum entered by ADRY Keller 10/18/24 15:13:
Received call from Italia at [facility] who left voice mail message requesting call back at [phone] ext [phone]
to receive updated information. Placed a return call however had to leave a message. Provided CM contact info.
Original Note:
Patient's family not willing to accept bed at [facility]. Placed a call to [facility] and talked to Juli in admissions who stated that she still as of yet does not have a dialysis bed. She stated that as patient was going to continue going to
[facility] in [facility], they may be able to provide transportation there back and forth until something opens up. She stated that she would return call with a determination.
Plan: Case management will continue to follow and assist with discharge planning. SNF with dialysis when stable and bed available.
[2024-10-18] MEDS: NON-FORMULARY ITEM 1 INH INH ×2 (15:10→20:12)
[2024-10-18 15:50] VITALS: BP 95/62
--- NOTE | 2024-10-18 15:51 | W.PN.CARDCBS ---
Addendum entered and electronically signed by Albino Reeves MD 10/18/24 19:34:
Late entry: Patient seen at 12:15 PM
79-year-old man with interstitial lung disease, advanced CKD admitted with progressive heart failure with reduced EF likely tachycardia mediated related to atrial fibrillation and flutter. During his hospital stay he progressed to end-stage renal
disease. He required cardioversion and had recurrence post cardioversion atrial fibrillation which was initially paroxysmal and now is persistent despite amiodarone therapy. Initially thrombocytopenic, HIT panel is normal, . For dialysis
tomorrow. He feels reasonably well
Medications: Hydroxychloroquine 20 mg twice daily, levothyroxine 125 mcg a day, Ofev, Protonix, Tyvaso, Breo Ellipta, prednisone 10 mg a day, apixaban 5 mg twice daily, metoprolol ER 12.5 mg twice daily, Lyrica, amiodarone 200 mg twice daily,
Omnicef 3 days a week, Flagyl 500 every 8 midodrine as needed hemodialysis, Epogen, midodrine 7.5 mg 3 times daily Some crackles in the bases, tachycardic rhythm, JVD difficult to assess abdomen benign, still with edema
98/69, pulse 100, resp rate 16, afebrile, sats 92%, weight is 90.6 kg, down 1.1 kg, proBNP is greater than 27,000
No labs today
EKG yesterday, atrial Fibrillation with right bundle branch block and left anterior fascicular block
Impression:
Recurrent atrial fibrillation since
Acute on chronic HFrEF, likely tachycardia mediated
ESRD, now on HD
Other diagnoses as listed below
Plan:
He does not look bad but is slowly slipping back into acute heart failure in the setting of recurrent atrial fibrillation despite amiodarone therapy.
.
He is still volume overloaded.
.
From cardiac standpoint, best option is to restore sinus rhythm. Likelihood of recurrence of atrial fibrillation may be relatively high, but all are agreed that we will proceed with cardioversion again in the morning. Will continue amiodarone.
.
He has a left pleural effusion, we may need to consider thoracentesis.
.
Hopefully, with sikhism of sinus rhythm and repeated hemodialysis he can reach dry weight. Would estimate he is still probably 10 to 15 pounds above dry weight. His proBNP continues to rise.
Original Note:
Today's Communication / Plan
-
Continue on amiodarone with plan for Cardioversion 10/19/2024
Continue anticoagulation with Eliquis
HD 10/19/2024
Wean oxygen as tolerated
Could consider thoracentesis of left lung if unable to wean oxygen
Impression / Plan
-
Primary Cash Applications Analyst: Dr. Dedra Crandall of [place]
Assessment:
79-year-old complex man with ROBIN on CKD and history of lupus nephritis, now admitted with acute on chronic HFrEF related to tachycardia mediated cardiomyopathy from atrial fibrillation/flutter with rapid ventricular response
Presentation with weight gain, decreased urine output
ROBIN on CKD, progressing to likely ESRD, lupus nephritis
Acute HF, reduced EF
Atrial flutter/atrial fibrillation
Anemia
bifascicular block
pulm HTN
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
RA
mod AR by echo 2020
HTN
Hypothyroidism
GERD
Gout
History of prostate cancer s/p prostatectomy 2005
DNR code status
ECHO 2020: EF 60 to 65%, mild concentric LVH, moderate AR, mild TR, PAP 60 mmHg, mild ascending aorta dilation
Echo 10/05/2024: EF 30-35%, stage II diastolic dysfunction, dilated atria, normal RV, mild to moderate MR, mild AI, pulmonary artery pressure 51 mmHg
Plan:
Continues to be in atrial fibrillation/flutter since October 14. Patient had a cardioversion on 10/07/2024. Following this he was started on IV amiodarone and has been maintained on oral amiodarone 200 more than a week.
Heart rate still not optimally controlled and BP remains marginal. Patient would do better with sikhism of sinus rhythm. Therefore would consider pursuing cardioversion on 10/19/2024 in hopes of restoring and maintaining sinus rhythm.
Acute on chronic heart failure with reduced ejection fraction. Volume status is now being managed by hemodialysis. Next dialysis session due for 10/19/2024. Would be in favor of intensified hemodialysis if tolerated and nephrology agree.
Chest x-ray from 10/17/2024 shows stable moderate left pleural effusion and small right pleural effusion. If remains symptomatic could consider thoracentesis.
He is thrombocytopenic, HIT panel negative. Remains anticoagulated on Eliquis 5 mg twice a day. Hemoglobin stable at 10.0.
Blood pressure remains marginal. Hopefully will improve with sikhism of sinus rhythm. Continue low dose metoprolol. Patient now getting midodrine as needed with dialysis
PREADMIT DATA:
79-year-old male with past medical history of chronic kidney disease stage III-IV, pulmonary hypertension, interstitial lung disease with pulmonary fibrosis on home oxygen, moderate aortic regurgitation who presents to [facility] with acute
on chronic renal failure and acute congestive heart failure with preserved ejection fraction. He is followed at [facility] by nephrology and cardiology and pulmonary. He takes Francisca and Jensen as an outpatient. He has noticed for
the past 10 days or so and elevation his heart rate in the 120s. He felt no palpitations or chest pains but then started noticing fatigue, shortness of breath and an inability to urinate. He was found to be in acute renal failure with a creatinine
of 5. His baseline creatinine is in the 2-2.5 range. On presentation found to have atrial flutter with 2-1 conduction
Progress Note - Cash Applications Analyst
Subjective
Date of Service: October 18, 2024
Patient seen and examined. Patient's at bedside. Patient still notes some shortness of breath, lower extremity edema. remains on oxygen
Objective
Labs:
10/17/24 06:43
10/17/24 06:43
Labs
Hgb 10.0 g/dL (13.0-18.0) L 10/17/24 06:43
Hct 34.8 % (39.0-52.0) L 10/17/24 06:43
Plt Count 109 10^3/uL (130-400) L D 10/17/24 06:43
PT 36.9 Sec (11.4-14.6) H 10/14/24 04:18
INR 3.70 D 10/14/24 04:18
APTT 58.4 Sec (23.4-35.0) H 10/14/24 04:18
Sodium 131 mmol/L (135-145) L 10/17/24 06:43
Potassium 5.6 mmol/L (3.5-5.1) H 10/17/24 06:43
BUN 87 mg/dl (9-20) H 10/17/24 06:43
Creatinine 6.1 mg/dL (0.7-1.3) H* 10/17/24 06:43
Glucose 104 mg/dl (70-99) H 10/17/24 06:43
Vital Signs and I&O:
Vital Signs
Temp Pulse Resp BP Pulse Ox
97.6 F 113 16 95/62 91
10/18/24 15:50 10/18/24 15:50 10/18/24 15:50 10/18/24 15:50 10/18/24 15:50
Vital Signs
Temp Pulse Resp BP Pulse Ox
97.6 F 113 16 95/62 91
10/18/24 15:50 10/18/24 15:50 10/18/24 15:50 10/18/24 15:50 10/18/24 15:50
Intake & Output
10/16/24 10/17/24 10/18/24 10/19/24
06:59 06:59 06:59 06:59
Intake Total 720 / 720 120 / 120
Balance 720 / 720 120 / 120
Physical Exam
Physical Exam
GEN: No distress, awake, Ox3 lying in bed
HEENT: supple, anicteric, mmm
LUNGS: Absent breath sounds at bilateral bases left greater than right, currently on oxygen via nasal cannula 4 L
CV: Irregularly irregular, S1/S2, 1/6 syst murmur, no rub or gallop
ABD: soft, BS+, NT/ND
EXT: +2-3 lower extremity edema
NEURO: Gross non-focal
SKIN: No rash, warm, dry, pink
[2024-10-18] MEDS: COMPAZINE 10 MG IV (17:56)
[2024-10-18 19:00] VITALS: BP 96/69
[2024-10-18] MEDS: FLUSH (NSS) 4 FLUSH IV (19:55)
[2024-10-19] MEDS: FLAGYL 500 MG PO ×4 (00:09→23:07)
--- NOTE | 2024-10-19 02:08 | DOWNTIME ---
There was a [employer] Client Aquac[employer]urist Downtime on 10/19/2024 from 0100 to 10/19/2023 at 0205 . Downtime documentation of patient's care, including medication administrations, has been reconciled in the electronic record per guidelines. Refer to the
patient's paper chart under the miscellaneous tab to see printed paper medication records and downtime forms.
[2024-10-19 03:05] VITALS: BP 104/74
[2024-10-19 05:02] VITALS: BMI 29.6
[2024-10-19] MEDS: SYNTHROID 125 MCG PO (06:07)
[2024-10-19 07:33] VITALS: BP 102/72
[2024-10-19] MEDS: VITAMIN C 1000 MG PO (07:39)
[2024-10-19] MEDS: ELIQUIS 5 MG PO ×2 (07:39→20:14)
[2024-10-19] MEDS: OSCAL 500 + D 500 MG PO ×2 (07:39→20:15)
[2024-10-19] MEDS: ROCALTROL 0.25 MCG PO (07:39)
[2024-10-19] MEDS: PACERONE 200 MG PO ×2 (07:40→20:15)
[2024-10-19] MEDS: PROTONIX 40 MG PO (07:40)
[2024-10-19] MEDS: PLAQUENIL 200 MG PO ×2 (07:40→20:15)
[2024-10-19] MEDS: VITAMIN D3 (cholecalciferol) 50 MCG PO (07:40)
[2024-10-19] MEDS: ProAmatine 7.5 MG PO ×3 (07:40→17:47)
[2024-10-19] MEDS: OCUVITE SOFTGEL 1 CAP PO (07:41)
[2024-10-19] MEDS: TOPROL XL 12.5 MG PO ×2 (07:41→20:15)
[2024-10-19] MEDS: LYRICA 75 MG PO (07:41)
[2024-10-19] MEDS: DELTASONE 10 MG PO (07:41)
[2024-10-19] MEDS: COMPAZINE 10 MG IV (07:42)
[2024-10-19] MEDS: NON-FORMULARY ITEM 150 MG PO (07:49)
[2024-10-19] MEDS: NON-FORMULARY ITEM 1 INH INH ×3 (07:50→17:48)
[2024-10-19] MEDS: NON-FORMULARY ITEM 1 PUFF INH (08:00)
--- NOTE | 2024-10-19 09:41 | W.PN.CARDCBS ---
Addendum entered and electronically signed by Daniel Leon MD 10/19/24 10:01:
Patient has been maintained on Eliquis for the past week with no missed doses
Original Note:
Today's Communication / Plan
-
Cardioversion today on amiodarone for the past week
High risk of recurrent A-fib
Hopefully rastafari of sinus rhythm will help blood pressure and may aid in dialysis
Discussed with at bedside
Impression / Plan
-
Primary Die Tripper: Dr. Dedra Crandall of [place]
Assessment:
79-year-old complex man with ROBIN on CKD and history of lupus nephritis, now admitted with acute on chronic HFrEF related to tachycardia mediated cardiomyopathy from atrial fibrillation/flutter with rapid ventricular response
Presentation with weight gain, decreased urine output
ROBIN on CKD, progressing to likely ESRD, lupus nephritis
Acute HF, reduced EF
Atrial flutter/atrial fibrillation
Anemia
bifascicular block
pulm HTN
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
RA
mod AR by echo 2020
HTN
Hypothyroidism
GERD
Gout
History of prostate cancer s/p prostatectomy 2005
DNR code status
ECHO 2020: EF 60 to 65%, mild concentric LVH, moderate AR, mild TR, PAP 60 mmHg, mild ascending aorta dilation
Echo 10/05/2024: EF 30-35%, stage II diastolic dysfunction, dilated atria, normal RV, mild to moderate MR, mild AI, pulmonary artery pressure 51 mmHg
Plan:
Continues to be in atrial fibrillation/flutter since October 14. Patient had a cardioversion on 10/07/2024. Following this he was started on IV amiodarone and has been maintained on oral amiodarone 200 more than a week.
We will do cardioversion today but is high risk of recurrent A-fib.
Hopefully respirations sinus rhythm will help blood pressure and aid in dialysis.
Volume status being controlled by nephrology with dialysis
Discussed with at bedside
PREADMIT DATA:
79-year-old male with past medical history of chronic kidney disease stage III-IV, pulmonary hypertension, interstitial lung disease with pulmonary fibrosis on home oxygen, moderate aortic regurgitation who presents to [facility] with acute
on chronic renal failure and acute congestive heart failure with preserved ejection fraction. He is followed at [facility] by nephrology and cardiology and pulmonary. He takes Ofev and Tyvaso as an outpatient. He has noticed for
the past 10 days or so and elevation his heart rate in the 120s. He felt no palpitations or chest pains but then started noticing fatigue, shortness of breath and an inability to urinate. He was found to be in acute renal failure with a creatinine
of 5. His baseline creatinine is in the 2-2.5 range. On presentation found to have atrial flutter with 2-1 conduction
Progress Note - Die Tripper
Subjective
Date of Service: October 19, 2024
No complaints
Objective
Labs:
Labs
Hgb 10.0 g/dL (13.0-18.0) L 10/17/24 06:43
Hct 34.8 % (39.0-52.0) L 10/17/24 06:43
Plt Count 109 10^3/uL (130-400) L D 10/17/24 06:43
PT 36.9 Sec (11.4-14.6) H 10/14/24 04:18
INR 3.70 D 10/14/24 04:18
APTT 58.4 Sec (23.4-35.0) H 10/14/24 04:18
Sodium 131 mmol/L (135-145) L 10/17/24 06:43
Potassium 5.6 mmol/L (3.5-5.1) H 10/17/24 06:43
BUN 87 mg/dl (9-20) H 10/17/24 06:43
Creatinine 6.1 mg/dL (0.7-1.3) H* 10/17/24 06:43
Glucose 104 mg/dl (70-99) H 10/17/24 06:43
Vital Signs and I&O:
Vital Signs
Temp Pulse Resp BP Pulse Ox
97.6 F 94 16 102/72 94
10/19/24 07:33 10/19/24 07:41 10/19/24 07:33 10/19/24 07:41 10/19/24 07:33
Vital Signs
Temp Pulse Resp BP Pulse Ox
97.6 F 94 16 102/72 94
10/19/24 07:33 10/19/24 07:41 10/19/24 07:33 10/19/24 07:41 10/19/24 07:33
Intake & Output
10/17/24 10/18/24 10/19/24 10/20/24
06:59 06:59 06:59 06:59
Intake Total 120 / 120 720 / 720
Balance 120 / 120 720 / 720
Physical Exam
Physical Exam
General: Well developed, well nourished in NAD.
Neck: Supple, no JVD, HJR, carotids +2 B/L, no bruits bilaterally.
Heart: Non displaced PMI, irregular, no murmurs, No S3, S4, no rubs.
Lungs: Scattered rhonchi
Extremities: No clubbing, cyanosis or edema bilaterally.
Neuro: Grossly nonfocal, awake, alert and oriented x3.
--- NOTE | 2024-10-19 10:27 | WOUNDNOTE ---
RIGHT LOWER LEG 1945 [facility]#[id number]
--- NOTE | 2024-10-19 10:30 | WOUNDNOTE ---
WON RN note: Patient admitted with Acute renal failure, CHF.
See H&P for complete history. Lives with .
PMH: Pulmonary fibrosis-O2 3L, HTN, Diarrhea, prostate cancer, RA, anemia, lupus and kidney mass-ablation.
Wound Location and type/assessment: Patient admitted with: sacral stage 1 PI nurse Mary Ellen reports and now looks worse, documented as unstageable. at bedside and confirmed that patient is incontinent at times of stool. With assist of nurse
Romella had patient stand using walker, patient very weak and had to sit back down. Skin with flaky peeling skin and pink irregular appearing weeping clusters, brief in use. Using air cushion and turning schedule in effect. Sacrum/buttocks with what
appears to be MASD vs true stage 2PI, vs lupus related, silicone foam in use. R lower leg with purple bruise, does not appear to be a hematoma. Suspect due to comorbidities ulcer may evolve and become worse, at bedside aware. Reviewed
palliative care note, patient and family refusing hospice at this time.
Appetite: Fair, dietary on consult.
Pressure redistribution devices in place: Patient currently using versa care air bed, complained to staff that it was uncomfortable, air overlay added and still not comfortable. New Versa care air bed will be placed in today.
Plan: A&D ointment to dry peeling areas followed by Silicone foam. Recommend holding off on brief, use Ultrasorb pad instead and change prn soilage. leg elevation when sitting with pillows under calves. Turning schedule.
Will confirm orders with hospitalist and updated nurse Hyde who confirmed new bed will be switched out when patient down for test this morning. Updated care plan and will follow as needed.
Note to case management of equipment requested for discharge: VN if going home
Recommend follow up at wound care center upon discharge.
--- NOTE | 2024-10-19 12:17 | CM ---
Case discussed with RN and spoke with family to clarify discharge plans and dialysis. Call placed to Charlette at outpatient dialysis unit to determine when pt will be able to start receiving dialysis while at [facility]. Charlette advised that she
had not received any documentation or dialysis treatment sheets, so has not been able to process the start of care. CM faxed progress notes and HD sheets Plan for transfer to [facility] with transport to outpatient dialysis until a dialysis
chair is available at [facility]. [facility] may be able to transport - need to confirm this once pt is closer to discharge.
[2024-10-19] MEDS: ProAmatine 5 MG PO (12:50)
[2024-10-19 13:38] LABS: Hematocrit 35.2 % (39.0-52.0); Hemoglobin 10.2 g/dL (13.0-18.0); Mean Corpuscular Hgb 28.9 pg (27.0-31.0); Mean Corpuscular Volume 99.7 fL (80.0-94.0); Mean Platelet Volume 12.2 fL (7.4-10.4); Platelet Count 142 10^3/uL (130-400); Red Blood Cell Count 3.53 10^6/uL (4.70-6.10); Red Cell Dist. Width 22.1 % (11.5-14.5); White Blood Cell Count 13.3 10^3/uL (4.8-10.8)
[2024-10-19] MEDS: MANNITOL 25% 12.5 GRAMS IV ×2 (13:40→15:35)
--- NOTE | 2024-10-19 13:46 | W.PN.HOSP.TC ---
Today's Communication/Plan
-
for cardioversion today
finish course of abx
HD per nephro
eventual snf rehab placement
Assessment / Plan
Assessment / Plan
1. Acute on chronic systolic congestive heart failure
Acute hypoxic respiratory insufficiency
-Chest x-ray showing signs of cardiogenic pulmonary edema at admission
-Echocardiogram in 21 showing EF 60 to 65%, normal diastolic function. Pulmonary artery pressure of 60 mmHg
-Repeat echocardiogram showing EF of 30 to 35%, stage II diastolic dysfunction. Moderate MR. Prem puldaisha HTN.
-Suboptimal response with diuretic, patient started on hemodialysis for volume optimization
-Palliative care/hospice discussed and patient family not agreeable at this stage.
2. 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
ESRD on HD - new this admission
-Relatively bland urine, no significant proteinuria
-Renal and bladder ultrasound showing a likely benign right renal mass with some calcification. No hydronephrosis
-Concern of potential cardiorenal syndrome, on top of underlying lupus nephritis
-Currently getting hemodialysis Thursday
-Requiring midodrine support for HD
3. Atrial flutter with 2-1 conduction
-Cardiology following and patient currently on Eliquis 5 mg p.o. twice a day
-Patient is s/p MANUEL and cardioversion. He was in normal sinus rhythm after amiodarone initiation and then went back into A-fib RVR intermittently.
-Repeat attempt at cardioversion to be done today.
4. Essential hypertension
Hypotension
-on small dose toprol for simultaneous rate control
5. pulmonary fibrosis
-Continue oral prednisone 10 mg p.o. daily
-on ofev at home
6. History of lupus nephritis
Rheumatoid arthritis
-maintain on oral prednisone, dose increased to 10mg/d. got solucortef injection
-continue plaquenil
7. Iron def anemia
-Ferritin of 16, saturation 7%
-IV ferlicit given
8. Hyperkalemia
Metabolic acidosis
Euvolemic hyponatremia
-secondary to ESRD
-Potassium restricted diet
-on HD
9. Thrombocytopenia
-hematology signed off.
Per Dr Mcadams :
- Checked with and last platelet count back in early August were low as well as outpatient and now in the 50,000 range
- I discussed with his outpatient government contracts manager, Dr Meneses ([phone]) , Our own Country Printer Apprentice consulted on 10/13 per cardio request. Labs not indicative of DIC or B12 or folate deficiency as expected. HIT testing pending but less likely as well.
Most likely etiology HD or Amio or Rocephin related. In any event for now platelet count although low they have remained relatively stable and no signs of bleeding. Continue to monitor closely. Platelets up to 80,000 today which is closer to his
baseline.
10. Klebsiella UTI
-Finished course of Rocephin
11. Aspiration pneumonia
-Patient right lower lobe on x-ray showing some new infiltrate, possibly component of aspiration versus atelectasis
-Allergic to penicillin, 5-day course of Omnicef/Flagyl ordered
hypothyroidism
GERD
prostate cancer
prostatectomy 2005
gout
Code Status: DNR
DVT Prophylaxis: Eliquis
Anticipated Discharge: 24 - 48 hours
Subjective/Interval History
-
Date of Service: October 19, 2024
have some nausea/vomiting
remains in afib
no reported other issues
Objective Data
-
Labs:
Laboratory Results
10/19/24
13:01
WBC 13.3 H
Hgb 10.2 L
Hct 35.2 L
Plt Count 142 D
Sodium Pending
Potassium Pending
Chloride Pending
Carbon Dioxide Pending
BUN Pending
Creatinine Pending
Glucose Pending
Calcium Pending
Vital Signs:
Vital Signs
Temp Pulse Resp BP Pulse Ox
97.6 F 65 16 111/64 94
10/19/24 07:33 10/19/24 12:50 10/19/24 07:33 10/19/24 12:50 10/19/24 07:33
I&O
10/18/24 10/19/24 10/20/24
06:59 06:59 06:59
Intake Total 120 / 120 720 / 720
Balance 120 / 120 720 / 720
Review of Systems
-
Respiratory: Reports No Symptoms
Cardiac: Reports No Symptoms
Abdomen/GI: Reports No Symptoms
Physical Exam
-
General: Comfortable
HEENT: Negative Oxygen
Respiratory: Clear to Auscultation
Cardiac: S1/S2, Irregular Rhythm and Tachycardic; Negative Murmur or Rub
GI: Soft, Nontender and Nondistended
Musculoskeletal: No Edema
Neuro: Awake, Alert, Oriented, No Motor Deficits and Nonfocal/Grossly Intact
Psych: Calm
[2024-10-19] MEDS: FLEXBUMIN 25% FOR HEMODIALYSIS 12.5 GRAMS IV ×2 (13:50→15:30)
[2024-10-19 14:05] LABS: Blood Urea Nitrogen 79 mg/dl (9-20); Calcium 7.9 mg/dl (8.4-10.2); Carbon Dioxide 24 mmol/L (22-30); Chloride 94 mmol/L (98-107); Glucose 114 mg/dl (70-99); Potassium 5.6 mmol/L (3.5-5.1); Sodium 133 mmol/L (135-145)
[2024-10-19 14:12] LABS: Estimated Creatinine Clearance 11 ml/min; eGFR 9.54
[2024-10-19] MEDS: RETACRIT 6000 UNITS IV (14:21)
[2024-10-19 15:10] VITALS: BP 121/71
--- NOTE | 2024-10-19 15:20 | W.PN.NEPH.HD ---
Assessment
-
Tolerating dialysis tonight ultrafiltration that two leaders with a low normal blood pressure. He remains significantly total body volume overloaded yet his lungs are clear I will do extra ultrafiltration for volume removal tomorrow and then regular
treatment again on Thursday.
Progress Note - Hemodialysis
-
Date of Service: October 19, 2024
Duration: 30 minutes and 3 hours
Potassium Bath: 2
Calcium Bath: 2.5
Opti-Dialyzer: 160
Ultrafiltration: Other (2kg)
Blood Flow: 400
Dialysate Flow: 600
Heparin: no
EPO: 6000 units
[2024-10-19] MEDS: HEPARIN 4300 UNITS INTRACATH (16:52)
[2024-10-19] MEDS: OMNICEF 300 MG PO (17:46)
[2024-10-19 19:32] VITALS: BP 123/71
[2024-10-19] MEDS: NON-FORMULARY ITEM 12 INH INH (21:06)
[2024-10-19 23:11] VITALS: BP 119/68
[2024-10-20 03:00] VITALS: BP 117/62
[2024-10-20] MEDS: SYNTHROID 125 MCG PO (05:13)
[2024-10-20 06:00] VITALS: BMI 28.3
[2024-10-20 07:12] LABS: Blood Urea Nitrogen 63 mg/dl (9-20); Calcium 7.9 mg/dl (8.4-10.2); Carbon Dioxide 25 mmol/L (22-30); Chloride 95 mmol/L (98-107); Glucose 88 mg/dl (70-99); Potassium 5.1 mmol/L (3.5-5.1); Sodium 134 mmol/L (135-145)
[2024-10-20 07:36] LABS: Estimated Creatinine Clearance 13 ml/min; eGFR 11.73
[2024-10-20] MEDS: ProAmatine 7.5 MG PO ×3 (07:59→17:09)
[2024-10-20 08:00] VITALS: BP 111/68
[2024-10-20] MEDS: MANNITOL 25% 12.5 GRAMS IV ×2 (08:00→09:29)
[2024-10-20] MEDS: VITAMIN C 1000 MG PO (11:04)
[2024-10-20] MEDS: TOPROL XL 12.5 MG PO ×2 (11:05→19:59)
[2024-10-20] MEDS: OCUVITE SOFTGEL 1 CAP PO (11:05)
[2024-10-20] MEDS: PROTONIX 40 MG PO (11:05)
[2024-10-20] MEDS: FLAGYL 500 MG PO ×3 (11:05→23:01)
[2024-10-20] MEDS: DELTASONE 10 MG PO (11:05)
[2024-10-20] MEDS: PLAQUENIL 200 MG PO ×2 (11:05→19:59)
[2024-10-20] MEDS: ELIQUIS 5 MG PO ×2 (11:05→19:59)
[2024-10-20] MEDS: VITAMIN D3 (cholecalciferol) 50 MCG PO (11:06)
[2024-10-20] MEDS: OSCAL 500 + D 500 MG PO ×2 (11:06→19:59)
[2024-10-20] MEDS: PACERONE 200 MG PO ×2 (11:06→19:59)
[2024-10-20] MEDS: LYRICA 75 MG PO (11:06)
[2024-10-20] MEDS: NON-FORMULARY ITEM 1 INH INH ×3 (11:08→16:00)
[2024-10-20] MEDS: NON-FORMULARY ITEM 1 MG PO (11:09)
[2024-10-20] MEDS: NON-FORMULARY ITEM 1 PUFF INH (11:09)
[2024-10-20 11:18] VITALS: BP 121/75
--- NOTE | 2024-10-20 12:07 | W.PN.HOSP.TC ---
Today's Communication/Plan
-
Continue monitoring on telemetry
Dialysis/volume optimization per nephrology
Finish course of antibiotic
Continue discharge planning for [facility]
Assessment / Plan
Assessment / Plan
1. Acute on chronic systolic congestive heart failure
Acute hypoxic respiratory insufficiency
-Chest x-ray showing signs of cardiogenic pulmonary edema at admission
-Echocardiogram in 21 showing EF 60 to 65%, normal diastolic function. Pulmonary artery pressure of 60 mmHg
-Repeat echocardiogram showing EF of 30 to 35%, stage II diastolic dysfunction. Moderate MR. Prem pulm HTN.
-Suboptimal response with diuretic, patient started on hemodialysis for volume optimization
-Palliative care/hospice discussed and patient family not agreeable at this stage.
2. 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
ESRD on HD - new this admission
-Relatively bland urine, no significant proteinuria
-Renal and bladder ultrasound showing a likely benign right renal mass with some calcification. No hydronephrosis
-Concern of potential cardiorenal syndrome, on top of underlying lupus nephritis
-Currently getting hemodialysis Thursday
-Requiring midodrine support for HD
3. Atrial flutter with 2-1 conduction
-Cardiology following and patient currently on Eliquis 5 mg p.o. twice a day
-Patient is s/p MANUEL and cardioversion. He was in normal sinus rhythm after amiodarone initiation and then went back into A-fib RVR intermittently.
-Underwent successful cardioversion on 10/19
-Currently normal sinus rhythm, continue monitoring
4. Essential hypertension
Hypotension
-on small dose toprol for simultaneous rate control
5. pulmonary fibrosis
-Continue oral prednisone 10 mg p.o. daily
-on ofev at home
6. History of lupus nephritis
Rheumatoid arthritis
-maintain on oral prednisone, dose increased to 10mg/d. got solucortef injection at admission.
-continue plaquenil
-Patient is due to get Benlysta monthly infusion this week, asked spouse to discuss with staff accountant office to reschedule.
7. Iron def anemia
-Ferritin of 16, saturation 7%
-IV ferlicit given
8. Hyperkalemia
Metabolic acidosis
Euvolemic hyponatremia
-secondary to ESRD
-Potassium restricted diet
-on HD
9. Thrombocytopenia
-hematology signed off.
Per Dr Mcadams :
- Checked with and last platelet count back in early August were low as well as outpatient and now in the 50,000 range
- I discussed with his outpatient cloth layer, Dr Meneses ([phone]) , Our own Glass Forming Engineer consulted on 10/13 per cardio request. Labs not indicative of DIC or B12 or folate deficiency as expected. HIT testing pending but less likely as well.
Most likely etiology HD or Amio or Rocephin related. In any event for now platelet count although low they have remained relatively stable and no signs of bleeding. Continue to monitor closely. Platelets up to 80,000 today which is closer to his
baseline.
10. Klebsiella UTI
-Finished course of Rocephin
11. Aspiration pneumonia
-Patient right lower lobe on x-ray showing some new infiltrate, possibly component of aspiration versus atelectasis
-Allergic to penicillin, 5-day course of Omnicef/Flagyl ordered
hypothyroidism
GERD
prostate cancer
prostatectomy 2005
gout
Code Status: DNR
DVT Prophylaxis: Eliquis
Anticipated Discharge: > 48 hours
Subjective/Interval History
-
Date of Service: October 20, 2024
Resting comfortably in bed
No issues overnight
Objective Data
-
Labs:
Laboratory Results
10/20/24
06:19
Sodium 134 L
Potassium 5.1
Chloride 95 L
Carbon Dioxide 25
BUN 63 H
Creatinine 4.8 H*
Glucose 88
Calcium 7.9 L
Vital Signs:
Vital Signs
Temp Pulse Resp BP Pulse Ox
98.2 F 64 16 121/75 94
10/20/24 11:18 10/20/24 11:18 10/20/24 11:18 10/20/24 11:18 10/20/24 11:18
I&O
10/19/24 10/20/24 10/21/24
06:59 06:59 06:59
Intake Total 720 / 720 1200 / 1200
Balance 720 / 720 1200 / 1200
Review of Systems
-
Respiratory: Reports No Symptoms
Cardiac: Reports No Symptoms
Abdomen/GI: Reports No Symptoms
Physical Exam
-
General: Comfortable
HEENT: Negative Oxygen
Respiratory: Clear to Auscultation and Other (HD cath in place - ecchymosis around the site)
Cardiac: S1/S2, Irregular Rhythm and Tachycardic; Negative Murmur or Rub
GI: Soft, Nontender and Nondistended
Musculoskeletal: Edema, Right Lower Extrem and Edema, Left Lower Extrem
Neuro: Awake, Alert, Oriented, No Motor Deficits and Nonfocal/Grossly Intact
Psych: Calm
--- NOTE | 2024-10-20 13:03 | W.PN.CARDCBS ---
Addendum entered and electronically signed by Gurdeep Smith DO 10/20/24 16:33:
I saw and examined the patient.
The Websphere Commerce Architect's note was reviewed and I agree with the note.
Comment:
Plan:
Remains in sinus following cv yesterday, Oct 19.
Cont Amiodarone 200 mg BID
New to [facility]
Cont HD for volume control.
Discussed with at bedside.
Original Note:
Today's Communication / Plan
-
Remains in SR follow successful CV yesterday, tele reviewed by me
Cont amiodarone 200 mg BID, rhythm control is imperative for effective HD/UF
New to [facility] this admission
Impression / Plan
-
Pulmonology: [facility]
Primary Hogshead Wrecker: Dr. Dedra Crandall of [place]
Impression:
Admitted with anuria 10/04/24
ROBIN on CKD, progressing to likely ESRD, lupus nephritis
Acute HFrEF
Paroxysmal typical atrial flutter/atrial fibrillation
s/p successful MANUEL/CV 10/07/24
s/p successful CV 10/19/24
New start to chronic amiodarone therapy starting 10/08/24
Anemia
bifascicular block
pulm HTN
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
RA
mod AR by echo 2020
HTN
Hypothyroidism
GERD
Gout
History of prostate cancer s/p prostatectomy 2005
DNR code status
ECHO 2020: EF 60 to 65%, mild concentric LVH, moderate AR, mild TR, PAP 60 mmHg, mild ascending aorta dilation
Echo 10/05/2024: EF 30-35%, stage II diastolic dysfunction, dilated atria, normal RV, mild to moderate MR, mild AI, pulmonary artery pressure 51 mmHg
Plan:
-Patient loaded with amiodarone this admission and had successful MANUEL/CV 10/07/24, but recurred with Afib when amiodarone dose lowered to 200 mg daily. Amiodarone dose increased back to 200 mg BID 10/15/24. Patient has received a 6.8 gram amiodarone
load as of 10/20/24 AM.
-Patient remains in SR follow 2nd successful CV 10/19/24. Cont amiodarone 200 mg BID
-Patient is more hemodynamically stable on HD following religion of SR. Improved UF, but ongoing volume overload so plan is for additional UF 10/21/24
-New to Eliquis 5 mg BID (age 79, Cre 4.8 on HD, wt 86.89 kg) this admission. Hgb stable at 10.2.
-EF 30-35% which is newly reduced this admission. Troponin was 0.07 on admission, will manage as a nonischemic myocardial injury Troponin elevation.
-No plans for ischemic evaluation at this point. CM could be nonischemic in the setting of rapid atrial arrhythmia on admission.
-Patient should follow up with his primary oil distributor
-Plan is for rehab with HD prior to returning home with his .
PREADMIT DATA: 79-year-old male with past medical history of chronic kidney disease stage III-IV, pulmonary hypertension, interstitial lung disease with pulmonary fibrosis on home oxygen, moderate aortic regurgitation who presents to [facility] with acute on chronic renal failure and acute congestive heart failure with preserved ejection fraction. He is followed at [facility] by nephrology and cardiology and pulmonary. He takes Ofev and Tyvaso as an outpatient.
He has noticed for the past 10 days or so and elevation his heart rate in the 120s. He felt no palpitations or chest pains but then started noticing fatigue, shortness of breath and an inability to urinate. He was found to be in acute renal
failure with a creatinine of 5. His baseline creatinine is in the 2-2.5 range. On presentation found to have atrial flutter with 2-1 conduction
79-year-old complex man with ROBIN on CKD and history of lupus nephritis, now admitted with acute on chronic HFrEF related to tachycardia mediated cardiomyopathy from atrial fibrillation/flutter with rapid ventricular response
Presentation with weight gain, decreased urine output
Progress Note - Hogshead Wrecker
Subjective
Date of Service: October 20, 2024
No chest pain
Objective
Labs:
10/19/24 13:01
10/20/24 06:19
Labs
Hgb 10.2 g/dL (13.0-18.0) L 10/19/24 13:01
Hct 35.2 % (39.0-52.0) L 10/19/24 13:01
Plt Count 142 10^3/uL (130-400) D 10/19/24 13:01
PT 36.9 Sec (11.4-14.6) H 10/14/24 04:18
INR 3.70 D 10/14/24 04:18
APTT 58.4 Sec (23.4-35.0) H 10/14/24 04:18
Sodium 134 mmol/L (135-145) L 10/20/24 06:19
Potassium 5.1 mmol/L (3.5-5.1) 10/20/24 06:19
BUN 63 mg/dl (9-20) H 10/20/24 06:19
Creatinine 4.8 mg/dL (0.7-1.3) H* 10/20/24 06:19
Glucose 88 mg/dl (70-99) 10/20/24 06:19
Vital Signs and I&O:
Vital Signs
Temp Pulse Resp BP Pulse Ox
98.2 F 64 16 121/75 94
10/20/24 11:18 10/20/24 11:18 10/20/24 11:18 10/20/24 11:18 10/20/24 11:18
Vital Signs
Temp Pulse Resp BP Pulse Ox
98.2 F 64 16 121/75 94
10/20/24 11:18 10/20/24 11:18 10/20/24 11:18 10/20/24 11:18 10/20/24 11:18
Intake & Output
10/18/24 10/19/24 10/20/24 10/21/24
06:59 06:59 06:59 06:59
Intake Total 120 / 120 720 / 720 1200 / 1200
Balance 120 / 120 720 / 720 1200 / 1200
Physical Exam
Physical Exam
GEN: NAD. Awake and alert
HEENT: mmm
LUNGS: 4 L NC. No audible wheeze.
CV: SR on tele.
ABD: ND
EXT: +2-3 pitting B/L LE edema
NEURO: Gross non-focal
SKIN: No rash
--- NOTE | 2024-10-20 14:42 | W.PN.NEPH.PH ---
Today's Communication / Plan
-
completed ultrafiltration and today. Hemodialysis again tomorrow
Assessment/Plan
-
IMP;
Acute on chronic respiratory failure
decompensated heart failure exacerbation with pulmonary edema
ROBIN on CKD 3 vs 4?- lupus nephritis cr 2.2 in 2021-nephrology at [facility] Dr Davis
Hyperkalemia
Hyponatremia
Metabolic acidosis
Hyperphosphatemia
SHPTH
Anemia
ILD/PF in setting of RA/SLE--follows at [place]
KAI on CPAP
HTN
Hypothyroidism
Gout
Prostate ca, s/p prostatectomy 2005
lupus
rheumatoid arthritis
Klebsiella UTI 10/09/24
Plan:
HD tomorrow
continue to challenge weight
continuemidodrine to 7.5mg TID.
Waiting for a patient placement. His is visiting [place] today
he had extra ultrafiltration treatment today removed 2.5 L
-
-
Date of Service: October 20, 2024
CC / HPI / ROS
-
Chief Complaint:
ROBIN, CKD
History of Present Illness:
Patient now on dialysis Thursday schedule
BP stable on midodrine support
Review of Systems:
no cp
remains on nasal cannula
Labs
-
Labs:
WBC 13.3 10^3/uL (4.8-10.8) H 10/19/24 13:01
RBC 3.53 10^6/uL (4.70-6.10) L 10/19/24 13:01
Hgb 10.2 g/dL (13.0-18.0) L 10/19/24 13:01
Hct 35.2 % (39.0-52.0) L 10/19/24 13:01
Plt Count 142 10^3/uL (130-400) D 10/19/24 13:01
Sodium 134 mmol/L (135-145) L 10/20/24 06:19
Potassium 5.1 mmol/L (3.5-5.1) 10/20/24 06:19
Chloride 95 mmol/L (98-107) L 10/20/24 06:19
Carbon Dioxide 25 mmol/L (22-30) 10/20/24 06:19
BUN 63 mg/dl (9-20) H 10/20/24 06:19
Creatinine 4.8 mg/dL (0.7-1.3) H* 10/20/24 06:19
eGFR 11.73 10/20/24 06:19
Glucose 88 mg/dl (70-99) 10/20/24 06:19
Calcium 7.9 mg/dl (8.4-10.2) L 10/20/24 06:19
Phosphorus 5.1 mg/dl (2.5-4.5) H 10/05/24 11:38
Znb-S-Cfoxawlsxgt Pept > 64256 pg/ml 10/18/24 06:11
Albumin 3.2 g/dl (3.5-5.0) L 10/04/24 18:11
Physical Exam
-
Vital Signs:
Vital Signs
Temp Pulse Resp BP Pulse Ox
98.2 F 66 16 115/65 94
10/20/24 11:18 10/20/24 13:53 10/20/24 11:18 10/20/24 13:53 10/20/24 11:18
Cardiovascular:: Regular rate and rhythm
Respiratory:: Bilateral: Coarse
Lung Excursion:: Normal
Abdomen:: Nontender and Soft
Bowel Sounds:: Normal
Extremity Edema:: +2: Bilateral:
Other Findings::
edema upper leg and thighs. Lesson is lower extremity distal
--- NOTE | 2024-10-20 15:12 | CM ---
Addendum entered by ADRY Keller 10/21/24 15:45:
Correction, [facility] not clinic.
Original Note:
Met with patient's , Italia who asked if she could tour [facility] while she is waiting for a bed for patient. Placed a call and Spoke with Juli in admissions at [facility] who stated that patient can tour today, or tomorrow.
She also requested updated Hep B panel and flow sheets. reanl consult, demographics and H&P be faxed to [phone].
Will fax requested documents to number above.
Plan: Case management will continue to follow and assist with discharge planning. [facility] when dialysis bed available.
[2024-10-20 15:23] VITALS: BP 124/72
[2024-10-20] MEDS: NON-FORMULARY ITEM 12 INH INH (19:37)
[2024-10-20 19:41] VITALS: BP 132/74
[2024-10-20] MEDS: ROBITUSSIN DM 10 ML PO (20:00)
[2024-10-20 23:36] VITALS: BP 130/74
[2024-10-21] MEDS: MELATONIN 5 MG PO (00:36)
[2024-10-21 03:13] VITALS: BP 119/64
[2024-10-21 03:42] VITALS: BP 154/82
[2024-10-21] MEDS: SYNTHROID 125 MCG PO (05:36)
[2024-10-21 06:07] VITALS: BMI 28.4
[2024-10-21] MEDS: ProAmatine 7.5 MG PO ×3 (07:47→17:41)
[2024-10-21 07:55] VITALS: BP 108/53
[2024-10-21 08:04] LABS: Hematocrit 32.7 % (39.0-52.0); Hemoglobin 9.6 g/dL (13.0-18.0); Mean Corp Hgb Conc. 29.5 g/dL (33.0-37.0); Mean Corpuscular Hgb 29.1 pg (27.0-31.0); Mean Corpuscular Volume 98.5 fL (80.0-94.0); Mean Platelet Volume 13.5 fL (7.4-10.4); Platelet Count 78 10^3/uL (130-400)
[2024-10-21] MEDS: NON-FORMULARY ITEM 1 INH INH ×4 (08:09→20:56)
[2024-10-21] MEDS: NON-FORMULARY ITEM 1 PUFF INH (08:09)
[2024-10-21 08:21] LABS: Blood Urea Nitrogen 77 mg/dl (9-20); Calcium 8.4 mg/dl (8.4-10.2); Carbon Dioxide 23 mmol/L (22-30); Chloride 95 mmol/L (98-107); Glucose 106 mg/dl (70-99); Potassium 5.2 mmol/L (3.5-5.1); Sodium 133 mmol/L (135-145)
[2024-10-21 08:35] LABS: Estimated Creatinine Clearance 11 ml/min; eGFR 9.75
[2024-10-21] MEDS: MANNITOL 25% 12.5 GRAMS IV ×2 (08:46→10:21)
--- NOTE | 2024-10-21 10:47 | W.PN.NEPH.HD ---
Assessment
-
Seen on HD. no complaints. tolerated UF yesterday, VSS, access ok
await OP arrangsments
Progress Note - Hemodialysis
-
Date of Service: October 21, 2024
Duration: 45 minutes and 3 hours
Potassium Bath: 2
Calcium Bath: 2.5
Opti-Dialyzer: 160
Ultrafiltration: Other (2kg)
Blood Flow: 400
Dialysate Flow: 600
Heparin: no
EPO: no
--- NOTE | 2024-10-21 11:22 | W.PN.CARDCBS ---
Addendum entered and electronically signed by Kaushik Day MD 10/21/24 15:32:
I saw and examined the patient.
The Painter And Body Mechanic Apprentice's note was reviewed and I agree with the note.
Comment: Briefly, 79-year-old man past medical history of interstitial lung disease on home oxygen, heart failure reduced ejection fraction, new diagnosed A-fib/flutter who presented with worsening renal function and was initiated on dialysis.
Continues to have paroxysms of atrial fibrillation/atrial flutter including with dialysis this morning; however rates are relatively controlled on current medications
Would continue amiodarone and metoprolol
Eliquis for cardioembolic prophylaxis
Volume management per nephrology via HD
We will sign off, he should follow-up with his primary cardroom attendant at [facility] after discharge
Original Note:
Today's Communication / Plan
-
-had recurrent afib w/ RVR during dialysis, now back in NSR
-cont Amio 200 mg bid, Eliquis, Metoprolol
-HD for vol control
Impression / Plan
-
Pulmonology: [facility]
Primary Embalmer Apprentice: Dr. Dedra Crandall of [facility]
Impression:
Admitted with anuria 10/04/24
ROBIN on CKD, progressing to likely ESRD, lupus nephritis
Acute HFrEF
Paroxysmal typical atrial flutter/atrial fibrillation
s/p successful MANUEL/CV 10/07/24
s/p successful CV 10/19/24
back in afib 10/21/2024 11 am
New start to chronic amiodarone therapy starting 10/08/24
Anemia
bifascicular block
pulm HTN
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
RA
mod AR by echo 2020
HTN
Hypothyroidism
GERD
Gout
History of prostate cancer s/p prostatectomy 2005
DNR code status
ECHO 2020: EF 60 to 65%, mild concentric LVH, moderate AR, mild TR, PAP 60 mmHg, mild ascending aorta dilation
Echo 10/05/2024: EF 30-35%, stage II diastolic dysfunction, dilated atria, normal RV, mild to moderate MR, mild AI, pulmonary artery pressure 51 mmHg
Plan:
-Patient loaded with amiodarone this admission and had successful MANUEL/CV 10/07/24, but recurred with Afib when amiodarone dose lowered to 200 mg daily. Amiodarone dose increased back to 200 mg BID 10/15/24. Patient has received a 6.8 gram amiodarone
load as of 10/20/24 AM.
-Patient was maintaining SR following successful CV 10/19/24, but went back into afib this morning around 11am as he was finishing dialysis, HRs 100s-120s in afib. He subsequently has gone back into NSR.
-check repeat 12 lead EKG
-Cont amiodarone 200 mg BID.
-rate control with Metoprolol
-Patient is more hemodynamically stable on HD following yazidism of SR. Improved UF, but ongoing volume overload had additional UF 10/21/24
-New to Eliquis 5 mg BID (age 79, Cre 4.8 on HD, wt 86.89 kg) this admission. Hgb stable at 10.2.
-EF 30-35% which is newly reduced this admission. Troponin was 0.07 on admission, will manage as a nonischemic myocardial injury Troponin elevation.
-No plans for ischemic evaluation at this point. CM could be nonischemic in the setting of rapid atrial arrhythmia on admission.
-Patient should follow up with his primary cardroom attendant
-Plan is for rehab with HD prior to returning home with his .
PREADMIT DATA: 79-year-old male with past medical history of chronic kidney disease stage III-IV, pulmonary hypertension, interstitial lung disease with pulmonary fibrosis on home oxygen, moderate aortic regurgitation who presents to [facility] with acute on chronic renal failure and acute congestive heart failure with preserved ejection fraction. He is followed at [facility] by nephrology and cardiology and pulmonary. He takes Ofev and Tyvaso as an outpatient.
He has noticed for the past 10 days or so and elevation his heart rate in the 120s. He felt no palpitations or chest pains but then started noticing fatigue, shortness of breath and an inability to urinate. He was found to be in acute renal
failure with a creatinine of 5. His baseline creatinine is in the 2-2.5 range. On presentation found to have atrial flutter with 2-1 conduction
79-year-old complex man with ROBIN on CKD and history of lupus nephritis, now admitted with acute on chronic HFrEF related to tachycardia mediated cardiomyopathy from atrial fibrillation/flutter with rapid ventricular response
Presentation with weight gain, decreased urine output
Progress Note - Embalmer Apprentice
Subjective
Date of Service: October 21, 2024
had recurrent afib at end of dialysis but now back in NSR
Objective
Labs:
10/21/24 07:29
10/21/24 07:29
Labs
Hgb 9.6 g/dL (13.0-18.0) L 10/21/24 07:29
Hct 32.7 % (39.0-52.0) L 10/21/24 07:29
Plt Count 78 10^3/uL (130-400) L D 10/21/24 07:29
PT 36.9 Sec (11.4-14.6) H 10/14/24 04:18
INR 3.70 D 10/14/24 04:18
APTT 58.4 Sec (23.4-35.0) H 10/14/24 04:18
Sodium 133 mmol/L (135-145) L 10/21/24 07:
Potassium 5.2 mmol/L (3.5-5.1) H 10/21/24 07:29
BUN 77 mg/dl (9-20) H 10/21/24 07:29
Creatinine 5.6 mg/dL (0.7-1.3) H* 10/21/24 07:
Glucose 106 mg/dl (70-99) H 10/21/24 07:29
Vital Signs and I&O:
Vital Signs
Temp Pulse Resp BP Pulse Ox
97.8 F 61 16 108/53 92
10/21/24 07:55 10/21/24 08:10 10/21/24 08:10 10/21/24 07:55 10/21/24 08:10
Vital Signs
Temp Pulse Resp BP Pulse Ox
97.8 F 61 16 108/53 92
10/21/24 07:55 10/21/24 08:10 10/21/24 08:10 10/21/24 07:55 10/21/24 08:10
Intake & Output
10/19/24 10/20/24 10/21/24 10/22/24
06:59 06:59 06:59 06:59
Intake Total 720 / 720 1200 / 1200 1080 / 1080
Balance 720 / 720 1200 / 1200 1080 / 1080
Physical Exam
Physical Exam
GEN: No distress, awake, Ox3
HEENT: supple, anicteric, mmm
LUNGS: CTA, no wheezes/rales
CV: tachy, irreg,
ABD: soft, BS+, NT/ND
EXT:1+ LE edema
NEURO: Gross non-focal
SKIN: No rash
--- NOTE | 2024-10-21 12:51 | W.PN.PAL2 ---
Today's Communication
-
tolerating HD
awaiting SNF placement
Assessment / Plan
-
Assessment/Plan:
- tolerating HD with plans for [facility] once bed available
- BP better after cardioversion
- daughter at bedside this PM
- only complaint is trouble sleeping. Melatonon not effective. Could add low dose ativan PRN nightly or start low dose trazodone nightly.
Pain & Symptom Assessment
Cushing Symptom Scale 0=none, 10=worst
Pain: 0
Tired: 5
Objective Data
-
Objective Data:
Vital Signs
Temp Pulse Resp BP Pulse Ox
97.8 F 61 16 108/53 92
10/21/24 07:55 10/21/24 08:10 10/21/24 08:10 10/21/24 07:55 10/21/24 08:10
Laboratory Results
10/21/24 07:29
10/21/24 07:29
PT 36.9 Sec (11.4-14.6) H 10/14/24 04:18
INR 3.70 D 10/14/24 04:18
APTT 58.4 Sec (23.4-35.0) H 10/14/24 04:18
Total Protein 5.0 g/dl (6.3-8.2) L 10/04/24 18:11
Albumin 3.2 g/dl (3.5-5.0) L 10/04/24 18:11
TSH 1.16 uIU/ml (0.47-4.68) 10/05/24 11:38
Free T4 1.12 ng/dl (0.78-2.19) 10/05/24 11:38
Urine Color Yellow 10/05/24 12:10
Urine Clarity Clear (Clear) 10/05/24 12:10
Urine pH 5.0 (5.0-9.0) 10/05/24 12:10
Ur Specific Fielding 1.015 (<1.030) 10/05/24 12:10
Urine Ketones Negative (Negative) 10/05/24 12:10
Urine Bilirubin Negative (Negative) 10/05/24 12:10
Palliative Performance Scale
Palliative Performance Scale:
PPS Level Ambulation Activity & Evidence of Disease Self Care Intake Conscious Level
100% Full Normal Activity & Work; Full Intake Full
No Evidence of Disease
90% Full Normal Activity & Work; Full Normal Full
Some Evidence of Disease
80% Full Normal Activity with Effort Full Normal or Full
Some Evidence of Disease Reduced
70% Reduced Unable Normal Job/Work Full Normal or Full
Significant Disease Reduced
60% Reduced Unable Hobby/Housework Occasional Normal or Full or Confusion
Significant Disease Assistance Reduced
50% Mainly Sit/Lie Unable to do Any Work Considerable Normal or Full or Confusion
Extensive Disease Assistance Req'd Reduced
40% Mainly in Bed Unable to do Most Activity Mainly Assistance Normal or Full or Drowsy;
Extensive Disease Reduced +/- Confusion
30% Totally Bed Unable to do Any Activity Total Care Normal or Full or Drowsy;
Bound Extensive Disease Reduced +/- Confusion
20% Totally Bed Bound Unable to do Any Activity Total Care Minimal to Full or Drowsy;
Extensive Disease Sips +/- Confusion
10% Totally Bed Bound Unable to do Any Activity Total Care Mouth Care Drowsy or Coma;
Extensive Disease Only +/- Confusion
0%
PPS Score Level:
Physical Exam
-
General: Appears Chronically Ill
HEENT: Normocephalic
Respiratory: Clear to Auscultation
Cardiac: Regular Rhythm
Peripheral Vascular: Edema, Right Upper Extremity and Edema, Left Upper Extremity
GI: Soft and Nondistended
Skin: Warm
Neuro: AO x 3
Care Reviewed
Data Reviewed
Medical Tests: I reviewed
Reviewed with: Patient and Family
--- NOTE | 2024-10-21 13:12 | W.PN.HOSP.TC ---
Today's Communication/Plan
-
Finish course of antibiotic
Rate/rhythm control per cardiology
Continue ongoing dialysis/volume optimization effort
eventual SNF with dialysis capability
Assessment / Plan
Assessment / Plan
1. Acute on chronic systolic congestive heart failure
Acute hypoxic respiratory insufficiency
-Chest x-ray showing signs of cardiogenic pulmonary edema at admission
-Echocardiogram in 21 showing EF 60 to 65%, normal diastolic function. Pulmonary artery pressure of 60 mmHg
-Repeat echocardiogram showing EF of 30 to 35%, stage II diastolic dysfunction. Moderate MR. Mod pulm HTN.
-Suboptimal response with diuretic, patient started on hemodialysis for volume optimization
-Palliative care/hospice discussed and patient family not agreeable at this stage.
2. 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
ESRD on HD - new this admission
-Relatively bland urine, no significant proteinuria
-Renal and bladder ultrasound showing a likely benign right renal mass with some calcification. No hydronephrosis
-Concern of potential cardiorenal syndrome, on top of underlying lupus nephritis
-Currently getting hemodialysis Thursday
-Requiring midodrine support for HD
-Patient being planned to be discharged to SNF with dialysis capability
3. Atrial flutter with 2-1 conduction
-Cardiology following and patient currently on Eliquis 5 mg p.o. twice a day
-Patient is s/p MANUEL and cardioversion. He was in normal sinus rhythm after amiodarone initiation and then went back into A-fib RVR intermittently.
-Underwent successful cardioversion on 10/19
-Patient was hypotensive during later part of dialysis and went into A-fib again on 10/21
4. Essential hypertension
Hypotension
-on small dose toprol for simultaneous rate control
5. pulmonary fibrosis
-Continue oral prednisone 10 mg p.o. daily
-on ofev at home
6. History of lupus nephritis
Rheumatoid arthritis
-maintain on oral prednisone, dose increased to 10mg/d. got solucortef injection at admission.
-continue plaquenil
-Patient is due to get Benlysta monthly infusion this week, asked spouse to discuss with home and school visitor office to reschedule.
7. Iron def anemia
-Ferritin of 16, saturation 7%
-IV ferlicit given
8. Hyperkalemia
Metabolic acidosis
Euvolemic hyponatremia
-secondary to ESRD
-Potassium restricted diet
9. Thrombocytopenia
-hematology signed off.
Per Dr Mcadams :
- Checked with and last platelet count back in early August were low as well as outpatient and now in the 50,000 range
- I discussed with his outpatient grain trader, Dr Meneses ([phone]) , Our own Preschool Assistant Director consulted on 10/13 per cardio request. Labs not indicative of DIC or B12 or folate deficiency as expected. HIT testing pending but less likely as well.
Most likely etiology HD or Amio or Rocephin related. In any event for now platelet count although low they have remained relatively stable and no signs of bleeding. Continue to monitor closely. Platelets up to 80,000 today which is closer to his
baseline.
10. Klebsiella UTI
-Finished course of Rocephin
11. Aspiration pneumonia
-Patient right lower lobe on x-ray showing some new infiltrate, possibly component of aspiration versus atelectasis
-Allergic to penicillin, 5-day course of Omnicef/Flagyl ordered
hypothyroidism
GERD
prostate cancer
prostatectomy 2005
gout
Code Status: DNR
DVT Prophylaxis: Eliquis
Anticipated Discharge: > 48 hours
Subjective/Interval History
-
Date of Service: October 21, 2024
During morning rounds patient resting comfortably and not voicing any issues
Later in afternoon nurse reported that patient was hypotensive and went back in afib.
no symptoms reported by patientg
Objective Data
-
Labs:
Laboratory Results
10/21/24
07:29
WBC 12.0 H
Hgb 9.6 L
Hct 32.7 L
Plt Count 78 L D
Sodium 133 L
Potassium 5.2 H
Chloride 95 L
Carbon Dioxide 23
BUN 77 H
Creatinine 5.6 H*
Glucose 106 H
Calcium 8.4
Vital Signs:
Vital Signs
Temp Pulse Resp BP Pulse Ox
97.8 F 61 16 108/53 92
10/21/24 07:55 10/21/24 08:10 10/21/24 08:10 10/21/24 07:55 10/21/24 08:10
I&O
10/20/24 10/21/24 10/22/24
06:59 06:59 06:59
Intake Total 1200 / 1200 1080 / 1080
Balance 1200 / 1200 1080 / 1080
Review of Systems
-
Respiratory: Reports No Symptoms
Cardiac: Reports No Symptoms
Abdomen/GI: Reports No Symptoms
Physical Exam
-
General: Comfortable
HEENT: Oxygen (3L NC)
Respiratory: Clear to Auscultation and Other (HD cath in place - ecchymosis around the site)
Cardiac: S1/S2, Irregular Rhythm and Tachycardic; Negative Murmur or Rub
GI: Soft, Nontender and Nondistended
Musculoskeletal: Edema, Right Lower Extrem and Edema, Left Lower Extrem
Neuro: Awake, Alert, Oriented, No Motor Deficits and Nonfocal/Grossly Intact
Psych: Calm
[2024-10-21] MEDS: PROTONIX 40 MG PO (13:45)
[2024-10-21] MEDS: FLAGYL 500 MG PO ×2 (13:46→16:41)
[2024-10-21] MEDS: OCUVITE SOFTGEL 1 CAP PO (13:46)
[2024-10-21] MEDS: PACERONE 200 MG PO ×2 (13:46→21:39)
[2024-10-21] MEDS: ELIQUIS 5 MG PO ×2 (13:46→21:38)
[2024-10-21] MEDS: LYRICA 75 MG PO (13:46)
[2024-10-21] MEDS: DELTASONE 10 MG PO (13:46)
[2024-10-21] MEDS: TOPROL XL 12.5 MG PO ×2 (13:46→21:38)
[2024-10-21] MEDS: PLAQUENIL 200 MG PO ×2 (13:46→21:38)
[2024-10-21] MEDS: VITAMIN C 1000 MG PO (13:47)
[2024-10-21] MEDS: VITAMIN D3 (cholecalciferol) 50 MCG PO (13:47)
[2024-10-21] MEDS: ROCALTROL 0.25 MCG PO (13:51)
[2024-10-21] MEDS: OSCAL 500 + D 500 MG PO ×2 (13:52→21:38)
[2024-10-21] MEDS: NON-FORMULARY ITEM 1 MG PO (14:04)
--- NOTE | 2024-10-21 15:46 | CM ---
Addendum entered by ADRY Keller 10/21/24 16:42:
Received call from Charlette at [facility] who stated that patient has a chair time on Thursday at 11:30am, address: [facility] [address] [place] [address].
Placed a call to Juli at [facility] to update. She stated that she will advise staff at [facility] to figure out how they can transport. She requested updated PT notes. Will send updated referral.
Original Note:
Spoke with patient's who stated that she toured [facility] and liked it. She is agreeable to referrals being sent to, [facility] and [facility] in the event that [facility] is unable to take patient for dialysis soon. Patient's
stated that she was told by admissions at [facility] that transfer to another dialysis facility off site would be a last resort as they are hoping to get patient a bed soon.
Will make additional referrals.
Plan: Case management will continue to follow and assist with discharge planning. SNF upon bed availability.
[2024-10-21] MEDS: ROBITUSSIN DM 10 ML PO (16:41)
[2024-10-21] MEDS: OMNICEF 300 MG PO (17:41)
[2024-10-21 20:00] VITALS: BP 109/73
[2024-10-21] MEDS: MELATONIN PO ×2 (21:38→22:10)
[2024-10-21] MEDS: ATIVAN 1 MG PO (21:47)
[2024-10-21 23:28] VITALS: BP 160/76
--- NOTE | 2024-10-22 01:00 | PTCARENOTE ---
Patient maintained on 4LNC at start of shift. present at bedside - requesting to have oxygen turned down during use of CPAP - oxygen levels on 4LNC 95-97%. Will check pulse ox throughout shift to monitor oxygen levels. Call hayes at bedside.
Will monitor.
[2024-10-22] MEDS: FLAGYL 500 MG PO ×2 (01:25→08:52)
[2024-10-22] MEDS: MELATONIN 5 MG PO ×2 (01:26→21:20)
[2024-10-22] MEDS: MELATONIN PO (01:36)
[2024-10-22 03:00] VITALS: BP 117/83
[2024-10-22] MEDS: DESYREL 12.5 MG PO (04:15)
[2024-10-22 05:11] VITALS: BMI 28.8
[2024-10-22] MEDS: NON-FORMULARY ITEM 1.74 INH INH ×2 (07:30→11:19)
[2024-10-22] MEDS: NON-FORMULARY ITEM 1 PUFF INH (07:31)
[2024-10-22 08:15] VITALS: BP 104/68
[2024-10-22] MEDS: ProAmatine 7.5 MG PO ×3 (08:49→17:27)
[2024-10-22] MEDS: SYNTHROID 125 MCG PO (08:51)
[2024-10-22] MEDS: PLAQUENIL 200 MG PO ×2 (08:51→21:19)
[2024-10-22] MEDS: VITAMIN D3 (cholecalciferol) 50 MCG PO (08:51)
[2024-10-22] MEDS: OCUVITE SOFTGEL 1 CAP PO (08:51)
[2024-10-22] MEDS: LYRICA 75 MG PO (08:52)
[2024-10-22] MEDS: PACERONE 200 MG PO ×2 (08:52→21:20)
[2024-10-22] MEDS: OSCAL 500 + D 500 MG PO ×2 (08:52→21:20)
[2024-10-22] MEDS: VITAMIN C 1000 MG PO (08:52)
[2024-10-22] MEDS: TOPROL XL 12.5 MG PO ×2 (08:52→21:20)
[2024-10-22] MEDS: PROTONIX 40 MG PO (08:52)
[2024-10-22] MEDS: ELIQUIS 5 MG PO ×2 (08:52→21:20)
[2024-10-22] MEDS: DELTASONE 10 MG PO (08:53)
[2024-10-22] MEDS: ANESTHETIC LOZENGE 1 LOZENGE PO (08:55)
[2024-10-22] MEDS: NON-FORMULARY ITEM 1 MG PO (08:58)
[2024-10-22 09:31] LABS: Blood Urea Nitrogen 53 mg/dl (9-20); Calcium 8.8 mg/dl (8.4-10.2); Carbon Dioxide 28 mmol/L (22-30); Chloride 96 mmol/L (98-107); Glucose 117 mg/dl (70-99); Potassium 4.8 mmol/L (3.5-5.1); Sodium 135 mmol/L (135-145)
[2024-10-22 09:43] LABS: Estimated Creatinine Clearance 14 ml/min; eGFR 13.38
[2024-10-22 11:05] VITALS: BP 121/78
--- NOTE | 2024-10-22 11:11 | W.PN.NEPH.PH ---
Today's Communication / Plan
-
Next dialysis Thursday
Assessment/Plan
-
IMP;
Acute on chronic respiratory failure
decompensated heart failure exacerbation with pulmonary edema
ROBIN on CKD 3 vs 4?- lupus nephritis cr 2.2 in 2021-nephrology at [facility] Dr Davis
Hyperkalemia
Hyponatremia
Metabolic acidosis
Hyperphosphatemia
SHPTH
Anemia
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
KAI on CPAP
HTN
Hypothyroidism
Gout
Prostate ca, s/p prostatectomy 2005
lupus
rheumatoid arthritis
Klebsiella UTI 10/09/24
Plan:
HD Thursday
continue to challenge weight as allowed by blood pressure
continue midodrine at 7.5mg TID.
Waiting for a patient placement. And outpatient dialysis arrangements
-
-
Date of Service: October 22, 2024
CC / HPI / ROS
-
Chief Complaint:
ROBIN, CKD
History of Present Illness:
Patient now on dialysis Thursday schedule
Tolerated dialysis yesterday
BP stable on midodrine support
Review of Systems:
no cp
remains on nasal cannula
Labs
-
Labs:
WBC 12.0 10^3/uL (4.8-10.8) H 10/21/24 07:29
RBC 3.30 10^6/uL (4.70-6.10) L 10/21/24 07:29
Hgb 9.6 g/dL (13.0-18.0) L 10/21/24 07:29
Hct 32.7 % (39.0-52.0) L 10/21/24 07:29
Plt Count 78 10^3/uL (130-400) L D 10/21/24 07:29
Sodium 135 mmol/L (135-145) 10/22/24 08:22
Potassium 4.8 mmol/L (3.5-5.1) 10/22/24 08:22
Chloride 96 mmol/L (98-107) L 10/22/24 08:22
Carbon Dioxide 28 mmol/L (22-30) 10/22/24 08:22
BUN 53 mg/dl (9-20) H 10/22/24 08:22
Creatinine 4.3 mg/dL (0.7-1.3) H* 10/22/24 08:22
eGFR 13.38 10/22/24 08:22
Glucose 117 mg/dl (70-99) H 10/22/24 08:22
Calcium 8.8 mg/dl (8.4-10.2) 10/22/24 08:22
Phosphorus 5.1 mg/dl (2.5-4.5) H 10/05/24 11:38
Iif-V-Ayeyufxvvvm Pept > 60739 pg/ml 10/18/24 06:11
Albumin 3.2 g/dl (3.5-5.0) L 10/04/24 18:11
Physical Exam
-
Vital Signs:
Vital Signs
Temp Pulse Resp BP Pulse Ox
97.6 F 102 18 104/68 92
10/22/24 08:15 10/22/24 08:15 10/22/24 08:15 10/22/24 08:15 10/22/24 08:30
Cardiovascular:: Regular rate and rhythm
Respiratory:: Bilateral: Coarse
Lung Excursion:: Normal
Abdomen:: Nontender and Soft
Bowel Sounds:: Normal
Extremity Edema:: +1: Bilateral:
[2024-10-22] MEDS: ROBITUSSIN DM 10 ML PO ×3 (12:18→23:44)
--- NOTE | 2024-10-22 13:25 | W.PN.HOSP.TC ---
Today's Communication/Plan
-
Robitussin/Acapella for pulmonary tolerating
Dialysis per nephro
Finish course of antibiotic
SNF rehab once bed available
Assessment / Plan
Assessment / Plan
1. Acute on chronic systolic congestive heart failure
Acute hypoxic respiratory insufficiency
-Chest x-ray showing signs of cardiogenic pulmonary edema at admission
-Echocardiogram in 21 showing EF 60 to 65%, normal diastolic function. Pulmonary artery pressure of 60 mmHg
-Repeat echocardiogram showing EF of 30 to 35%, stage II diastolic dysfunction. Moderate MR. Mod pulm HTN.
-Suboptimal response with diuretic, patient started on hemodialysis for volume optimization
-Palliative care/hospice discussed and patient family not agreeable at this stage.
2. 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
ESRD on HD - new this admission
-Relatively bland urine, no significant proteinuria
-Renal and bladder ultrasound showing a likely benign right renal mass with some calcification. No hydronephrosis
-Concern of potential cardiorenal syndrome, on top of underlying lupus nephritis
-Currently getting hemodialysis Thursday
-Requiring midodrine support for HD
-Patient being planned to be discharged to SNF with dialysis capability
3. Atrial flutter with 2-1 conduction
-Cardiology following and patient currently on Eliquis 5 mg p.o. twice a day
-Patient is s/p MANUEL and cardioversion. He was in normal sinus rhythm after amiodarone initiation and then went back into A-fib RVR intermittently.
-Underwent successful cardioversion on 10/19
-Patient was hypotensive during later part of dialysis and went into A-fib again on 10/21
4. Essential hypertension
Hypotension
-on small dose toprol for simultaneous rate control
5. pulmonary fibrosis
-Continue oral prednisone 10 mg p.o. daily
-on ofev at home
6. History of lupus nephritis
Rheumatoid arthritis
-maintain on oral prednisone, dose increased to 10mg/d. got solucortef injection at admission.
-continue plaquenil
-Patient is due to get Benlysta monthly infusion this week, asked spouse to discuss with global chief creative officer office to reschedule.
7. Iron def anemia
-Ferritin of 16, saturation 7%
-IV ferlicit given
8. Hyperkalemia
Metabolic acidosis
Euvolemic hyponatremia
-secondary to ESRD
-Potassium restricted diet
9. Thrombocytopenia
-hematology signed off.
Per Dr Mcadams :
- Checked with and last platelet count back in early August were low as well as outpatient and now in the 50,000 range
- I discussed with his outpatient furniture detailer, Dr Meneses ([phone]) , Our own Procurement Clerk consulted on 10/13 per cardio request. Labs not indicative of DIC or B12 or folate deficiency as expected. HIT testing pending but less likely as well.
Most likely etiology HD or Amio or Rocephin related. In any event for now platelet count although low they have remained relatively stable and no signs of bleeding. Continue to monitor closely. Platelets up to 80,000 today which is closer to his
baseline.
10. Klebsiella UTI
-Finished course of Rocephin
11. Aspiration pneumonia
-Patient right lower lobe on x-ray showing some new infiltrate, possibly component of aspiration versus atelectasis
-Allergic to penicillin, 5-day course of Omnicef/Flagyl ordered
hypothyroidism
GERD
prostate cancer
prostatectomy 2005
gout
Code Status: DNR
DVT Prophylaxis: Eliquis
Anticipated Discharge: 24 - 48 hours
Subjective/Interval History
-
Date of Service: October 22, 2024
Denies of any issues
Some parotic cough with increased secretions
Objective Data
-
Labs:
Laboratory Results
10/22/24
08:22
Sodium 135
Potassium 4.8
Chloride 96 L
Carbon Dioxide 28
BUN 53 H
Creatinine 4.3 H*
Glucose 117 H
Calcium 8.8
Vital Signs:
Vital Signs
Temp Pulse Resp BP Pulse Ox
97.5 F 72 16 121/78 91
10/22/24 11:05 10/22/24 11:20 10/22/24 11:20 10/22/24 11:05 10/22/24 11:20
I&O
10/21/24 10/22/24 10/23/24
06:59 06:59 06:59
Intake Total 1080 / 1080 960 / 960
Balance 1080 / 1080 960 / 960
Review of Systems
-
Respiratory: Reports Cough
Cardiac: Reports No Symptoms
Abdomen/GI: Reports No Symptoms
Physical Exam
-
General: Comfortable
HEENT: Oxygen (3L NC)
Respiratory: Clear to Auscultation and Other (HD cath in place - ecchymosis around the site)
Cardiac: S1/S2, Irregular Rhythm and Tachycardic; Negative Murmur or Rub
GI: Soft, Nontender and Nondistended
Musculoskeletal: Edema, Right Lower Extrem and Edema, Left Lower Extrem
Neuro: Awake, Alert, Oriented, No Motor Deficits and Nonfocal/Grossly Intact
Psych: Calm
[2024-10-22 15:00] VITALS: BP 108/74
[2024-10-22] MEDS: NON-FORMULARY ITEM 12 INH INH ×2 (15:20→20:20)
[2024-10-22 19:30] VITALS: BP 111/70
[2024-10-22] MEDS: ATIVAN 1 MG PO (21:20)
[2024-10-22 23:35] VITALS: BP 116/78
[2024-10-23] MEDS: DESYREL 25 MG PO (02:21)
[2024-10-23 06:00] VITALS: BMI 27.2
[2024-10-23] MEDS: ROBITUSSIN DM PO (06:36)
[2024-10-23] MEDS: SYNTHROID 125 MCG PO (06:37)
[2024-10-23 07:08] LABS: Blood Urea Nitrogen 69 mg/dl (9-20); Calcium 8.9 mg/dl (8.4-10.2); Carbon Dioxide 25 mmol/L (22-30); Chloride 95 mmol/L (98-107); Glucose 94 mg/dl (70-99); Sodium 135 mmol/L (135-145)
[2024-10-23 07:31] LABS: Estimated Creatinine Clearance 12 ml/min; eGFR 11.44
[2024-10-23] MEDS: NON-FORMULARY ITEM 12 INH INH ×4 (08:33→19:55)
[2024-10-23] MEDS: NON-FORMULARY ITEM 1 PUFF INH (08:34)
[2024-10-23] MEDS: VITAMIN C 1000 MG PO (08:36)
[2024-10-23] MEDS: OCUVITE SOFTGEL 1 CAP PO (08:36)
[2024-10-23] MEDS: ELIQUIS 5 MG PO ×2 (08:36→22:00)
[2024-10-23] MEDS: OSCAL 500 + D 500 MG PO ×2 (08:36→22:01)
[2024-10-23] MEDS: PROTONIX 40 MG PO (08:36)
[2024-10-23] MEDS: VITAMIN D3 (cholecalciferol) 50 MCG PO (08:36)
[2024-10-23] MEDS: ROBITUSSIN DM 10 ML PO ×3 (08:36→22:22)
[2024-10-23] MEDS: LYRICA 75 MG PO (08:37)
[2024-10-23] MEDS: DELTASONE 10 MG PO (08:37)
[2024-10-23] MEDS: NON-FORMULARY ITEM 1 MG PO (08:42)
[2024-10-23] MEDS: PACERONE 200 MG PO ×2 (09:03→22:01)
[2024-10-23] MEDS: TOPROL XL PO (09:03)
[2024-10-23] MEDS: ProAmatine 7.5 MG PO ×3 (09:03→17:45)
[2024-10-23] MEDS: PLAQUENIL 200 MG PO ×2 (09:05→22:02)
[2024-10-23 11:05] VITALS: BP 100/68
[2024-10-23 12:07] VITALS: BP 103/69; PULSE 103; O2SAT 94
--- NOTE | 2024-10-23 12:35 | W.PN.NEPH.PH ---
Today's Communication / Plan
-
HD tomorrow
Assessment/Plan
-
IMP;
Acute on chronic respiratory failure
decompensated heart failure exacerbation with pulmonary edema
ROBIN on CKD 3 vs 4?- lupus nephritis cr 2.2 in 2021-nephrology at [facility] Dr Davis
Hyperkalemia
Hyponatremia
Metabolic acidosis
Hyperphosphatemia
SHPTH
Anemia
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
KAI on CPAP
HTN
Hypothyroidism
Gout
Prostate ca, s/p prostatectomy 2005
lupus
rheumatoid arthritis
Klebsiella UTI 10/09/24
Plan:
HD Thursday
continue to challenge weight as allowed by blood pressure-difficult
continue midodrine at 7.5mg TID.
Waiting for a patient placement. And outpatient dialysis arrangements
-
-
Date of Service: October 23, 2024
CC / HPI / ROS
-
Chief Complaint:
ROBIN, CKD
History of Present Illness:
Patient now on dialysis Thursday schedule
Tolerated dialysis thursday
BP stable on midodrine support
Review of Systems:
no cp
remains on nasal cannula
Labs
-
Labs:
WBC 12.0 10^3/uL (4.8-10.8) H 10/21/24 07:29
RBC 3.30 10^6/uL (4.70-6.10) L 10/21/24 07:29
Hgb 9.6 g/dL (13.0-18.0) L 10/21/24 07:29
Hct 32.7 % (39.0-52.0) L 10/21/24 07:29
Plt Count 78 10^3/uL (130-400) L D 10/21/24 07:29
Sodium 135 mmol/L (135-145) 10/23/24 05:57
Potassium 5.0 mmol/L (3.5-5.1) 10/23/24 05:57
Chloride 95 mmol/L (98-107) L 10/23/24 05:57
Carbon Dioxide 25 mmol/L (22-30) 10/23/24 05:57
BUN 69 mg/dl (9-20) H 10/23/24 05:57
Creatinine 4.9 mg/dL (0.7-1.3) H* 10/23/24 05:57
eGFR 11.44 10/23/24 05:57
Glucose 94 mg/dl (70-99) 10/23/24 05:57
Calcium 8.9 mg/dl (8.4-10.2) 10/23/24 05:57
Phosphorus 5.1 mg/dl (2.5-4.5) H 10/05/24 11:38
Kbu-B-Bkwtqcwouda Pept > 73973 pg/ml 10/18/24 06:11
Albumin 3.2 g/dl (3.5-5.0) L 10/04/24 18:11
Physical Exam
-
Vital Signs:
Vital Signs
Temp Pulse Resp BP Pulse Ox
97.3 F 91 16 100/68 95
10/23/24 11:05 10/23/24 11:24 10/23/24 11:24 10/23/24 11:05 10/23/24 11:24
Cardiovascular:: Regular rate and rhythm
Respiratory:: Bilateral: Coarse
Lung Excursion:: Normal
Abdomen:: Nontender and Soft
Bowel Sounds:: Normal
Extremity Edema:: +1: Bilateral:
--- NOTE | 2024-10-23 13:28 | W.PN.HOSP.TC ---
Today's Communication/Plan
-
d/c planning for snf rehab
Assessment / Plan
Assessment / Plan
1. Acute on chronic systolic congestive heart failure
Acute hypoxic respiratory insufficiency
-Chest x-ray showing signs of cardiogenic pulmonary edema at admission
-Echocardiogram in 21 showing EF 60 to 65%, normal diastolic function. Pulmonary artery pressure of 60 mmHg
-Repeat echocardiogram showing EF of 30 to 35%, stage II diastolic dysfunction. Moderate MR. Prem pulm HTN.
-Suboptimal response with diuretic, patient started on hemodialysis for volume optimization
-Palliative care/hospice discussed and patient family not agreeable at this stage.
2. 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
ESRD on HD - new this admission
-Relatively bland urine, no significant proteinuria
-Renal and bladder ultrasound showing a likely benign right renal mass with some calcification. No hydronephrosis
-Concern of potential cardiorenal syndrome, on top of underlying lupus nephritis
-Currently getting hemodialysis Thursday
-Requiring midodrine support for HD
-Patient being planned to be discharged to SNF with dialysis capability
3. Atrial flutter with 2-1 conduction
-Cardiology following and patient currently on Eliquis 5 mg p.o. twice a day
-Patient is s/p MANUEL and cardioversion. He was in normal sinus rhythm after amiodarone initiation and then went back into A-fib RVR intermittently.
-Underwent successful cardioversion on 10/19
-Patient was hypotensive during later part of dialysis and went into A-fib again on 10/21
4. Essential hypertension
Hypotension
-on small dose toprol for simultaneous rate control
5. pulmonary fibrosis
-Continue oral prednisone 10 mg p.o. daily
-on ofev at home
6. History of lupus nephritis
Rheumatoid arthritis
-maintain on oral prednisone, dose increased to 10mg/d. got solucortef injection at admission.
-continue plaquenil
-Patient is due to get Benlysta monthly infusion this week, asked spouse to discuss with batcher operator office to reschedule.
7. Iron def anemia
-Ferritin of 16, saturation 7%
-IV ferlicit given
8. Hyperkalemia
Metabolic acidosis
Euvolemic hyponatremia
-secondary to ESRD
-Potassium restricted diet
9. Thrombocytopenia
-hematology signed off.
Per Dr Mcadams :
- Checked with and last platelet count back in early August were low as well as outpatient and now in the 50,000 range
- I discussed with his outpatient security control assessor, Dr Meneses ([phone]) , Our own Photograph Tinter consulted on 10/13 per cardio request. Labs not indicative of DIC or B12 or folate deficiency as expected. HIT testing pending but less likely as well.
Most likely etiology HD or Amio or Rocephin related. In any event for now platelet count although low they have remained relatively stable and no signs of bleeding. Continue to monitor closely. Platelets up to 80,000 today which is closer to his
baseline.
10. Klebsiella UTI
-Finished course of Rocephin
11. Aspiration pneumonia
-Patient right lower lobe on x-ray showing some new infiltrate, possibly component of aspiration versus atelectasis
-Allergic to penicillin, 5-day course of Omnicef/Flagyl ordered
hypothyroidism
GERD
prostate cancer
prostatectomy 2005
gout
Code Status: DNR
DVT Prophylaxis: Eliquis
Anticipated Discharge: Within 24 hours
Subjective/Interval History
-
Date of Service: October 23, 2024
Patient somnolent after getting trazodone earlier in the morning around 4 AM
Able to produce more phlegm and able to clear it
No other acute events reported
Objective Data
-
Labs:
Laboratory Results
10/23/24
05:57
Sodium 135
Potassium 5.0
Chloride 95 L
Carbon Dioxide 25
BUN 69 H
Creatinine 4.9 H*
Glucose 94
Calcium 8.9
Vital Signs:
Vital Signs
Temp Pulse Resp BP Pulse Ox
97.3 F 91 16 100/68 95
10/23/24 11:05 10/23/24 11:24 10/23/24 11:24 10/23/24 11:05 10/23/24 11:24
I&O
10/22/24 10/23/24 10/24/24
06:59 06:59 06:59
Intake Total 960 / 960 1190 / 1190
Balance 960 / 960 1190 / 1190
Review of Systems
-
Unable to obtain full review of systems at this time due to: Acuity
Physical Exam
-
General: Comfortable
HEENT: Oxygen (3L NC)
Respiratory: Clear to Auscultation and Other (HD cath in place - ecchymosis around the site)
Cardiac: S1/S2, Irregular Rhythm and Tachycardic; Negative Murmur or Rub
GI: Soft and Nondistended
Musculoskeletal: Edema, Right Lower Extrem and Edema, Left Lower Extrem
Neuro: Other (Sleeping)
[2024-10-23] MEDS: TYLENOL 650 MG PO (14:05)
[2024-10-23 17:42] VITALS: BP 103/68
[2024-10-23 19:00] VITALS: BP 96/69
[2024-10-23] MEDS: TOPROL XL 12.5 MG PO (22:02)
[2024-10-23] MEDS: DESYREL PO (22:03)
[2024-10-23] MEDS: MELATONIN 5 MG PO (22:03)
[2024-10-23 23:00] VITALS: BP 103/71
[2024-10-24] VITALS (9 sets, daily range): BP systolic 84–115; BP diastolic 54–70; BMI 27.3
[2024-10-24] MEDS: DESYREL 25 MG PO (02:03)
[2024-10-24] MEDS: SYNTHROID 125 MCG PO (05:28)
[2024-10-24] MEDS: NON-FORMULARY ITEM 1 INH INH ×4 (08:28→20:16)
[2024-10-24] MEDS: NON-FORMULARY ITEM 1 PUFF INH (08:28)
--- NOTE | 2024-10-24 09:17 | W.PN.HOSP.TC ---
Today's Communication/Plan
-
Hemodialysis today.
Assessment / Plan
Assessment / Plan
Physical exam:
General: Acute on chronically ill
HEENT: Normocephalic, Atraumatic and Moist Mucous Membranes
Respiratory: Clear to Auscultation; Negative Wheezes, Rales or Rhonchi
Cardiac: Regular Rhythm and S1/S2
GI: Soft, Nontender and Nondistended
Musculoskeletal: No Clubbing, No Cyanosis. Bilateral lower extremity
Neuro: Awake, Alert and Oriented, no gross neurological deficits but generalized weakness present.
Psych: Calm
A/P:
1. Acute on chronic systolic congestive heart failure
Acute hypoxic respiratory insufficiency
-Chest x-ray showing signs of cardiogenic pulmonary edema at admission
-Echocardiogram in 21 showing EF 60 to 65%, normal diastolic function. Pulmonary artery pressure of 60 mmHg
-Repeat echocardiogram showing EF of 30 to 35%, stage II diastolic dysfunction. Moderate MR. Mod pulm HTN.
-Suboptimal response with diuretic, patient started on hemodialysis for volume optimization
-Palliative care/hospice discussed and patient family not agreeable at this stage.
2. 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
ESRD on HD - new this admission
-Relatively bland urine, no significant proteinuria
-Renal and bladder ultrasound showing a likely benign right renal mass with some calcification. No hydronephrosis
-Concern of potential cardiorenal syndrome, on top of underlying lupus nephritis
-Currently getting hemodialysis Thursday
-Requiring midodrine support for HD
-Patient being planned to be discharged to SNF with dialysis capability
3. Atrial flutter with 2-1 conduction
-Cardiology following and patient currently on Eliquis 5 mg p.o. twice a day
-Patient is s/p MANUEL and cardioversion. He was in normal sinus rhythm after amiodarone initiation and then went back into A-fib RVR intermittently.
-Underwent successful cardioversion on 10/19
-Patient was hypotensive during later part of dialysis and went into A-fib again on 10/21. Currently being monitored.
4. Essential hypertension
Hypotension
-on small dose toprol for simultaneous rate control. Remains on midodrine and uptitration per nephrology
5. pulmonary fibrosis
-Continue oral prednisone 10 mg p.o. daily
-on ofev at home
6. History of lupus nephritis
Rheumatoid arthritis
-maintain on oral prednisone, dose increased to 10mg/d. got solucortef injection at admission.
-continue plaquenil
-Patient is due to get Benlysta monthly infusion this week, asked spouse to discuss with pattern gater office to reschedule.
7. Iron def anemia
-Ferritin of 16, saturation 7%
-IV ferlicit given
8. Hyperkalemia
Metabolic acidosis
Euvolemic hyponatremia
-secondary to ESRD
-Potassium restricted diet
9. Thrombocytopenia
- Checked with and last platelet count back in early August were low as well as outpatient and now in the 50,000 range
- I discussed with his outpatient oxidized finish plater, Dr Meneses ([phone]) , Our own Filt[employer] Crusher consulted on 10/13 per cardio request. Labs not indicative of DIC or B12 or folate deficiency as expected. HIT testing negative. Most likely etiology HD
or Amio or Rocephin related. Platelets stabilized.
-hematology signed off.
-Will check platelets every so often
10. Klebsiella UTI
-Finished course of Rocephin
11. Aspiration pneumonia
-Patient right lower lobe on x-ray showing some new infiltrate, possibly component of aspiration versus atelectasis
-Allergic to penicillin, 5-day course of Omnicef/Flagyl ordered
hypothyroidism
GERD
prostate cancer
prostatectomy 2005
gout
Code Status: DNR
DVT Prophylaxis: Eliquis
Anticipated Discharge: 24 - 48 hours
Subjective/Interval History
-
Date of Service: October 24, 2024
Patient seen while getting HD. Blood pressure on the lower side. Currently in sinus rhythm today. Feels tired. No chest pain, palpitations.
Objective Data
-
Labs:
Laboratory Results
10/24/24
06:00
Sodium Pending
Potassium Pending
Chloride Pending
Carbon Dioxide Pending
BUN Pending
Creatinine Pending
Glucose Pending
Calcium Pending
Vital Signs:
Vital Signs
Temp Pulse Resp BP Pulse Ox
97.4 F 97 18 99/68 92
10/24/24 08:00 10/24/24 08:30 10/24/24 08:30 10/24/24 08:00 10/24/24 08:00
I&O
10/23/24 10/24/24 10/25/24
06:59 06:59 06:59
Intake Total 1190 / 1190 720 / 720
Balance 1190 / 1190 720 / 720
[2024-10-24] MEDS: ProAmatine 7.5 MG PO ×3 (09:37→17:30)
[2024-10-24] MEDS: PROTONIX 40 MG PO (09:38)
[2024-10-24] MEDS: ELIQUIS 5 MG PO ×2 (09:38→20:13)
[2024-10-24] MEDS: PLAQUENIL 200 MG PO ×2 (09:38→20:13)
[2024-10-24] MEDS: NON-FORMULARY ITEM 1 MG PO (09:38)
[2024-10-24] MEDS: OSCAL 500 + D 500 MG PO ×2 (09:39→20:13)
[2024-10-24] MEDS: PACERONE 200 MG PO ×2 (09:39→20:13)
[2024-10-24] MEDS: TOPROL XL PO ×2 (09:40→20:08)
[2024-10-24] MEDS: VITAMIN D3 (cholecalciferol) 50 MCG PO (09:41)
[2024-10-24] MEDS: DELTASONE 10 MG PO (09:41)
[2024-10-24] MEDS: VITAMIN C 1000 MG PO (09:41)
[2024-10-24] MEDS: OCUVITE SOFTGEL 1 CAP PO (09:45)
[2024-10-24] MEDS: ROCALTROL 0.25 MCG PO (09:45)
--- NOTE | 2024-10-24 11:35 | CM ---
Addendum entered by ADRY Keller 10/24/24 12:58:
She was made aware that patient has a chair time at dialysis ([facility] in [place]) tomorrow. She confirmed that she is aware.
Original Note:
Placed a call to Juli in admissions at [facility] who stated that she is still trying to determine when patient can be accepted (when they have a bed). Juli stated that she would explore availability and return call.
Plan: Case management will continue to follow and assist with discharge planning. SNF when available bed.
--- NOTE | 2024-10-24 13:24 | W.PN.NEPH.HD ---
Assessment
-
pt seen during HD
soft BPs on midodrine
UF as tolerates
d/c plan, pending placement to [facility] and HD at [place]
Progress Note - Hemodialysis
-
Date of Service: October 24, 2024
Duration: 30 minutes and 3 hours
Potassium Bath: 2
Calcium Bath: 2.5
Opti-Dialyzer: 160
Ultrafiltration: Other (1-2kg)
Blood Flow: 400
Dialysate Flow: 600
Heparin: no
EPO: no
[2024-10-24] MEDS: MANNITOL 25% 12.5 GRAMS IV ×2 (13:25→14:49)
[2024-10-24 14:29] LABS: Blood Urea Nitrogen 96 mg/dl (9-20); Calcium 8.9 mg/dl (8.4-10.2); Carbon Dioxide 25 mmol/L (22-30); Chloride 92 mmol/L (98-107); Glucose 86 mg/dl (70-99); Potassium 5.4 mmol/L (3.5-5.1); Sodium 132 mmol/L (135-145)
[2024-10-24 14:42] LABS: Estimated Creatinine Clearance 10 ml/min; eGFR 9.35
[2024-10-24] MEDS: HEPARIN 3500 UNITS INTRACATH (16:34)
--- NOTE | 2024-10-24 18:31 | PTCARENOTE ---
patient sleeping most of day and very tired after Dialysis. tolerated dialysis treatment. Poor po intake, but able to have him drink Nepro and some burger for dinner.turns with max assist x2, applying A and D to his sacrum to prevent skin
breakdown, vss, will continue to monitor.
[2024-10-24] MEDS: ROBITUSSIN DM 10 ML PO (20:20)
[2024-10-24] MEDS: DESYREL PO (22:41)
[2024-10-24] MEDS: MELATONIN PO (23:30)
[2024-10-25] VITALS (8 sets, daily range): BP systolic 91–114; BP diastolic 53–73; BMI 26.9
[2024-10-25] MEDS: SYNTHROID 125 MCG PO (05:19)
[2024-10-25] MEDS: ROBITUSSIN DM 10 ML PO ×2 (05:23→16:14)
[2024-10-25 07:46] LABS: % Basophils 0.1 % (0-2); % Immature Granulocytes 0.9 % (0-0.5); % Lymphocytes 2.5 % (20.5-51.1); % Monocytes 12.1 % (1.7-9.3); % Neutrophils 84.4 % (42.2-75.2); Absolute Immature Granulocytes 0.1 10^3/uL (0-0.05); Absolute Lymphocytes 0.3 10^3/uL (1.2-3.4); Absolute Monocytes 1.4 10^3/uL (0.1-0.6); Hematocrit 36.9 % (39.0-52.0); Hemoglobin 10.5 g/dL (13.0-18.0); Mean Corp Hgb Conc. 28.5 g/dL (33.0-37.0); Mean Corpuscular Volume 101.9 fL (80.0-94.0); Nucleated Red Blood Cells % 1.1 % (-); Platelet Count 65 10^3/uL (130-400); Red Blood Cell Count 3.62 10^6/uL (4.70-6.10); Red Cell Dist. Width 23.4 % (11.5-14.5); White Blood Cell Count 11.9 10^3/uL (4.8-10.8)
[2024-10-25] MEDS: NON-FORMULARY ITEM 1 INH INH ×4 (07:52→20:53)
[2024-10-25] MEDS: NON-FORMULARY ITEM 1 PUFF INH (07:53)
[2024-10-25 07:56] LABS: Blood Urea Nitrogen 68 mg/dl (9-20); Calcium 8.8 mg/dl (8.4-10.2); Carbon Dioxide 24 mmol/L (22-30); Chloride 94 mmol/L (98-107); Glucose 83 mg/dl (70-99); Potassium 5.3 mmol/L (3.5-5.1); Sodium 133 mmol/L (135-145)
[2024-10-25] MEDS: ProAmatine 7.5 MG PO ×3 (08:03→17:49)
[2024-10-25] MEDS: OCUVITE SOFTGEL 1 CAP PO (08:04)
[2024-10-25] MEDS: VITAMIN C 1000 MG PO (08:05)
[2024-10-25] MEDS: TOPROL XL 12.5 MG PO (08:05)
[2024-10-25] MEDS: PROTONIX 40 MG PO (08:06)
[2024-10-25] MEDS: PACERONE 200 MG PO ×2 (08:06→20:41)
[2024-10-25] MEDS: PLAQUENIL 200 MG PO ×2 (08:06→20:38)
[2024-10-25] MEDS: DELTASONE 10 MG PO (08:07)
[2024-10-25] MEDS: OSCAL 500 + D 500 MG PO ×2 (08:07→20:39)
[2024-10-25] MEDS: ELIQUIS 5 MG PO ×2 (08:07→20:42)
[2024-10-25] MEDS: NON-FORMULARY ITEM 150 MG PO (08:08)
[2024-10-25] MEDS: VITAMIN D3 (cholecalciferol) 50 MCG PO (08:08)
[2024-10-25 08:14] LABS: Estimated Creatinine Clearance 14 ml/min; eGFR 12.67
--- NOTE | 2024-10-25 09:48 | W.PN.HOSP.TC ---
Today's Communication/Plan
-
Discharge planning in progress
Assessment / Plan
Assessment / Plan
Physical exam:
General: Acute on chronically ill
HEENT: Normocephalic, Atraumatic and Moist Mucous Membranes
Respiratory: Clear to Auscultation; Negative Wheezes, Rales or Rhonchi
Cardiac: Regular Rhythm and S1/S2
GI: Soft, Nontender and Nondistended
Musculoskeletal: No Clubbing, No Cyanosis. Bilateral lower extremity
Neuro: Awake, Alert and Oriented, no gross neurological deficits but generalized weakness present.
Psych: Calm
A/P:
1. Acute on chronic systolic congestive heart failure
Acute hypoxic respiratory insufficiency
-Chest x-ray showing signs of cardiogenic pulmonary edema at admission
-Echocardiogram in 21 showing EF 60 to 65%, normal diastolic function. Pulmonary artery pressure of 60 mmHg
-Repeat echocardiogram showing EF of 30 to 35%, stage II diastolic dysfunction. Moderate MR. Mod pulm HTN.
-Suboptimal response with diuretic, patient started on hemodialysis for volume optimization
-Palliative care/hospice discussed and patient family not agreeable at this stage.
-Discussed with at bedside on 10/25
2. 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
ESRD on HD - new this admission
-Relatively bland urine, no significant proteinuria
-Renal and bladder ultrasound showing a likely benign right renal mass with some calcification. No hydronephrosis
-Concern of potential cardiorenal syndrome, on top of underlying lupus nephritis
-Currently getting hemodialysis Thursday
-Requiring midodrine support for HD
-Patient being planned to be discharged to SNF with dialysis capability
3. Atrial flutter with 2-1 conduction
-Cardiology following and patient currently on Eliquis 5 mg p.o. twice a day
-Patient is s/p MANUEL and cardioversion. He was in normal sinus rhythm after amiodarone initiation and then went back into A-fib RVR intermittently.
-Underwent successful cardioversion on 10/19
-Patient was hypotensive during later part of dialysis and went into A-fib again on 10/21. Currently being monitored.
4. Essential hypertension
Hypotension
-on small dose toprol for simultaneous rate control. Remains on midodrine and uptitration per nephrology
5. pulmonary fibrosis
-Continue oral prednisone 10 mg p.o. daily
-on ofev at home
6. History of lupus nephritis
Rheumatoid arthritis
-maintain on oral prednisone, dose increased to 10mg/d. got solucortef injection at admission.
-continue plaquenil
-Patient is due to get Benlysta monthly infusion this week, asked spouse to discuss with rhia office to reschedule.
7. Iron def anemia
-Ferritin of 16, saturation 7%
-IV ferlicit given
8. Hyperkalemia
Metabolic acidosis
Euvolemic hyponatremia
-secondary to ESRD
-Potassium restricted diet
9. Thrombocytopenia
- Checked with and last platelet count back in early August were low as well as outpatient and now in the 50,000 range
- I discussed with his outpatient charter bus driver, Dr Meneses ([phone]) , Our own Commercial Interior Designer consulted on 10/13 per cardio request. Labs not indicative of DIC or B12 or folate deficiency as expected. HIT testing negative. Most likely etiology HD
or Amio or Rocephin related. Platelets stabilized but low.
-hematology signed off.
-Will check platelets every so often
10. Klebsiella UTI
-Finished course of Rocephin
11. Aspiration pneumonia
-Patient right lower lobe on x-ray showing some new infiltrate, possibly component of aspiration versus atelectasis
-Allergic to penicillin, completed 5-day course of Omnicef/Flagyl
-Add Mucinex
hypothyroidism
GERD
prostate cancer
prostatectomy 2005
gout
Code Status: DNR
DVT Prophylaxis: Eliquis
Anticipated Discharge: 24 - 48 hours
Subjective/Interval History
-
Date of Service: October 25, 2024
Patient feels tired overall. Does have some sputum production. Afebrile
Objective Data
-
Labs:
Laboratory Results
10/25/24
06:51
WBC 11.9 H
Hgb 10.5 L
Hct 36.9 L
Plt Count 65 L
Sodium 133 L
Potassium 5.3 H
Chloride 94 L
Carbon Dioxide 24
BUN 68 H
Creatinine 4.5 H*
Glucose 83
Calcium 8.8
Vital Signs:
Vital Signs
Temp Pulse Resp BP Pulse Ox
97.5 F 104 18 103/63 93
10/25/24 07:15 10/25/24 08:06 10/25/24 07:15 10/25/24 08:06 10/25/24 08:01
I&O
10/24/24 10/25/24 10/26/24
06:59 06:59 06:59
Intake Total 720 / 720 500 / 500
Balance 720 / 720 500 / 500
[2024-10-25 10:41] LABS: Anisocytosis 1+; Macrocytosis 1+; Normal RBC Morphology No; Spherocytes 1+; Stomatocytes 1+
--- NOTE | 2024-10-25 12:51 | CM ---
Patient with new HD. O2 5L. PT/OT recommend skilled rehab.
Spoke with [facility]; they are able to accept the patient tomorrow. will need to bring his Tyvaso and Ofev with him to SNF- she is aware agrees. They have him setup for HD at [facility]. Informed
her of Outpatient HD Schedule. The first day of HD at [facility] will be 10/27---> Dr Hoff made aware.
Attempted to speak with patient who was sleeping.
Spoke with patient's [place]; informed patient was accepted by [facility] for tomorrow and she was pleased. She confirms she can provide the patient's supply of Tyvaso and Ofev to the SNF. Per , patient was using 3L O2 at home
and has a 10L concentrator at home. Informed [place] of outpatient HD schedule.
Spoke with Anshu Rehman; the patient is set up with [facility] 10:45am.
Plan [facility] tomorrow by ambulance, with [facility] setup.
--- NOTE | 2024-10-25 17:36 | W.PN.NEPH.PH ---
Today's Communication / Plan
-
HD tomorrow
Assessment/Plan
-
IMP;
Acute on chronic respiratory failure
decompensated heart failure exacerbation with pulmonary edema
ROBIN on CKD 3 vs 4?- lupus nephritis cr 2.2 in 2021-nephrology at [facility] Dr Davis
Hyperkalemia
Hyponatremia
Metabolic acidosis
Hyperphosphatemia
SHPTH
Anemia
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
KAI on CPAP
HTN
Hypothyroidism
Gout
Prostate ca, s/p prostatectomy 2005
lupus
rheumatoid arthritis
Klebsiella UTI 10/09/24
Plan:
HD tomorrow, then TTS at [place]
continue to challenge weight as allowed by blood pressure-difficult
continue midodrine at 7.5mg TID.
plan d/c tomorrow post HD
reviewed renal diet and FR 33 ounces/day
d/w pt and
-
-
Date of Service: October 25, 2024
CC / HPI / ROS
-
Chief Complaint:
ROBIN, CKD
History of Present Illness:
Patient now on dialysis Thursday schedule
Tolerated dialysis Thursday
BP stable on midodrine support
Review of Systems:
no cp
remains on nasal cannula-chronic
Labs
-
Labs:
WBC 11.9 10^3/uL (4.8-10.8) H 10/25/24 06:51
RBC 3.62 10^6/uL (4.70-6.10) L 10/25/24 06:51
Hgb 10.5 g/dL (13.0-18.0) L 10/25/24 06:51
Hct 36.9 % (39.0-52.0) L 10/25/24 06:51
Plt Count 65 10^3/uL (130-400) L 10/25/24 06:51
Sodium 133 mmol/L (135-145) L 10/25/24 06:51
Potassium 5.3 mmol/L (3.5-5.1) H 10/25/24 06:51
Chloride 94 mmol/L (98-107) L 10/25/24 06:51
Carbon Dioxide 24 mmol/L (22-30) 10/25/24 06:51
BUN 68 mg/dl (9-20) H 10/25/24 06:51
Creatinine 4.5 mg/dL (0.7-1.3) H* 10/25/24 06:51
eGFR 12.67 10/25/24 06:51
Glucose 83 mg/dl (70-99) 10/25/24 06:51
Calcium 8.8 mg/dl (8.4-10.2) 10/25/24 06:51
Phosphorus 5.1 mg/dl (2.5-4.5) H 10/05/24 11:38
Oys-L-Rnfcnvyxxki Pept > 74446 pg/ml 10/18/24 06:11
Albumin 3.2 g/dl (3.5-5.0) L 10/04/24 18:11
Physical Exam
-
Vital Signs:
Vital Signs
Temp Pulse Resp BP Pulse Ox
97.7 F 101 22 101/67 95
10/25/24 16:10 10/25/24 16:10 10/25/24 16:10 10/25/24 16:10 10/25/24 16:37
Cardiovascular:: Regular rate and rhythm
Respiratory:: Bilateral: CTA (decreased)
Lung Excursion:: Normal
Abdomen:: Nontender and Soft
Extremity Edema:: +2: Bilateral:
Martinez Catheter: No
[2024-10-25] MEDS: MUCINEX 600 MG PO (20:42)
[2024-10-25] MEDS: TOPROL XL PO (20:44)
[2024-10-25] MEDS: DESYREL PO (23:17)
[2024-10-25] MEDS: MELATONIN PO (23:18)
[2024-10-26 03:15] VITALS: BP 103/71
[2024-10-26] MEDS: SYNTHROID 125 MCG PO (05:11)
[2024-10-26 06:00] VITALS: BMI 27.2
[2024-10-26 07:32] VITALS: BP 104/66
[2024-10-26 07:48] LABS: Glucose - Point of Care 108 mg/dl (70-99)
[2024-10-26] MEDS: NON-FORMULARY ITEM INH ×3 (07:50→11:24)
--- NOTE | 2024-10-26 08:08 | W.PN.DEATH ---
Pronouncement of
-
Called to see patient to pronounce.
No spontaneous heart tones or respirations noted.
Patient not responsive to verbal stimuli.
Patient is pronounced .
Time of : 07:59
Date of : 10/26/24
Cause of : acute on chronic systolic CHF with ESRD now on HD
Family Notified: Yes ( at bedside)
--- NOTE | 2024-10-26 08:10 | W.PN.UPDATE ---
Update Note
Progress Note Update
called to bedside to pronounce pt. Pt was being turned and apparently went unresponsive. Pt was DNR/DNI. pronouncement completed. Dr. Mcadams notified.
--- NOTE | 2024-10-26 08:43 | W.DCSUMMARY ---
Discharge Summary
Discharge Data
Date of Admission: 10/04/24
Date of Discharge: 10/26/24
-
Pending Results: No
Hospital Course
Patient 79 years old male with complex medical history including lupus nephritis, pulmonary fibrosis, among other and he was admitted here to the hospital with progression of kidney failure and acute on chronic heart failure. Patient was diuresed
aggressively and did not respond therefore he was started on hemodialysis during this hospital stay. Patient was noted to be in shock as well. He also was in atrial fibrillation and he was cardioverted multiple times. Patient also received
antibiotics for infection. Patient was seen by multiple specialists including pulmonary, cardiology, nephrology, hematology. Patient continued to do poorly with medical treatment and hospice was consulted. Patient and family were not ready to
transition at the time of the evaluation. Patient on 10/26/2024 at 7:59 AM. Condolences given to his . Let his soul rest in peace.
Discharge duration: 32 minutes
Discharge Plan
-
Patient Disposition:
Date/Time
Date/Time: 10/26/24 07:59
Discharge Date and Time
Discharge Date/Time: 10/26/24 12:36
Print Language: KOREAN
--- NOTE | 2024-10-26 12:13 | CM ---
Spoke with RN who stated that patient this morning. Provided emotional support to family.
--- NOTE | 2024-10-26 12:57 | PTCARENOTE ---
While being cleaned and repositioned, pt became unresponsive. Rapid response called. Md notified. While awaiting arrival, pt had no pulse and stopped breathing. MD saw pt and @bedside. Pt pronounced . Postmortem care given. Family notified
and saw pt @bedside. Taken to the morgue at this time.
== END 2024-10-26 12:36 | disposition expired | DRG 673 ==
LOC: 3 WEST ACU 23:40
PROVIDERS: Hospitalist; Internal Medicine; Internal Medicine Cardiovascular Disease; Nurse Practitioner Acute Care; Nurse Practitioner Family; Nurse Practitioner Primary Care; Physician Assistant; Radiology Diagnostic Radiology; Radiology Vascular & Interventional Radiology; Specialist; ADMITTING PHYSICIAN Internal Medicine; ATTENDING PHYSICIAN Hospitalist; CONSULT PHYSICIAN Internal Medicine Cardiovascular Disease; CONSULT PHYSICIAN Internal Medicine Hospice and Palliative Medicine; EMERGENCY PHYSICIAN Emergency Medicine; FAMILY PHYSICIAN Family Medicine; OTHER PHYSICIAN Internal Medicine; OTHER PHYSICIAN Internal Medicine Hematology & Oncology
PROC: 5A1D70Z Performance of Urinary Filtration, Intermittent, Less than 6 Hours Per Day (ICD-10-PCS; 2024-10-06)
PROC: 0JH63XZ Insertion of Tunneled Vascular Access Device into Chest Subcutaneous Tissue and Fascia, Percutaneous Approach (ICD-10-PCS; 2024-10-06)
PROC: 02H633Z Insertion of Infusion Device into Right Atrium, Percutaneous Approach (ICD-10-PCS; 2024-10-06)
PROC: 5A2204Z Restoration of Cardiac Rhythm, Single (ICD-10-PCS; 2024-10-07)
PROC: B246ZZ4 Ultrasonography of Right and Left Heart, Transesophageal (ICD-10-PCS; 2024-10-07)
PROC: 02HV33Z Insertion of Infusion Device into Superior Vena Cava, Percutaneous Approach (ICD-10-PCS; 2024-10-09)
DX: N17.9 Acute kidney failure, unspecified (principal); I50.23 Acute on chronic systolic (congestive) heart failure; J96.20 Acute and chronic respiratory failure, unspecified whether with hypoxia or hypercapnia; J69.0 Pneumonitis due to inhalation of food and vomit; Z66 Do not resuscitate; Z51.5 Encounter for palliative care; E87.20 Acidosis, unspecified; E87.1 Hypo-osmolality and hyponatremia; I45.2 Bifascicular block; I47.19 Other supraventricular tachycardia; N39.0 Urinary tract infection, site not specified; I48.92 Unspecified atrial flutter; I11.0 Hypertensive heart disease with heart failure; N18.6 End stage renal disease; N25.81 Secondary hyperparathyroidism of renal origin; M81.0 Age-related osteoporosis without current pathological fracture; D63.1 Anemia in chronic kidney disease; D69.2 Other nonthrombocytopenic purpura; E03.9 Hypothyroidism, unspecified; M10.9 Gout, unspecified; M06.9 Rheumatoid arthritis, unspecified; M32.14 Glomerular disease in systemic lupus erythematosus; J84.112 Idiopathic pulmonary fibrosis; G47.33 Obstructive sleep apnea (adult) (pediatric); E87.5 Hyperkalemia; E83.39 Other disorders of phosphorus metabolism; I27.20 Pulmonary hypertension, unspecified; I08.0 Rheumatic disorders of both mitral and aortic valves; K21.9 Gastro-esophageal reflux disease without esophagitis; B96.1 Klebsiella pneumoniae [K. pneumoniae] as the cause of diseases classified elsewhere; D50.9 Iron deficiency anemia, unspecified; I95.9 Hypotension, unspecified; D69.6 Thrombocytopenia, unspecified; R57.0 Cardiogenic shock; D72.829 Elevated white blood cell count, unspecified; Z79.890 Hormone replacement therapy; Z99.81 Dependence on supplemental oxygen; Z90.79 Acquired absence of other genital organ(s); Z88.0 Allergy status to penicillin; Z85.46 Personal history of malignant neoplasm of prostate; Z79.899 Other long term (current) drug therapy; Z79.52 Long term (current) use of systemic steroids; Z79.82 Long term (current) use of aspirin
CPT/HCPCS: 36558; 71045; 71046; 76770; 76937; 77001; 80048; 80053; 81003; 81015; 82533; 82570; 82607; 82728; 82746; 82962; 83540; 83550; 83735; 83880; 84100; 84156; 84300; 84439; 84443; 84484; 85014; 85018; 85025; 85027; 85379; 85384; 85610; 85730; 86022; 86706; 87077; 87086; 87186; 87205; 87340; 93005; 93306; 93312; 93320; 93325; 94640; 96374; 97112; 97116; 97163; 97167; 97530; 97535; 99152; 99153; 99291; C1750; G0257; J2916; P9047; Q5106